=== PATIENT | female | born 1980 | race Caucasian/White ===

== ENCOUNTER 2025-01-30 12:06 | Emergency (ER) | payer MEDICAID, SELFPAY ==
--- OUTSIDE RECORDS SUMMARY | 2024-11-02 07:05 | XMS_ITS | Continuity of Care Document ---
Author Organization [facility] o Address [address] [place] [address] Phone Care Team Providers Care Perinatal Technician Name Role Phone Lucho De Souza MD Unavailable Unavailable Allergies, Adverse Reactions, Alerts Substance Reaction Status Criticality Penicillins HivesHives Active No Information Procedures Procedure Date Office/outpatient visit,day [facility] 2024 Advance Directives Directive Yes / No Effective Date File Name No Information Encounters Encounter Description Practice Location Reason(s) For Visit Diagnoses Date Provider Providers Copied on Encounter Office/outpat ient visit,[facility], [facility] [place], [address] [place], [address], [place] tel:[phone] Orion Bullock Presence of artificial knee joint, bilateral 5 Ap Yepez. [address], [place], [id number] , [place]. tel:[phone] Referring Provider: [place], [address] . tel:[phone] Family History Family Member Type Diagnosis Age At Onset Father Problem (finding) Congenital heart diseas e Mother Problem (finding) Hypertension Father Problem (finding) Family history of Hyper lipidemia Sister Problem (finding) Hypertension Sister Problem (finding) Family history of Osteo arthritis Father Problem (finding) Depression Sister Problem (finding) Family history of Hyper lipidemia Mother Problem (finding) Congenital heart diseas e Father Problem (finding) Diabetes mellitus Father Problem (finding) Hypertension Mother Problem (finding) Family history of Hyper lipidemia Payers Payer name Insurance type Covered green party ID Authoriza tion(s) [facility] Medicaid [id number] Social History Type Description Quantity Date Captured Comments Alcohol Use Details No Caffeine Use Details Unknown Tobacco Use Status Smoking Status Current every day smoker Non-Smoking Tobacco Use Details : No Details Available : No Details Available Sex Female Vital Signs Date / Time: Height Weight BMI Pulse Rate Blood Pressure Temperature Respiratory Rate Body Surface Area Head Circumference Head Circ. Percentile Wt./[place]. Percentile BMI percentile Pulse Ox Inhaled Ox 10:46 AM 65.00 in 129.274 kg (285.00 lbs) 47.4 2 kg/m eter (2) Chief Complaint And Reason For Visit No Information Reason For Referral Reason For Referral No Information History Of Present Illness Encounter Date Complaint History Of Prese nt Illness knee Functional Status Date Functional Assessmen t No Information Instructions Date Instruction Additional Infor mation No Information Assessments Type Assessment Date No Information Patient Care Teams Name Effective Dates (start - stop) Status Members No Information
--- OUTSIDE RECORDS SUMMARY | 2024-11-30 12:30 | XMS_ITS | Encounter Summary ---
Author Organization [place] [address] Care Team Providers Care Uptwister Tender Name Role Phone Kayli Kebede MD Unavailable [phone] Jerome Crolwey MD Primary Care Provider [phone] Reason for Visit * Oncology Medication Prior Authorization (Routine) - Authorization Not Needed Specialty Diagnoses / Procedures Referred By Esperanza zaman Referred To Contact Diagnoses B12 deficiency Iron malabsorption Iron deficiency anemia due to chronic blood loss Procedures [place] INJ, FOSAPREPITANT (TEVA) Farnaz Ricardo APRN [address] [place] [address] Phone: tel: fax: Farnaz Ricardo APRN [address] [place] [address] Phone: tel: fax: Referral ID Status Reason Start Date Expiration Date Visits Requested Visits Authorized [id number] Authorization Not Needed 11/15/2024 11/15/2025 1 10 Encounter Details Date Type Department Care Team (Late st Contact Info) Description 11/30/2024 12:30 PM EDT Hospital Encounter [facility] [address] [place] [address] Excused Social History Tobacco Use Types Packs/Day Years Used Date Smoking Tobacco: Every Day Cigarettes 1 28 Started: 04/02/2007 Smokeless Tobacco: Never Alcohol Use Standard Drinks/Week Comments Not Currently 0 (1 standard drink = 0.6 oz pur e alcohol) few times a year [facility] Utilities Answer Date Recorded In the past 12 months has th e electric, gas, oil, or water company threatened to shut off services in your home? No 11/29/2024 Overall Financial Resource Strain (CARDIA) Answe r Date Recorded How hard is it for you to pa y for the very basics like food, housing, medical care, and heating? Not very hard 11/29/2024 PHQ-2 Answer Date Recorded PHQ-2 Total Score 0 11/29/2024 [facility] - Occupational Stress Questionnaire Answer Date Recorded Do you feel stress - tense, restless, nervous, or anxious, or unable to sleep at night because your mind is troubled all the time - these days? Not at all 11/29/2024 Exercise Vital Sign Answer Date Recorde d On average, how many days pe r week do you engage in moderate to strenuous exercise (like a brisk walk)? 7 days 12/01/2024 On average, how many minutes do you engage in exercise at this level? 90 min 12/01/2024 Hunger Vital Sign Answer Date Recorded Within the past 12 months, y ou worried that your food would run out before you got the money to buy more. Never true 11/30/19 25 Within the past 12 months, t he food you bought just didn't last and you didn't have money to get more. Never true 11/29/2024 [facility] - Transportation Answer Date Re corded In the past 12 months, has l ack of transportation kept you from medical appointments or from getting medications? No 03/21 In the past 12 months, has l ack of transportation kept you from meetings, work, or from getting things needed for daily living? No 03/30/2021 Housing Stability Vital Sign Answer Ap e Recorded In the last 12 months, was t here a time when you were not able to pay the mortgage or rent on time? No 03/30/2021 Number of Places Lived in the Last Year Not on f ile 03/30/2021 In the last 12 months, was t here a time when you did not have a steady place to sleep or slept in a fpc (including now)? No 03/30/2021 [facility] Transportation Answer D ate Recorded In the past 12 months, has l ack of reliable transportation kept you from medical appointments, meetings, work or from getting things needed for daily living? No 11/29/2024 Sexually Active Control Partners Comments Yes Surgical Male tubal Comments No Sex and Gender Information Value Date Recorded Sex Assigned at Not on file Legal Sex Female 8:41 PM EDT Gender Identity Not on file Sexual Orientation Not on file documented as of this encounter Functional Status * Cognitive and Functional Status Question Answer Date of Assessment Author Is the person deaf or does he/she have serious difficulty hearing? No 11/30/2024 4:23 PM Jairo Fajardo RN Is the person blind or does he/she have serious difficulty seeing even when wearing glasses? No 11/30/2024 4:23 PM Jairo Fajardo RN Does this person have seriou s difficulty walking or climbing stairs? No 11/30/2024 4:23 PM Jairo Fajardo RN Does this person have difficulty dressing or bathing? No 11/30/2024 4:23 PM TARYNT Jairo Polanco RN * Is the person deaf or does he/she have serious difficulty hearing? Answer Date of Assessment Author No 11/30/2024 4:23 PM Brina Fajardo RN * Is the person blind or does he/she have serious difficulty seeing even when wearing glasses? Answer Date of Assessment Author No 11/30/2024 4:23 PM Brina Fajardo RN * Does this person have serious difficulty walking or climbing stairs? Answer Date of Assessment Author No 11/30/2024 4:23 PM Brina Fajardo RN * Does this person have difficulty dressing or bathing? Answer Date of Assessment Author No 11/30/2024 4:23 PM Brina Fajardo RN * Because of a physical, mental or emotional condition, does this person have difficulty doing errands alone such as visiting a doctor's office or shopping? Answer Date of Assessment Author No 11/30/2024 4:23 PM Brina Fajardo RN * Suicide Severity Rating Answer Date of Assessment Author No Risk 01/16/2025 6:25 PM EDT Ankita Forman * [place] Suicide Severity Rating Scale (Q shift for moderate and high) Question Answer Date of Assessment Author 1. In the past month, have y ou wished you were or wished you could go to sleep and not wake up? 0 01/16/2025 6:25 PM EDT Nicky Forman 2. In the past month, have y ou actually had any thoughts of killing yourself? (If no, skip to question 6) 0 01/16/2025 6:25 PM EDT Zoraida Forman 6. Have you ever done anythi ng, started to do anything, or prepared to do anything to end your life? 0 01/16/2025 6:25 PM EDT Ari Forman documented as of this encounter Mental Status * Cognitive and Functional Status Question Answer Entry Date Author Because of a physical, menta l or emotional condition, does this person have difficulty doing errands alone such as visiting a doctor's office or shopping? No 11/30/2024 4:23 PM EDT Jairo Polanco RN Because of a physical, menta l or emotional condition, does this person have serious difficulty concentrating, remembering or making decisions? No 11/30/2024 4:23 PM EDT Jairo Polanco RN * Because of a physical, mental or emotional condition, does this person have serious difficulty concentrating, remembering or making decisions? Answer Entry Date Author No 11/30/2024 4:23 PM EDT Brina Polanco RN documented in this encounter Plan of Treatment Upcoming Encounters Date Type Department Care Team (Late st Contact Info) Description 02/02/2025 12:45 PM EDT Office Visit [facility] [address] [place] [address] Manuel Torres MD [address] [place] [id number] 02/15/2025 2:15 PM EDT Appointment [facility] [address] [place] [address] 02/15/2025 2:30 PM EDT Appointment [facility] [address] [place] [address] Farnaz Ricardo, NONA [address] [place] [address] 02/24/2025 8:00 AM EDT Appointment [facility] [address] [place] [address] [address] [place] [address] Rajwinder Craig MD [address] [place] [address] 03/02/2025 9:30 AM EDT Office Visit [facility] [address] [address] Jose Luis Ortiz MD [address] [place] [address] [facility] [id number] 03/08/2025 11:15 AM EDT Office Visit [facility] [address] [place] [address] Lynn Mariano, VENDOR MANAGEMENT CONSULTANT [address] [place] [phone] 03/09/2025 3:30 PM EDT Office Visit [facility] [place] [address] [place] [phone] Rita Cordero MD [address] [place] [address] 10/07/2025 1:10 PM EDT Office Visit [facility] [address] [facility] [address] [place] [phone] Juan Russell MD [address] [facility] [address] [place] [address] documented as of this encounter Goals Goal Patient Goal Type Associated Problems Recent Progress Patient-Stated? Author Blood Pressure < 140/90 Blood Pressure 158/93(2024 3:43 PM EDT) No Mary Kate Lawrence CCMA Maintain a healthy diet, exercise regularly and maintain an ideal body weight General No Mary Kate Lawrence CCMA BMI (Calculated) < 30 General 48.1(01/08/20 12:45 PM EDT) No Jerome Crowley MD Stay Tobacco Free Lifestyle No Mary Kate Lawrence CCMA HEMOGLOBIN A1C < 7.0 Result Component 5.7( 12:58 PM EDT) No Jerome Crowley MD documented as of this encounter Visit Diagnoses Not on filedocumented in this encounter Care Teams Uptwister Tender Relationship Specialty Start Date End Date Jerome Crowley MD [address] [facility] [place] [phone] PCP - General Internal Medicine 08/09/24 Kayli Kebede MD [address] [id number] Consulting Physician Internal Medicine-Nephrology 05/17/22 documented as of this encounter
--- OUTSIDE RECORDS SUMMARY | 2024-12-02 13:45 | XMS_ITS | Encounter Summary ---
Author Organization [facility] Address [address] [facility]. 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 Name Role Phone Kayli Kebede MD Unavailable [phone] Jerome Crowley MD Primary Care Provider [phone] Valarie Leach RN Unavailable Unavailable Reason for Referral * Consultation (Routine) - Pending Review Specialty Diagnoses / Procedures Referred By Contren t Referred To Contact Diabetes Services Diagnoses Type 2 diabetes mellitus with stage 3a chronic kidney disease, without long-term current use of insulin (HCC) Lynn Mariano APRN [address] [address] Phone: tel: fax: Mc Senior MD [address] [place] [phone] Phone: tel: fax: Referral ID Status Reason Start Date Expiration Date V isits Requested Visits Authorized [id number] Pending Review 12/02/2024 12/02/2025 99 99 Reason for Visit * Reason Comments Hypertension Chronic Kidney Disease Vitamin D Deficiency Encounter Details Date Type Department Care Team (Late st Contact Info) Description 12/02/2024 1:45 PM EDT Office Visit [facility] Nephrology [address] [address] [place] [address] Lynn Mariano, CHILD ABUSE WORKER 47 [facility] [address] [place] [address] Stage 3a chronic kidney disease (HCC) (Primary Dx); Vitamin D deficiency; Essential hypertension; Type 2 diabetes mellitus with stage 3a chronic kidney disease, without long-term current use of insulin (HCC) Social History Tobacco Use Types Packs/Day Years Used Date Smoking Tobacco: Every Day Cigarettes 1 17.8 Started: 04/02/2007 Smokeless Tobacco: Never Tobacco Cessation:Ready to Q uit: Not Asked; Counseling Given: Not Answered Alcohol Use Standard Drinks/Week Comments Not Currently 0 (1 standard drink = 0.6 oz pur e alcohol) few times a year [facility] [email or web address] Answer Date Recorded In the past 12 months has [employer], gas, oil, or water [employer] threatened to shut off services in your home? No 11/29/2024 Overall Financial Resource Strain (CARDIA) Answe r Date Recorded How hard is it for you to pa y for the very basics like food, housing, medical care, and heating? Not very hard 11/29/2024 PHQ-2 Answer Date Recorded PHQ-2 Total Score 0 11/29/2024 [facility] [place] of Occupat ional Health - Occupational Stress [...] place to sleep or slept in a care home (including now)? No 03/30[facility]2021 [facility] IP Transportation Answer D ate Recorded In [...] on file documented as of this encounter Last Filed Vital Signs Vital Sign Reading Time Taken Comments Blood Pressure 132/78 12/02/2024 1:56 PM EDT Pulse - - Temperature 36.8 C (98.2 F) 12/02/2024 1:56 PM EDT Respiratory Rate - - Oxygen Saturation - - Inhaled Oxygen Concentration - - Weight 128.8 kg (284 lb) 12/02/2024 1:56 PM EDT Height - - Body Mass Index 47.26 11/29/2024 2:58 PM EDT documented in this encounter Functional Status * Is the person deaf or does he/she have serious difficulty hearing? Answer Date of Assessment Author No 11/30/2024 4:23 PM EDT Brina Polanco RN * Is the person blind or does he/she have serious difficulty seeing even when wearing glasses? Answer Date of Assessment Author No 11/30/2024 4:23 PM EDT Brina Polanco RN * Does this person have serious difficulty walking or climbing stairs? Answer Date of Assessment Author No 11/30/2024 4:23 PM EDT Brina Polanco RN * Does this person have difficulty dressing or bathing? Answer Date of Assessment Author No 11/30/2024 4:23 PM EDT Brina Polanco RN * Because of a physical, mental or emotional condition, does this person have difficulty doing errands alone such as visiting a doctor's office or shopping? Answer Date of Assessment Author No 11/30/2024 4:23 PM EDT Brina Polanco RN documented as of this encounter Mental Status * Because of a physical, mental or emotional condition, does this person have serious difficulty concentrating, remembering or making decisions? Answer Entry Date Author No 11/30/2024 4:23 PM EDT Brina Polanco RN documented in this encounter Progress Notes * García, Lynn Denise, CHILD ABUSE WORKER - 12/02/2024 1:45 PM EDT Images from the original note were not included. Interval History Tegan Wolf is a 44 y.o. female with Hx of CKD 3a, T2DM, HTN, HLD, Obesity ( Lost 70 lbs ), OA,+ smoker ( 1PPD). Patient Report Tegan is scheduled for a follow up appointment -she was last seen on 09/02/2024. Tegan is not doing okay. She is feeling woozy and her head feels weird and off. She reports she has pressure in her eyes. and she feels like she is going to pass out. NEG for CP, Le edema, flank pain,V/D Reports LBP and nausea SOA is chronic in nature and unchanged BP checked at 158/108 -->148/98 -->130/90-->132/78 Wt checked at 276 -->277-->284#s FBS = 94 Admit Date: 11/29/2024 Discharge Date: 11/30/2024 Acute chest pain Started on Ranexa EF 55% CT Coronary Angio: evidence of coronary artery disease but there is no conclusive evidence of flow significant high-grade stenosis with maximum stenosis identified in the LAD 40-50% and in the proximal RCA also 40-50%. Seeing Dr Ortiz next week Assessment & Plan 1.CKD Stage III-a : Cr at present 1.30-->1.13. GFR 47-->60 ml/min. ( Underlying condition: Nephrosclerosis ) It appears patient has nephrosclerosis from HTN, vascular disease. She has longstanding history of tobacco use. In addition also has type II DM with mild proteinuria in the past. She appears to have atrophic left kidney. No prior Doppler studies had been done. Her blood pressures have been persistently high. - Patient has left renal atrophy on renal ultrasound done in 2022 however, prior imaging studies showed both kidneys being smaller but equal size. She had persistently high blood pressures. She has history of tobacco use and very likely to has atherosclerotic renal disease. Renal artery doppler: The right kidney measures 11.7 cm X 4.7 cm X 6.2 cm and appears normal. Incidental note of a previously document right adrenal mass measuring 3.7 cm X 3.0 cm X 3.2 cm. * No sonographic evidence of left renal aortic stenosis or aneurysm. The left renal artery diameterappears small and tortuous. * The left renal kidney measures 7.8 cm X 3.9 cm X 3.7 cm and is reduced in size. * Spectral Doppler flow profile and velocities in the proximal celiac and superior mesenteric arteries are consistent with normal hemodynamics. - UPC 0.04 Plan: - Continue Olmesartan 40 mg once daily as of 06/08/2024 and Carvedilol 25 mg twice daily. Has Clonidine PRN but has not needed. BP seems to be better controlled now. - was prescribed lasix 40 mg daily by her PCP -- reports she weighs at home - has not lost any weight at all - swelling has resolved. No longer taking. Ok for PRN. -Continue with GLP-1 agonist, Ozempic. No objection to using SGLT2 inhibitors also.- A1c 5.5. Endocrinology referral. Having issues of hypoglycemia. -Patient has high propensity to drink sodas and other caffeinated drinks. We discussed the importance of cutting down caffeine as well as limiting her sodium intake. Changed to Sprite. -Discussed risk factor reduction, low Sodium diet close to 2 gm per day, DASH diet, avoid carbonated drinks and animal proteins. Exercise as tolerated. -Weight management-as below. -continue to monitor BP and Weights at home. Report in out of range. -Avoid any NSAIDs. If IV contrast is needed, will need pre-treatment with fluids etc. - Hematology referral for chronic leukocytosis. Son has a blood cancer but unsure which one per patient. 2. Adrenal mass, MRI noted. Stable right adrenal adenoma. Normal serum aldosterone. 3. PAPO on CPAP. 4. Type II DM with complications, followed by primary team. Renee. Humalog SSI. Referral to endocrinology. 5. Severe hypertension, as above. Coreg,Clonidine, Olmesartan, Lasix, Metolazone 6. Tobacco use, strongly counseled patient to stop smoking. She would like Chantix but will clear with cardiology first. 7. Obesity, reports having lost 70 pounds in the last 1 year. Educated on continuing to lose weightwith diet and exercise. She is also on GLP-1 agonist. 8. Bone mineral disease, PTH 36.9 -->42.20, vitamin D 35.6-->43.0 9. Hyperlipidemia, on statins, goal LDL 70. Increased Atorvastatin to 40 mg 10. Acute chest pain Started on Ranexa in ED Increased Atorvastatin to 40 mg Coreg EF 55% CT Coronary Angio: evidence of coronary artery disease but there is no conclusive evidence of flow significant high-grade stenosis with maximum stenosis identified in the LAD 40-50% and in the proximal RCA also 40-50%. Seeing Dr Ortiz next week Past Medical History: Diagnosis Date Abdominal pain Abnormal Pap smear of cervix Allergy seasonal Anemia Anxiety Arthritis Asthma Back pain CAD (coronary artery disease) CHF (congestive heart failure) ([facility]) COPD (chronic obstructive pulmonary disease) ([facility]) Coronary artery disease Depression Essential hypertension 06/22/2015 Fibromyalgia GERD (gastroesophageal reflux disease) Sleep apnea Stage 3a chronic kidney disease ([facility]) 04/24/2022 Type 2 diabetes mellitus with stage 3a chronic kidney disease, without long-term current use of insulin ([facility]) 08/09/2022 Past Surgical History: Past Surgical History: Procedure Laterality Date ABDOMEN SURGERY ARTHROCENTESIS CHOLECYSTECTOMY CYST REMOVAL from neck JOINT REPLACEMENT 09-01-23 and 10-12-24 Tkr KNEE SURGERY NECK SURGERY mass removed PELVIC LAPAROSCOPY davinci robotic TONSILLECTOMY TUBAL LIGATION Allergies: Allergies Allergen Reactions Macrolide Antibiotics Rash Penicillins Rash Medications: Current Outpatient Medications Medication acetaminophen 325 mg Oral Tab albuterol (PROAIR HFA) 90 mcg/actuation Inhl HFA Aerosol Inhaler albuterol (PROVENTIL) 2.5 mg /3 mL (0.083 %) Inhl Solution for Nebulization aspirin 81 mg Oral Tablet, Chewable atorvastatin (LIPITOR) 20 mg Oral Tablet Blood-Glucose Meter [facility] Kit Blood-Glucose Meter [facility] lvhravvxhe-afftrigy-cfnzlnzbgc (BREZTRI AEROSPHERE) 160-9-4.8 mcg/actuation Inhl HFA Aerosol Inhaler busPIRone (BUSPAR) 10 mg Oral Tablet carvediloL (COREG) 25 mg Oral Tablet cloNIDine (CATAPRES) 0.1 mg Oral Tablet diclofenac (VOLTAREN) 1 % Top Gel docusate sodium (COLACE) 100 mg Oral Capsule DULoxetine (CYMBALTA) 60 mg Oral Capsule, Delayed Release(E.C.) ergocalciferol (DRISDOL) 1,250 mcg (50,000 unit) Oral Capsule FARXIGA 10 mg Oral Tablet ferrous sulfate 325 mg (65 mg iron) Oral Tablet, Delayed Release (E.C.) fluconazole (DIFLUCAN) 100 mg Oral Tablet fluticasone propion-salmeteroL (ADVAIR DISKUS) 500-50 mcg/dose Inhl Disk with Device fluticasone propionate (FLONASE) 50 mcg/actuation Nasl [place], Suspension fUROsemide (LASIX) 40 mg Oral Tablet gabapentin (NEURONTIN) 600 mg Oral Tablet hydrOXYzine (ATARAX) 25 mg Oral Tablet insulin lispro (HUMALOG) 100 unit/mL SubQ Insulin Pen Insulin [place], Disposable, (LIA PEN NEEDLE) 32 gauge x 5/32 [facility] Needle lancets (ONETOUCH DELICA PLUS LANCET) 33 gauge [facility] Lancets [facility] montelukast (SINGULAIR) 10 mg Oral Tablet Nebulizer Accessories (ALL FLOW 4000 KIT) [facility] nitroGLYCERIN (NITROSTAT) 0.4 mg SL Tablet, Sublingual olmesartan (BENICAR) 40 mg Oral Tablet omeprazole (PRILOSEC) 40 mg Oral Capsule, Delayed Release(E.C.) ondansetron (ZOFRAN-ODT) 4 mg Oral Tablet, Rapid Dissolve ranolazine (RANEXA) 500 mg Oral Tablet Sustained Release 12 hr semaglutide 2 mg/dose (8 mg/3 mL) SubQ Pen Injector tiZANidine (ZANAFLEX) 4 mg Oral Tablet traMADoL (ULTRAM) 50 mg Oral Tablet No current facility-administered medications for this visit. Social History: Social History Tobacco Use Smoking status: Every Day Current packs/day: 1.00 Average packs/day: 1 pack/day for 17.7 years (17.7 ttl pk-yrs) Types: Cigarettes Start date: 04/02/2007 Smokeless tobacco: Never Vaping Use Vaping status: Never Used Substance Use Topics Alcohol use: Not Currently Comment: few times a year Drug use: No Family History: Family History Problem Relation Age of Onset Hypertension Mother Heart Disease Mother 53 Early Mother High Blood Pressure Mother Miscarriages / Stillbirths Mother Hypertension Father Asthma Father Heart Disease Father High Blood Pressure Father Mental Illness Father Depression Father Substance Abuse Father from an overdose of heroin Colon Cancer Father Cancer Father Diabetes Sister No Known Problems Daughter Breast Cancer Paternal Aunt Lung Cancer Paternal Grandmother Heart Disease Paternal Grandfather No Known Problems Son Mental Illness Sister Breast Cancer Paternal Aunt Pertinent Labs: CBC: Lab Results Component Value Date WBC 10.1 11/30/2024 WBC 13.3 (H) 10/02/2016 RBC 4.65 11/30/2024 RBC 4.29 10/02/2016 HGB 14.7 11/30/2024 HGB 14.0 10/02/2016 HCT 46.2 (H) 11/30/2024 HCT 42.1 10/02/2016 MCV 99.4 11/30/2024 MCV 98.1 10/02/2016 MCHC 31.8 11/30/2024 MCHC 33.3 10/02/2016 RDW 13.6 11/30/2024 RDW 13.9 10/02/2016 PLT 189 11/30/2024 PLT 208 10/02/2016 MPV 11.5 11/30/2024 MPV 10.1 10/02/2016 BMP: Lab Results Component Value Date NA 140 11/30/2024 NA 140 04/18/2023 K 4.5 11/30/2024 K 4.3 04/18/2023 CL 106 11/30/2024 CL 106 04/18/2023 CO2 26 11/30/2024 CO2 22 04/18/2023 BUN 11 11/30/2024 BUN 15 10/02/2016 CREATININE 1.13 11/30/2024 CREATININE 1.3 (A) 04/18/2023 CALCIUM 8.9 11/30/2024 CALCIUM 9.10 04/18/2023 GFRAFRAM 95 03/07/2021 GFRAFRAM >60 10/02/2016 GFRNONAFRAM 82 03/07/2021 GFRNONAFRAM >60 10/02/2016 GLU 111 (H) 11/30/2024 GLU 87 10/02/2016 Review of Systems: 12 point ROS done and negative except listed above Physical Exam: Patient is Alert and oriented x3 HEENT, PEERL Chest clear to auscultation bilaterally S1S2 normal Abdomen is soft and NT Ext: Edema no Patient Active Problem List Diagnosis Degenerative disc disease, lumbar History of asthma Essential hypertension Migraine without aura and without status migrainosus, not intractable Spondylolisthesis PAPO (obstructive sleep apnea) Family history of colon cancer Moderate persistent asthma without complication Stage 3a chronic kidney disease (HCC) Iron deficiency Type 2 diabetes mellitus with stage 3a chronic kidney disease, without long-term current use of insulin (HCC) Coronary artery disease involving [place] coronary artery of [place] heart with angina pectoris Primary osteoarthritis of right knee History of bilateral knee replacement Otalgia, bilateral Abnormal auditory perception of both ears Sensorineural hearing loss, bilateral Iron deficiency anemia due to chronic blood loss Iron malabsorption B12 deficiency Acute chest pain Dizziness Generalized anxiety disorder Return to CKD Clinic in 3 months with labs. Labs to be drawn few days prior to the visit. Thank You for letting me participate in your patient care. Please do not hesitate to call me if anyquestions ( office phone [phone] ). Lynn Mariano APRN Nephrology Seen in collaboration with Dr. Marycruz Britt MD documented in this encounter Miscellaneous Notes * Patient Instructions - Yoko Apple RMA - 12/02/2024 1:45 PM EDT 2 Gram Sodium Diet, Low Sodium A 2 gram sodium diet restricts the amount of sodium in the diet to no more than 2 grams or 2000 milligrams (mg) daily. Limiting the amount of sodium is often used to help lower blood pressure, and important for heart failure, liver and kidney problems. Many foods contain sodium for flavor and sometimes as a preservative. So when the amount of sodium in a diet needs to be low, it's important to know what to look for when choosing foods and drinks. It may take some time to get used to making somedietary changes. The following includes some information and guidelines to help make it easier for you to adapt to a lower sodium diet. QUICK TIPS ?? Do not add salt to food. ?? Avoid convenience items and fast food which are often high in sodium. ?? Choose unsalted snack foods. ?? Buy lower sodium products often labeled as lower sodium or no salt added . ?? Check food labels to learn how much sodium is in one serving. ?? When eating at a restaurant, ask that your food be prepared with less salt, or none if possible. READING FOOD LABELS FOR SODIUM INFORMATION The Nutrition Facts panel is a good place to find how much sodium is in foods. Look for products with no more than 500-600 mg/meal and no more than 150 mg salt/serving. Remember that 2 g = 2000 mg. The food label may also list foods as: ?? Sodium-free: Less than five mg in a serving. ?? Very low sodium: 35 mg or less in a serving. ?? Low-sodium: 140 mg or less in a serving. ?? Light in sodium: 50 percent less sodium in a serving. ?? For example, if a food that usually has 300 mg of sodium is changed to become light in sodium, it will have 150 mg of sodium. ?? Reduced sodium: 25 percent less sodium in a serving. For example, if a food that usually has 400mg of sodium is changed to reduced sodium; it will have 300 mg of sodium. CHOOSING FOODS AVOID CHOOSE Grains: Salted crackers and snack items Some cereals, including instant hot cereals Bread stuffing and biscuit mixes. Seasoned rice or pasta mixes Grains: Unsalted snack items Low sodium cereals, oats, puffed wheat and rice, shredded wheat Mexican muffins and bread Pasta Meats: Salted, canned, smoked, spiced, pickled meats including fish and poultry. [place], ham, sausage, cold cuts, hot dogs, anchovies. Meats: Low sodium canned tuna and salmon. Fresh or frozen meat, poultry and fish. Dairy: Processed cheese and spreads Cottage cheese Buttermilk and condensed milk Regular cheese Dairy: Milk Low sodium cottage cheese Yogurt Sour cream Low sodium cheese Fruits and Vegetables: Regular canned vegetables Regular canned tomato sauce and paste Frozen vegetables in sauces Olives Pickles Relishes Sauerkraut Fruits and Vegetables: Low sodium canned vegetables Low sodium tomato sauce and paste Frozen or fresh vegetables Fresh and frozen fruit Condiments: Canned and packaged gravies Worcestershire sauce Tartar sauce Barbecue sauce Soy sauce Steak sauce Ketchup Onion, garlic and table salt Meat flavorings and tenderizers Condiments: Fresh and dried herbs and spices. Low sodium varieties of mustard and ketchup. Lemon juice Tabasco sauce Horseradish SAMPLE 2 GRAM SODIUM MEAL PLAN Meal Foods Sodium (mg) Breakfast 1 cup low fat milk 2 slices whole wheat toast 1 Tablespoon heart healthy tub margarine 1 hardboiled egg 1 small orange 143 270 153 139 0 Lunch 1 cup raw carrots ?? cup hummus 1 cup low fat milk ?? cup red grapes 1 whole wheat tiarra bread 76 298 143 2 356 Dinner 1 cup whole wheat pasta 1 cup low sodium tomato sauce 3 oz lean ground beef 1 small side salad (1 cup raw spinach leaves, ?? cup cucumber, ?? cup yellow lainez pepper) with 1 tsp olive oil and 1 tsp red wine vinegar 2 73 57 25 Snack 1 container low fat vanilla yogurt 3 radha cracker squares 107 127 Nutrient Analysis Calories: 2032 Protein: 77g Carbohydrate: 282g Fat: 72g Sodium: 1971mg documented in this encounter Plan of Treatment Upcoming Encounters Date Type Department Care Team (Late st Contact Info) Description 02/02/2025 12:45 PM EDT Office Visit [facility] [address] [place] [address] Manuel Torers MD [address] [place] [address] 02/15/2025 2:15 PM EDT Appointment [facility] Cancer Care [facility] [address] [place] [address] 02/15/2025 2:30 PM EDT Appointment [facility] [address] [place] [address] Farnaz Ricardo, CHILD ABUSE WORKER [address] [facility] [address] 02/24/2025 8:00 AM EDT Appointment [facility] [address] [place] [address] [address] [place] [address] Rajwinder Craig MD [address] [place] [address] 03/02/2025 9:30 AM EDT Office Visit [facility] [address] [address] Jose Luis Ortiz MD [address] [place] [address] [facility] [place] [id number] 03/08/2025 11:15 AM EDT Office Visit [facility] Nephrology [place] [address] [place] [address] Lynn Mariano, CHILD ABUSE WORKER [address] [place] [address] 03/09/2025 3:30 PM EDT Office Visit [facility] [place] [address] [facility] [address] [place] [id number] Rita Cordero MD [address] [place] [address] 10/07/2025 1:10 PM EDT Office Visit [facility] [address] [facility] [address] [place] [address] Juan Russell MD [address] [facility] [address] [place] [address] Scheduled Referrals Name Type Priority Associated Diagnoses Order Schedule AMB REFERRAL TO ENDOCRINOLOGY Outpatient Referral Routine Type 2 diabetes mellitus with stage 3a chronic kidney disease, without long-term current use of insulin (HCC) Ordered: 12/02/2024 documented as of this encounter Goals Goal [...] Crowley MD documented as of this encounter Results * (ABNORMAL) URINALYSIS (12/21/2024 2:26 PM EDT) UA Color Yellow 12/21/2024 7:50 PM EDT [facility] UA Appear Clear Clear 12/21/2024 7:50 PM EDT [facility] UA Glucose 4+ (>1000mg/dL) (A) Negative mg/dL 12/21/2024 7:50 PM EDT [facility] UA Ketones Negative Negative mg/dL 12/21/2024 7:50 PM EDT [facility]A Blood Negative Negative 12/21/2024 7:50 PM EDT [facility] UA pH 6.0 5.0 - 8.0 pH 12/21/2024 7:50 PM EDT [facility]A Protein Negative Negative mg/dL 12/21/2024 7:50 PM EDT [facility]A Urobilinogen Normal <=1 mg/dL 7:50 PM EDT [facility] Bili Negative Negative 12/21/2024 7:50 PM EDT [facility] UA Nitrite Negative Negative 12/21/2024 7:50 PM EDT [facility] UA Leuk Est Negative Negative 12/21/2024 7:50 PM EDT [facility] UA Spec Grav 1.028 1.001 - 1.035 no units 12/21/2024 7:50 PM EDT [facility] Comment:Reference range ely d for random specimens only. Urine STRUCTURE OF URINARY TRACT PROPER / Unknown 12/21/2024 2:26 PM EDT 12/21/2024 2:33 PM EDT Lynn Mariano CHILD ABUSE WORKER URINE ORDERABLES Final Re sult Performing Organization Address [facility]/ZIP Co de Phone Number [facility], [address] , [place] [address] * PROTEIN/CREATININE RATIO URINE (12/21/2024 2:26 PM EDT) Urine Protein 12.2 mg/dL 12/21/2024 8:56 PM EDT [facility] Urine Creatinine 135.0 mg/dL 12/21/2024 8:56 PM EDT [facility] Ur Protein/Creat 0.09 mg/mg 12/21/2024 8:56 PM EDT [facility] Urine STRUCTURE OF URINARY TRACT PROPER / Unknown 12/21/2024 2:26 PM EDT 12/21/2024 2:33 PM EDT Lynn Mariano CHILD ABUSE WORKER URINE ORDERABLES Final Re sult Performing Organization Address [facility]/ZIP Co de Phone Number [facility] [address] [place] [address] [facility] [address] [place] [id number] * PARATHYROID HORMONE INTACT (12/21/2024 1:38 PM EDT) PTH Intact 27.20 15.00 - 65.00 pg/mL 12/21/2024 9:03 PM EDT [facility] Blood VENOUS BLOOD / Unknown Venipuncture / Unknown 12/21/2024 1:38 PM EDT 12/21/2024 1:44 PM EDT [facility] - 12/21/2024 9:03 PM EDT Intact PTH Calcium Interpretation ------- 15 - 65 8.6 - 10.2 Normal > 65 > 10.2 Primary Hyperparathyroidism < 20 > 10.2 Non-Parathyroid hypercalcemia < 15 < 8.6 Hypoparathyroidism Consider the above as guidelines only. PTH results should be interpreted in conjunction with the total or ionized calcium level. The finding of a persistently high-normal calcium accompanied by a high-normal PTH (or a low-normal calcium accompanied by a low-normal PTH) warrants further investigation. Although the PTH may itself be within normal limits, it may be inappropriately high (or low) relative to the circulating calcium level. Ingestion of julio doses of biotin (>5 mg/day) taken within 8 hours of drawing blood sample can interfere with this immunoassay test. us Lynn Mariano CHILD ABUSE WORKER CHEMISTRY ORDERABLES Elizabeth castano Result [facility] [employer] [address] , [place] [address] * VITAMIN D, 1,25-DIHYDROXY -REF LAB (12/21/2024 1:38 PM EDT) Pathologist [facility] Vit D 1,25 53.0 19.9 - 79.3 pg/mL 12/23/2024 11:27 AM EDT [employer] [employer] Comment: INTERPRETIVE INFORMATION: Vitamin D, 1,25-Dihydroxy This test is primarily indicated during patient evaluation for hypercalcemia and renal failure. A normal result does not rule out Vitamin D deficiency. The recommended test for diagnosing Vitamin D deficiency is Vitamin D 25-hydroxy. Performed By: [facility] [address] [place] [id number] [employer] Inside: Patric Aranda MD, PhD CLIA Number: [id number] Blood VENOUS BLOOD / Unknown Venipuncture / Unknown 12/21/2024 1:38 PM EDT 12/21/2024 1:44 PM EDT Lynn Mariano APRN CHEMISTRY ORDERABLES Elizabeth l Result [employer], [email or web address] [address] [place] [address] * VITAMIN D 25 HYDROXY (12/21/2024 1:38 PM EDT) Pathologist [facility] Vit D 25 [place] 43.9 30.0 - 150.0 ng/mL 12/21/2024 10:12 PM EDT [facility] [employer] Comment: Preferred: >= 30 ng/mL Insufficient: 21-29 ng/mL Deficient <= 20 ng/mL Possible Toxicity: >150 ng/mL Samples should not be taken from patients receiving therapy with high biotin doses (i.e. > 5 mg/day) until at least 8 hours following the last biotin administration. Blood VENOUS BLOOD / Unknown Venipuncture / Unknown 12/21/2024 1:38 PM EDT 12/21/2024 1:44 PM EDT Lynn Mariano APRN CHEMISTRY ORDERABLES Elizabeth l Result Performing Organization Address City/[facility]/ZIP Co de Phone Number [facility] [employer] [address] [facility] , [place] [address] * MAGNESIUM LEVEL (12/21/2024 1:38 PM EDT) [facility] Magnesium 2.0 1.6 - 2.4 mg/dL 12/21/2024 2:00 PM EDT [facility] Blood VENOUS BLOOD / Unknown Venipuncture / Unknown 12/21/2024 1:38 PM EDT 12/21/2024 1:44 PM EDT Lynn Mariano APRN CHEMISTRY ORDERABLES Elizabeth l Result [facility] [address] [place] [address] * PHOSPHORUS LEVEL (12/21/2024 1:38 PM EDT) Phosphorus 4.4 2.5 - 4.5 mg/dL 12/21/2024 2:00 PM EDT [facility] Blood VENOUS BLOOD / Unknown Venipuncture / Unknown 12/21/2024 1:38 PM EDT 12/21/2024 1:44 PM EDT Lynn Mariano CHILD ABUSE WORKER CHEMISTRY ORDERABLES Elizabeth l Result [facility] [address] [place] [address] * URIC ACID (12/21/2024 1:38 PM EDT) Uric Acid 4.2 2.4 - 5.7 mg/dL 12/21/2024 2:00 PM EDT [facility] Blood VENOUS BLOOD / Unknown Venipuncture / Unknown 12/21/2024 1:38 PM EDT 12/21/2024 1:44 PM EDT Lynn Mariano CHILD ABUSE WORKER CHEMISTRY ORDERABLES Elizabeth l Result [facility] [address] [place] [address] * (ABNORMAL) CBC (12/21/2024 1:38 PM EDT) WBC 16.4(H) 3.7 - 10.3 x10(3)/mcL 12/21/2024 1:48 PM EDT [facility] RBC 4.81 3.90 - 5.20 x10(6)/mcL 12/21/2024 1:48 PM EDT [facility] Hgb 15.0 11.2 - 15.7 g/dL 12/21/2024 1:48 PM EDT [facility] Hct 47.6(H) 34.0 - 45.0 % 12/21/2024 1:48 PM EDT [facility] MCV 99.0 80.0 - 100.0 fL 12/21/2024 1:48 PM EDT [facility] MCH 31.2 26.0 - 34.0 pg 12/21/2024 1:48 PM EDT [facility] MCHC 31.5 30.7 - 35.5 g/dL 12/21/2024 1:48 PM EDT [facility] RDW 14.3 <=14.9 % 12/21/2024 1:48 PM EDT [facility] Platelet 234 155 - 369 x10(3)/mcL 12/21/2024 1:48 PM EDT [facility] MPV 10.7 8.8 - 12.5 fL 12/21/2024 1:48 PM EDT [facility] Blood VENOUS BLOOD / Unknown Venipuncture / Unknown 12/21/2024 1:38 PM EDT 12/21/2024 1:44 PM EDT us Lynn Mariano CHILD ABUSE WORKER HEMATOLOGY ORDERABLES Fin al Result [facility] [address] [place] [address] * (ABNORMAL) BASIC METABOLIC PANEL (12/21/2024 1:38 PM EDT) Sodium 139 136 - 145 mmol/L 12/21/2024 2:00 PM EDT [facility] Potassium 3.8 3.5 - 5.0 mmol/L 12/21/2024 2:00 PM EDT [facility] Chloride 100 98 - 107 mmol/L 12/21/2024 2:00 PM EDT [facility] Total CO2 27 22 - 29 mmol/L 12/21/2024 2:00 PM EDT [facility] Anion Gap 12 7 - 16 mmol/L 12/21/2024 2:00 PM EDT [facility] Calcium 9.0 8.6 - 10.4 mg/dL 12/21/2024 2:00 PM EDT [facility] Glucose Lvl 112(H) 70 - 99 mg/dL 12/21/2024 2:00 PM EDT [facility] BUN 18 6 - 20 mg/dL 12/21/2024 2:00 PM EDT [facility] Creatinine 1.25 0.51 - 1.30 mg/dL 12/21/2024 2:00 PM EDT [facility] eGFR (CKD-EPIcr 2020) 54(L) >=60 mL/min/1.7 3 m2 12/21/2024 2:00 PM EDT [facility] Comment:Estimated GFR was ca lculated using the CKD-EPIcr (2020) equation refit without race. The equation is recommended by the [employer] - [employer] Neph[employer] Task Force. Blood VENOUS BLOOD / Unknown Venipuncture / Unknown 12/21/2024 1:38 PM EDT 12/21/2024 1:44 PM EDT us Lynn Mariano CHILD ABUSE WORKER CHEMISTRY ORDERABLES Elizabeth l Result [facility] [address] [place] [address] documented in this encounter Visit Diagnoses Diagnosis Stage 3a chronic kidney disease (HCC)- Primary Vitamin D deficiency Unspecified vitamin D deficiency Essential hypertension Unspecified essential hypertension Type 2 diabetes mellitus with stage 3a chronic kidney disease, without long-term current use of insulin (HCC) documented in this encounter Care Teams Fruit Harvester Machine Operator Relationship Specialty Start Date End Date Jerome Crowley MD [facility] [phone] PCP - General Internal Medicine 08/09/24 Kayli Kebede MD [address] [address] Consulting Physician Internal Medicine-Nephrology 05/17/22 Valarie Leach, RN [employer] Supervisor Registered Nurse 12/01/24 documented as of this encounter
--- OUTSIDE RECORDS SUMMARY | 2024-12-07 09:30 | XMS_ITS | Encounter Summary ---
Author Organization [place] [address] Care Team Providers Care Barrel Assembler Helper Name Role Phone Kayli Kebede MD Unavailable [phone] Jerome Crowley MD Primary Care Provider [phone] Valarie Leach RN Unavailable Unavailable Reason for Referral * Consultation (Routine) - Authorization Not Needed Specialty Diagnoses / Procedures Referred By Esperanza zaman Referred To Contact Gastroenterology Diagnoses Essential hypertension SOB (shortness of breath) Chest pain, unspecified type Procedures [place] OFFICE/OUTPATIENT NEW MODERATE MDM 45 MINUTES Khadar Santillan MD [address] [place] [address] Phone: tel: fax: [facility] [address] [place] [address] Phone: tel: fax: Referral ID Status Reason Start Date Expiration Date Visits Requested Visits Authorized [id number] Authorization Not Needed Specialty Services Required 06/09/2026 99 99 Question Answer Is this referral for colon cancer screening? No Provider Options First Available Reason for Visit * Reason Comments Hospital Follow Up chest pain Encounter Details Date Type Department Care Team (Late st Contact Info) Description 12/07/2024 9:30 AM EDT [place] [address] Khadar Santillan MD [address] [place] [address] [place] [address] Chest pain, unspecified type (Primary Dx); Essential hypertension; SOB (shortness of breath) Social History Tobacco Use Types Packs/Day Years Used Date Smoking Tobacco: Every Day Cigarettes 1 17.8 Started: 04/02/2007 Smokeless Tobacco: Never Alcohol Use Standard Drinks/Week Comments Not Currently 0 (1 standard drink = 0.6 oz pur e alcohol) few times a year [facility] Utilities Answer Date Recorded In the past [...] Date Recorded PHQ-2 Total Score 0 11/29/2024 [facility] of Occupat ional Health - Occupational Stress [...] place to sleep or slept in a detention (including now)? No 03/30/2021 [facility] IP Transportation Answer D ate Recorded In [...] Sign Reading Time Taken Comments Blood Pressure - - Pulse 86 12/07/2024 9:27 AM EDT Temperature - - Respiratory Rate - - Oxygen Saturation 95% 12/07/2024 9:27 AM EDT Inhaled Oxygen Concentration - - Weight 131.1 kg (289 lb) 12/07/2024 9:27 AM EDT Height 165.1 cm (5' 5 ) 12/07/2024 9:27 AM EDT Body Mass Index 48.09 12/07/2024 9:27 AM EDT documented in this encounter Functional Status [...] Brina Polanco RN documented in this encounter Ordered Prescriptions Prescription Sig Dispense Quantity Refills Last Filled Start Date End Date hydrALAZINE (APRESOLINE) 25 mg Oral Tablet Take 1 Tablet by mouth 2 times daily. 60 Tablet 5 12/07/2024 documented in this encounter Progress Notes * Khadar Santillan MD - 12/07/2024 9:30 AM EDT PATIENT: Tegan Wolf, :1980, , CSN: [id number] PCP: Jerome Crowley MD Date:12/07/2024 at 9:48 AM . HPI: Patient is a 44 y.o. female patient seen in resource clinic after hospital discharge. Patient has a past medical history significant for atherosclerotic heart disease hyperlipidemia hypertension. Patient still having chest pain. All the time. She does also have problems with nausea and vomiting which is also chronic. She does report tobacco use caffeine use swelling in her legs some weight change depressed syndrome indigestion high blood pressure blurred vision arthritis headaches diabetesleg pain kidney problems bruising anemia joint pain back pain and hearing loss . ROS ROS All other review of systems was negative or noncontributory, please see review of systems sheet Physical Exam Pulse 86 Ht 5' 5 (1.651 m) Wt 289 lb (131.1 kg) SpO2 95% BMI 48.09 kg/m?? , General: The patient appears in no apparent distress. HEENT: patient is normocephalic and atraumatic. The eyes are anicteric eyelids and conjunctiva werenormal. Mucous membranes moist Neck: Supple no JVD or bruits. Skin: Warm and dry Heart: Regular rate and rhythm no S3 or S4 heard. No murmurs rubs. PMI diffuse Lungs: Clear.breathing easy Back: no significant kyphosis Abdomen: Positive bowel sounds soft nontender. Extremities: no cyanosis clubbing or edema Neuro: Patient alert and oriented Mood: Fine Motor tone: Moving all extremities Pulses: Radial 2+ posterior tibialis 1+ Assessment and Plan Labs, Telemetry, ECG, VS and Medication reviewed 1. Atherosclerotic heart disease. Moderate disease by recent CT angiogram. Patient having some ACS typical chest pain. Patient also has GI symptoms. Will send patient to GI for further evaluation. Continue current cardiac medicines 2. Hypertension. Borderline. Patient on multiple medicines. Will add hydralazine 25 twice daily. 3. Hyperlipidemia. Continue Lipitor 20 mg a day. 4. Tobacco use encouraged to stop 5. Chronic swelling. Limit salt limit fluids keep legs elevated Last CBC Chem-7 CT angiogram reviewed by me. Follow-up in 3 months with primary senior oracle soa developer . Last echo No results found for this or any previous visit. Results for orders placed during the hospital encounter of 11/29/24 EC ECHOCARDIOGRAM COMPLETE W DOPPLER AND COLOR FLOW MAPPING Impression Conclusions * Left ventricular chamber dimension is normal. * Left ventricular function is normal with an estimated ejection fraction of 55%. No results found for this or any previous visit. Last vascular study No results found for this or any previous visit. No valid procedures specified. Last stress No results found for this or any previous visit. No results found for this or any previous visit. Last Holter No results found for this or any previous visit. Last LHC No results found for this or any previous visit. Vitals: Vitals: 12/07/24 0927 Pulse: 86 SpO2: 95% Weight: 289 lb (131.1 kg) Height: 5' 5 (1.651 m) 24HR INTAKE/OUTPUT: @IOBRIEF@ Lab Results Component Value Date WBC 10.1 11/30/2024 HGB 14.7 11/30/2024 HCT 46.2 (H) 11/30/2024 MCV 99.4 11/30/2024 PLT 189 11/30/2024 Lab Results Component Value Date CREATININE 1.13 11/30/2024 BUN 11 11/30/2024 NA 140 11/30/2024 K 4.5 11/30/2024 CL 106 11/30/2024 CO2 26 11/30/2024 Chemistry Component Value Date/Time NA 140 11/30/2024 0550 NA 140 04/18/2023 0000 K 4.5 11/30/2024 0550 K 4.3 04/18/2023 0000 CL 106 11/30/2024 0550 CL 106 04/18/2023 0000 CO2 26 11/30/2024 0550 CO2 22 04/18/2023 0000 BUN 11 11/30/2024 0550 BUN 15 10/02/20160 CREATININE 1.13 11/30/2024 0550 CREATININE 1.3 (A) 04/18/2023 0000 GLU 111 (H) 11/30/2024 0550 GLU 87 10/02/20162119 Component Value Date/Time CALCIUM 8.9 11/30/2024 0550 CALCIUM 9.10 04/18/2023 0000 ALKPHOS 82 10/05/2024 1457 ALKPHOS 80 06/21/2013 1119 AST 15 10/05/2024 1457 AST 22 06/21/2013 1119 ALT 15 10/05/2024 1457 ALT 34 06/21/2013 1119 Lab Results Component Value Date CHOLESTEROL 119 11/30/2024 CHOLESTEROL 158 04/23/2022 CHOLESTEROL 166 11/08/2020 Lab Results Component Value Date HDL 31 (L) 11/30/2024 HDL 32 (L) 04/23/2022 HDL 39 (L) 11/08/2020 Lab Results Component Value Date LDLCALC 71 11/30/2024 LDLCALC 100 (H) 04/23/2022 LDLCALC 111 (H) 11/08/2020 Lab Results Component Value Date TRIG 89 11/30/2024 TRIG 148 04/23/2022 TRIG 78 11/08/2020 No results found for: CHOLHDL Scheduled Meds: Continuous Infusions: Past Medical History: Diagnosis Date Abdominal pain Abnormal Pap smear of cervix Allergy seasonal Anemia Anxiety Arthritis Asthma Back pain CAD (coronary artery disease) CHF (congestive heart failure) (HCC) COPD (chronic obstructive pulmonary disease) (HCC) Coronary artery disease Depression Essential hypertension 06/22/2015 Fibromyalgia GERD (gastroesophageal reflux disease) Sleep apnea Stage 3a chronic kidney disease (HCC) 04/24/2022 Type 2 diabetes mellitus with stage 3a chronic kidney disease, without long-term current use of insulin ([facility]) 08/09/2022 Past Surgical History: Procedure Laterality Date ABDOMEN SURGERY ARTHROCENTESIS CHOLECYSTECTOMY CYST REMOVAL from neck JOINT REPLACEMENT 09-01-23 and 10-12-24 Tkr KNEE SURGERY NECK SURGERY mass removed PELVIC LAPAROSCOPY davinci robotic TONSILLECTOMY TUBAL LIGATION Family History Problem Relation Age of Onset [...] Mental Illness Sister Breast Cancer Paternal Aunt Social History Tobacco Use Smoking status: Every Day Current packs/day: 1.00 Average packs/day: 1 pack/day for 17.7 years (17.7 ttl pk-yrs) Types: Cigarettes Start date: 04/02/2007 Smokeless tobacco: Never Substance Use Topics Alcohol use: Not Currently Comment: few times a year Current Outpatient Medications on File Prior to Visit Medication Sig Dispense Refill acetaminophen 325 mg Oral Tab Take 2 Tablets by mouth every 8 hours as needed for Pain for up to 180 days. 200 Tablet 5 albuterol (PROAIR HFA) 90 mcg/actuation Inhl HFA Aerosol Inhaler Inhale 2 Puffs into the lungs every 6 hours as needed. for wheezing 8.5 Each 25 albuterol (PROVENTIL) 2.5 mg /3 mL (0.083 %) Inhl Solution for Nebulization INHALE 3 ML BY MOUTH EVERY 4 HOURS NEEDED FOR WHEEZING 180 mL 2 aspirin 81 mg Oral Tablet, Chewable atorvastatin (LIPITOR) 20 mg Oral Tablet Take 2 Tablets by mouth daily for 360 days. 180 Tablet 3 Blood-Glucose Meter Misc Kit Use to check blood sugar 1 Kit 0 Blood-Glucose Meter Misc Misc Use to check blood sugar daily 1 Each 0 wmgcoiqfei-icmzegsd-wljxgtyqxe (BREZTRI AEROSPHERE) 160-9-4.8 mcg/actuation Inhl HFA Aerosol Inhaler Inhale 2 Inhalations into the lungs 2 times daily. busPIRone (BUSPAR) 10 mg Oral Tablet Take 1 Tablet by mouth 2 times daily. 60 Tablet 2 carvediloL (COREG) 25 mg Oral Tablet cloNIDine (CATAPRES) 0.1 mg Oral Tablet Take 0.1 mg by mouth 2 times daily. diclofenac (VOLTAREN) 1 % Top Gel Apply 2 g topically 4 times daily. 100 g 3 docusate sodium (COLACE) 100 mg Oral Capsule DULoxetine (CYMBALTA) 60 mg Oral Capsule, Delayed Release(E.C.) Take 1 Capsule by mouth daily for 360 days. 90 Capsule 3 ergocalciferol (DRISDOL) 1,250 mcg (50,000 unit) Oral Capsule Take 1 Capsule by mouth once a week for 360 days. 12 Capsule 3 FARXIGA 10 mg Oral Tablet Take 1 Tablet by mouth daily for 360 days. 90 Tablet 3 fluconazole (DIFLUCAN) 100 mg Oral Tablet Take 1 Tablet by mouth once a week for 90 days. 12 Tablet0 fluticasone propionate (FLONASE) 50 mcg/actuation Nasl Jackson, Suspension 1 Jackson by Nasal route daily. 16 g 1 fUROsemide (LASIX) 40 mg Oral Tablet Take 1 Tablet by mouth daily for 30 days. 30 Tablet 0 gabapentin (NEURONTIN) 600 mg Oral Tablet Take 1 Tablet by mouth 3 times daily for 180 days. 90 Tablet 5 hydrOXYzine (ATARAX) 25 mg Oral Tablet Take 1 Tablet by mouth every 6 hours as needed. for itching 90 Tablet 10 insulin lispro (HUMALOG) 100 unit/mL SubQ Insulin Pen INJECT 5 TO 10 UNITS SUBCUTANEOUSLY DAILY NEEDED IF SUGAR IS HIGH *DISCARD REMAINDER OF PEN AFTER 28 DAYS* Insulin [place], Disposable, (LIA PEN NEEDLE) 32 gauge x 5/32 [facility] Needle Use as directed with insulin pens daily 100 Each 3 lancets (ONETOUCH DELICA PLUS LANCET) 33 gauge [facility] Subcutaneous (Inject under the skin) 100 Each daily. 100 Each 10 Lancets [facility] Use to check blood sugar daily 100 Each 2 linaCLOtide (LINZESS) 72 mcg Oral Capsule Take 72 mcg by mouth as needed for Nausea. metOLazone (ZAROXOLYN) 2.5 mg Oral Tablet Take 2.5 mg by mouth 2 times daily as needed for Nausea. montelukast (SINGULAIR) 10 mg Oral Tablet Take 1 Tablet by mouth every evening. 90 Tablet 3 Nebulizer Accessories (ALL FLOW 4000 KIT) [facility] 1 Kit by [facility].(Non-Drug; Combo Route) route daily. 0 nitroGLYCERIN (NITROSTAT) 0.4 mg SL Tablet, Sublingual Place 1 Tablet under the tongue every 5 minutes as needed for Chest pain. Dissolve 1 tablet under the tongue at onset of chest pain. For persistent or worsening pain, call 911 and repeat dose every 5 minutes, up to 3 tablets in a 15-minute period. 30 Tablet 3 olmesartan (BENICAR) 40 mg Oral Tablet Take 1 Tablet by mouth daily. 90 Tablet 3 omeprazole (PRILOSEC) 40 mg Oral Capsule, Delayed Release(E.C.) Take 1 Capsule by mouth daily. 90 Capsule 3 ondansetron (ZOFRAN-ODT) 4 mg Oral Tablet, Rapid Dissolve Take 1 Tablet by mouth every 6 hours as needed for Nausea for up to 180 days. 30 Tablet 5 ranolazine (RANEXA) 500 mg Oral Tablet Sustained Release 12 hr Take 1 Tablet by mouth every 12 hours for 30 days. 60 Tablet 0 semaglutide 2 mg/dose (8 mg/3 mL) SubQ Pen Injector Subcutaneous (Inject under the skin) 2 mg once a week for 360 days. 6 mL 3 tiZANidine (ZANAFLEX) 4 mg Oral Tablet Take 1 Tablet by mouth 3 times daily as needed. for muscle spasms 60 Tablet 10 traMADoL (ULTRAM) 50 mg Oral Tablet 1-2 tablets every 6 hours as needed for pain 15 Tablet 0 ferrous sulfate 325 mg (65 mg iron) Oral Tablet, Delayed Release (E.C.) TAKE 1 TABLET BY MOUTH TWICE DAILY (Patient not taking: Reported on 12/01/2024) 60 Tablet 10 fluticasone propion-salmeteroL (ADVAIR DISKUS) 500-50 mcg/dose Inhl Disk with Device Inhale 1 Puff into the lungs 2 times daily. into the lungs (Patient not taking: Reported on 12/07/2024) 60 Each 3 No current facility-administered medications on file prior to visit. Current Outpatient Medications Medication Sig Dispense Refill acetaminophen 325 mg Oral Tab Take 2 Tablets by mouth every 8 hours as needed for Pain for up to 180 days. 200 Tablet 5 albuterol (PROAIR HFA) 90 mcg/actuation Inhl HFA Aerosol Inhaler Inhale 2 Puffs into the lungs every 6 hours as needed. for wheezing 8.5 Each 25 albuterol (PROVENTIL) 2.5 mg /3 mL (0.083 %) Inhl Solution for Nebulization INHALE 3 ML BY MOUTH EVERY 4 HOURS NEEDED FOR WHEEZING 180 mL 2 aspirin 81 mg Oral Tablet, Chewable atorvastatin (LIPITOR) 20 mg Oral Tablet Take 2 Tablets by mouth daily for 360 days. 180 Tablet 3 Blood-Glucose Meter Misc Kit Use to check blood sugar 1 Kit 0 Blood-Glucose Meter Misc Misc Use to check blood sugar daily 1 Each 0 jnzwjmehtu-qfrpkmqy-eekxeepjaj (BREZTRI AEROSPHERE) 160-9-4.8 mcg/actuation Inhl HFA Aerosol Inhaler Inhale 2 Inhalations into the lungs 2 times daily. busPIRone (BUSPAR) 10 mg Oral Tablet Take 1 Tablet by mouth 2 times daily. 60 Tablet 2 carvediloL (COREG) 25 mg Oral Tablet cloNIDine (CATAPRES) 0.1 mg Oral Tablet Take 0.1 mg by mouth 2 times daily. diclofenac (VOLTAREN) 1 % Top Gel Apply 2 g topically 4 times daily. 100 g 3 docusate sodium (COLACE) 100 mg Oral Capsule DULoxetine (CYMBALTA) 60 mg Oral Capsule, Delayed Release(E.C.) Take 1 Capsule by mouth daily for 360 days. 90 Capsule 3 ergocalciferol (DRISDOL) 1,250 mcg (50,000 unit) Oral Capsule Take 1 Capsule by mouth once a week for 360 days. 12 Capsule 3 FARXIGA 10 mg Oral Tablet Take 1 Tablet by mouth daily for 360 days. 90 Tablet 3 fluconazole (DIFLUCAN) 100 mg Oral Tablet Take 1 Tablet by mouth once a week for 90 days. 12 Tablet0 fluticasone propionate (FLONASE) 50 mcg/actuation Nasl Jackson, Suspension 1 Jackson by Nasal route daily. 16 g 1 fUROsemide (LASIX) 40 mg Oral Tablet Take 1 Tablet by mouth daily for 30 days. 30 Tablet 0 gabapentin (NEURONTIN) 600 mg Oral Tablet Take 1 Tablet by mouth 3 times daily for 180 days. 90 Tablet 5 hydrOXYzine (ATARAX) 25 mg Oral Tablet Take 1 Tablet by mouth every 6 hours as needed. for itching 90 Tablet 10 insulin lispro (HUMALOG) 100 unit/mL SubQ Insulin Pen INJECT 5 TO 10 UNITS SUBCUTANEOUSLY DAILY NEEDED IF SUGAR IS HIGH *DISCARD REMAINDER OF PEN AFTER 28 DAYS* Insulin [place], Disposable, (LIA PEN NEEDLE) 32 gauge x 5/32 [facility] Needle Use as directed with insulin pens daily 100 Each 3 lancets (ONETOUCH DELICA PLUS LANCET) 33 gauge [facility] Subcutaneous (Inject under the skin) 100 Each daily. 100 Each 10 Lancets [facility] Use to check blood sugar daily 100 Each 2 linaCLOtide (LINZESS) 72 mcg Oral Capsule Take 72 mcg by mouth as needed for Nausea. metOLazone (ZAROXOLYN) 2.5 mg Oral Tablet Take 2.5 mg by mouth 2 times daily as needed for Nausea. montelukast (SINGULAIR) 10 mg Oral Tablet Take 1 Tablet by mouth every evening. 90 Tablet 3 Nebulizer Accessories (ALL FLOW 4000 KIT) [facility] 1 Kit by [facility].(Non-Drug; Combo Route) route daily. 0 nitroGLYCERIN (NITROSTAT) 0.4 mg SL Tablet, Sublingual Place 1 Tablet under the tongue every 5 minutes as needed for Chest pain. Dissolve 1 tablet under the tongue at onset of chest pain. For persistent or worsening pain, call 911 and repeat dose every 5 minutes, up to 3 tablets in a 15-minute period. 30 Tablet 3 olmesartan (BENICAR) 40 mg Oral Tablet Take 1 Tablet by mouth daily. 90 Tablet 3 omeprazole (PRILOSEC) 40 mg Oral Capsule, Delayed Release(E.C.) Take 1 Capsule by mouth daily. 90 Capsule 3 ondansetron (ZOFRAN-ODT) 4 mg Oral Tablet, Rapid Dissolve Take 1 Tablet by mouth every 6 hours as needed for Nausea for up to 180 days. 30 Tablet 5 ranolazine (RANEXA) 500 mg Oral Tablet Sustained Release 12 hr Take 1 Tablet by mouth every 12 hours for 30 days. 60 Tablet 0 semaglutide 2 mg/dose (8 mg/3 mL) SubQ Pen Injector Subcutaneous (Inject under the skin) 2 mg once a week for 360 days. 6 mL 3 tiZANidine (ZANAFLEX) 4 mg Oral Tablet Take 1 Tablet by mouth 3 times daily as needed. for muscle spasms 60 Tablet 10 traMADoL (ULTRAM) 50 mg Oral Tablet 1-2 tablets every 6 hours as needed for pain 15 Tablet 0 ferrous sulfate 325 mg (65 mg iron) Oral Tablet, Delayed Release (E.C.) TAKE 1 TABLET BY MOUTH TWICE DAILY (Patient not taking: Reported on 12/01/2024) 60 Tablet 10 fluticasone propion-salmeteroL (ADVAIR DISKUS) 500-50 mcg/dose Inhl Disk with Device Inhale 1 Puff into the lungs 2 times daily. into the lungs (Patient not taking: Reported on 12/07/2024) 60 Each 3 No current facility-administered medications for this visit. Allergies Allergen Reactions Macrolide Antibiotics Rash Penicillins Rash Signed: Khadar Santillan MD 12/07/2024 9:48 AM This chart was completed using voice recognition technology and may contain unintended errors documented in this encounter Plan of Treatment Upcoming Encounters Date Type Department Care Team (Late st Contact Info) Description 02/02/2025 12:45 PM EDT Office Visit [facility] [address] [place] [address] Manuel Torres MD [address] [place] [id number] 02/15/2025 2:15 PM EDT Appointment [facility] Cancer [address] [place] [address] 02/15/2025 2:30 PM EDT [address]ointment [address] [place] [address] Farnaz Ricardo, NONA [address] [place], [place] [id number] 02/24/2025 8:00 AM EDT Appointment [facility] [address] [place] [address] [address] [place] [address] Rajwinder Craig MD [address] [place] [address] 03/02/2025 9:30 AM EDT Office Visit [facility] [place] [id number] Jose Luis Ortiz MD [address] [place] [id number] 03/08/2025 11:15 AM EDT Office Visit [facility] Nephrology Liliane [address] [place] [address] Lynn Mariano APRN [address] [place] [address] 03/09/2025 3:30 PM EDT Office Visit [facility] Diabetes [place] [address] [facility] [address] [place] [address] Rita Cordero MD [address] [place], [place] [id number] 10/07/2025 1:10 PM EDT Office Visit [facility] [address] [facility] [address] [place] [id number] Juan Russell MD [address] [facility] [address] [place] [address] Scheduled Referrals Name Type Priority Associated Diagnoses Order Schedule AMB REFERRAL TO GASTROENTEROLOGY Outpatient Referral Routine Essential hypertension SOB (shortness of breath) Chest pain, unspecified type Ordered: 12/07/2024 documented as of this encounter Goals Goal [...] CCMA HEMOGLOBIN A1C < 7.0 Result Component 5.7(06/20/202 5 12:58 PM EDT) No Jerome Crowley MD documented as of this encounter Visit Diagnoses Diagnosis Chest pain, unspecified type- Primary Essential hypertension Unspecified essential hypertension SOB (shortness of breath) Shortness of breath documented in this encounter Care Teams Barrel Assembler Helper Relationship Specialty Start Date End Date Jerome Crowley MD [facility] [phone] PCP - General Internal Medicine 08/09/24 Kayli Kebede MD [address] [id number] Consulting Physician Internal Medicine-Nephrology 05/17/22 Valarie Leach, RN [place] Registered Nurse 12/01/24 documented as of this encounter
--- OUTSIDE RECORDS SUMMARY | 2024-12-07 13:27 | XMS_ITS | Encounter Summary ---
Author Organization [facility] [place] [address] Care Team Providers Care Independent Jeweler Name Role Phone Kayli Kebede MD Unavailable [phone] Jerome Crowley MD Primary Care Provider [phone] Valarie Leach RN Unavailable Unavailable Reason for Visit * Oncology Medication Prior Authorization (Routine) - Authorization Not Needed Specialty Diagnoses / Procedures Referred By Contac t Referred To Contact Diagnoses B12 deficiency Iron malabsorption Iron deficiency anemia due to chronic blood loss Procedures RI INJ, FOSAPREPITANT (TEVA) Farnaz Ricardo APRN [address] [place] [address] Phone: tel: fax: Farnaz Ricardo APRN [address] [place] [address] Phone: tel: fax: Referral ID Status Reason Start Date Expiration Date Visits Requested Visits Authorized [id number] Authorization Not Needed 11/15/2024 11/15/2025 1 10 Encounter Details Date Type Department Care Team (Latest Contact Info) Description 12/07/2024 1:27 PM EDT - 12/07/2024 11:59 PM EDT Hospital Encounter [facility] [place] [address] B12 deficiency (Primary Dx); Iron malabsorption; Iron deficiency anemia due to chronic blood loss Discharge Disposition: Home or Self Care Social History Tobacco Use Types Packs/Day Years Used Date Smoking Tobacco: Every Day Cigarettes 1 17.8 Started: 04/02/2007 Smokeless Tobacco: Never Alcohol Use Standard Drinks/Week Comments Not Currently 0 (1 standard drink = 0.6 oz pur e alcohol) few times a year [facility] Utilities Answer Date Recorded In [...] PHQ-2 Total Score 0 11/29/2024 [facility] - [facility] [...] place to sleep or slept in a nursing home (including now)? No 03/30/2021 [facility] IP Transportation Answer D ate Recorded [...] Sign Reading Time Taken Comments Blood Pressure 131/83 12/07/2024 2:23 PM EDT Pulse 73 12/07/2024 2:23 PM EDT Temperature 36.3 C (97.4 F) 12/07/2024 2:23 PM EDT Respiratory Rate 16 12/07/2024 2:23 PM EDT Oxygen Saturation 96% 12/07/2024 2:23 PM EDT Inhaled Oxygen Concentration - - Weight 132 kg (290 lb 14.4 oz) 12/07/2024 1:37 P M EDT Height - - Body Mass Index 48.41 12/07/2024 9:27 AM EDT documented in this [...] of Assessment Author No 11/30/2024 4:23 PM EDBrina Villa RN documented as of this encounter Mental Status * Because of a physical, mental or emotional condition, does this person have serious difficulty concentrating, remembering or making decisions? Answer Entry Date Author No 11/30/2024 4:23 PM EDBrina Villa RN documented in this encounter Medications at Time of Discharge Blood-Glucose Meter Misc Kit Use to check blood sugar 1 Kit 12/01/2024 Blood-Glucose Meter Misc Misc Use to check blood sugar daily 1 Each 09/04/2022 carvediloL (COREG) 25 mg Oral Tablet 09/27/2024 diclofenac (VOLTAREN) 1 % Top Gel Apply 2 g topically 4 times daily. 100 g 3 11/18/2024 FARXIGA 10 mg Oral Tablet Take 1 Tablet by mouth daily for 360 days. 90 Tablet 3 06/28/2024 fluticasone propionate (FLONASE) 50 mcg/actuation Nasl [place], Suspension 1 [place] by Nasal route daily. 16 g 1 11/18/2024 hydrALAZINE (APRESOLINE) 25 mg Oral Tablet Take 1 Tablet by mouth 2 times daily. 60 Tablet 5 12/07/2024 hydrOXYzine (ATARAX) 25 mg Oral TabletIndications :Anxiety Take 1 Tablet by mouth every 6 hours as needed. for itching 90 Tablet 10 11/18/2024 Insulin [place], Disposable, (LIA PEN NEEDLE) 32 gauge x 5/32 [facility] Needle Use as directed with insulin pens daily 100 Each 3 10/11/2024 lancets (ONETOUCH DELICA PLUS LANCET) 33 gauge [facility] Subcutaneous (Inject under the skin) 100 Each daily. 100 Each 10 06/29/2024 metOLazone (ZAROXOLYN) 2.5 mg Oral Tablet Take 2.5 mg by mouth daily as needed for Other (Edema, weight gain). Nebulizer Accessories (ALL FLOW 4000 KIT) [facility] MiscIndications:M oderate persistent asthma with acute exacerbation 1 Kit by [facility].(Non-Drug; Combo Route) route daily. 0 04/01/2019 nitroGLYCERIN (NITROSTAT) 0.4 mg SL Tablet, Sublingual Place 1 Tablet under the tongue every 5 minutes as needed for Chest pain. Dissolve 1 tablet under the tongue at onset of chest pain. For persistent or worsening pain, call 911 and repeat dose every 5 minutes, up to 3 tablets in a 15-minute period. 30 Tablet 3 11/18/2024 omeprazole (PRILOSEC) 40 mg Oral Capsule, Delayed Release(E.C.)Vanessa cations:Gastroeso phageal reflux disease without esophagitis Take 1 Capsule by mouth daily. 90 Capsule 3 11/18/2024 tiZANidine (ZANAFLEX) 4 mg Oral Tablet Take 1 Tablet by mouth 3 times daily as needed. for muscle spasms 60 Tablet 10 12/01/2024 acetaminophen 325 mg Oral Tab Take 2 Tablets by mouth every 8 hours as needed for Pain for up to 180 days. 200 Tablet 5 11/18/2024 5 fluconazole (DIFLUCAN) 100 mg Oral Tablet Take 1 Tablet by mouth once a week for 90 days. 12 Tablet 11/18/2024 5 ondansetron (ZOFRAN-ODT) 4 mg Oral Tablet, Rapid DissolveIndicatio ns:Nausea Take 1 Tablet by mouth every 6 hours as needed for Nausea for up to 180 days. 30 Tablet 5 08/02/2024 5 ranolazine (RANEXA) 500 mg Oral Tablet Sustained Release 12 hr Take 1 Tablet by mouth every 12 hours for 30 days. 60 Tablet 11/30/2024 5 documented as of this encounter Discharge Disposition Disposition Code Departure Means Destination Home or Self Care documented in this encounter Miscellaneous Notes * Patient Instructions - Cat Erickson RN - 12/07/2024 1:30 PM EDT [facility] Discharge Instructions Thank you for entrusting the [facility] with your care. We hope you are pleased with your outpatient care and services. Because we are most concerned with your health, we suggest you carefully read the following discharge instructions: Your Discharge Instructions: MEDICATION INSTRUCTIONS: Treatment received today: Hailey Reviewed medications administered today and possible side effects Dizziness and sleepiness are possible side effects of pain medication. When taking pain medications, do not drink alcohol or drive. ACTIVITY INSTRUCTIONS: Rest today, increase activity as tolerated. DIET INSTRUCTIONS: as tolerated FOLLOW-UP CARE: Call your doctor for a follow-up appointment: Notify physician for complications such as: Fever over 101*, Rash, Hives, difficulty breathing, unrelieved nausea or pain, redness or swelling in one limb greater than the other, constipation, diarrhea, bleeding Please contact your physician if you have problems related to your procedure or if symptoms persistor worsen. If physician is unavailable, go to the Emergency Room. Additional Instructions: Our hours of operation are Friday - Friday 8:00 AM - 4:30 PM. [facility] . [facility] [address] [facility] [address] [place], [place] [id number] [place] [id number] [place] [address] Yash [address] [facility] [address] [place] [id number] documented in this encounter Plan of Treatment Upcoming Encounters Date Type Department Care Team (Late st Contact Info) Description 02/02/2025 12:45 PM EDT Office Visit [facility] [address] [place] [address] Manuel Torres MD [address] [place] [address] 02/15/2025 2:15 PM EDT Appointment [facility] Cancer Care [address] [place] [address] 02/15/2025 2:30 PM EDT Appointment [address] [place] [address] Farnaz Ricardo, [employer] [address] [place], [place] [id number] 02/24/2025 8:00 AM EDT Appointment [facility] [address] [facility] [address] [place] [address] Rajwinder Craig MD [address] [place] [address] 03/02/2025 9:30 AM EDT Office Visit [facility] [address] [place] [address] Jose Luis Ortiz MD [address] [place] [address] [address] [facility] [phone] 03/08/2025 11:15 AM EDT Office Visit [facility] Nephrology [place] [address] [place] [address] Lynn Mariano APRN [address] [place] [phone] 03/09/2025 3:30 PM EDT Office Visit [facility] Diabetes [place] [address] [facility] [address] [place] [address] Rita Cordero MD [address] [place] [address] 10/07/2025 1:10 PM EDT Office Visit [facility] [address] [facility] [address] [place] [phone] Juan Russell MD [address] [facility] [address] [place] [phone] documented as of this encounter Goals Goal [...] Crowley MD Stay Tobacco Free Lifestyle No Howard Mary Kate, URSULADeacon HEMOGLOBIN A1C < 7.0 Result Component 5.7( 12:58 PM EDT) No Jerome Crowley MD documented as of this encounter Visit Diagnoses Diagnosis B12 deficiency- Primary Other B-complex deficiencies Iron malabsorption Other specified intestinal malabsorption Iron deficiency anemia due to chronic blood loss Iron deficiency anemia secondary to blood loss (chronic) documented in this encounter Administered Medications Inactive Administered Medications - up to 1 most recent administrations Medication Order MAR Action Action Date Dose Rate Site iron sucrose (VENOFER) in sodium chloride 0.9% 120mL infusion 200 mg 200 mg, Intravenous, ONCE, 1 dose, On Fri12/07/24 at 1345, Administer over 30 Minutes, VESICANT , Dx: 1. B12 deficiency 2. Iron malabsorption 3. Iron deficiency anemia due to chronic blood lossIndications:B12 deficiency,Iron malabsorption,Iron deficiency anemia due to chronic blood loss IV Started 12/07/2024 1:51 PM EDT 200 mg 240 mL/hr sodium chloride 0.9% syringe Intravenous, PRN, Starting on Fri12/07/24 at 1333, Until Marie 12/09/24 at 0410, Line Care, Flush after IV medication, Dx: 1. B12 deficiency 2. Iron malabsorption 3. Iron deficiency anemia due to chronic blood lossIndications:B12 deficiency,Iron malabsorption,Iron deficiency anemia due to chronic blood loss Given 12/07/2024 1:47 PM EDT 10 mL documented in this encounter Care Teams Independent Jeweler Relationship Specialty Start Date End Date Jerome Crowley MD [address] [place] [address] [place] [phone] PCP - General Internal Medicine 08/09/24 Kayli Kebede MD [address] [place] [address] [place] [id number] Consulting Physician Internal Medicine-Nephrology 05/17/22 Valarie Leach, RN Power Transformer Inspector Registered Nurse 12/01/24 documented as of this encounter
--- OUTSIDE RECORDS SUMMARY | 2024-12-21 13:25 | XMS_ITS | Encounter Summary ---
Author Organization [place] [address] Care Team Providers Care Residential Collections Name Role Phone Kayli Kebede MD Unavailable [phone] Jerome Crowley MD Primary Care Provider [phone] Valarie Leach RN Unavailable Unavailable Reason for Visit * Oncology Medication Prior Authorization (Routine) - Authorization Not Needed Specialty Diagnoses / Procedures Referred By Contac t Referred To Contact Diagnoses B12 deficiency Iron malabsorption Iron deficiency anemia due to chronic blood loss Procedures MT INJ, FOSAPREPITANT (TEVA) Farnaz Ricardo APRN [address] [place] [address] Phone: tel: fax: Farnaz Ricardo APRN [address] [place] [address] Phone: tel: fax: Referral ID Status Reason Start Date Expiration Date Visits Requested Visits Authorized [id number] Authorization Not Needed 11/15/2024 11/15/2025 1 10 Encounter Details Date Type Department Care Team (Latest Contact Info) Description 12/21/2024 1:25 PM EDT - 12/21/2024 11:59 PM EDT Hospital Encounter [facility] [place] [address] B12 deficiency (Primary Dx); Iron malabsorption; Iron deficiency anemia due to chronic blood loss; Stage 3a chronic kidney disease (HCC); Vitamin D deficiency; Essential hypertension; Type 2 diabetes mellitus with stage 3a chronic kidney disease, without long-term current use of insulin (HCC) Discharge Disposition: Home or Self Care Social History Tobacco Use Types Packs/Day Years Used Date Smoking Tobacco: Every Day Cigarettes 1 17.8 Started: 04/02/2007 Smokeless Tobacco: Never Alcohol Use Standard Drinks/Week Comments Not Currently 0 (1 standard drink = 0.6 oz pur e alcohol) few times a year [facility] Utilities Answer Date Recorded In the past 12 months has th e [employer], gas, oil, or water company threatened to shut off services in your home? No 11/29/2024 Overall Financial Resource Strain (CARDIA) Answe r Date Recorded How hard is it for you to pa y for the very basics like food, housing, medical care, and heating? Not very hard 11/29/2024 PHQ-2 Answer Date Recorded PHQ-2 Total Score 0 11/29/2024 [facility] - Occupational Stress Questionnaire Answer Date Recorded [...] a nursing home (including now)? No 03/30/2021 [facility] IP Transportation Answer D ate Recorded In [...] Sign Reading Time Taken Comments Blood Pressure 134/98 12/21/2024 2:17 PM EDT Pulse 71 12/21/2024 2:17 PM EDT Temperature 36.5 C (97.7 F) 12/21/2024 2:17 PM EDT Respiratory Rate 18 12/21/2024 2:17 PM EDT Oxygen Saturation 94% 12/21/2024 2:17 PM EDT Inhaled Oxygen Concentration - - Weight 130.9 kg (288 lb 9.6 oz) 12/21/2024 1:29 PM EDT Height - - Body Mass Index 48.03 12/07/2024 9:27 AM EDT documented in this [...] No 11/30/2024 4:23 PM Brina Fajardo RN documented as of this encounter Mental Status * Because of a physical, mental or emotional condition, does this person have serious difficulty concentrating, remembering or making decisions? Answer Entry Date Author No 11/30/2024 4:23 PM Brina Fajardo RN documented in this encounter Medications at Time of Discharge aspirin 81 mg Oral Tablet, Chewable Take 1 Tablet by mouth daily. 90 Tablet 3 5 Blood-Glucose Meter Misc Kit Use to check blood sugar 1 Kit 5 Blood-Glucose Meter Misc Misc Use to check blood sugar daily 1 Each 3 budesonide-glycop yr-formoterol (BREZTRI AEROSPHERE) 160-9-4.8 mcg/actuation Inhl HFA Aerosol Inhaler Inhale 2 Inhalations into the lungs 2 times daily. 10.7 g 3 5 carvediloL (COREG) 25 mg Oral Tablet 5 cloNIDine (CATAPRES) 0.1 mg Oral Tablet Take 1 Tablet by mouth 2 times daily. 180 Tablet 3 5 diclofenac (VOLTAREN) 1 % Top Gel Apply 2 g topically 4 times daily. 100 g 3 5 FARXIGA 10 mg Oral Tablet Take 1 Tablet by mouth daily for 360 days. 90 Tablet 3 4 06/23/20 25 fluticasone propionate (FLONASE) 50 mcg/actuation Nasl [place], Suspension 1 [place] by Nasal route daily. 16 g 1 5 hydrALAZINE (APRESOLINE) 25 mg Oral Tablet Take 1 Tablet by mouth 2 times daily. 60 Tablet 5 5 hydrOXYzine (ATARAX) 25 mg Oral TabletIndications :Anxiety Take 1 Tablet by mouth every 6 hours as needed. for itching 90 Tablet 10 5 insulin lispro (HUMALOG) 100 unit/mL SubQ Insulin Pen INJECT 5 TO 10 UNITS SUBCUTANEOUSLY DAILY NEEDED IF SUGAR IS HIGH *DISCARD REMAINDER OF PEN AFTER 28 DAYS* 15 mL 3 5 Insulin Roland, Disposable, (LIA PEN NEEDLE) 32 gauge x 32 [facility] Needle Use as directed with insulin pens daily 100 Each 3 5 lancets (ONETOUCH DELICA PLUS LANCET) 33 gauge [facility] Subcutaneous (Inject under the skin) 100 Each daily. 100 Each 4 metOLazone (ZAROXOLYN) 2.5 mg Oral Tablet Take 2.5 mg by mouth daily as needed for Other (Edema, weight gain). montelukast (SINGULAIR) 10 mg Oral TabletIndications :Severe persistent asthma without complication (HCC) Take 1 Tablet by mouth every evening. 90 Tablet 3 5 Nebulizer Accessories (ALL FLOW 4000 KIT) [facility] MiscIndications:M oderate persistent asthma with acute exacerbation 1 Kit by [facility].(Non-Drug; Combo Route) route daily. 0 9 nitroGLYCERIN (NITROSTAT) 0.4 mg SL Tablet, Sublingual Place 1 Tablet under the tongue every 5 minutes as needed for Chest pain. Dissolve 1 tablet under the tongue at onset of chest pain. For persistent or worsening pain, call 911 and repeat dose every 5 minutes, up to 3 tablets in a 15-minute period. 30 Tablet 3 5 omeprazole (PRILOSEC) 40 mg Oral Capsule, Delayed Release(E.C.)Vanessa cations:Gastroeso phageal reflux disease without esophagitis Take 1 Capsule by mouth daily. 90 Capsule 5 tiZANidine (ZANAFLEX) 4 mg Oral Tablet Take 1 Tablet by mouth 3 times daily as needed. for muscle spasms 60 Tablet 10 5 acetaminophen 325 mg Oral Tab Take 2 Tablets by mouth every 8 hours as needed for Pain for up to 180 days. 200 Tablet 5 12/28/19 25 fluconazole (DIFLUCAN) 100 mg Oral Tablet Take 1 Tablet by mouth once a week for 90 days. 12 Tablet 5 01/04/20 25 ondansetron (ZOFRAN-ODT) 4 mg Oral Tablet, Rapid DissolveIndicatio ns:Nausea Take 1 Tablet by mouth every 6 hours as needed for Nausea for up to 180 days. 30 Tablet 5 5 12/31/19 25 ranolazine (RANEXA) 500 mg Oral Tablet Sustained Release 12 hr Take 1 Tablet by mouth every 12 hours for 30 days. 60 Tablet 5 12/31/19 25 documented as of this encounter Discharge Disposition Disposition Code Departure Means Destination Home or Self Care documented in this encounter Miscellaneous Notes * Patient Instructions - Teresita Arias RN - 12/21/2024 1:30 PM EDT [facility] Discharge Instructions Thank you for entrusting the [facility] with your care. We hope you are pleased with your outpatient care and services. Because we are most concerned with your health, we suggest you carefully read the following discharge instructions: Your Discharge Instructions: MEDICATION INSTRUCTIONS: Treatment received today: Hailey; Fermín-Dandy Contact your physician for questions about medications you take at home Dizziness and sleepiness are possible side effects of pain medication. When taking pain medications, do not drink alcohol or drive. ACTIVITY INSTRUCTIONS: No activity restrictions DIET INSTRUCTIONS: Follow previous diet FOLLOW-UP CARE: Call your doctor for a [...] go to the Emergency Room. Additional Instructions: n/a Our hours of operation are Friday - Friday 8:00 AM - 4:30 PM. [facility] [place] [address] Entrance # [place] [id number] [place] [id number] [place] [id number] [place] [address] documented in this encounter Plan of Treatment Upcoming Encounters Date Type Department Care Team (Late st Contact Info) Description 02/02/2025 12:45 PM EDT Office Visit [facility] [address], 3RD [place] [address] Manuel Torres MD [address] [place] [address] 02/15/2025 2:15 PM EDT Appointment [facility] Cancer [address] [place] [address] 02/15/2025 2:30 PM EDT Appointment [address] [place] [address] Farnaz Ricardo, CONVERTER SKIMMER [address] [facility] [address] 02/24/2025 8:00 AM EDT Appointment [facility] [address] [place] [address] Rajwinder Craig MD [address] [place] [address] 03/02/2025 9:30 AM EDT Office Visit [facility] [address] [address] Jose Luis Ortiz MD [address] [place] [address] [place] [address] 03/08/2025 11:15 AM EDT Office Visit [facility] Nephrology [place] [address] [place] [address] Lynn Mariano, CONVERTER SKIMMER [address] [place] [id number] 03/09/2025 3:30 PM EDT Office Visit [facility] Diabetes [place] [address] [facility] [address] [place] [address] Rita Cordero MD [address] [place], [place] [id number] 10/07/2025 1:10 PM EDT Office Visit [facility] [place] [address] [facility] [address] [place] [address] Juan Russell MD [address] [facility] [address] [place] [address] documented as of this encounter [...] Crowley MD documented as of this encounter Procedures Procedure Name Priority Date/Time Associated Diagnosis Comments PROTEIN/CREATININE RATIO URINE Routine 12/21/2024 2:26 PM EDT Stage 3a chronic kidney disease (HCC) Vitamin D deficiency Essential hypertension Type 2 diabetes mellitus with stage 3a chronic kidney disease, without long-term current use of insulin (HCC) URINALYSIS Routine 12/21/2024 2:26 PM EDT Stage 3a chronic kidney disease (HCC) Vitamin D deficiency Essential hypertension Type 2 diabetes mellitus with stage 3a chronic kidney disease, without long-term current use of insulin (HCC) CBC Routine 12/21/2024 1:38 PM EDT Stage 3a chronic kidney disease (HCC) Vitamin D deficiency Essential hypertension Type 2 diabetes mellitus with stage 3a chronic kidney disease, without long-term current use of insulin (HCC) VITAMIN D 25 HYDROXY Routine 12/21/2024 1:38 PM EDT Stage 3a chronic kidney disease (HCC) Vitamin D deficiency Essential hypertension Type 2 diabetes mellitus with stage 3a chronic kidney disease, without long-term current use of insulin (HCC) VITAMIN D, 1,25-DIHYDROXY -REF LAB Routine 12/21/2024 1:38 PM EDT Stage 3a chronic kidney disease (HCC) Vitamin D deficiency Essential hypertension Type 2 diabetes mellitus with stage 3a chronic kidney disease, without long-term current use of insulin (HCC) URIC ACID Routine 12/21/2024 1:38 PM EDT Stage 3a chronic kidney disease (HCC) Vitamin D deficiency Essential hypertension Type 2 diabetes mellitus with stage 3a chronic kidney disease, without long-term current use of insulin (HCC) PHOSPHORUS LEVEL Routine 12/21/2024 1:38 PM EDT Stage 3a chronic kidney disease (HCC) Vitamin D deficiency Essential hypertension Type 2 diabetes mellitus with stage 3a chronic kidney disease, without long-term current use of insulin (HCC) PARATHYROID HORMONE INTACT Routine 12/21/2024 1:38 PM EDT Stage 3a chronic kidney disease (HCC) Vitamin D deficiency Essential hypertension Type 2 diabetes mellitus with stage 3a chronic kidney disease, without long-term current use of insulin (HCC) MAGNESIUM LEVEL Routine 12/21/2024 1:38 PM EDT Stage 3a chronic kidney disease (HCC) Vitamin D deficiency Essential hypertension Type 2 diabetes mellitus with stage 3a chronic kidney disease, without long-term current use of insulin (HCC) BASIC METABOLIC PANEL Routine 12/21/2024 1:38 PM EDT Stage 3a chronic kidney disease (HCC) Vitamin D deficiency Essential hypertension Type 2 diabetes mellitus with stage 3a chronic kidney disease, without long-term current use of insulin (HCC) documented in this encounter Results * (ABNORMAL) URINALYSIS (12/21/2024 2:26 PM EDT) UA Color Yellow 12/21/2024 7:50 PM EDT [facility] UA Appear Clear Clear 12/21/2024 7:50 PM [...] PM EDT [facility] UA Nitrite Negative Negative 12/21/2024 7:50 PM EDT [facility] UA Leuk Est Negative Negative 12/21/2024 7:50 PM EDT [facility] UA Spec Grav 1.028 1.001 - 1.035 no units 12/21/2024 7:50 PM EDT [facility] Comment:Reference range ely d for random specimens only. Urine STRUCTURE OF URINARY TRACT PROPER / Unknown 12/21/2024 2:26 PM EDT 12/21/2024 2:33 PM EDT us Lynn Mariano CONVERTER SKIMMER URINE ORDERABLES Final Re sult [facility] [address] [facility] , [place] [address] * PROTEIN/CREATININE RATIO URINE (12/21/2024 2:26 PM EDT) Urine Protein 12.2 mg/dL 12/21/2024 8:56 PM EDT [facility] Urine Creatinine 135.0 mg/dL 12/21/2024 8:56 PM EDT [facility] Ur Protein/Creat 0.09 mg/mg 12/21/2024 8:56 PM EDT [facility] Urine STRUCTURE OF URINARY TRACT PROPER / Unknown 12/21/2024 2:26 PM EDT 12/21/2024 2:33 PM EDT us Lynn Mariano CONVERTER SKIMMER URINE ORDERABLES Final Re sult [facility] [address] [facility], [place] [address] [facility] [address] [place] [address] * PARATHYROID HORMONE INTACT (12/21/2024 1:38 PM EDT) PTH Intact 27.20 15.00 - 65.00 pg/mL 12/21/2024 9:03 PM EDT [facility] Blood VENOUS BLOOD / Unknown Venipuncture / Unknown 12/21/2024 1:38 PM EDT 12/21/2024 1:44 PM EDT Narrative [facility] [employer] [facility] - 12/21/2024 9:03 PM EDT Intact PTH [...] sample can interfere with this immunoassay test. Lynnalejandro Olivasam Mariano APRN CHEMISTRY ORDERABLES Elizabeth l Result [facility] [address] [facility], [place] [address] * VITAMIN D, 1,25-DIHYDROXY -REF LAB (12/21/2024 1:38 PM EDT) Pathologist [facility] Vit D 1,25 53.0 19.9 - 79.3 pg/mL 12/23/2024 11:27 AM EDT [employer] Comment: INTERPRETIVE INFORMATION: Vitamin D, 1,25-Dihydroxy This test is primarily indicated during patient evaluation for hypercalcemia and renal failure. A normal result does not rule out Vitamin D deficiency. The recommended test for diagnosing Vitamin D deficiency is Vitamin D 25-hydroxy. Performed By: [facility] [address] [place] [address] Station Baggage Agent: Patric Aranda MD, PhD CLIA Number: [id number] Blood VENOUS BLOOD / Unknown Venipuncture / Unknown 12/21/2024 1:38 PM EDT 12/21/2024 1:44 PM EDT Lynnalejandro Olivasam Mariano APRN CHEMISTRY ORDERABLES Elizabeth l Result Performing Organization Address [facility] Co de Phone Number [employer] [address] [place] [address] * VITAMIN D 25 HYDROXY (12/21/2024 1:38 PM EDT) [facility] Vit D 25 [place] 43.9 30.0 - 150.0 ng/mL 12/21/2024 10:12 PM EDT [facility] Comment: Preferred: >= 30 ng/mL Insufficient: 21-29 ng/mL Deficient <= 20 ng/mL Possible Toxicity: >150 ng/mL Samples should not be taken from patients receiving therapy with high biotin doses (i.e. > 5 mg/day) until at least 8 hours following the last biotin administration. Blood VENOUS BLOOD / Unknown Venipuncture / Unknown 12/21/2024 1:38 PM EDT 12/21/2024 1:44 PM EDT Lynn Mariano CONVERTER SKIMMER CHEMISTRY ORDERABLES Elizabeth l Result [facility] [employer] [facility] [address] [facility] , [place] [address] * MAGNESIUM LEVEL (12/21/2024 1:38 PM EDT) Magnesium 2.0 1.6 - 2.4 mg/dL 12/21/2024 2:[address] [facility] Blood VENOUS BLOOD / Unknown Venipuncture / Unknown 12/21/2024 1:38 PM EDT 12/21/2024 1:44 PM EDT Lynn Mariano CONVERTER SKIMMER CHEMISTRY ORDERABLES Elizabeth l Result Performing Organization Address City/[facility]/ZIP Co de Phone Number [facility] [address] [place] [address] * PHOSPHORUS LEVEL (12/21/2024 1:38 PM EDT) Phosphorus 4.4 2.5 - 4.5 mg/dL 12/21/2024 2:[address] [facility] Blood VENOUS BLOOD / Unknown Venipuncture / Unknown 12/21/2024 1:38 PM EDT 12/21/2024 1:44 PM EDT Lynn Mariano CONVERTER SKIMMER CHEMISTRY ORDERABLES Elizabeth l Result Performing Organization Address City/[facility]/ZIP Co de Phone Number [facility] [address] [place] [address] * URIC ACID (12/21/2024 1:38 PM EDT) Uric Acid 4.2 2.4 - 5.7 mg/dL 12/21/2024 2:[address] [facility] Blood VENOUS BLOOD / Unknown Venipuncture / Unknown 12/21/2024 1:38 PM EDT 12/21/2024 1:44 PM EDT Lynn Mariano APRN CHEMISTRY ORDERABLES Elizabeth l Result [facility] [address] [place] [address] * (ABNORMAL) CBC (12/21/2024 1:38 PM EDT) WBC 16.4(H) 3.7 - 10.3 x10(3)/mcL 12/21/2024 1:[address] [facility] RBC 4.81 3.90 - 5.20 x10(6)/mcL 12/21/2024 1:[address] [facility] Hgb 15.0 11.2 - 15.7 g/dL 12/21/2024 1:[address] [facility] Hct 47.6(H) 34.0 - 45.0 % 12/21/2024 1:[address] [facility] MCV 99.0 80.0 - 100.0 fL 12/21/2024 1:[address] [facility] MCH 31.2 26.0 - 34.0 pg 12/21/2024 1:[address] [facility] MCHC 31.5 30.7 - 35.5 g/dL 12/21/2024 1:[address] [facility] RDW 14.3 <=14.9 % 12/21/2024 1:[address] [facility] Platelet 234 155 - 369 x10(3)/mcL 12/21/2024 1:[address] [facility] MPV 10.7 8.8 - 12.5 fL 12/21/2024 1:[address] [facility] Blood VENOUS BLOOD / Unknown Venipuncture / Unknown 12/21/2024 1:38 PM EDT 12/21/2024 1:44 PM EDT Lynn Mariano APRN HEMATOLOGY ORDERABLES Fin al Result Performing Organization Address City/[facility]/ZIP Co de Phone Number [facility] [address] [place] [address] * (ABNORMAL) BASIC METABOLIC PANEL (12/21/2024 1:38 PM EDT) Sodium 139 136 - 145 mmol/L 12/21/2024 2:[address] [facility] Potassium 3.8 3.5 - 5.0 mmol/L 12/21/2024 2:[address] [facility] Chloride 100 98 - 107 mmol/L 12/21/2024 2:[address] [facility] Total CO2 27 22 - 29 mmol/L 12/21/2024 2:[address] [facility] Anion Gap 12 7 - 16 mmol/L 12/21/2024 2:[address] [facility] Calcium 9.0 8.6 - 10.4 mg/dL 12/21/2024 2:[address] [facility] Glucose Lvl 112(H) 70 - 99 mg/dL 12/21/2024 2:[address] [facility] BUN 18 6 - 20 mg/dL 12/21/2024 2:[address] [facility] Creatinine 1.25 0.51 - 1.30 mg/dL 12/21/2024 2:[address] [facility] eGFR (CKD-EPIcr 2020) 54(L) >=60 mL/min/1.7 3 m2 12/21/2024 2:[address] [facility] Comment:Estimated GFR was ca lculated using the CKD-EPIcr (2020) equation refit without race. The equation is recommended by the [employer] - [employer] Neph[employer] Task Force. Blood VENOUS BLOOD / Unknown Venipuncture / Unknown 12/21/2024 1:38 PM EDT 12/21/2024 1:44 PM EDT us Lynn Mariano CONVERTER SKIMMER CHEMISTRY ORDERABLES Elizabeth l Result Performing Organization Address City/[facility]/ZIP Co de Phone Number [facility] [address] [place] [address] documented in this encounter Visit Diagnoses Diagnosis B12 deficiency- Primary Other B-complex deficiencies Iron malabsorption Other specified intestinal malabsorption Iron deficiency anemia due to chronic blood loss Iron deficiency anemia secondary to blood loss (chronic) Stage 3a chronic kidney disease (HCC) Vitamin D deficiency Unspecified vitamin D deficiency Essential hypertension Unspecified essential hypertension Type 2 diabetes mellitus with stage 3a chronic kidney disease, without long-term current use of insulin (HCC) documented in this encounter Administered Medications Inactive Administered Medications - up to 1 most recent administrations Medication Order MAR Action Action Date Dose Rate Site cyanocobalamin injection 1,000 mcg 1,000 mcg, Subcutaneous, ONCE, 1 dose, On Fri12/21/24 at 1330, Dx: 1. B12 deficiency 2. Iron malabsorption 3. Iron deficiency anemia due to chronic blood lossIndications:B12 deficiency,Iron malabsorption,Iron deficiency anemia due to chronic blood loss Given 12/21/2024 1:48 PM EDT 1,000 mcg Left Arm iron sucrose (VENOFER) in sodium chloride 0.9% 120mL infusion 200 mg 200 mg, Intravenous, ONCE, 1 dose, On Fri12/21/24 at 1345, Administer over 30 Minutes, VESICANT , Dx: 1. B12 deficiency 2. Iron malabsorption 3. Iron deficiency anemia due to chronic blood lossIndications:B12 deficiency,Iron malabsorption,Iron deficiency anemia due to chronic blood loss IV Started 12/21/2024 1:48 PM EDT 200 mg 240 mL/hr sodium chloride 0.9% syringe Intravenous, PRN, Starting on Fri12/21/24 at 1327, Until Fri12/23/24 at 0415, Line Care, Flush after IV medication, Dx: 1. B12 deficiency 2. Iron malabsorption 3. Iron deficiency anemia due to chronic blood lossIndications:B12 deficiency,Iron malabsorption,Iron deficiency anemia due to chronic blood loss Given 12/21/2024 2:22 PM EDT 20 mL documented in this encounter Care Teams Residential Collections Relationship Specialty Start Date End Date Jerome Crowley MD [address] [place], [place] [address] PCP - General Internal Medicine 08/09/24 Kayli Kebede MD [address] [place] [address] Consulting Physician Internal Medicine-Nephrology 05/17/22 Valarie Leach, RN Breaker Table Worker Registered Nurse 12/01/24 documented as of this encounter
--- OUTSIDE RECORDS SUMMARY | 2024-12-25 16:00 | XMS_ITS | Encounter Summary ---
Author Organization [place] [address] Care Team Providers Care Absorption Operator Name Role Phone Kayli Kebede MD Unavailable [phone] Jerome Crowley MD Primary Care Provider [phone] Valarie Leach RN Unavailable Unavailable Reason for Visit * Reason Comments Dizziness Encounter Details Date Type Department Care Team (Late st Contact Info) Description 12/25/2024 4:00 PM EDT - 12/25/2024 7:[address] [facility] Emergency [address] [place] [id number] Mesfin Hoffman MD [address] [place], [place] [id number] COREEN (acute kidney injury) (Primary Dx); Lightheadedness Discharge Disposition: Home or Self Care Social History Tobacco Use Types Packs/Day Years Used Date Smoking Tobacco: Every Day Cigarettes 1 17.8 Started: 04/02/2007 Smokeless Tobacco: Never Alcohol Use Standard Drinks/Week Comments Not Currently 0 (1 standard drink = 0.6 oz pur e alcohol) few times a year [facility] Utilities Answer Date Recorded In the [...] Date Recorded PHQ-2 Total Score 0 11/29/2024 [facility] [place] of Occupat ional Health - Occupational Stress [...] place to sleep or slept in a assisted (including now)? No 03/30/2021 [facility] IP Transportation Answer D ate Recorded In [...] Sign Reading Time Taken Comments Blood Pressure 108/75 12/25/2024 6:05 PM EDT Pulse 68 12/25/2024 6:08 PM EDT Temperature 36.6 C (97.9 F) 12/25/2024 4:03 PM EDT Respiratory Rate 15 12/25/2024 6:08 PM EDT Oxygen Saturation 100% 12/25/2024 6:08 PM EDT Inhaled Oxygen Concentration - - Weight 127.9 kg (282 lb) 12/25/2024 4:03 PM EDT Height 165.1 cm (5' 5 ) 12/25/2024 4:03 PM EDT Body Mass Index 46.93 12/25/2024 4:03 PM EDT documented in this encounter Functional [...] 4:23 PM EDT Brina Polanco RN * Suicide Severity Rating Answer Date of Assessment Author No Risk 12/25/2024 4:02 PM EDT Hilario Valles RN * Dale Suicide Severity Rating Scale (Q shift for moderate and high) Question Answer Date of Assessment Author 1. In the past month, have y ou wished you were or wished you could go to sleep and not wake up? 0 12/25/2024 4:02 PM EDT Camille Valles RN 2. In the past month, have y ou actually had any thoughts of killing yourself? (If no, skip to question 6) 0 12/25/2024 4:02 PM EDT Brittani Valles RN 6. Have you ever done anythi ng, started to do anything, or prepared to do anything to end your life? 0 12/25/2024 4:02 PM EDT Brittani Valles RN documented as of this encounter Mental Status * Because of a physical, mental or emotional condition, does this person have serious difficulty concentrating, remembering or making decisions? Answer Entry Date Author No 11/30/2024 4:23 PM EDT Brina Polanco RN documented in this encounter Discharge Instructions * Discharge Instructions* Zayda Boswell PA - 12/25/2024 7:23 PM EDT Stay hydrated with oral fluid intake. Follow-up with your PCP. Return to the ED if you experience lightheadedness, syncope, weakness, or worsening symptoms or concerns. * Attachments The following attachments cannot be sent through Care Everywhere. * Acute kidney injury (Swedish) documented in this encounter Medications at Time of Discharge ACETAMINOPHEN 325 mg Oral Tab TAKE 2 TABLETS BY MOUTH EVERY 8 HOURS NEEDED FOR PAIN 200 Tablet 11 5 aspirin 81 mg Oral Tablet, Chewable Take [...] 25 fluticasone propionate (FLONASE) 50 mcg/actuation Nasl [place], Suspension 1 [place] by Nasal route daily. 16 g 1 [...] 28 DAYS* 15 mL 3 5 Insulin Lindsay, Disposable, (LIA PEN NEEDLE) 32 gauge x /32 [facility] Needle Use as directed with insulin pens daily 100 Each 3 5 lancets (ONETOUCH DELICA PLUS LANCET) 33 gauge [facility] Subcutaneous (Inject under the skin) 100 Each daily. 100 Each 10 4 metOLazone (ZAROXOLYN) 2.5 mg Oral Tablet Take 2.5 mg by mouth daily as needed for Other (Edema, weight gain). montelukast (SINGULAIR) 10 mg Oral TabletIndications :Severe persistent asthma without complication (HCC) Take 1 Tablet by mouth every evening. 90 Tablet 3 5 Nebulizer Accessories (ALL FLOW 4000 KIT) [facility] MiscIndications:M oderate persistent asthma with acute exacerbation 1 Kit by [facility].(Non-Drug; Combo Route) route daily. 0 9 nitroGLYCERIN [...] Capsule by mouth daily. 90 Capsule 3 5 tiZANidine (ZANAFLEX) 4 mg Oral Tablet Take 1 Tablet by mouth 3 times daily as needed. for muscle spasms 60 Tablet 10 5 acetaminophen 325 mg Oral Tab Take 2 Tablets by mouth every 8 hours as needed for Pain for up to 180 days. 200 Tablet 5 5 12/28/19 25 fluconazole (DIFLUCAN) 100 mg Oral Tablet Take 1 Tablet by mouth once a week for 90 days. 12 Tablet 5 01/04/20 25 ondansetron (ZOFRAN-ODT) 4 mg Oral Tablet, Rapid DissolveIndicatio ns:Nausea Take 1 Tablet by mouth every 6 hours as needed for Nausea for up to 180 days. 30 Tablet 5 5 12/31/19 25 predniSONE (DELTASONE) 10 mg Oral Tablet Take 1 Tablet by mouth 2 times daily for 7 days. 14 Tablet 5 12/31/19 25 ranolazine (RANEXA) 500 mg Oral Tablet Sustained Release 12 hr Take 1 Tablet by mouth every 12 hours for 30 days. 60 Tablet 5 12/31/19 25 documented as of this encounter Discharge Disposition Disposition Code Departure Means Destination Comment s Home or Self [facility]dc documented in this encounter ED Notes * Zayda Boswell PA - 12/25/2024 4:00 PM EDT Chief Complaint Patient presents with Dizziness Patient seen for Dr. Hoffman. Patient is a 44-year-old female with a past medical history of hypertension, CAD, CHF, COPD, fibromyalgia, GERD, chronic kidney disease, type 2 diabetes mellitus presents to the ED via EMS for further evaluation of dizziness. Patient states that this afternoon she was doing some yard work when she went to stand up and felt lightheaded. She was able to sit down after this and allow the lightheadedness to subside. She did not lose consciousness. She took her blood pressure at that time and it was78/46. She informed her family medicine provider of this blood pressure as well. She denies any chest pain or shortness of breath at the time of her lightheadedness. She currently denies chest pain and shortness of breath here in the emergency department. Patient without any fevers, upper respiratory symptoms, chest pain, shortness of breath, abdominal pain, urinary/bowel changes. She expressed that she has had a decrease in her appetite. She also expressed that she has not been drinking the most healthy fluids, she has been drinking a lot of Monster energy drinks lately. Per chart review, patient was seen, evaluated, and admitted to the hospital for further workup of dizziness. She had an MRI of her brain and a CT angio of her coronaries done approximately 1 month ago at this admission. MRI of the brain came back nonacute. CT angio of the coronaries showed 40 to 50% of plaque buildup in the LAD along with 40 to 50% in the proximal RCA. No significant high-grade stenosis. Dizziness Associated symptoms: no chest pain, no diarrhea, no nausea, no palpitations, no shortness of breathand no vomiting Patient History Allergies Allergen Reactions Macrolide Antibiotics Rash Penicillins Rash Home Medications: Prior to Admission medications Medication Sig Start Date End Date Last Dose Authorizing Provider acetaminophen 325 mg Oral Tab Take 2 Tablets by mouth every 8 hours as needed for Pain for up to 180 days. 11/18/24 05/17/25 Santosh Crowley MD albuterol (PROVENTIL HFA;VENTOLIN HFA) 90 mcg/actuation Inhl HFA Aerosol Inhaler Inhale 2 Puffs into the lungs every 6 hours as needed. for wheezing 12/21/24 Jerome Crowley MD albuterol (PROVENTIL) 2.5 mg /3 mL (0.083 %) Inhl Solution for Nebulization INHALE 3 ML BY MOUTH EVERY 4 HOURS NEEDED FOR WHEEZING 11/26/22 Annmarie Burton APRN aspirin 81 mg Oral Tablet, Chewable Take 1 Tablet by mouth daily. 12/10/24 Jerome Crowley MD atorvastatin (LIPITOR) 20 mg Oral Tablet Take 2 Tablets by mouth daily for 360 days. 12/10/24 12/05/25 Jerome Crowley MD Blood-Glucose Meter Mis Kit Use to check blood sugar 12/01/24 Jerome Crowley MD Blood-Glucose Meter Misc Misc Use to check blood sugar daily 09/04/22 Annmarie Burton APRN ptpqltamfu-ufryycgy-nagdonooca (BREZTRI AEROSPHERE) 160-9-4.8 mcg/actuation Inhl HFA Aerosol Inhaler Inhale 2 Inhalations into the lungs 2 times daily. 12/10/24 Jerome Crowley MD busPIRone (BUSPAR) 10 mg Oral Tablet Take 1 Tablet by mouth 2 times daily. 12/20/24 Jerome Crowley MD carvediloL (COREG) 25 mg Oral Tablet 09/27/24 Provider, Historical cloNIDine (CATAPRES) 0.1 mg Oral Tablet Take 1 Tablet by mouth 2 times daily. 12/10/24 Veronica Crowley MD diclofenac (VOLTAREN) 1 % Top Gel Apply 2 g topically 4 times daily. 11/18/24 Santosh Crowley MD docusate sodium (COLACE) 100 mg Oral Capsule Provider, Historical DULoxetine (CYMBALTA) 60 mg Oral Capsule, Delayed Release(E.C.) Take 1 Capsule by mouth daily for 360 days. 06/28/24 06/23/25 Jerome Crowley MD ergocalciferol (DRISDOL) 1,250 mcg (50,000 unit) Oral Capsule Take 1 Capsule by mouth once a week for 360 days. 12/20/24 12/15/25 Santosh Crowley MD FARXIGA 10 mg Oral Tablet Take 1 Tablet by mouth daily for 360 days. 06/28/24 06/23/25 Jerome Crowley MD ferrous sulfate 325 mg (65 mg iron) Oral Tablet, Delayed Release (E.C.) TAKE 1 TABLET BY MOUTH TWICE DAILY Patient not taking: Reported on 12/01/2024 02/11/24 Kayli Kebede MD fluconazole (DIFLUCAN) 100 mg Oral Tablet Take 1 Tablet by mouth once a week for 90 days. 11/18/24 02/16/25 Santosh Crowley MD fluticasone propion-salmeteroL (ADVAIR DISKUS) 500-50 mcg/dose Inhl Disk with Device Inhale 1 Puff into the lungs 2 times daily. into the lungs Patient not taking: Reported on 12/07/2024 08/02/24 Jerome Crowley MD fluticasone propionate (FLONASE) 50 mcg/actuation Nasl [place], Suspension 1 [place] by Nasal route daily. 11/18/24 Santosh Crowley MD fUROsemide (LASIX) 40 mg Oral Tablet Take 1 Tablet by mouth daily for 30 days. 12/01/24 12/31/24 Jerome Crowley MD guaiFENesin (MUCINEX) 600 mg Oral Tablet Extended Release 12hr Take 1 Tablet by mouth 2 times dailyas needed for Congestion (thick secretions). 12/24/24 Jerome Crowley MD hydrALAZINE (APRESOLINE) 25 mg Oral Tablet Take 1 Tablet by mouth 2 times daily. 12/07/24 Khadar Santillan MD hydrOXYzine (ATARAX) 25 mg Oral Tablet Take 1 Tablet by mouth every 6 hours as needed. for itching 11/18/24 Santosh Crowley MD insulin lispro (HUMALOG) 100 unit/mL SubQ Insulin Pen INJECT 5 TO 10 UNITS SUBCUTANEOUSLY DAILY NEEDED IF SUGAR IS HIGH *DISCARD REMAINDER OF PEN AFTER 28 DAYS* 12/10/24 Jerome Crowley MD Insulin Lindsay, Disposable, (LIA PEN NEEDLE) 32 gauge x [facility] Needle Use as directed with insulin pens daily 10/11/24 Jerome Crowley MD lancets (ONETOUCH DELICA PLUS LANCET) 33 gauge [facility] Subcutaneous (Inject under the skin) 100 Each daily. 06/29/24 Annmarie Burton APRN Lancets [facility] Use to check blood sugar daily 09/04/22 Annmarie Burton APRN linaCLOtide (LINZESS) 72 mcg Oral Capsule Take 1 Capsule by mouth as needed for Nausea. 12/10/24 Jerome Crowley MD metOLazone (ZAROXOLYN) 2.5 mg Oral Tablet Take 2.5 mg by mouth 2 times daily as needed for Nausea. Provider, Historical montelukast (SINGULAIR) 10 mg Oral Tablet Take 1 Tablet by mouth every evening. 12/20/24 Jerome Crowley MD Nebulizer Accessories (ALL FLOW 4000 KIT) [facility] 1 Kit by [facility].(Non-Drug; Combo Route) route daily. 04/01/19 Annmarie Burton APRN nitroGLYCERIN (NITROSTAT) 0.4 mg SL Tablet, Sublingual Place 1 Tablet under the tongue every 5 minutes as needed for Chest pain. Dissolve 1 tablet under the tongue at onset of chest pain. For persistent or worsening pain, call 911 and repeat dose every 5 minutes, up to 3 tablets in a 15-minute period. 11/18/24 Santosh Crowley MD olmesartan (BENICAR) 40 mg Oral Tablet Take 1 Tablet by mouth daily. 06/08/24 Freddie Britt MD omeprazole (PRILOSEC) 40 mg Oral Capsule, Delayed Release(E.C.) Take 1 Capsule by mouth daily. 11/18/24 Santosh Crowley MD ondansetron (ZOFRAN-ODT) 4 mg Oral Tablet, Rapid Dissolve Take 1 Tablet by mouth every 6 hours as needed for Nausea for up to 180 days. 08/02/24 01/29/25 Jerome Crowley MD predniSONE (DELTASONE) 10 mg Oral Tablet Take 1 Tablet by mouth 2 times daily for 7 days. 12/23/24 12/30/24 Jerome Crowley MD pregabalin (LYRICA) 50 mg Oral Capsule Take 1 Capsule by mouth 3 times daily. 12/08/24 Veronica Crowley MD ranolazine (RANEXA) 500 mg Oral Tablet Sustained Release 12 hr Take 1 Tablet by mouth every 12 hours for 30 days. 11/30/24 12/30/24 Kary Macias MD semaglutide 2 mg/dose (8 mg/3 mL) SubQ Pen Injector Inject 2 mg under the skin once a week for 360 days. 12/10/24 12/05/25 Jerome Crowley MD tiZANidine (ZANAFLEX) 4 mg Oral Tablet Take 1 Tablet by mouth 3 times daily as needed. for muscle spasms 12/01/24 Jerome Crowley MD traMADoL (ULTRAM) 50 mg Oral Tablet 1-2 tablets every 6 hours as needed for pain 09/01/24 Annmarie Burton APRN Past Medical History: Past Medical History: Diagnosis Date Abdominal pain Abnormal Pap smear of cervix Allergy seasonal Anemia Anxiety Arthritis Asthma Back pain CAD (coronary artery disease) CHF (congestive heart failure) (HCC) COPD (chronic obstructive pulmonary disease) ([facility]) Coronary artery disease Depression Essential hypertension 06/22/2015 Fibromyalgia GERD (gastroesophageal reflux disease) Sleep apnea Stage 3a chronic kidney disease ([facility]) 04/24/2022 Type 2 diabetes mellitus with stage 3a chronic kidney disease, without long-term current use of insulin ([facility]) 08/09/2022 Social History: reports that she has been smoking cigarettes. She started smoking about 17 years ago. She has a 17.7 pack-year smoking history. She has never used smokeless tobacco. She reports that she does not currently use alcohol. She reports being sexually active and has had partner(s) who aremale. She reports using the following method of control/protection: Surgical. She reports that she does not use drugs. E-Cigarettes (such as Vapes or Juul) E-Cigarette Use Never User Comments 1/2 tank a week Family History: Family History Problem Relation Age [...] Mental Illness Sister Breast Cancer Paternal Aunt Surgical History: Past Surgical History: Procedure Laterality Date ABDOMEN SURGERY ARTHROCENTESIS CHOLECYSTECTOMY CYST REMOVAL from neck JOINT REPLACEMENT 09-01-23 and 10-12-24 Tkr KNEE SURGERY NECK SURGERY mass removed PELVIC LAPAROSCOPY davinci robotic TONSILLECTOMY TUBAL LIGATION Review of Systems Review of Systems Constitutional: Positive for appetite change. Negative for chills and fever. HENT: Negative. Eyes: Negative. Respiratory: Negative for cough and shortness of breath. Cardiovascular: Negative for chest pain, palpitations and leg swelling. Gastrointestinal: Negative for abdominal pain, constipation, diarrhea, nausea and vomiting. Genitourinary: Negative for dysuria and frequency. Musculoskeletal: Negative. Skin: Negative for rash. Neurological: Positive for light-headedness. Negative for dizziness. Psychiatric/Behavioral: Negative. All other systems reviewed and are negative. Physical Exam Blood pressure 103/68, pulse 76, temperature 97.9 ??F (36.6 ??C), temperature source Oral, resp. rate 16, height 5' 5 (1.651 m), weight 282 lb (127.9 kg), SpO2 95%, not currently . Physical Exam Vitals reviewed. Constitutional: General: She is not in acute distress. Appearance: She is obese. HENT: Head: Normocephalic. Right Ear: Tympanic membrane, ear canal and external ear normal. Left Ear: Tympanic membrane, ear canal and external ear normal. Nose: Nose normal. Mouth/Throat: Mouth: Mucous membranes are moist. Pharynx: Oropharynx is clear. Eyes: Extraocular Movements: Extraocular movements intact. Pupils: Pupils are equal, round, and reactive to light. Cardiovascular: Rate and Rhythm: Normal rate and regular rhythm. Pulses: Normal pulses. Heart sounds: Normal heart sounds. Pulmonary: Effort: Pulmonary effort is normal. No respiratory distress. Breath sounds: Normal breath sounds. Abdominal: General: Bowel sounds are normal. Palpations: Abdomen is soft. Tenderness: There is no abdominal tenderness. Musculoskeletal: Cervical back: Normal range of motion and neck supple. Skin: General: Skin is warm. Capillary Refill: Capillary refill takes less than 2 seconds. Findings: No rash. Neurological: General: No focal deficit present. Mental Status: She is alert and oriented to person, place, and time. Procedures Radiology/EKG/Labs: Results for orders placed or performed during the hospital encounter of 12/25/24 XR CHEST PA AND LATERAL Narrative PA AND LATERAL CHEST X-RAY, 12/25/2024 4:55 PM CLINICAL HISTORY: -lightheadedness, SOB COMPARISON: 11/29/2024 PROCEDURE COMMENTS: Frontal and lateral views of the chest. FINDINGS: Heart and mediastinal contours within normal limits for technique. No active failure, pneumonia, or visible effusion. No visible pneumothorax. Impression No acute finding. - Note: Radiology results need to be interpreted within a comprehensive clinical context. If you have questions about the radiology report, please contact the office of the ordering clinician. CBC WITH DIFF Result Value Ref Range WBC 17.6 (H) 3.7 - 10.3 x10(3)/mcL RBC 5.05 3.90 - 5.20 x10(6)/mcL Hgb 15.8 (H) 11.2 - 15.7 g/dL Hct 49.0 (H) 34.0 - 45.0 % MCV 97.0 80.0 - 100.0 fL MCH 31.3 26.0 - 34.0 pg MCHC 32.2 30.7 - 35.5 g/dL RDW 14.7 <=14.9 % Platelet 223 155 - 369 x10(3)/mcL MPV 11.1 8.8 - 12.5 fL Neut Percent 74.9 % Imm Gran% 0.5 % Lymph Percent 13.3 % Dewey Percent 4.5 % Eos Percent 6.0 % Baso Percent 0.8 % Neut # 13.2 (H) 1.6 - 6.1 x10(3)/mcL IMMGRAN# 0.1 0.0 - 0.1 x10(3)/mcL Lymph # 2.3 1.2 - 3.9 x10(3)/mcL Dewey # 0.8 0.3 - 0.9 x10(3)/mcL Eos# 1.1 (H) 0.0 - 0.5 x10(3)/mcL Baso # 0.1 0.0 - 0.1 x10(3)/mcL COMPREHENSIVE METABOLIC PANEL Result Value Ref Range Sodium 138 136 - 145 mmol/L Potassium 4.5 3.5 - 5.0 mmol/L Chloride 98 98 - 107 mmol/L Total CO2 28 22 - 29 mmol/L Anion Gap 12 7 - 16 mmol/L Calcium 9.1 8.6 - 10.4 mg/dL Glucose Lvl 116 (H) 70 - 99 mg/dL BUN 22 (H) 6 - 20 mg/dL Creatinine 1.67 (H) 0.51 - 1.30 mg/dL Albumin 3.8 3.5 - 5.2 gm/dL Total Protein 7.0 6.4 - 8.3 gm/dL Bili Total 0.9 0.2 - 1.3 mg/dL ALT 19 <=41 U/L AST 22 <=40 U/L Alk Phos 82 36 - 123 U/L eGFR (CKD-EPIcr 2020) 38 (L) >=60 mL/min/1.73 m2 NT PROBNP Result Value Ref Range NT Pro-BNP <36 <=192 pg/mL Narrative An NT pro-BNP level less than 300 pg/mL in any patient, regardless of age, effectively rules out acute CHF with a 99% negative predictive value. Ingestion of julio doses of biotin (>5 mg/day) taken within 8 hours of drawing blood sample can interfere with this immunoassay test. TROPONIN-T HIGH SENSITIVITY BASELINE W/ REFLEX Result Value Ref Range od-eFdmlsurh-H <6 <14 ng/L Narrative Ingestion of julio doses of biotin (>5 mg/day) taken within 8 hours of drawing blood sample can interfere with this immunoassay test. TROPONIN-T HIGH SENSITIVITY 2HR Result Value Ref Range ez-zWbxdplsq-H 2HR <6 <14 ng/L hs-cTnT 2Hr Delta from Baseline Narrative Ingestion of julio doses of biotin (>5 mg/day) taken within 8 hours of drawing blood sample can interfere with this immunoassay test. EK EKG 12 LEAD Narrative NOTICE: Preliminary tracing available for review; Final Interpretation by physician to follow. Impression 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 COREEN (acute kidney injury) 2. Lightheadedness Critical Care time MDM Medical Decision Making Patient is a 44-year-old female presented to the ED for further evaluation of lightheadedness. Patient is afebrile and hemodynamically stable throughout ED course. Patient's blood pressure has been lower. Upon arrival her blood pressure was 103/65. Prior to discharge her blood pressure was 175. Patient is saturating comfortably at 100% on room air and does not appear to be in acute respiratory distress. Patient review of systems and physical exam outlined above. Differential diagnosis includes, but not limited to: Anemia, dehydration, COREEN, cardiac arrhythmia, acute coronary syndrome CBC with a leukocytosis of 17.6. CMP without electrolyte abnormality. CMP indicative of an COREEN withelevated creatinine and BUN, estimated GFR decreased to 38 from 59. proBNP, initial troponin, 2-hour troponin are all within normal limits. EKG showed sinus rhythm with no changes concerning for acute ischemia. Chest radiograph with no acute findings. Orthostatic vital signs obtained and were stable. Not indicative of orthostatic hypotension at this time. Patient received an IV fluid bolus. Upon reevaluation, patient notes that she feels improved. Due to patient's COREEN and lightheadedness, recommended admission to the hospital for IV fluid hydration and reevaluation of kidney function in the mo rning. Patient expressed that she did not want to be admitted to the hospital. Risk versus benefitsof inpatient management were discussed with the patient. Patient verbalized understanding and wouldlike to be discharged home. Patient was encouraged to stay hydrated with oral fluid intake and she was given strict return precautions. Patient to follow-up with PCP. At this time, patient is candidate for discharge. Patient was provided discharge instructions and return precautions. All questions were answered at the time encounter. Patient verbalized understanding of discharge and is comfortable with plan for discharge at this time. My attending, Dr. Hoffman, was available for consultation throughout the patient's ED encounter. Condition at Discharge/Transfer from Department: Improved This chart was completed using voice recognition technology and may contain unintended errors Zayda Boswell PA 12/25/242000 Cosigned by Mesfin Hoffman MD at 12/28/2024 1:58 AM EDT Associated attestation - Mesfin Hoffman MD - 12/28/2024 1:58 AM EDT Attending Log Handler Note: I have participated in the care of this patient and have reviewed the pertinent clinical information including physical exam findings, labs, and radiographic studies that were gathered by the FATUMA. I have reviewed and/or discussed the plan of care I have reviewed workup findings for the patient's visit. SCANNED EKG EK EKG 12 LEAD ED Interpretation by Mesfin Hoffman MD (12/25 1717) I have interpreted EKG for this encounter. Rhythm is normal sinus rhythm at a rate of 66 bpm. The axis is normal. Notching at the J-point in lead II, similar to prior. No ST elevation or morphology changes that would be indicative of STEMI. QTc 456. This chart was completed using voice recognition technology and may contain unintended errors documented in this encounter Plan of Treatment Upcoming Encounters Date Type Department Care Team (Late st Contact Info) Description 02/02/2025 12:45 PM EDT Office Visit [facility] [address] [place] [address] Manuel Torres MD [address] [place] [address] 02/15/2025 2:15 PM EDT Appointment [facility] [address] [place] [address] 02/15/2025 2:30 PM EDT Appointment [address] [place] [address] Farnaz Ricardo, MECHANICAL LABORATORY TECHNICIAN [address] [place] [address] 02/24/2025 8:00 AM EDT Appointment [facility] [address] [place] [address] [address] [place] [address] Rajwinder Craig MD [address] [place] [id number] 03/02/2025 9:30 AM EDT Office Visit [facility] [address] [address] Jose Luis Ortiz MD [address] [place] [address] [place] [id number] 03/08/2025 11:15 AM EDT Office Visit [facility] Nephrology [place] [address] [place] [address] Lynn Mariano, MECHANICAL LABORATORY TECHNICIAN [address] [place] [phone] 03/09/2025 3:30 PM EDT Office Visit [facility] Diabetes [place] [address] [facility] [address] [place] [address] Rita Cordero MD [address] [place] [address] 10/07/2025 1:10 PM EDT Office Visit [facility] Juliane Kobe [address] [facility] [address] [place] [phone] Juan Russell MD [address] [facility] [address] [place] [address] documented as of this encounter [...] Procedure Name Priority Date/Time Associated Diagnosis Comments SCANNED EKG 12/27/2024 11:14 AM EDT TROPONIN-T HIGH SENSITIVITY 2HR Timed 12/25/2024 6:25 PM EDT SALINE LOCK IV STAT 12/25/2024 5:12 PM EDT XR CHEST PA AND LATERAL STAT 12/25/2024 4:55 PM EDT TROPONIN-T HIGH SENSITIVITY BASELINE W/ REFLEX STAT 12/25/2024 4:46 PM EDT CBC WITH DIFF STAT 12/25/2024 4:46 PM EDT NT PROBNP STAT 12/25/2024 4:46 PM EDT COMPREHENSIVE METABOLIC PANEL STAT 12/25/2024 4:46 PM EDT EK EKG 12 LEAD STAT 12/25/2024 4:41 PM EDT documented in this encounter Results * SCANNED EKG (12/27/2024 11:14 AM EDT) Anatomical Region Laterality Modality Other 12/27/2024 11:1 4 AM EDT us Unknown Provider IMG ECG ORDERABLES Final Result * TROPONIN-T HIGH SENSITIVITY 2HR (12/25/2024 6:25 PM EDT) qf-kFmgjhdhh-R 2HR <6 <14 ng/L 12/25/2024 6:47 PM EDT [facility] hs-cTnT 2Hr Delta from Baseline 12/25/2024 6:47 PM EDT [facility] Comment:Unable to calculate, result is outside instrument's measuring range. Blood VENOUS BLOOD / Unknown Venipuncture / Unknown 12/25/2024 6:25 PM EDT 12/25/2024 6:27 PM EDT Narrative [facility] - 12/25/2024 6:47 PM EDT Ingestion of julio doses of biotin (>5 mg/day) taken within 8 hours of drawing blood sample can interfere with this immunoassay test. us Zayda LAO CHEMISTRY ORDERABLES Final Res ult [facility] [address] [place] [address] * XR CHEST PA AND LATERAL (12/25/2024 4:55 PM EDT) Anatomical Region Laterality Modality Chest Radiographic Chaparrita ging 12/25/2024 4:55 PM EDT Impressions 12/25/2024 4:57 PM EDT No acute finding. - Note: Radiology results need to be interpreted within a comprehensive clinical context. If you have questions about the radiology report, please contact the office of the ordering clinician. Narrative 12/25/2024 4:57 PM EDT PA AND LATERAL CHEST X-RAY, 12/25/2024 4:55 PM CLINICAL HISTORY: -lightheadedness, SOB COMPARISON: 11/29/2024 PROCEDURE COMMENTS: Frontal and lateral views of the chest. FINDINGS: Heart and mediastinal contours within normal limits for technique. No active failure, pneumonia, or visible effusion. No visible pneumothorax. Procedure Note Collin James MD - 12/25/2024 PA AND LATERAL CHEST X-RAY, 12/25/2024 4:55 PM CLINICAL HISTORY: -lightheadedness, SOB COMPARISON: 11/29/2024 PROCEDURE COMMENTS: Frontal and lateral views of the chest. FINDINGS: Heart and mediastinal contours within normal limits for technique. Noactive failure, pneumonia, or visible effusion. No visible pneumothorax. IMPRESSION: No acute finding. - Note: Radiology results need to be interpreted within a comprehensiveclinical context. If you have questions about the radiology report, please contactthe office of the ordering clinician. Zayda LAO IMG DIAGNOSTIC IMAGING ORDERAB LES Final Result * TROPONIN-T HIGH SENSITIVITY BASELINE W/ REFLEX (12/25/2024 4:46 PM EDT) gy-mYzwhlvsj-T <6 <14 ng/L 12/25/2024 5:09 PM EDT [facility] Blood VENOUS BLOOD / Unknown Venipuncture / Unknown 12/25/2024 4:46 PM EDT 12/25/2024 4:48 PM EDT Narrative [facility] - 12/25/2024 5:09 PM EDT Ingestion of julio doses of biotin (>5 mg/day) taken within 8 hours of drawing blood sample can interfere with this immunoassay test. Zayda LAO CHEMISTRY ORDERABLES Final Res ult [facility] [address] [facility] [place] [address] * NT PROBNP (12/25/2024 4:46 PM EDT) NT Pro-BNP <36 <=192 pg/mL 12/25/2024 5:09 PM EDT [facility] Blood VENOUS BLOOD / Unknown Venipuncture / Unknown 12/25/2024 4:46 PM EDT 12/25/2024 4:48 PM EDT Narrative [facility] - 12/25/2024 5:09 PM EDT An NT pro-BNP level less than 300 pg/mL in any patient, regardless of age, effectively rules out acute CHF with a 99% negative predictive value. Ingestion of julio doses of biotin (>5 mg/day) taken within 8 hours of drawing blood sample can interfere with this immunoassay test. us Zayda LAO CHEMISTRY ORDERABLES Final Res ult [place] [id number] * (ABNORMAL) COMPREHENSIVE METABOLIC PANEL (12/25/2024 4:46 PM EDT) [facility] Sodium 138 136 - 145 mmol/L 12/25/2024 5:09 PM EDT [facility] Potassium 4.5 3.5 - 5.0 mmol/L 12/25/2024 5:09 PM EDT [facility] Chloride 98 98 - 107 mmol/L 12/25/2024 5:09 PM EDT [facility] Total CO2 28 22 - 29 mmol/L 12/25/2024 5:09 PM EDT [facility] Anion Gap 12 7 - 16 mmol/L 12/25/2024 5:09 PM EDT [facility] Calcium 9.1 8.6 - 10.4 mg/dL 12/25/2024 5:09 PM EDT [facility] Glucose Lvl 116(H) 70 - 99 mg/dL 12/25/2024 5:09 PM EDT [facility] BUN 22(H) 6 - 20 mg/dL 12/25/2024 5:09 PM EDT [facility] Creatinine 1.67(H) 0.51 - 1.30 mg/dL 12/25/2024 5:09 PM EDT [facility] Albumin 3.8 3.5 - 5.2 gm/dL 12/25/2024 5:09 PM EDT [facility] Total Protein 7.0 6.4 - 8.3 gm/dL 12/25/2024 5:09 PM EDT [facility] Bili Total 0.9 0.2 - 1.3 mg/dL 12/25/2024 5:09 PM EDT [facility] ALT 19 <=41 U/L 12/25/2024 5:09 PM EDT [facility] AST 22 <=40 U/L 12/25/2024 5:09 PM EDT [facility] Alk Phos 82 36 - 123 U/L 12/25/2024 5:09 PM EDT [facility] eGFR (CKD-EPIcr 2020) 38(L) >=60 mL/min/1.7 3 m2 12/25/2024 5:09 PM EDT [facility] Comment:Estimated GFR was ca lculated using the CKD-EPIcr (2020) equation refit without race. The equation is recommended by the [employer] - [place] [employer] of Nephrology Task Force. Blood VENOUS BLOOD / Unknown Venipuncture / Unknown 12/25/2024 4:46 PM EDT 12/25/2024 4:48 PM EDT us Zayda LAO CHEMISTRY ORDERABLES Final Res ult [facility] [address] [place] [address] * (ABNORMAL) CBC WITH DIFF (12/25/2024 4:46 PM EDT) WBC 17.6(H) 3.7 - 10.3 x10(3)/mcL 12/25/2024 4:50 PM EDT [facility] RBC 5.05 3.90 - 5.20 x10(6)/mcL 12/25/2024 4:50 PM EDT [facility] Hgb 15.8(H) 11.2 - 15.7 g/dL 12/25/2024 4:50 PM EDT [facility] Hct 49.0(H) 34.0 - 45.0 % 12/25/2024 4:50 PM EDT [facility] MCV 97.0 80.0 - 100.0 fL 12/25/2024 4:50 PM EDT [facility] MCH 31.3 26.0 - 34.0 pg 12/25/2024 4:50 PM EDT [facility] MCHC 32.2 30.7 - 35.5 g/dL 12/25/2024 4:50 PM EDT [facility] RDW 14.7 <=14.9 % 12/25/2024 4:50 PM EDT [facility] Platelet 223 155 - 369 x10(3)/mcL 12/25/2024 4:50 PM EDT [facility] MPV 11.1 8.8 - 12.5 fL 12/25/2024 4:50 PM EDT [facility] Neut Percent 74.9 % 12/25/2024 4:50 PM EDT [facility] Comment:Neutrophils equals s egs plus bands Imm Gran% 0.5 % 12/25/2024 4:50 PM EDT [facility] Comment:Automated count of m etamyelocytes, myelocytes and promyelocytes. Lymph Percent 13.3 % 12/25/2024 4:50 PM EDT [facility] Dewey Percent 4.5 % 12/25/2024 4:50 PM EDT [facility] Eos Percent 6.0 % 12/25/2024 4:50 PM EDT [facility] Baso Percent 0.8 % 12/25/2024 4:50 PM EDT [facility] Neut # 13.2(H) 1.6 - 6.1 x10(3)/mcL 12/25/2024 4:50 PM EDT [facility] Comment:Neutrophils equals s egs plus bands IMMGRAN# 0.1 0.0 - 0.1 x10(3)/mcL 12/25/2024 4:50 PM EDT [facility] Comment:Automated count of m etamyelocytes, myelocytes and promyelocytes. An absolute IG <0.1 is reported as 0.0. Lymph # 2.3 1.2 - 3.9 x10(3)/mcL 12/25/2024 4:50 PM EDT [facility] Dewey # 0.8 0.3 - 0.9 x10(3)/mcL 12/25/2024 4:50 PM EDT [facility] Eos# 1.1(H) 0.0 - 0.5 x10(3)/mcL 12/25/2024 4:50 PM EDT [facility] Baso # 0.1 0.0 - 0.1 x10(3)/[facility] 12/25/2024 4:50 PM EDT [facility] Blood VENOUS BLOOD / Unknown Venipuncture / Unknown 12/25/2024 4:46 PM EDT 12/25/2024 4:48 PM EDT Zayda LAO HEMATOLOGY ORDERABLES Final Re sult [place] [id number] * EK EKG 12 LEAD (12/25/2024 4:41 PM EDT) Anatomical Region Laterality Modality Electrocardiogra phy 12/25/2024 4:47 PM EDT Impressions 12/26/2024 2:42 PM EDT [facility] Test Date: 2024-12-25 Pat Name: COCO WOLF Department: DEPID Room: [facility] Gender: Female 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1980 Requested By: ZAYDA Salmon Order Number: [id number] Reading MD: Joni Zamorano MD Measurements Intervals [place] Rate: 66 P: 40 OK: 170 QRS: 22 QRSD: 100 T: 41 QT: 443 QTc: 464 Interpretive Statements SINUS RHYTHM Electronically Signed On 12-26-2024 14:42:31 EDT by Joni Zamorano MD Zayda LAO IMG ECG ORDERABLES Final Resul t documented in this encounter Visit Diagnoses Diagnosis COREEN (acute kidney injury)- Primary Acute kidney failure, unspecified Lightheadedness Dizziness and giddiness documented in this encounter Administered Medications Inactive Administered Medications - up to 1 most recent administrations Medication Order MAR Action Action Date Dose Rate Site sodium chloride 0.9 % 1,000 mL IV bolus Intravenous, ONCE, 1 dose, On 12/25/24 at 1715, at 983.6 mL/hr IV Started 12/25/2024 5:15 PM EDT 983.6 mL/hr sodium chloride 0.9% IV line flush 50 mL 50 mL, Intravenous, at 999 mL/hr, PRN, Starting on 12/25/24 at 1712, Until 12/25/24 at 2333, Line Care, Flush with 50 mL after IVPB to insure complete administration of the dose. May use the saline infusion to back flush IVPB tubing as needed., Use this order to document priming and flushing IV line after medication administration. sodium chloride 0.9% syringe 5-10 mL 5-10 mL, Intravenous, PRN, Starting on 12/25/24 at 1712, Until 12/25/24 at 2333, Line Care, Flush with 5 mL saline pre/post IVP, and 5 mL prior to IVPB or blood product administration. Protocol for PERIPHERAL IV saline lock maintenance, flush with 3-5 mL saline syringe every 8 hours., Flush peripheral lines every 12 hours, central lines every 8 hours, and after IV medication documented in this encounter Active and Recently Administered Medications Times are shown in EDT. Scheduled Medication Order 12/23/2024 12/24/2024 12/25/2024 sodium chloride 0.9 % 1,000 mL IV bolus (COMPLETED) Intravenous, ONCE, 1 dose, On 12/25/24 at 1715, at 983.6 mL/hr 1715 (IV Started - P rovider: Brittani Valles RN)1815 (Stopped - Provider: Kimberley Julien RN) PRN Medication Order 12/23/2024 12/24/2024 12/25/2024 sodium chloride 0.9% IV line flush 50 mL 50 mL, Intravenous, at 999 mL/hr, PRN, Starting on 12/25/24 at 1712, Until 12/25/24 at 2333, Line Care, Flush with 50 mL after IVPB to insure complete administration of the dose. May use the saline infusion to back flush IVPB tubing as needed., Use this order to document priming and flushing IV line after medication administration. sodium chloride 0.9% syringe 5-10 mL 5-10 mL, Intravenous, PRN, Starting on 12/25/24 at 1712, Until 12/25/24 at 2333, Line Care, Flush with 5 mL saline pre/post IVP, and 5 mL prior to IVPB or blood product administration. Protocol for PERIPHERAL IV saline lock maintenance, flush with 3-5 mL saline syringe every 8 hours., Flush peripheral lines every 12 hours, central lines every 8 hours, and after IV medication documented in this encounter Orders Medications Ordered That Cj ht Not Have Been Administered Count Last Ordered Date First Ordered Date sodium chloride 0.9 % 1,000 mL IV bolus 1 0 12/25/2024 sodium chloride 0.9% IV line flush 50 mL 1 12/25/2024 sodium chloride 0.9% syringe 5-10 mL 1 01/2025 Nursing Count Last Ordered Date First Orde red Date BLOOD GLUCOSE 1 12/25/2024 IV Count Last Ordered Date First Orde red Date SALINE LOCK IV 1 12/25/2024 documented in this encounter Care Teams Absorption Operator Relationship Specialty Start Date End Date Jerome Crowley MD [address] [place] [phone] PCP - General Internal Medicine 08/09/24 Kayli Kebede MD [address] [id number] Consulting Physician Internal Medicine-Nephrology 05/17/22 Valarie Leach, RN Child Adolescent Care Registered Nurse 12/01/24 documented as of this encounter
--- OUTSIDE RECORDS SUMMARY | 2024-12-28 10:20 | XMS_ITS | Encounter Summary ---
Author Organization [place] [address] Care Team Providers Care Lathe Operator Contact Lens Name Role Phone Kayli Kebede MD Unavailable [phone] Jerome Crowley MD Primary Care Provider [phone] Valarie Leach RN Unavailable Unavailable Reason for Visit * Reason Comments Hospital Follow Up COREEN (acute kidney in jury)12/25/2024 Other Wants bw for mennavneetu se Encounter Details Date Type Department Care Team (Late st Contact Info) Description 12/28/2024 10:20 AM EDT Office Visit [facility] [address] [place] [address] Jerome Crowley MD [address] [place] [address] Menopausal syndrome (Primary Dx); COREEN (acute kidney injury) Social History Tobacco Use Types Packs/Day Years Used Date Smoking Tobacco: Every Day Cigarettes 1 17.8 Started: 04/02/2007 Smokeless Tobacco: Never Tobacco Cessation:Ready to Q uit: Not Asked; Counseling Given: Not Answered Alcohol Use Standard Drinks/Week Comments Not Currently 0 (1 standard drink = 0.6 oz pur e alcohol) few times a year [facility] Utilities Answer Date Recorded In the past 12 months has th [employer] electric, gas, oil, or water company threatened to shut off services in your home? No 11/29/2024 Overall Financial Resource Strain (CARDIA) Answe r Date Recorded How hard is it for you to pa y for the very basics like food, housing, medical care, and heating? Not very hard 11/29/2024 PHQ-2 Answer Date Recorded PHQ-2 Total Score 0 11/29/2024 [facility] - [...] place to sleep or slept in a halfway (including now)? No 03/30/2021 [facility] IP Transportation Answer D ate Recorded In [...] Sign Reading Time Taken Comments Blood Pressure 122/70 12/28/2024 10:09 AM EDT Pulse 78 12/28/2024 10:09 AM EDT Temperature 36.4 C (97.5 F) 12/28/2024 10:09 AM EDT Respiratory Rate 18 12/28/2024 10:09 AM EDT Oxygen Saturation 97% 12/28/2024 10:09 AM EDT Inhaled Oxygen Concentration - - Weight 128.8 kg (284 lb) 12/28/2024 10:09 AM EDT Height 165.1 cm (5' 5 ) 12/28/2024 10:09 AM EDT Body Mass Index 47.26 12/28/2024 10:09 AM EDT documented in this encounter Functional [...] of Assessment Author No 11/30/2024 4:23 PM TARYNT Brina Polanco RN documented as of this encounter Mental Status * Because of a physical, mental or emotional condition, does this person have serious difficulty concentrating, remembering or making decisions? Answer Entry Date Author No 11/30/2024 4:23 PM EDT Brina Polanco RN documented in this encounter Ordered Prescriptions Prescription Sig Dispense Quantity Refills Last Filled Start Date End Date predniSONE (DELTASONE) 20 mg Oral Tablet Take 1 Tablet by mouth 2 times daily for 7 days, THEN 1 Tablet daily for 7 days. 21 Tablet 12/28/2024 01/04/2025 documented in this encounter Progress Notes * Jerome Crowley MD - 12/28/2024 10:20 AM EDT Assessment & Plan Assessment & Plan Menopausal syndrome Orders: LUTEINIZING HORMONE; Future FOLLICLE STIMULATING HORMONE LEVEL; Future ESTROGENS, FRACTIONATED BY TMS -REF LAB; Future No follow-ups on file. Subjective Tegan Wolf is a 44 y.o. female Chief Complaint Patient presents with Hospital Follow Up COREEN (acute kidney injury)12/25/2024 Other Wants bw for menopause History of Present Illness Recheck labs for COREEN - was working outside, drinking energy drinks, took a water pill due to lower extremity edema and BP was running low due to new hydralazine (started by cardiology) Feeling better now, still having night sweats - concerned about menopause. Review of Systems Constitutional: Negative. Negative for activity change, fatigue, fever and unexpected weight change. HENT: Negative. Negative for trouble swallowing. Eyes: Negative. Negative for photophobia, pain, discharge, itching and visual disturbance. Respiratory: Negative. Negative for cough, chest tightness, shortness of breath and wheezing. Cardiovascular: Negative. Negative for chest pain, palpitations and leg swelling. Gastrointestinal: Negative. Negative for abdominal distention, abdominal pain, blood in stool, constipation and diarrhea. Musculoskeletal: Negative. Negative for arthralgias, back pain, gait problem, joint swelling, myalgias, neck pain and neck stiffness. Skin: Negative. Negative for color change, pallor, rash and wound. Neurological: Negative. Negative for dizziness and headaches. Hematological: Negative for adenopathy. Psychiatric/Behavioral: Negative. Negative for confusion, sleep disturbance and suicidal ideas. Thepatient is not nervous/anxious. Objective Blood pressure 122/70, pulse 78, temperature 97.5 ??F (36.4 ??C), temperature source Temporal, resp. rate 18, height 5' 5 (1.651 m), weight 284 lb (128.8 kg), SpO2 97%, not currently . Body mass index is 47.26 kg/m??. Physical Exam Physical Exam Vitals reviewed. Constitutional: General: She is not in acute distress. Appearance: She is well-developed. She is not diaphoretic. HENT: Head: Normocephalic and atraumatic. Right Ear: External ear normal. Left Ear: External ear normal. Mouth/Throat: Pharynx: No oropharyngeal exudate. Eyes: General: No scleral icterus. Right eye: No discharge. Left eye: No discharge. Conjunctiva/sclera: Conjunctivae normal. Pupils: Pupils are equal, round, and reactive to light. Neck: Thyroid: No thyromegaly. Cardiovascular: Rate and Rhythm: Normal rate and regular rhythm. Heart sounds: Normal heart sounds. No murmur heard. No gallop. Pulmonary: Effort: Pulmonary effort is normal. No respiratory distress. Breath sounds: Normal breath sounds. No wheezing or rales. Chest: Chest wall: No tenderness. Abdominal: General: Bowel sounds are normal. Palpations: Abdomen is soft. There is no mass. Tenderness: There is no abdominal tenderness. There is no guarding or rebound. Musculoskeletal: General: No tenderness. Normal range of motion. Cervical back: Normal range of motion and neck supple. Lymphadenopathy: Cervical: No cervical adenopathy. Skin: General: Skin is warm and dry. Neurological: Mental Status: She is alert and oriented to person, place, and time. Results The provider educated the patient (or legal industrial relations representative) on the use of the ambient listening artificial intelligence tool, [employer]. They were informed that this AI tool processes the conversation to generate a clinical note with the expected benefit of improved accuracy while achieving an improved encounter experience for the patient and provider.?The provider explained that the medical information captured by the AI tool including, but not limited to, diagnoses and treatment plan would be protected in accordance with applicable privacy laws and that all diagnoses and treatment decisions would be made by the provider. The provider explained that the note generated will be reviewed bythe provider for accuracy to minimize potential errors.? The patient was given an opportunity to ask questions and opt out of proceeding with the use of the AI tool. After being informed of such information, the patient (or legal industrial relations representative), and each individual in attendance with the patient, verbally consented to the use of the AI tool. * Brina Omalley - 12/28/2024 10:20 AM EDT Venipuncture in the right antecubital vein with 21 gauge needle, length 1 1/2 inch. documented in this encounter Plan of Treatment Upcoming Encounters Date Type Department Care Team (Late st Contact Info) Description 02/02/2025 12:45 PM EDT Office Visit [facility] [address], 3RD [place] [address] Manuel Torres MD [address] [place] [phone] 02/15/2025 2:15 PM EDT Appointment [facility] [address] [place] [address] 02/15/2025 2:30 PM EDT Appointment [address] [place] [address] Farnaz Ricardo, MANAGER FLOAT 1 [facility] [address] 02/24/2025 8:00 AM EDT Appointment [facility] [address] [place] [address] [address] [place] [address] Rajwinder Craig MD [address] [place] [address] 03/02/2025 9:30 AM EDT Office Visit [facility] [address] [address] Jose Luis Ortiz MD [address] [place] [address] [place] [address] 03/08/2025 11:15 AM EDT Office Visit [facility] Nephrology Liliane [address] [place] [address] Lynn Mariano APRN [address] [place] [phone] 03/09/2025 3:30 PM EDT Office Visit [facility] [place] [address] [facility] [address] [place] [address] Rita Cordero MD [address] [place] [address] 10/07/2025 1:10 PM EDT Office Visit [facility] [address] [facility] [address] [place] [address] Juan Russell MD [address] [facility] [address] [place] [phone] documented as of this encounter Goals Goal [...] Procedure Name Priority Date/Time Associated Diagnosis Comments ESTROGENS, FRACTIONATED BY TMS -REF LAB Routine 12/28/2024 10:38 AM EDT Menopausal syndrome LUTEINIZING HORMONE Routine 12/28/2024 1 0:38 AM EDT Menopausal syndrome FOLLICLE STIMULATING HORMONE LEVEL Routine 12/28/2024 10:38 AM EDT Menopausal syndrome RENAL FUNCTION PANEL Routine 12/28/2024 10:38 AM EDT COREEN (acute kidney injury) documented in this encounter Results * (ABNORMAL) RENAL FUNCTION PANEL (12/28/2024 10:38 AM EDT) Sodium 141 136 - 145 mmol/L 12/28/2024 3:54 PM EDT [facility] Potassium 4.0 3.5 - 5.0 mmol/L 12/28/2024 3:54 PM EDT [facility] Chloride 104 98 - 107 mmol/L 12/28/2024 3:54 PM EDT [facility] Total CO2 28 22 - 29 mmol/L 12/28/2024 3:54 PM EDT [facility] Anion Gap 9 7 - 16 mmol/L 12/28/2024 3:54 PM EDT [facility] Calcium 8.9 8.6 - 10.4 mg/dL 12/28/2024 3:54 PM EDT [facility] Glucose Lvl 112(H) 70 - 99 mg/dL 12/28/2024 3:54 PM EDT [facility] BUN 20 6 - 20 mg/dL 12/28/2024 3:54 PM EDT [facility] Creatinine 1.46(H) 0.51 - 1.30 mg/dL 12/28/2024 3:54 PM EDT [facility] Albumin 3.7 3.5 - 5.2 gm/dL 12/28/2024 3:54 PM EDT [facility] Phosphorus 3.6 2.5 - 4.5 mg/dL 12/28/2024 3:54 PM EDT [facility] eGFR (CKD-EPIcr 2020) 44(L) >=60 mL/min/1.7 3 m2 12/28/2024 3:54 PM EDT [facility] Comment:Estimated GFR was ca lculated using the CKD-EPIcr (2020) equation refit without race. The equation is recommended by the National Kidney Foundation - [place] Society of Nephrology Task Force. Blood VENOUS BLOOD / Unknown Venipuncture / Unknown 12/28/2024 10:38 AM EDT 12/28/2024 10:38 AM EDT us Lynn Mariano MANAGER FLOAT CHEMISTRY ORDERABLES Elizabeth l Result [facility] [address] [place] [address] , [address] [place] [id number] * ESTROGENS, FRACTIONATED BY TMS -REF LAB (12/28/2024 10:38 AM EDT) Estradiol 14.5 pg/mL 01/02/2025 7:42 PM EDT [employer] Comment: REFERENCE INTERVAL: Estradiol by Clinical Account Specialist For a complete set of all established reference intervals, refer to [employer]/Tests/Pub/[id number]. This test was developed and its performance characteristics determined by [facility]. It has not been cleared or approved by the US Food and Drug Administration. This test was performed in a CLIA certified laboratory and is intended for clinical purposes. Estrone by 8.8 pg/mL 01/02/2025 7:42 PM EDT [facility] Comment: INTERPRETIVE INFORMATION: Estrone by Clinical Account Specialist For a complete set of all established reference intervals, refer to [employer]/Tests/Pub/[id number]. This test was developed and its performance characteristics determined by [employer]. It has not been cleared or approved by the US Food and Drug Administration. This test was performed in a CLIA certified laboratory and is intended for clinical purposes. Estrogens Total 23.3 pg/mL 7:42 PM EDT [facility] Comment: Reference interval of estrogens (pg/mL) Estrone Estradiol Total Estrogens Early follicular <150.0 30.0-100.0 30.0-250.0 Late follicular 100.0-250.0 100.0-400.0 200.0-650.0 Luteal <200.0 50.0-150.0 50.0-350.0 Post-menopausal 3.0-32.0 2.0-21.0 5.0-52.0 REFERENCE INTERVAL: Estrogens Total Calculation For a complete set of all established reference intervals, refer to [employer]/Tests/Pub/[id number]. Performed By: [facility] [address] [place] [address] Aluminum Siding Installer: Patric Aranda MD, PhD CLIA Number: [id number] Blood VENOUS BLOOD / Unknown Venipuncture / Unknown 12/28/2024 10:38 AM EDT 12/28/2024 10:38 AM EDT Jerome Crowley MD CHEMISTRY ORDERABLES Final Res ult Performing Organization Address [facility] [[email or web address]] Co de Phone Number [employer] [facility] [address] [place] [address] * FOLLICLE STIMULATING HORMONE LEVEL (12/28/2024 10:38 AM EDT) FSH 35.60 mIU/mL 12/28/2024 4:26 PM EDT [facility] Comment: Suggested Reference Range (mIU/mL) Females Follicular Phase 3.5 - 12.5 Ovulation Phase 4.7 - 21.5 Luteal Phase 1.7 - 7.7 Postmenopause 25.8 - 134.8 Males 1.5 - 12.4 Blood VENOUS BLOOD / Unknown Venipuncture / Unknown 12/28/2024 10:38 AM EDT 12/28/2024 10:38 AM EDT Narrative [facility] - 12/28/2024 4:26 PM EDT Ingestion of julio doses of biotin (>5 mg/day) taken within 8 hours of drawing blood sample can interfere with this immunoassay test. Jerome Crowley MD CHEMISTRY ORDERABLES Final Res ult Performing Organization Address [facility] [[email or web address]] Co de Phone Number [facility] [address] [place] [address] , [place] [address] * LUTEINIZING HORMONE (12/28/2024 10:38 AM EDT) LH 70.20 mIU/mL 12/28/2024 4:26 PM EDT [facility] Comment: Suggested Reference Ranges (mIU/mL) Females Follicular Phase 2.4 - 12.6 Ovulation Phase 14.0 - 95.6 Luteal Phase 1.0 - 11.4 Postmenopause 7.7 - 58.5 Males 1.7 - 8.6 Blood VENOUS BLOOD / Unknown Venipuncture / Unknown 12/28/2024 10:38 AM EDT 12/28/2024 10:38 AM EDT Narrative [facility] - 12/28/2024 4:26 PM EDT Ingestion of julio doses of biotin (>5 mg/day) taken within 8 hours of drawing blood sample can interfere with this immunoassay test. us Jerome Crowley MD CHEMISTRY ORDERABLES Final Res ult [facility] [address] [facility], [place] [address] documented in this encounter Visit Diagnoses Diagnosis Menopausal syndrome- Primary Symptomatic menopausal or female climacteric states COREEN (acute kidney injury) Acute kidney failure, unspecified documented in this encounter Discontinued Medications Medication Sig Discontinue Reason Start Date End Da te ferrous sulfate 325 mg (65 mg iron) Oral Tablet, Delayed Release (E.C.)Indications:Iron deficiency TAKE 1 TABLET BY MOUTH TWICE DAILY DELETE-Duplicate 02/11/2024 12/28/2024 documented as of this encounter Historical Medications * This list may reflect changes made after this encounter. gabapentin (NEURONTIN) 600 mg Oral Tablet Take 600 mg by mouth 3 times daily. 11/20/2024 01/07/2025 added in this encounter Care Teams Lathe Operator Contact Lens Relationship Specialty Start Date End Date Jerome Crowley MD [address] [place] [phone] PCP - General Internal Medicine 08/09/24 Kayli Kebede MD [address] [facility] [address] [place] [address] Consulting Physician Internal Medicine-Nephrology 05/17/22 Valarie Leach, RN Senior Manufacturing Supervisor Registered Nurse 12/01/24 documented as of this encounter
--- OUTSIDE RECORDS SUMMARY | 2024-12-28 15:00 | XMS_ITS | Encounter Summary ---
Author Organization [place] [address] Care Team Providers Care Heating And Ventilation Engineer Name Role Phone Kayli Kebede MD Unavailable [phone] Jerome Crowley MD Primary Care Provider [phone] Valarie Leach RN Unavailable Unavailable Reason for Visit * Oncology Medication Prior Authorization (Routine) - Authorization Not Needed Specialty Diagnoses / Procedures Referred By Contac t Referred To Contact Diagnoses B12 deficiency Iron malabsorption Iron deficiency anemia due to chronic blood loss Procedures [place] INJ, FOSAPREPITANT (TEVA) Farnaz Ricardo APRN [address] [place] [address] Phone: tel: fax: Farnaz Ricardo APRN [address] [place] [address] Phone: tel: fax: Referral ID Status Reason Start Date Expiration Date Visits Requested Visits Authorized [id number] Authorization Not Needed 11/15/2024 11/15/2025 1 10 Encounter Details Date Type Department Care Team (Latest Contact Info) Description 12/28/2024 3:00 PM EDT - 12/28/2024 11:59 PM EDT Hospital Encounter [facility] [place] [place] [address] B12 deficiency (Primary Dx); Iron malabsorption; Iron deficiency anemia due to chronic blood loss Discharge Disposition: Home or Self Care Social History Tobacco Use Types Packs/Day Years Used Date Smoking Tobacco: Every Day Cigarettes 1 17.8 Started: 04/02/2007 Smokeless Tobacco: Never Alcohol Use Standard Drinks/Week Comments Not Currently 0 (1 standard drink = 0.6 oz pur e alcohol) few times a year [facility] Utilities Answer Date Recorded In [...] Date Recorded PHQ-2 Total Score 0 11/29/2024 [facility] Occup[facility] ional Health - [...] place to sleep or slept in a fdc (including now)? No 03/30/2021 [facility] IP Transportation Answer D ate Recorded [...] Sign Reading Time Taken Comments Blood Pressure 125/95 12/28/2024 3:58 PM EDT Pulse 66 12/28/2024 3:58 PM EDT Temperature 36.6 C (97.9 F) 12/28/2024 3:58 PM EDT Respiratory Rate 18 12/28/2024 3:58 PM EDT Oxygen Saturation 95% 12/28/2024 3:58 PM EDT Inhaled Oxygen Concentration - - Weight 128.7 kg (283 lb 11.2 oz) 12/28/2024 3:17 PM EDT Height - - Body Mass Index 47.21 12/28/2024 10:09 AM EDT documented in this [...] 25 fluticasone propionate (FLONASE) 50 mcg/actuation Nasl [place], Suspension 1 [place] by Nasal route daily. 16 g 1 [...] 28 DAYS* 15 mL 3 5 Insulin [place], Disposable, (LIA PEN NEEDLE) 32 gauge x /32 [facility] Needle Use as directed with insulin pens daily 100 Each 3 5 lancets (ONETOUCH DELICA PLUS LANCET) 33 gauge [facility] Subcutaneous (Inject under the skin) 100 Each daily. 100 Each 10 4 metOLazone (ZAROXOLYN) 2.5 mg Oral Tablet Take 2.5 mg by mouth daily as needed for Other (Edema, weight gain). montelukast (SINGULAIR) 10 mg Oral TabletIndications :Severe persistent asthma without complication (HCC) Take 1 Tablet by mouth every evening. 90 Tablet 3 5 Nebulizer Accessories (ALL FLOW 4000 KIT) [facility] MiscIndications:M oderate persistent asthma with acute exacerbation 1 Kit by [facility].(Non-Drug; Combo Route) route daily. 0 9 nitroGLYCERIN [...] for muscle spasms 60 Tablet 10 5 fluconazole (DIFLUCAN) 100 mg Oral Tablet [...] 7 days. 14 Tablet 5 12/31/19 25 predniSONE (DELTASONE) 20 mg Oral Tablet Take 1 Tablet by mouth 2 times daily for 7 days, THEN 1 Tablet daily for 7 days. 21 Tablet 5 01/05/20 25 ranolazine (RANEXA) 500 mg Oral Tablet Sustained Release 12 hr Take 1 Tablet by mouth every 12 hours for 30 days. 60 Tablet 5 12/31/19 25 documented as of this encounter Discharge Disposition Disposition Code Departure Means Destination Home or Self Care documented in this encounter Miscellaneous Notes * Patient Instructions - Anali Willoughby RN - 12/28/2024 3:00 PM EDT [facility] Discharge Instructions Thank you for entrusting the [facility] with your care. We hope you are pleased with your outpatient care and services. Because we are most concerned with your health, we suggest you carefully read the following discharge instructions: Your Discharge Instructions: MEDICATION INSTRUCTIONS: Treatment received today: marleen Reviewed medications administered today and possible side [...] - Friday 8:00 AM - 4:30 PM. [facility] [id number] [place] [id number] [place] [phone] [address] documented in this encounter Plan of Treatment Upcoming Encounters Date Type Department Care Team (Late st Contact Info) Description 02/02/2025 12:45 PM EDT Office Visit [facility] [address] 3RD [place] [address] Manuel Torres MD [address] [place] [address] 02/15/2025 2:15 PM EDT Appointment [address] [place] [address] 02/15/2025 2:30 PM EDT Appointment [address] [place], [place] [phone] Farnaz Ricardo, SECURITY ENGINEER [address] [facility] [place] [address] 02/24/2025 8:00 AM EDT Appointment [facility] [address] [place] [address] [address] [place] [address] Rajwinder Craig MD [address] [place] [address] 03/02/2025 9:30 AM EDT Office [place] [address] Jose Luis Ortiz MD [address] [place] [address] [place] [address] 03/08/2025 11:15 AM EDT Office Visit [facility] [address] Nephrology Kevin [address] [place] [address] Lynn Mariano, SECURITY ENGINEER [address] [place] [phone] 03/09/2025 3:30 PM EDT Office Visit [facility] [place] [address] [facility] [address] [place] [phone] Rita Cordero MD [address] [place], [place] [address] 10/07/2025 1:10 PM EDT Office Visit [facility] [address] [facility] [address] [place] [address] Juan Russell MD [address] [facility] [address] [place] [address] documented as of this encounter [...] 200 mg, Intravenous, ONCE, 1 dose, On Fri12/28/24 at 1530, Administer over 30 Minutes, VESICANT , Dx: 1. B12 deficiency 2. Iron malabsorption 3. Iron deficiency anemia due to chronic blood lossIndications:B12 deficiency,Iron malabsorption,Iron deficiency anemia due to chronic blood loss IV Started 12/28/2024 3:27 PM EDT 200 mg 240 mL/hr sodium chloride 0.9% syringe Intravenous, PRN, Starting on Fri12/28/24 at 1514, Until Fri12/30/24 at 0410, Line Care, Flush after IV medication, Dx: 1. B12 deficiency 2. Iron malabsorption 3. Iron deficiency anemia due to chronic blood lossIndications:B12 deficiency,Iron malabsorption,Iron deficiency anemia due to chronic blood loss Given 12/28/2024 4:00 PM EDT 20 mL documented in this encounter Care Teams Heating And Ventilation Engineer Relationship Specialty Start Date End Date Jerome Crowley MD COUNTRY [facility] [place] [phone] PCP - General Internal Medicine 08/09/24 Kayli Kebede MD [address] [place] [address] Consulting Physician Internal Medicine-Nephrology 05/17/22 Valarie Leach, RN Rug Measurer Registered Nurse 12/01/24 documented as of this encounter
--- OUTSIDE RECORDS SUMMARY | 2025-01-03 14:00 | XMS_ITS | Encounter Summary ---
Author Organization [facility] Address [address] [facility]. [address] [address] Care Team Providers Care Histology Tech Name Role Phone Kayli Kebede MD Unavailable [phone] Jerome Crowley MD Primary Care Provider [phone] Valarie Leach RN Unavailable Unavailable Reason for Visit * Reason Comments Hypotension Encounter Details Date Type Department Care Team (Late st Contact Info) Description 01/03/2025 2:00 PM EDT Office Visit [facility] [place] [address] Lynn Lemus APRN [address] [phone] COREEN (acute kidney injury) (Primary Dx); Stage 3a chronic kidney disease (HCC); Stage 3b chronic kidney disease (HCC) Social History Tobacco Use Types Packs/Day Years Used Date Smoking Tobacco: Every Day Cigarettes 1 17.8 Started: 04/02/2007 Smokeless Tobacco: Never Alcohol Use Standard Drinks/Week Comments Not Currently 0 (1 standard drink = 0.6 oz pur e alcohol) few times a year [facility] Utilities Answer Date Recorded [...] Date Recorded PHQ-2 Total Score 0 11/29/2024 [facility] [place] [facility] - Occupational Stress [...] place to sleep or slept in a intermediate (including now)? No 03/30/2021 [facility] IP Transportation Answer D ate Recorded [...] Sign Reading Time Taken Comments Blood Pressure 132/80 01/03/2025 2:16 PM EDT Pulse - - Temperature 36.9 C (98.4 F) 01/03/2025 2:16 PM EDT Respiratory Rate - - Oxygen Saturation - - Inhaled Oxygen Concentration - - Weight 133.4 kg (294 lb) 01/03/2025 2:16 PM EDT Height - - Body Mass Index 48.92 12/28/2024 10:09 AM EDT documented in this [...] documented in this encounter Progress Notes * Lynn Lemus, NONA - 01/03/2025 2:00 PM EDT Images from the original note were not included. Interval History Tegan Wolf is a 44 y.o. female with Hx of CKD 3a, T2DM, HTN, HLD, Obesity ( Lost 70 lbs ), OA,+ smoker ( 1PPD). Patient Report Tegan is scheduled for a follow up appointment -she was last seen on 09/02/2024. Tegan is not doing okay. She is feeling dehydrated - and increased soa with exertion feel short winded when walking. slight le edema - reports a 12 pound weight gain in 6 days feels abdomin is swollen Neg for CP, V/D, flank pain, reports chronic back pain Reports she is checking her BP frequently at home it ranges 100's / 60's Reports she is drinking 90 ounces of body armour and 1 energy drink a day since 12/25/2024. She was previously drinking 2-3 energy drinks per day until seen in the ED BP checked at 158/108 -->148/98 -->130/90-->132/78-->132/80 Wt checked at 276 -->277-->284 -->294#s FBS = 94-->178 today ED Visit 12/25/2024 Dizziness Patient states that this afternoon she was doing some yard work when she went to stand up and felt lightheaded. She was able to sit down after this and allow the lightheadedness to subside. She did not lose consciousness. She took her blood pressure at that time and it was 78/46. Admit Date: 11/29/2024 Discharge Date: 11/30/2024 Acute chest pain Dizziness further workup of dizziness. She had an MRI of her brain and a CT angio of her coronaries done approximately 1 month ago at this admission. MRI of the brain came back nonacute. CT angio of the coronaries showed 40 to 50% of plaque buildup in the LAD along with 40 to 50% in the proximal RCA. No significant high-grade stenosis. Assessment & Plan 1.CKD Stage III-a : Cr at present 1.30-->1.13-->1.46. GFR 47-->60-->44 ml/min. ( Underlying condition: Nephrosclerosis ) It [...] normal hemodynamics. - UPC 0.04 Plan: - Stop energy drinks. Sweats. Weight gain - Taking Coreg if SBP >160. Off Olmesartan and Hydralazine now due to hypotension. Still with orthostatic symptoms. - Remain off lasix - Recheck labs, UA, etc. -Continue with GLP-1 agonist, Ozempic 2 mg weekly for the last 2-3 years. No objection to using SGLT2 inhibitors also.- [...] DM with complications, followed by primary team. Farxiga and Ozempic. Humalog SSI. Referral to endocrinology. 5. Severe hypertension, as above. Coreg as needed. Off Clonidine, Olmesartan, Lasix, Metolazone 6. Tobacco use, strongly counseled patient to stop smoking. 7. Obesity, reports having lost 70 pounds [...] (coronary artery disease) CHF (congestive heart failure) ([facility]) COPD (chronic obstructive pulmonary disease) ([facility]) Coronary artery disease Depression Essential hypertension 06/22/2015 Fibromyalgia GERD (gastroesophageal reflux disease) Sleep apnea Stage 3a chronic kidney disease ([facility]) 04/24/2022 Type 2 diabetes mellitus with stage 3a chronic kidney disease, without long-term current use of insulin ([facility]) 08/09/2022 Past Surgical History: Past Surgical History: Procedure Laterality Date ABDOMEN SURGERY ARTHROCENTESIS CHOLECYSTECTOMY CYST REMOVAL from neck JOINT REPLACEMENT 09-01-23 and 10-12-24 Tkr KNEE SURGERY NECK SURGERY mass removed PELVIC LAPAROSCOPY davinci robotic TONSILLECTOMY TUBAL LIGATION Allergies: Allergies Allergen Reactions Macrolide Antibiotics Rash Penicillins Rash Medications: Current Outpatient Medications Medication ACETAMINOPHEN 325 mg Oral Tab albuterol (PROVENTIL HFA;VENTOLIN HFA) 90 mcg/actuation Inhl HFA Aerosol Inhaler albuterol (PROVENTIL) 2.5 mg /3 mL (0.083 %) Inhl Solution for Nebulization aspirin 81 mg Oral Tablet, Chewable atorvastatin (LIPITOR) 20 mg Oral Tablet Blood-Glucose Meter [facility] Kit Blood-Glucose Meter [facility] fvvhfbamrf-bevosoqy-hffmqxvdoj (BREZTRI AEROSPHERE) 160-9-4.8 mcg/actuation Inhl HFA Aerosol Inhaler busPIRone (BUSPAR) 10 mg Oral Tablet carvediloL (COREG) 25 mg Oral Tablet cloNIDine (CATAPRES) 0.1 mg Oral Tablet diclofenac (VOLTAREN) 1 % Top Gel docusate sodium (COLACE) 100 mg Oral Capsule DULoxetine (CYMBALTA) 60 mg Oral Capsule, Delayed Release(E.C.) ergocalciferol (DRISDOL) 1,250 mcg (50,000 unit) Oral Capsule FARXIGA 10 mg Oral Tablet fluconazole (DIFLUCAN) 100 mg Oral Tablet fluticasone propion-salmeteroL (ADVAIR DISKUS) 500-50 mcg/dose Inhl Disk with Device fluticasone propionate (FLONASE) 50 mcg/actuation Nasl [place], Suspension fUROsemide (LASIX) 40 mg Oral Tablet gabapentin (NEURONTIN) 600 mg Oral Tablet guaiFENesin (MUCINEX) 600 mg Oral Tablet Extended Release 12hr hydrALAZINE (APRESOLINE) 25 mg Oral Tablet hydrOXYzine (ATARAX) 25 mg Oral Tablet insulin lispro (HUMALOG) 100 unit/mL SubQ Insulin Pen Insulin [place], Disposable, (LIA PEN NEEDLE) 32 gauge x 5/32 Misc Needle lancets (ZymetisUCH DELICA PLUS LANCET) 33 gauge Misc Misc Lancets Misc Misc linaCLOtide (LINZESS) 72 mcg Oral Capsule metOLazone (ZAROXOLYN) 2.5 mg Oral Tablet montelukast (SINGULAIR) 10 mg Oral Tablet Nebulizer Accessories (ALL FLOW 4000 KIT) Misc Misc nitroGLYCERIN (NITROSTAT) 0.4 mg SL Tablet, Sublingual olmesartan (BENICAR) 40 mg Oral Tablet omeprazole (PRILOSEC) 40 mg Oral Capsule, Delayed Release(E.C.) ondansetron (ZOFRAN-ODT) 4 mg Oral Tablet, Rapid Dissolve predniSONE (DELTASONE) 20 mg Oral Tablet pregabalin (LYRICA) 50 mg Oral Capsule semaglutide 2 mg/dose (8 mg/3 mL) SubQ [...] CBC: Lab Results Component Value Date WBC 17.6 (H) 12/25/2024 WBC 13.3 (H) 10/02/2016 RBC 5.05 12/25/2024 RBC 4.29 10/02/2016 HGB 15.8 (H) 12/25/2024 HGB 14.0 10/02/2016 HCT 49.0 (H) 12/25/2024 HCT 42.1 10/02/2016 MCV 97.0 12/25/2024 MCV 98.1 10/02/2016 MCHC 32.2 12/25/2024 MCHC 33.3 10/02/2016 RDW 14.7 12/25/2024 RDW 13.9 10/02/2016 PLT 223 12/25/2024 PLT 208 10/02/2016 MPV 11.1 12/25/2024 MPV 10.1 10/02/2016 BMP: Lab Results Component Value Date NA 141 12/28/2024 NA 140 04/18/2023 K 4.0 12/28/2024 K 4.3 04/18/2023 CL 104 12/28/2024 CL 106 04/18/2023 CO2 28 12/28/2024 CO2 22 04/18/2023 BUN 20 12/28/2024 BUN 15 10/02/2016 CREATININE 1.46 (H) 12/28/2024 CREATININE 1.3 (A) 04/18/2023 CALCIUM 8.9 12/28/2024 CALCIUM 9.10 04/18/2023 GFRAFRAM 95 03/07/2021 GFRAFRAM >60 10/02/2016 GFRNONAFRAM 82 03/07/2021 GFRNONAFRAM >60 10/02/2016 GLU 112 (H) 12/28/2024 GLU 87 10/02/2016 Review of Systems: 12 [...] of insulin (HCC) Coronary artery disease involving [place] coronary artery of [place] heart with angina pectoris Primary osteoarthritis of [...] call me if anyquestions ( office phone [phone] ). Lynn Lemus APRN Nephrology Seen in collaboration with Dr. Marycruz Britt MD documented in this encounter Miscellaneous Notes * Patient Instructions - Yoko Apple RMA - 01/03/2025 2:00 PM EDT 2 Gram Sodium Diet, Low [...] oats, puffed wheat and rice, shredded wheat [place] Islander muffins and bread Pasta Meats: Salted, canned, [...] 77g Carbohydrate: 282g Fat: 72g Sodium: 1971mg * Addendum Note - Lynn Lemus APRN - 01/03/2025 2:00 PM EDTAddended by: LYNN LEMUS on: 01/03/2025 02:46 PM Modules accepted: Orders documented in this encounter Plan of Treatment Upcoming Encounters Date Type Department Care Team (Late st Contact Info) Description 02/02/2025 12:45 PM EDT Office Visit [facility] [address], [address] [place] [address] Manuel Torres MD [address] [place] [address] 02/15/2025 2:15 PM EDT Appointment [facility] [address] [place] [address] 02/15/2025 2:30 PM EDT Appointment [facility] [address] [place] [address] Farnaz Ricardo, AUTOMOTIVE PRODUCTION WORKER [address] [place] [address] 02/24/2025 8:00 AM EDT Appointment [facility] [address] [place] [address] [address] [place] [address] Rajwinder Craig MD [address] [place] [address] 03/02/2025 9:30 AM EDT Office Visit [facility] [address] [address] Jose Luis Ortiz MD [address] [place] [address] [place] [phone] 03/08/2025 11:15 AM EDT Office Visit [facility] Nephrology [place] [address] [place] [address] Lynn Lemus, AUTOMOTIVE PRODUCTION WORKER [address] [place] [address] 03/09/2025 3:30 PM EDT Office Visit [facility] [address] [facility] [address] [place] [address] Rita Cordero MD [address] [place] [address] 10/07/2025 1:10 PM EDT Office Visit [facility] Maynard Kobe [address] [facility] [address] [place] [phone] Juan Russell MD [address] [place] [address] documented as of this encounter [...] as of this encounter Results * (ABNORMAL) OSMOLALITY (01/04/2025 2:19 PM EDT) [facility] Osmo-Serum 299(H) 275 - 295 mOsm/kg 01/04/2025 9:24 PM EDT [facility] Blood VENOUS BLOOD / Unknown Venipuncture / Unknown 01/04/2025 2:19 PM EDT 01/04/2025 2:19 PM EDT us Lynn Lemus AUTOMOTIVE PRODUCTION WORKER CHEMISTRY ORDERABLES Elizabeth l Result [facility] [address] [facility] , [place] [address] * RIBONUCLEIC PROTEIN ANTIBODY, IGG -REF LAB (01/04/2025 2:19 PM EDT) Pathologist [facility] Gomes/ASSISTANT PROFESSOR OF THEATER Ab, IgG 4 0 - 19 Units 01/06/2025 2:07 PM EDT [employer] Comment: INTERPRETIVE INFORMATION: Gomes/ASSISTANT PROFESSOR OF THEATER (ERNA) Antibody, IgG 19 Units or Less ............. Negative 20 to 39 Units ............... Weak Positive 40 to 80 Units ............... Moderate Positive 81 Units or greater .......... Strong Positive Gomes/ASSISTANT PROFESSOR OF THEATER antibodies are frequently seen in patients with mixed connective tissue disease (MCTD) and are also associated with other systemic autoimmune rheumatic diseases (SARDs) such as systemic lupus erythematosus (SLE), systemic sclerosis, and myositis. Antibodies targeting the Gomes/ASSISTANT PROFESSOR OF THEATER antigenic complex also recognize Gomes antigens, therefore, the Gomes antibody response must be considered when interpreting these results. Performed By: [facility] [address] [id number] Coil Rewind Machine Operator: Patric Aranda MD, PhD CLIA Number: [id number] Blood VENOUS BLOOD / Unknown Venipuncture / Unknown 01/04/2025 2:19 PM EDT 01/04/2025 2:19 PM EDT Lynn Lemus APRN IMMUNOLOGY ORDERABLES Fin al Result [facility] [address] [id number] * VITAMIN D, 1,25-DIHYDROXY -REF LAB (01/04/2025 2:19 PM EDT) [facility] Vit D 1,25 57.9 19.9 - 79.3 pg/mL 01/06/2025 3:08 PM EDT [facility] Comment: INTERPRETIVE INFORMATION: Vitamin D, 1,25-Dihydroxy This test is primarily indicated during patient evaluation for hypercalcemia and renal failure. A normal result does not rule out Vitamin D deficiency. The recommended test for diagnosing Vitamin D deficiency is Vitamin D 25-hydroxy. Performed By: [facility] [address] [id number] Coil Rewind Machine Operator: Patric Aranda MD, PhD CLIA Number: [id number] Blood VENOUS BLOOD / Unknown Venipuncture / Unknown 01/04/2025 2:19 PM EDT 01/04/2025 2:19 PM EDT Lynn Lemus APRN CHEMISTRY ORDERABLES Elizabeth l Result [facility] [address] [place] [address] * VITAMIN D 25 HYDROXY (01/04/2025 2:19 PM EDT) Pathologist [facility] Vit D 25 OH 46.6 30.0 - 150.0 ng/mL 01/04/2025 9:05 PM EDT [facility] Comment: Preferred: >= 30 ng/mL Insufficient: 21-29 ng/mL Deficient <= 20 ng/mL Possible Toxicity: >150 ng/mL Samples should not be taken from patients receiving therapy with high biotin doses (i.e. > 5 mg/day) until at least 8 hours following the last biotin administration. Blood VENOUS BLOOD / Unknown Venipuncture / Unknown 01/04/2025 2:19 PM EDT 01/04/2025 2:19 PM EDT Lynn Lemus APRN CHEMISTRY ORDERABLES Elizabeth l Result [facility] [address] [facility] , [place] [address] * (ABNORMAL) NT PROBNP (01/03/2025 3:30 PM EDT) Pathologist [facility] NT Pro-BNP 291(H) <=192 pg/mL 01/03/2025 9:42 PM EDT [facility] Blood VENOUS BLOOD / Unknown Venipuncture / Unknown 01/03/2025 3:30 PM EDT 01/03/2025 3:30 PM EDT Narrative [facility] - 01/03/2025 9:42 PM EDT An NT pro-BNP level less than 300 pg/mL in any patient, regardless of age, effectively rules out acute CHF with a 99% negative predictive value. Ingestion of julio doses of biotin (>5 mg/day) taken within 8 hours of drawing blood sample can interfere with this immunoassay test. Lynn Denise García AUTOMOTIVE PRODUCTION WORKER CHEMISTRY ORDERABLES Elizabeth l Result Performing Organization Address City/[facility]/ZIP Co de Phone Number [facility] [employer] [employer] , [place] [address] * (ABNORMAL) URINE CULTURE (NO STAIN) (01/03/2025 3:30 PM EDT) Pathologist [facility] Culture Positive Growth(A) 01/05/2025 11:37 AM EDT PREFERRED [facility] Culture 1,000 CFU/mL Streptococcus agalactiae (Group B) SUSCEPTIB ILITY RESULT 01/05/2025 11:37 AM EDT [facility] Comment: isolated in addition to multiple bacterial species consistent with urogenital commensal organisms. No further workup. Urine STRUCTURE OF URINARY TRACT PROPER / Unknown 01/03/2025 3:30 PM EDT 01/03/2025 3:30 PM EDT Lynn Lemus AUTOMOTIVE PRODUCTION WORKER MICROBIOLOGY - GENERAL OR DERABLES Final Result Performing Organization Address [facility] Co de Phone Number [facility] [address] , [place] [address] * (ABNORMAL) FERRITIN (01/03/2025 3:30 PM EDT) Pathologist [facility] Ferritin 277(H) 30 - 150 ng/mL 01/03/2025 9:43 PM EDT [facility] Comment:The lower threshold of 30 is not statistically defined, nor internally validated. The threshold has been updated to more closely reflect a physiologic basis. Pita Z, et al. Physiologically based serum ferritin thresholds for iron deficiency in children and non- women: a [place] National Health and Nutrition Examination Surveys (NHANES) serial cross-sectional study. Lancet Haematol 2021;8:e572-82. Blood VENOUS BLOOD / Unknown Venipuncture / Unknown 01/03/2025 3:30 PM EDT 01/03/2025 3:30 PM EDT Narrative [facility] - 01/03/2025 9:43 PM EDT Ingestion of julio doses of biotin (>5 mg/day) taken within 8 hours of drawing blood sample can interfere with this immunoassay test. us Lynn Lemus APRN CHEMISTRY ORDERABLES Elizabeth l Result Performing Organization Address [facility] de Phone Number PREFERRED [facility], [facility] [address] [facility] , [place] [address] * IRON+TIBC (01/03/2025 3:30 PM EDT) Iron 71 30 - 160 mcg/dL 01/03/2025 9:43 PM EDT [facility], [facility] Transferrin 203 200 - 360 mg/dL 01/03/2025 9:43 PM EDT [facility], [facility] Transferrin Saturation 25 20 - 50 % 01/03/2025 9:43 PM EDT [facility], [facility] TIBC 284 250 - 400 mcg/dL 01/03/2025 9:43 PM EDT [facility], [employer] Blood VENOUS BLOOD / Unknown Venipuncture / Unknown 01/03/2025 3:30 PM EDT 01/03/2025 3:30 PM EDT us Lynn Lemus APRN CHEMISTRY ORDERABLES Elizabeth l Result Performing Organization Address [facility] de Phone Number [facility] [address] [facility] , [place] [address] * OSMOLALITY URINE (01/03/2025 3:30 PM EDT) Urine Osmolality 970 50 - 1,400 mOsm/kg 01/03/2025 11:49 PM EDT [facility] [employer] Urine STRUCTURE OF URINARY TRACT PROPER / Unknown 01/03/2025 3:30 PM EDT 01/03/2025 3:30 PM EDT Narrative PREFERRED [employer] [employer] [facility] - 01/03/2025 11:49 PM EDT Normal Range: 50 mOSM/kg during maximum water diuresis to 1400 mOSM/kg during maximum urinary concentration. Reference range valid for random specimens only. Lynn Lemus AUTOMOTIVE PRODUCTION WORKER URINE ORDERABLES Final Re sult Performing Organization Address [facility] Co de Phone Number [facility] [address] [facility] , [place] [address] * (ABNORMAL) URINALYSIS (01/03/2025 3:30 PM EDT) UA Color Yellow 01/03/2025 8:09 PM EDT [facility] UA Appear Clear Clear 01/03/2025 8:09 PM EDT [facility] UA Glucose 4+ (>1000mg/dL) (A) Negative mg/dL 01/03/2025 8:09 PM EDT [facility] UA Ketones Negative Negative mg/dL 01/03/2025 8:09 PM EDT [facility] UA Blood Negative Negative 01/03/2025 8:09 PM EDT [facility] UA pH 6.5 5.0 - 8.0 pH 01/03/2025 8:09 PM EDT [facility] UA Protein Trace (10-20 mg/dL) Negative mg/dL 01/03/2025 8:09 PM EDT [facility] UA Urobilinogen Normal <=1 mg/dL 8:09 PM EDT [facility] UA Bili Negative Negative 01/03/2025 8:09 PM EDT [facility] UA Nitrite Negative Negative 01/03/2025 8:09 PM EDT [facility] UA Leuk Est Negative Negative 01/03/2025 8:09 PM EDT [facility] UA Spec Grav 1.035 1.001 - 1.035 no units 01/03/2025 8:09 PM EDT [facility] Comment:Reference range ely d for random specimens only. UA WBC 1 0 - 4 /HPF 01/03/2025 8:09 PM EDT [facility] UA RBC 2 0 - 3 /HPF 01/03/2025 8:09 PM EDT [facility] UA Squam Epi 2+ /LPF 01/03/2025 8:09 PM EDT [facility] UA Mucus Trace /LPF 01/03/2025 8:09 PM EDT [facility] Urine STRUCTURE OF URINARY TRACT PROPER / Unknown 01/03/2025 3:30 PM EDT 01/03/2025 3:30 PM EDT Lynn Lemus APRN URINE ORDERABLES Final Re sult Performing Organization Address [facility]/ZIP Co de Phone Number [facility] [address] , [place] [address] * PROTEIN/CREATININE RATIO URINE (01/03/2025 3:30 PM EDT) Urine Protein 16.7 mg/dL 01/03/2025 9:05 PM ED[address] [facility] Urine Creatinine 146.0 mg/dL 01/03/2025 9:05 PM EDT [facility] [employer], [facility] Ur Protein/Creat 0.11 mg/mg 01/03/2025 9:05 PM EDT [facility] Urine STRUCTURE OF URINARY TRACT PROPER / Unknown 01/03/2025 3:30 PM EDT 01/03/2025 3:30 PM EDT Lynn Lemus APRN URINE ORDERABLES Final Re sult Performing Organization Address [facility] Co de Phone Number [facility] [address] [place] [phone] [facility] [address] [place], [place] [id number] * PARATHYROID HORMONE INTACT (01/03/2025 3:30 PM EDT) PTH Intact 48.80 15.00 - 65.00 pg/mL 01/03/2025 9:15 PM EDT [facility] Blood VENOUS BLOOD / Unknown Venipuncture / Unknown 01/03/2025 3:30 PM EDT 01/03/2025 3:30 PM EDT Narrative [facility] - 01/03/2025 9:15 PM EDT Intact PTH Calcium Interpretation ------- [...] sample can interfere with this immunoassay test. Lynn Lemus APRN CHEMISTRY ORDERABLES Elizabeth l Result Performing Organization Address City/[facility]/ZIP Co de Phone Number [facility] [address] [facility] , [place] [address] * MAGNESIUM LEVEL (01/03/2025 3:30 PM EDT) Magnesium 2.3 1.6 - 2.4 mg/dL 01/03/2025 9:43 PM EDT [facility] Blood VENOUS BLOOD / Unknown Venipuncture / Unknown 01/03/2025 3:30 PM EDT 01/03/2025 3:30 PM EDT Lynn Lemus APRN CHEMISTRY ORDERABLES Elizabeth l Result Performing Organization Address [facility]/ZIP Co de Phone Number [facility] [address] [facility] , [place] [address] * (ABNORMAL) PHOSPHORUS LEVEL (01/03/2025 3:30 PM EDT) Phosphorus 2.4(L) 2.5 - 4.5 mg/dL 01/03/2025 9:43 PM EDT [facility] Blood VENOUS BLOOD / Unknown Venipuncture / Unknown 01/03/2025 3:30 PM EDT 01/03/2025 3:30 PM EDT Lynn Lemus AUTOMOTIVE PRODUCTION WORKER CHEMISTRY ORDERABLES Elizabeth l Result [facility] [address] [facility] , [place] [address] * URIC ACID (01/03/2025 3:30 PM EDT) Uric Acid 4.0 2.4 - 5.7 mg/dL 01/03/2025 9:43 PM EDT [facility] Blood VENOUS BLOOD / Unknown Venipuncture / Unknown 01/03/2025 3:30 PM EDT 01/03/2025 3:30 PM EDT Lynn Lemus AUTOMOTIVE PRODUCTION WORKER CHEMISTRY ORDERABLES Elizabeth l Result Performing Organization Address [facility]/ZIP Co de Phone Number [facility] [address] [facility] , [place] [address] * (ABNORMAL) CBC (01/03/2025 3:30 PM EDT) WBC 13.5(H) 3.7 - 10.3 x10(3)/mcL 01/03/2025 8:41 PM EDT [facility] RBC 4.79 3.90 - 5.20 x10(6)/mcL 01/03/2025 8:41 PM EDT [facility] Hgb 15.0 11.2 - 15.7 g/dL 01/03/2025 8:41 PM EDT [facility] Hct 47.1(H) 34.0 - 45.0 % 01/03/2025 8:41 PM EDT [facility] MCV 98.3 80.0 - 100.0 fL 01/03/2025 8:41 PM EDT [facility] MCH 31.3 26.0 - 34.0 pg 01/03/2025 8:41 PM EDT [facility] MCHC 31.8 30.7 - 35.5 g/dL 01/03/2025 8:41 PM EDT [facility] RDW 15.1(H) <=14.9 % 01/03/2025 8:41 PM EDT [facility] Platelet 206 155 - 369 x10(3)/mcL 01/03/2025 8:41 PM EDT [facility] MPV 11.6 8.8 - 12.5 fL 01/03/2025 8:41 PM EDT [facility] Blood VENOUS BLOOD / Unknown Venipuncture / Unknown 01/03/2025 3:30 PM EDT 01/03/2025 3:30 PM EDT us Lynn Lemus AUTOMOTIVE PRODUCTION WORKER HEMATOLOGY ORDERABLES Fin al Result [facility] [address] [facility] , [address] [place] [id number] * (ABNORMAL) BASIC METABOLIC PANEL (01/03/2025 3:30 PM EDT) Sodium 139 136 - 145 mmol/L 01/03/2025 9:43 PM EDT [facility] Potassium 4.5 3.5 - 5.0 mmol/L 01/03/2025 9:43 PM EDT [facility] Chloride 105 98 - 107 mmol/L 01/03/2025 9:43 PM EDT [facility] Total CO2 25 22 - 29 mmol/L 01/03/2025 9:43 PM EDT [facility] Anion Gap 9 7 - 16 mmol/L 01/03/2025 9:43 PM EDT [facility] Calcium 9.0 8.6 - 10.4 mg/dL 01/03/2025 9:43 PM EDT [facility] Glucose Lvl 166(H) 70 - 99 mg/dL 01/03/2025 9:43 PM EDT [facility] BUN 20 6 - 20 mg/dL 01/03/2025 9:43 PM EDT [facility] Creatinine 1.25 0.51 - 1.30 mg/dL 01/03/2025 9:43 PM EDT [facility] eGFR (CKD-EPIcr 2020) 54(L) >=60 mL/min/1.7 3 m2 01/03/2025 9:43 PM EDT [facility] Comment:Estimated GFR was ca lculated using the CKD-EPIcr (2020) equation refit without race. The equation is recommended by the National Kidney Foundation - [place] [employer] of Nephrology Task Force. Blood VENOUS BLOOD / Unknown Venipuncture / Unknown 01/03/2025 3:30 PM EDT 01/03/2025 3:30 PM EDT us Lynn Lemus AUTOMOTIVE PRODUCTION WORKER CHEMISTRY ORDERABLES Elizabeth l Result [facility] [address] [facility], [address] [place] [id number] documented in this encounter Visit Diagnoses Diagnosis COREEN (acute kidney injury)- Primary Acute kidney failure, unspecified Stage 3a chronic kidney disease (HCC) Stage 3b chronic kidney disease (HCC) documented in this encounter Orders Lab Orders Without Results Count Last Ordered D ate First Ordered Date TRANSFERRIN 1 01/03/2025 documented in this encounter Care Teams Histology Tech Relationship Specialty Start Date End Date Jerome [place] [place] [id number] PCP - General Internal Medicine 08/09/24 Kayli Kebede MD [address] [facility] [address] [place] [address] Consulting Physician Internal Medicine-Nephrology 05/17/22 Valarie Leach, RN Electronic Parts Salesperson Registered Nurse 12/01/24 documented as of this encounter
--- OUTSIDE RECORDS SUMMARY | 2025-01-03 15:27 | XMS_ITS | Encounter Summary ---
Author Organization [place] [address] Care Team Providers Care English Teacher Name Role Phone Kayli Kebede MD Unavailable [phone] Jerome Crowley MD Primary Care Provider [phone] Valarie Leach RN Unavailable Unavailable Encounter Details Date Type Department Care Team (Latest Contact Info) Description 01/03/2025 3:27 PM EDT - 01/03/2025 11:59 PM EDT Hospital Encounter [facility] [address] [place] [address] COREEN (acute kidney injury); Stage 3a chronic kidney disease (HCC) Discharge Disposition: Home or Self Care Social History Tobacco Use Types Packs/Day Years Used Date Smoking Tobacco: Every Day Cigarettes 1 17.8 Started: 04/02/2007 Smokeless Tobacco: Never Alcohol Use Standard Drinks/Week Comments Not Currently 0 (1 standard drink = 0.6 oz pur e alcohol) few times a year [facility] Utilities Answer Date Recorded In the past 12 months has e electric, gas, oil, or water company threatened to shut off services in your home? No 11/29/2024 Overall Financial Resource Strain (CARDIA) Answe r Date Recorded How hard is it for you to pa y for the very basics like food, housing, medical care, and heating? Not very hard 11/29/2024 PHQ-2 Answer Date Recorded PHQ-2 Total Score 0 11/29/2024 [facility] of Occupat ional Health - Occupational Stress [...] place to sleep or slept in a group home (including now)? No 03/30/2021 [facility] IP Transportation Answer D ate [...] as of this encounter Functional Status * Is the [...] daily. 90 Tablet 3 5 Blood-Glucose Meter Mis Kit Use to check blood sugar 1 [...] days. 90 Tablet 3 4 06/23/20 25 fluconazole (DIFLUCAN) 100 mg Oral Tablet TAKE 1 TABLET BY MOUTH ONCE WEEKLY 12 Tablet 11 5 fluticasone propionate (FLONASE) 50 mcg/actuation Nasl [place], Suspension 1 [place] by Nasal route daily. 16 g 1 [...] 28 DAYS* 15 mL 3 5 Insulin Melvin, Disposable, (LIA PEN NEEDLE) 32 gauge x 5/32 [facility] Needle Use as directed with insulin pens daily 100 Each 3 5 lancets (ONETOUCH DELICA PLUS LANCET) 33 gauge [facility] Subcutaneous (Inject under the skin) 100 Each daily. 100 Each 10 4 metOLazone (ZAROXOLYN) 2.5 mg Oral Tablet Take 2.5 mg by mouth daily as needed for Other (Edema, weight gain). montelukast (SINGULAIR) 10 mg Oral TabletIndications :Severe persistent asthma without complication (HCC) Take 1 Tablet by mouth every evening. 90 Tablet 3 5 Nebulizer Accessories (ALL FLOW 4000 KIT) [facility] MiscIndications:M oderate persistent asthma with acute exacerbation 1 Kit by [facility].(Non-Drug; Combo Route) route daily. 0 9 nitroGLYCERIN [...] by mouth daily. 90 Capsule 3 5 ondansetron (ZOFRAN-ODT) 4 mg Oral Tablet, Rapid DissolveIndicatio ns:Nausea PLACE 1 TABLET ON THE TONGUE AND ALLOW TO DISSOLVE EVERY 6 HOURS NEEDED FOR NAUSEA 30 Tablet 11 5 tiZANidine (ZANAFLEX) 4 mg Oral Tablet Take 1 Tablet by mouth 3 times daily as needed. for muscle spasms 60 Tablet 10 5 predniSONE (DELTASONE) 20 mg Oral Tablet Take 1 Tablet by mouth 2 times daily for 7 days, THEN 1 Tablet daily for 7 days. 21 Tablet 5 01/05/20 25 documented as of this encounter Discharge Disposition Disposition Code Departure Means Destination Home or Self Care documented in this encounter Plan of Treatment Upcoming Encounters Date Type Department Care Team (Late st Contact Info) Description 02/02/2025 12:45 PM EDT Office Visit [facility] [address], [address]RD [place] [phone] Manuel Torres MD [address] [place] [address] 02/15/2025 2:15 PM EDT Appointment [facility] [address] [place] [address] 02/15/2025 2:30 PM EDT Appointment [facility] [address] [place] [address] Farnaz Ricardo, SNATH HANDLE ASSEMBLER [address] [place] [address] 02/24/2025 8:00 AM EDT Appointment [facility] [address] [place] [address] [address] [place] [address] Rajwinder Craig MD [address] [place] [address] 03/02/2025 9:30 AM EDT Office Visit [facility] [address] [place] [phone] Jose Luis Ortiz MD [address] [place] [address] [place] [phone] 03/08/2025 11:15 AM EDT Office Visit [facility] [address] [place] [address] Lynn Mariano APRN [address] [place] [address] 03/09/2025 3:30 PM EDT Office Visit [facility] [address] [facility] [address] [place] [phone] Rita Cordero MD [address] [place] [address] 10/07/2025 1:10 PM EDT Office Visit [facility] [address] [facility] [address] [place] [phone] Juan Russell MD [address] [facility] [address] [place] [address] documented as of this [...] Procedure Name Priority Date/Time Associated Diagnosis Comments IRON+TIBC Routine 01/03/2025 3:30 PM EDT COREEN (acute kidney injury) Stage 3a chronic kidney disease (HCC) PROTEIN/CREATININE RATIO URINE Routine 01/03/2025 3:30 PM EDT COREEN (acute kidney injury) Stage 3a chronic kidney disease (HCC) CBC Routine 01/03/2025 3:30 PM EDT COREEN (acute kidney injury) Stage 3a chronic kidney disease (HCC) OSMOLALITY URINE Routine 01/03/2025 3:30 PM EDT COREEN (acute kidney injury) Stage 3a chronic kidney disease (HCC) URINALYSIS Routine 01/03/2025 3:30 PM EDT COREEN (acute kidney injury) Stage 3a chronic kidney disease (HCC) URINE CULTURE (NO STAIN) Routine 01/03/2025 3:30 PM EDT COREEN (acute kidney injury) Stage 3a chronic kidney disease (HCC) URIC ACID Routine 01/03/2025 3:30 PM EDT COREEN (acute kidney injury) Stage 3a chronic kidney disease (HCC) PHOSPHORUS LEVEL Routine 01/03/2025 3:30 PM EDT COREEN (acute kidney injury) Stage 3a chronic kidney disease (HCC) PARATHYROID HORMONE INTACT Routine 01/03/2025 3:30 PM EDT COREEN (acute kidney injury) Stage 3a chronic kidney disease (HCC) NT PROBNP Routine 01/03/2025 3:30 PM EDT COREEN (acute kidney injury) Stage 3a chronic kidney disease (HCC) MAGNESIUM LEVEL Routine 01/03/2025 3:30 PM EDT COREEN (acute kidney injury) Stage 3a chronic kidney disease (HCC) FERRITIN Routine 01/03/2025 3:30 PM EDT COREEN (acute kidney injury) Stage 3a chronic kidney disease (HCC) BASIC METABOLIC PANEL Routine 01/03/2025 3:30 PM EDT COREEN (acute kidney injury) Stage 3a chronic kidney disease (HCC) documented in this encounter Results * (ABNORMAL) NT PROBNP (01/03/2025 3:30 PM EDT) NT Pro-BNP 291(H) <=192 pg/mL 01/03/2025 9:42 PM EDT [facility] Blood VENOUS BLOOD / Unknown Venipuncture / Unknown 01/03/2025 3:30 PM EDT 01/03/2025 3:30 PM EDT Narrative [facility] - 01/03/2025 9:42 PM EDT An NT pro-BNP level less than 300 pg/mL in any patient, regardless of age, effectively rules out acute CHF with a 99% negative predictive value. Ingestion of julio doses of biotin (>5 mg/day) taken within 8 hours of drawing blood sample can interfere with this immunoassay test. Lynn Mariano APRN CHEMISTRY ORDERABLES Elizabeth castano Result [facility] [address] [place] [address] , [place] [address] * (ABNORMAL) URINE CULTURE (NO STAIN) (01/03/2025 3:30 PM EDT) Pathologist [facility] Culture Positive Growth(A) 01/05/2025 11:37 AM EDT [facility] Culture 1,000 CFU/mL Streptococcus agalactiae (Group B) SUSCEPTIB ILITY RESULT 01/05/2025 11:37 AM EDT [facility] Comment: isolated in addition to multiple bacterial species consistent with urogenital commensal organisms. No further workup. Urine STRUCTURE OF URINARY TRACT PROPER / Unknown 01/03/2025 3:30 PM EDT 01/03/2025 3:30 PM EDT Lynn Mariano APRN MICROBIOLOGY - GENERAL OR DERABLES Final Result Performing Organization Address [facility] Co de Phone Number [facility] [address] [facility] , [address] [place] [phone] * (ABNORMAL) FERRITIN (01/03/2025 3:30 PM EDT) Ferritin 277(H) 30 - 150 ng/mL 01/03/2025 9:43 PM EDT [facility], [facility] Comment:The lower threshold of 30 is not statistically defined, nor internally validated. The threshold has been updated to more closely reflect a physiologic basis. Pita Quintana, et al. Physiologically based serum ferritin thresholds for iron deficiency in children and non- women: a [place] National Health and Nutrition Examination Surveys (NHANES) serial cross-sectional study. Lancet Haematol 202;8:e572-82. Blood VENOUS BLOOD / Unknown Venipuncture / Unknown 01/03/2025 3:30 PM EDT 01/03/2025 3:30 PM EDT Narrative [facility], [facility] - 01/03/2025 9:43 PM EDT Ingestion of julio doses of biotin (>5 mg/day) taken within 8 hours of drawing blood sample can interfere with this immunoassay test. Lynn Mariano APRN CHEMISTRY ORDERABLES Elizabeth l Result Performing Organization Address [facility] Co de Phone Number [facility] [address] [facility] , [place] [address] * IRON+TIBC (01/03/2025 3:30 PM EDT) Iron 71 30 - 160 mcg/dL 01/03/2025 9:43 PM EDT [facility], [employer] Transferrin 203 200 - 360 mg/dL 01/03/2025 9:43 PM EDT [facility] [employer] Saturation 25 20 - 50 % 01/03/2025 9:43 PM EDT [facility] [employer] TIBC 284 250 - 400 mcg/dL 01/03/2025 9:43 PM EDT [facility], [facility] Blood VENOUS BLOOD / Unknown Venipuncture / Unknown 01/03/2025 3:30 PM EDT 01/03/2025 3:30 PM EDT Lynn Mariano APRN CHEMISTRY ORDERABLES Elizabeth l Result Performing Organization Address [facility]/ZIP Co de Phone Number [facility], [address] , [place] [address] * OSMOLALITY URINE (01/03/2025 3:30 PM EDT) Urine Osmolality 970 50 - 1,400 mOsm/kg 01/03/2025 11:49 PM EDT [facility], [facility] Urine STRUCTURE OF URINARY TRACT PROPER / Unknown 01/03/2025 3:30 PM EDT 01/03/2025 3:30 PM EDT Narrative [facility], [facility] - 01/03/2025 11:49 PM EDT Normal Range: 50 mOSM/kg during maximum water diuresis to 1400 mOSM/kg during maximum urinary concentration. Reference range valid for random specimens only. Lynn Mariano APRN URINE ORDERABLES Final Re sult Performing Organization Address [facility] de Phone Number [facility] [employer], [facility] [address] [facility] , [place] [address] * (ABNORMAL) URINALYSIS (01/03/2025 3:30 PM EDT) UA Color Yellow 01/03/2025 8:09 PM EDT [facility] UA Appear Clear Clear 01/03/2025 8:09 PM EDT [facility] UA Glucose 4+ (>1000mg/dL) (A) Negative mg/dL 01/03/2025 8:09 PM EDT [facility] UA Ketones Negative Negative mg/dL 01/03/2025 8:09 PM EDT [facility] UA Blood Negative Negative 01/03/2025 8:09 PM EDT [facility] UA pH 6.5 5.0 - 8.0 pH 01/03/2025 8:09 PM EDT [facility] UA Protein Trace (10-20 mg/dL) Negative mg/dL 01/03/2025 8:09 PM EDT [facility] UA Urobilinogen Normal <=1 mg/dL 8:09 PM EDT [facility] UA Bili Negative Negative 01/03/2025 8:09 PM EDT [facility] UA Nitrite Negative Negative 01/03/2025 8:09 PM EDT [facility] UA Leuk Est Negative Negative 01/03/2025 8:09 PM EDT [facility] UA Spec Grav 1.035 1.001 - 1.035 no units 01/03/2025 8:09 PM EDT [facility] Comment:Reference range ely d for random specimens only. UA WBC 1 0 - 4 /HPF 01/03/2025 8:09 PM EDT [facility] UA RBC 2 0 - 3 /HPF 01/03/2025 8:09 PM EDT [facility] UA Squam Epi 2+ /LPF 01/03/2025 8:09 PM EDT [facility] UA Mucus Trace /LPF 01/03/2025 8:09 PM EDT [facility], [facility] Urine STRUCTURE OF URINARY TRACT PROPER / Unknown 01/03/2025 3:30 PM EDT 01/03/2025 3:30 PM EDT us Lynn Mariano SNATH HANDLE ASSEMBLER URINE ORDERABLES Final Re sult [facility], [facility] [address] [facility] , [place] [address] * PROTEIN/CREATININE RATIO URINE (01/03/2025 3:30 PM EDT) Urine Protein 16.7 mg/dL 01/03/2025 9:05 PM EDT [facility], [facility] Urine Creatinine 146.0 mg/dL 01/03/2025 9:05 PM EDT [facility], [facility] Ur Protein/Creat 0.11 mg/mg 01/03/2025 9:05 PM EDT [facility] Urine STRUCTURE OF URINARY TRACT PROPER / Unknown 01/03/2025 3:30 PM EDT 01/03/2025 3:30 PM EDT Lynn Mariano APRN URINE ORDERABLES Final Re sult Performing Organization Address City/[facility]/ZIP Co de Phone Number [facility] [address] [facility] , [place] [address] [facility] [address] [place] [address] * PARATHYROID HORMONE INTACT (01/03/2025 3:30 PM EDT) Pathologist [facility] PTH Intact 48.80 15.00 - 65.00 pg/mL 01/03/2025 9:15 PM EDT [facility] Blood VENOUS BLOOD / Unknown Venipuncture / Unknown 01/03/2025 3:30 PM EDT 01/03/2025 3:30 PM EDT Narrative [facility] - 01/03/2025 9:15 PM EDT Intact PTH [...] can interfere with this immunoassay test. Lynn Mariano APRN CHEMISTRY ORDERABLES Elizabeth l Result Performing Organization Address [facility]/ZIP Co de Phone Number [id number] [facility] [address] [facility] , [place] [address] * MAGNESIUM LEVEL (01/03/2025 3:30 PM EDT) Magnesium 2.3 1.6 - 2.4 mg/dL 01/03/2025 9:43 PM EDT [facility] Blood VENOUS BLOOD / Unknown Venipuncture / Unknown 01/03/2025 3:30 PM EDT 01/03/2025 3:30 PM EDT Lynn Mariano SNATH HANDLE ASSEMBLER CHEMISTRY ORDERABLES Elizabeth l Result [facility] [address] [facility] , [place] [address] * (ABNORMAL) PHOSPHORUS LEVEL (01/03/2025 3:30 PM EDT) Phosphorus 2.4(L) 2.5 - 4.5 mg/dL 01/03/2025 9:43 PM EDT [facility] [employer] Blood VENOUS BLOOD / Unknown Venipuncture / Unknown 01/03/2025 3:30 PM EDT 01/03/2025 3:30 PM EDT Lynn Mariano SNATH HANDLE ASSEMBLER CHEMISTRY ORDERABLES Elizabeth l Result Performing Organization Address City/[facility]/ZIP Co de Phone Number [facility] [address] [facility] , [place] [address] * URIC ACID (01/03/2025 3:30 PM EDT) Uric Acid 4.0 2.4 - 5.7 mg/dL 01/03/2025 9:43 PM EDT [facility] Blood VENOUS BLOOD / Unknown Venipuncture / Unknown 01/03/2025 3:30 PM EDT 01/03/2025 3:30 PM EDT Lynn Mariano SNATH HANDLE ASSEMBLER CHEMISTRY ORDERABLES Elizabeth l Result [facility] [address] [facility] , [place] [address] * (ABNORMAL) CBC (01/03/2025 3:30 PM EDT) [facility] WBC 13.5(H) 3.7 - 10.3 x10(3)/mcL 01/03/2025 8:41 PM EDT [facility] RBC 4.79 3.90 - 5.20 x10(6)/mcL 01/03/2025 8:41 PM EDT [facility] Hgb 15.0 11.2 - 15.7 g/dL 01/03/2025 8:41 PM EDT [facility] Hct 47.1(H) 34.0 - 45.0 % 01/03/2025 8:41 PM EDT [facility] MCV 98.3 80.0 - 100.0 fL 01/03/2025 8:41 PM EDT [facility] MCH 31.3 26.0 - 34.0 pg 01/03/2025 8:41 PM EDT [facility] MCHC 31.8 30.7 - 35.5 g/dL 01/03/2025 8:41 PM EDT [facility] RDW 15.1(H) <=14.9 % 01/03/2025 8:41 PM EDT [facility] Platelet 206 155 - 369 x10(3)/[facility] 01/03/2025 8:41 PM EDT [facility] MPV 11.6 8.8 - 12.5 fL 01/03/2025 8:41 PM EDT [facility] Blood VENOUS BLOOD / Unknown Venipuncture / Unknown 01/03/2025 3:30 PM EDT 01/03/2025 3:30 PM EDT us Lynn Mariano SNATH HANDLE ASSEMBLER HEMATOLOGY ORDERABLES Fin al Result [facility], [facility] [address] [facility] [address], [place] [address] * (ABNORMAL) BASIC METABOLIC PANEL (01/03/2025 3:30 PM EDT) Sodium 139 136 - 145 mmol/L 01/03/2025 9:43 PM EDT [facility] Potassium 4.5 3.5 - 5.0 mmol/L 01/03/2025 9:43 PM EDT [facility] Chloride 105 98 - 107 mmol/L 01/03/2025 9:43 PM EDT [facility] Total CO2 25 22 - 29 mmol/L 01/03/2025 9:43 PM EDT [facility] Anion Gap 9 7 - 16 mmol/L 01/03/2025 9:43 PM EDT [facility] Calcium 9.0 8.6 - 10.4 mg/dL 01/03/2025 9:43 PM EDT [facility] Glucose Lvl 166(H) 70 - 99 mg/dL 01/03/2025 9:43 PM EDT [facility] BUN 20 6 - 20 mg/dL 01/03/2025 9:43 PM EDT [facility] Creatinine 1.25 0.51 - 1.30 mg/dL 01/03/2025 9:43 PM EDT [facility] eGFR (CKD-EPIcr 2020) 54(L) >=60 mL/min/1.7 3 m2 01/03/2025 9:43 PM EDT [facility] Comment:Estimated GFR was ca lculated using the CKD-EPIcr (2020) equation refit without race. The equation is recommended by the National Kidney Foundation - [place] [employer] of Nephrology Task Force. Blood VENOUS BLOOD / Unknown Venipuncture / Unknown 01/03/2025 3:30 PM EDT 01/03/2025 3:30 PM EDT us Lynn Mariano SNATH HANDLE ASSEMBLER CHEMISTRY ORDERABLES Elizabeth l Result [facility] [address] [facility] , [place] [address] documented in this encounter Visit Diagnoses Diagnosis COREEN (acute kidney injury) Acute kidney failure, unspecified Stage 3a chronic kidney disease (HCC) documented in this encounter Orders Lab Orders Without Results Count Last Ordered D ate First Ordered Date TRANSFERRIN 1 01/03/2025 documented in this encounter Care Teams English Teacher Relationship Specialty Start Date End Date Jerome Crowley MD [address] [place] [phone] PCP - General Internal Medicine 08/09/24 Kayli Kebede MD [address] [address] Consulting Physician Internal Medicine-Nephrology 05/17/22 Valarie Leach, RN Patient Care Provider Registered Nurse 12/01/24 documented as of this encounter
--- OUTSIDE RECORDS SUMMARY | 2025-01-04 14:19 | XMS_ITS | Encounter Summary ---
Author Organization [place] [address] Care Team Providers Care Ruby Rails Developer Name Role Phone Kayli Kebede MD Unavailable [phone] Jerome Crowley MD Primary Care Provider [phone] Valarie Leach RN Unavailable Unavailable Encounter Details Date Type Department Care Team (Latest Contact Info) Description 01/04/2025 2:19 PM EDT - 01/04/2025 2:24 PM EDT Hospital Encounter [facility] [address] [id number] COREEN (acute kidney injury); Stage 3a chronic kidney disease (HCC) Discharge Disposition: Home or Self Care Social History Tobacco Use Types Packs/Day Years Used Date Smoking Tobacco: Every Day Cigarettes 1 17.8 Started: 04/02/2007 Smokeless Tobacco: Never Alcohol Use Standard Drinks/Week Comments Not Currently 0 (1 standard drink = 0.6 oz pur e alcohol) few times a year [facility] Utilities Answer Date Recorded In the [...] Date Recorded PHQ-2 Total Score 0 11/29/2024 [facility] of Occupat ional Health - Occupational Stress [...] place to sleep or slept in a mcc (including now)? No 03/30/2021 [facility] IP Transportation Answer D ate Recorded [...] 5 fluticasone propionate (FLONASE) 50 mcg/actuation Nasl [place], Suspension 1 [place] by Nasal route daily. 16 g 1 [...] 28 DAYS* 15 mL 3 5 Insulin [place], Disposable, (LIA PEN NEEDLE) 32 gauge x 5/32 [facility] Needle Use as directed with insulin pens daily 100 Each 3 5 lancets (ONETOUCH DELICA PLUS LANCET) 33 gauge [facility] Subcutaneous (Inject under the skin) 100 Each daily. 100 Each 10 4 metOLazone (ZAROXOLYN) 2.5 mg Oral Tablet Take 2.5 mg by mouth daily as needed for Other (Edema, weight gain). montelukast (SINGULAIR) 10 mg Oral TabletIndications :Severe persistent asthma without complication (HCC) Take 1 Tablet by mouth every evening. 90 Tablet 3 5 Nebulizer Accessories (ALL FLOW 4000 KIT) [facility] MiscIndications:M oderate persistent asthma with acute exacerbation 1 Kit by [facility].(Non-Drug; Combo Route) route daily. 0 9 nitroGLYCERIN [...] daily for 7 days. 21 Tablet 5 01/08/20 25 documented as of this encounter Discharge Disposition Disposition Code Departure Means Destination Home or Self Care documented in this encounter Plan of Treatment Upcoming Encounters Date Type Department Care Team (Late st Contact Info) Description 02/02/2025 12:45 PM EDT Office Visit [facility] [address], 3RD [place] [address] Manuel Torres MD [address] [place] [address] 02/15/2025 2:15 PM EDT Appointment [facility] [address] [place] [address] 02/15/2025 2:30 PM EDT Appointment [facility] Cancer Care [address] [place] [address] Farnaz Ricardo, BLEMISH REMOVER 1 [facility] [place] [address] 02/24/2025 8:00 AM EDT Appointment [facility] [address] [place] [address] [address] [place] [address] Rajwinder Craig MD [address] [place] [address] 03/02/2025 9:30 AM EDT Office Visit [facility] [address] [place] [address] [phone] Jose Luis Ortiz MD [address] [place] [address] [place] [phone] 03/08/2025 11:15 AM EDT Office Visit [facility] Nephrology [place] [address] [place] [address] Lynn Mariano, BLEMISH REMOVER [address] [place] [address] 03/09/2025 3:30 PM EDT Office Visit [facility] [place] [address] [facility] [address] [place] [address] Rita Cordero MD [address] [place] [address] 10/07/2025 1:10 PM EDT Office Visit [facility] [address] [facility] [address] [place] [address] Juan Russell MD 40 [facility] [address] [place] [address] documented as of this encounter [...] Procedure Name Priority Date/Time Associated Diagnosis Comments VITAMIN D 25 HYDROXY Routine 01/04/2025 2:19 PM EDT COREEN (acute kidney injury) Stage 3a chronic kidney disease (HCC) RIBONUCLEIC PROTEIN ANTIBODY, IGG -REF LAB Routine 01/04/2025 2:19 PM EDT COREEN (acute kidney injury) Stage 3a chronic kidney disease (HCC) VITAMIN D, 1,25-DIHYDROXY -REF LAB Routine 01/04/2025 2:19 PM EDT COREEN (acute kidney injury) Stage 3a chronic kidney disease (HCC) OSMOLALITY Routine 01/04/2025 2:19 PM EDT COREEN (acute kidney injury) Stage 3a chronic kidney disease (HCC) documented in this encounter Results * (ABNORMAL) OSMOLALITY (01/04/2025 2:19 PM EDT) [facility] Osmo-Serum 299(H) 275 - 295 mOsm/kg 01/04/2025 9:24 PM EDT [facility] Blood VENOUS BLOOD / Unknown Venipuncture / Unknown 01/04/2025 2:19 PM EDT 01/04/2025 2:19 PM EDT us Lynn Mariano BLEMISH REMOVER CHEMISTRY ORDERABLES Elizabeth l Result [facility] Com [address] [facility] , [place] [address] * RIBONUCLEIC PROTEIN ANTIBODY, IGG -REF LAB (01/04/2025 2:19 PM EDT) Pathologist [facility] Gomes/CANAL LOCK TENDER CHIEF OPERATOR Ab, IgG 4 0 - 19 Units 01/06/2025 2:07 PM EDT [employer] Comment: INTERPRETIVE INFORMATION: Gomes/CANAL LOCK TENDER CHIEF OPERATOR (ERNA) Antibody, IgG 19 Units or Less ............. Negative 20 to 39 Units ............... Weak Positive 40 to 80 Units ............... Moderate Positive 81 Units or greater .......... Strong Positive Gomes/CANAL LOCK TENDER CHIEF OPERATOR antibodies are frequently seen in patients with mixed connective tissue disease (MCTD) and are also associated with other systemic autoimmune rheumatic diseases (SARDs) such as systemic lupus erythematosus (SLE), systemic sclerosis, and myositis. Antibodies targeting the Gomes/CANAL LOCK TENDER CHIEF OPERATOR antigenic complex also recognize Gomes antigens, therefore, the Gomes antibody response must be considered when interpreting these results. Performed By: [facility] [address] [id number] Ticket Dispatcher: Patric Aranda MD, PhD CLIA Number: [id number] Blood VENOUS BLOOD / Unknown Venipuncture / Unknown 01/04/2025 2:19 PM EDT 01/04/2025 2:19 PM EDT Lynn Mariano APRN IMMUNOLOGY ORDERABLES Fin al Result [facility] [address] [id number] * VITAMIN D, 1,25-DIHYDROXY -REF LAB (01/04/2025 2:19 PM EDT) Pathologist [facility] Vit D 1,25 57.9 19.9 - 79.3 pg/mL 01/06/2025 3:08 PM EDT [facility] Comment: INTERPRETIVE INFORMATION: Vitamin D, 1,25-Dihydroxy This test is primarily indicated during patient evaluation for hypercalcemia and renal failure. A normal result does not rule out Vitamin D deficiency. The recommended test for diagnosing Vitamin D deficiency is Vitamin D 25-hydroxy. Performed By: [email or web address] [address] [place] [address] Ticket Dispatcher: Patric Aranda MD, PhD CLIA Number: [id number] Blood VENOUS BLOOD / Unknown Venipuncture / Unknown 01/04/2025 2:19 PM EDT 01/04/2025 2:19 PM EDT Lynn Denise García BLEMISH REMOVER CHEMISTRY ORDERABLES Elizabeth l Result [facility] [address] [place] [address] * VITAMIN D 25 HYDROXY (01/04/2025 2:19 PM EDT) Vit D 25 OH 46.6 30.0 - 150.0 ng/mL 01/04/2025 9:05 PM EDT [facility] Comment: Preferred: >= 30 ng/mL Insufficient: 21-29 ng/mL Deficient <= 20 ng/mL Possible Toxicity: >150 ng/mL Samples should not be taken from patients receiving therapy with high biotin doses (i.e. > 5 mg/day) until at least 8 hours following the last biotin administration. Blood VENOUS BLOOD / Unknown Venipuncture / Unknown 01/04/2025 2:19 PM EDT 01/04/2025 2:19 PM EDT Lynn Mariano BLEMISH REMOVER CHEMISTRY ORDERABLES Elizabeth l Result [facility] Com 1 [facility], [place] [address] documented in this encounter Visit Diagnoses Diagnosis COREEN (acute kidney injury) Acute kidney failure, unspecified Stage 3a chronic kidney disease (HCC) documented in this encounter Care Teams Ruby Rails Developer Relationship Specialty Start Date End Date Jerome Crowley MD [address] [place] [phone] PCP - General Internal Medicine 08/09/24 Kayli Kebede MD [address] [facility] [address] [place] [address] Consulting Physician Internal Medicine-Nephrology 05/17/22 Valarie Leach, RN Casino Floor Supervisor Registered Nurse 12/01/24 documented as of this encounter
--- OUTSIDE RECORDS SUMMARY | 2025-01-04 14:25 | XMS_ITS | Encounter Summary ---
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 [employer] Name Role Phone Kayli Kebede MD Unavailable [phone] Jerome Crowley MD Primary Care Provider [phone] Valarie Leach RN Unavailable Unavailable Reason for Visit * Oncology Medication Prior Authorization (Routine) - Authorization Not Needed Specialty Diagnoses / Procedures Referred By Contac t Referred To Contact Diagnoses B12 deficiency Iron malabsorption Iron deficiency anemia due to chronic blood loss Procedures NV INJ, FOSAPREPITANT (TEVA) Farnaz Ricardo APRN [address] [place] [address] Phone: tel: fax: Farnaz Ricardo APRN [address] [place] [address] Phone: tel: fax: Referral ID Status Reason Start Date Expiration Date Visits Requested Visits Authorized [id number] Authorization Not Needed 11/15/2024 11/15/2025 1 10 Encounter Details Date Type Department Care Team (Latest Contact Info) Description 01/04/2025 2:25 PM EDT - 01/04/2025 11:59 PM EDT Hospital Encounter [facility] [place] [address] B12 deficiency (Primary Dx); Iron malabsorption; Iron [...] alcohol) few times a year [facility] Utilities Answer Date Recorded In [...] Date Recorded PHQ-2 Total Score 0 11/29/2024 [facility] of Occupat ional Health - [...] place to sleep or slept in a snf (including now)? No 03/30/2021 [facility] IP Transportation Answer D ate [...] Sign Reading Time Taken Comments Blood Pressure 163/109 01/04/2025 3:45 PM EDT Pulse 66 01/04/2025 3:45 PM EDT Temperature 36.6 C (97.9 F) 01/04/2025 3:45 PM EDT Respiratory Rate 18 01/04/2025 3:45 PM EDT Oxygen Saturation 95% 01/04/2025 3:45 PM EDT Inhaled Oxygen Concentration - - Weight 134.2 kg (295 lb 12.8 oz) 01/04/2025 2:59 PM EDT Height - - Body Mass Index 49.22 12/28/2024 10:09 AM EDT documented in this [...] 5 fluticasone propionate (FLONASE) 50 mcg/actuation Nasl [place], Suspension 1 [place] by Nasal route daily. 16 g 1 [...] 28 DAYS* 15 mL 3 5 Insulin [place], Disposable, (LIA PEN NEEDLE) 32 gauge x [facility] Needle Use as directed with insulin pens daily 100 Each 3 5 lancets (ONETOUCH DELICA PLUS LANCET) 33 gauge [facility] Subcutaneous (Inject under the skin) 100 Each daily. 100 Each 10 4 metOLazone (ZAROXOLYN) 2.5 mg Oral Tablet Take 2.5 mg by mouth daily as needed for Other (Edema, weight gain). montelukast (SINGULAIR) 10 mg Oral TabletIndications :Severe persistent asthma without complication (HCC) Take 1 Tablet by mouth every evening. 90 Tablet 3 5 Nebulizer Accessories (ALL FLOW 4000 KIT) [facility] MiscIndications:M oderate persistent asthma with acute exacerbation 1 Kit by [facility].(Non-Drug; Combo Route) route daily. 0 9 nitroGLYCERIN [...] encounter Miscellaneous Notes * Patient Instructions - Jihan Gan RN - 01/04/2025 3:00 PM EDT .[facility] Discharge Instructions Thank you for entrusting the [facility] with your care. We hope you are [...] - Friday 8:00 AM - 4:30 PM. [facility] [address] [id number] 003 [phone] [place] [address] documented in this encounter Plan of Treatment Upcoming Encounters Date Type Department Care Team (Late st Contact Info) Description 02/02/2025 12:45 PM EDT Office Visit [facility] [address], 3RD [place] [address] Manuel Torres MD [address] [place] [address] 02/15/2025 2:15 PM EDT Appointment [facility] [place] [address] [place] [address] 02/15/2025 2:30 PM EDT [address]ment [address] [place] [address] Farnaz Ricardo, CURING BIN OPERATOR 1 [facility] [place] [address] 02/24/2025 8:00 AM EDT Appointment [facility] [address] [place] [address] [address] [place] [address] Rajwinder Craig MD [address] [place] [address] 03/02/2025 9:30 AM EDT Office [place] [address] Jose Luis Ortiz MD [address] [place] [address] [place] [phone] 03/08/2025 11:15 AM EDT Office Visit [facility] Nephrology [place] [address] [place] [address] Lynn Mariano, CURING BIN OPERATOR [address] [place] [phone] 03/09/2025 3:30 PM EDT [facility] [address] [phone] Rita Cordero MD [address] [place] [address] 10/07/2025 1:10 PM EDT Office Visit [facility] [address] [facility] [address] [place] [address] Juan Russell MD [address] [facility] [address] [place] [address] documented as of this encounter Goals [...] 200 mg, Intravenous, ONCE, 1 dose, On Fri01/04/25 at 1500, Administer over 30 Minutes, VESICANT , Dx: 1. B12 deficiency 2. Iron malabsorption 3. Iron deficiency anemia due to chronic blood lossIndications:B12 deficiency,Iron malabsorption,Iron deficiency anemia due to chronic blood loss IV Started 01/04/2025 3:11 PM EDT 200 mg 240 mL/hr sodium chloride 0.9% syringe Intravenous, PRN, Starting on Fri01/04/25 at 1439, Until Fri01/06/25 at 0416, Line Care, Flush after IV medication, Dx: 1. B12 deficiency 2. Iron malabsorption 3. 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
--- OUTSIDE RECORDS SUMMARY | 2025-01-07 13:00 | XMS_ITS | Encounter Summary ---
Author Organization [facility] [place] [address] Care Team Providers Care Recreational Programs Director Name Role Phone Kayli Kebede MD Unavailable [phone] Jerome Crowley MD Primary Care Provider [phone] Valarie Leach RN Unavailable Unavailable Reason for Referral * Consultation (Routine) - Pending Review Specialty Diagnoses / Procedures Referred By Contac t Referred To Contact Diabetes Services Diagnoses Type 2 diabetes mellitus with diabetic neuropathy, without long-term current use of insulin (HCC) Rita Cordero MD [address] [place] [address] Phone: tel: fax: [facility] [address] [facility] [address] [place] [address] Phone: tel: fax: Referral ID Status Reason Start Date Expiration Date V isits Requested Visits Authorized [id number] Pending Review 01/07/2025 01/07/2026 99 99 Question Answer Patient to attend class today? No Type Type 2- GROUP- Assessment, Group classes and Dietitian (MNT) (10 hours is standard) Reason for Visit * Reason Comments New Patient Encounter Details Date Type Department Care Team (Late st Contact Info) Description 01/07/2025 1:00 PM EDT Office Visit [facility] [place] [address] [place] [address] Rita Cordero MD [address] [place] [address] Type 2 diabetes mellitus with diabetic neuropathy, without long-term current use of insulin (HCC) (Primary Dx); Hyperlipidemia associated with type 2 diabetes mellitus (HCC); Hypertension associated with type 2 diabetes mellitus (HCC); Adrenal adenoma, right; Class 3 severe obesity due to excess calories with serious comorbidity and body mass index (BMI) of 45.0 to 49.9 in adult Social History Tobacco Use Types Packs/Day Years Used Date Smoking Tobacco: Every Day Cigarettes 1 28 Started: 04/02/2007 Smokeless Tobacco: Never Tobacco Cessation:Ready to Q uit: Not Asked; Counseling Given: Not Answered Alcohol Use Standard Drinks/Week Comments Not Currently 0 (1 standard drink = 0.6 oz pur e alcohol) few times a year [facility] Utilities Answer Date Recorded In the past 12 months has [employer], gas, oil, or water [employer] threatened to shut off services in your home? No 11/29/2024 Overall Financial Resource Strain (CARDIA) Answe r Date Recorded How hard is it for you to pa y for the very basics like food, housing, medical care, and heating? Not very hard 11/29/2024 PHQ-2 Answer Date Recorded PHQ-2 Total Score 0 11/29/2024 [facility] of Occupat ional Health - Occupational Stress [...] place to sleep or slept in a half-way (including now)? No 03/30/20[facility] IP Transportation Answer D ate Recorded [...] Sign Reading Time Taken Comments Blood Pressure 140/85 01/07/2025 12:45 PM EDT Pulse 97 01/07/2025 12:45 PM EDT Temperature - - Respiratory Rate - - Oxygen Saturation - - Inhaled Oxygen Concentration - - Weight 130.9 kg (288 lb 8 oz) 01/07/2025 12:45 P M EDT Height 165.1 cm (5' 5 ) 01/07/2025 12:45 PM EDT Body Mass Index 48.01 01/07/2025 12:45 PM EDT documented in this encounter Functional [...] Refills Last Filled Start Date End Date dexAMETHasone (DECADRON) 0.5 mg Oral TabletIndications: Adrenal adenoma, right Take 2 Tablets by mouth once for 1 dose. At 11 PM the night before the blood test 2 Tablet 01/07/2025 5 pregabalin (LYRICA) 100 mg Oral CapsuleIndications :Type 2 diabetes mellitus with diabetic neuropathy, without long-term current use of insulin (HCC) Take 1 Capsule by mouth 3 times daily. 90 Capsule 5 01/07/2025 5 documented in this encounter Progress Notes * Rita Cordero MD - 01/10/2025 7:04 AM EDTAssociated Problem(s): Class 3 severe obesity due to excess calories with serious comorbidity and body mass index (BMI) of 45.0 to 49.9 in adult The importance of increased physical activity and balanced caloric intake to facilitate weight losswas emphasized to the patient. The patient was provided with dietary instructions. * Rita Cordero MD - 01/10/2025 7:04 AM EDTAssociated Problem(s): Adrenal adenoma, right The nature of condition as well as the results of work up were discussed with patient at length. Will rule out autonomous hypercortisolism. The recommendations will be made based on the work up results. * Rita Cordero MD - 01/10/2025 7:04 AM EDTAssociated Problem(s): Hyperlipidemia associated with type 2 diabetes mellitus (HCC) Continue statin regimen * Rita Cordero MD - 01/10/2025 7:03 AM EDTAssociated Problem(s): Hypertension associated with type 2 diabetes mellitus (HCC) Will reassess * Rita Cordero MD - 01/10/2025 7:03 AM EDTAssociated Problem(s): Type 2 diabetes mellitus with diabetic neuropathy, without long-term currentuse of insulin (HCC) Different aspects of diabetes care as well as treatment goals were discussed with the patient at length. Glycemic control has been stable and at goal #1. The patient is to continue regular blood glucose monitoring #2. She is to hold Ozempic for 2 weeks to see whether it is contributing to daily dyspepsia. She isto contact me with information. Will consider Trulicity trial if nausea resolves off Ozempic The patient is to have a teaching session with a certified adapted physical educator. The patient is to be screened for diabetes related complications according to ADA guidelines. * Rita Cordero MD - 01/07/2025 1:00 PM EDT Subjective Subjective: Patient ID: Tegan Wolf is a 44 y.o. female. Chief Complaint Patient presents with New Patient HPI PAPO Lost 75 # on Ozempic More hungry lately Daily nausea Current diabetic Medications: FARXIGA HUMALOG - not using. 2-3 u if BS>200. 4-5 times a week OZEMPIC 2 mg - constipation. Sveral years Hypoglycemia: No Testing/Review of blood Sugars: Did not bring her glucometer Previous diabetic medications Metformin - nausea Glimepiride - low BS Gabapentin Duration of diabetes: 2020 Dietary Habits: decreasing regular soda intake Physical Activity: no Knowledge/Classes of Diabetes Management: Microvascular complications Retinopathy: No Neuropathy: Yes - Painful paresthesias Nephropathy: Yes Macrovascular complications: CAD// CHF STATIN G - 3 , P - 2 Irregular periods every 1-2 months Fractures: Right ankle fx vertebral fx (work accident) Kidney stones: no CT ABDOMEN AND PELVIS WITH CONTRAST (FAST), 08/09/2021 10:48 AM CLINICAL HISTORY: Left lower quadrant pain. COMPARISON: CT abdomen/pelvis 07/04/2019. PROCEDURE COMMENTS: Multi-detector volumetric scanning of the abdomen and pelvis with multiplanar reformatting per expedited protocol. 100 mL Isovue 370 IV. Automated exposure control for dose reduction was used. FINDINGS: LOWER CHEST: Clear lung bases. ABDOMEN & PELVIS: Prior cholecystectomy noted. Liver, spleen, pancreas, and left adrenal gland are unremarkable. A 3.2 x 2.3 cm right adrenal adenoma is unchanged. Latest Reference Range & Units 07/22/22 15:07 08/04/24 13:05 Aldosterone ng/dL 10.5 8.4 Metanephrine Lvl 0.00 - 0.49 nmol/L 0.12 Normetanephrine Lvl 0.00 - 0.89 nmol/L 0.50 RENIN ACTIVITY ng/mL/hr 35.5 Lab Results Component Value Date TSH 1.300 11/08/2020 TSH 1.2130 06/21/2013 TSH 1.480 11/27/2010 TSHREFLEX 0.450 11/05/2024 TSHREFLEX 1.320 03/12/2022 TSHREFLEX 1.430 11/09/2021 Lab Results Component Value Date HGBA1C 5.7 01/07/2025 HGBA1C 5.5 10/05/2024 HGBA1C 5.5 06/25/2024 Lab Results Component Value Date CHOLESTEROL 119 11/30/2024 CHOLESTEROL 158 04/23/2022 CHOLESTEROL 166 11/08/2020 HDL 31 (L) 11/30/2024 HDL 32 (L) 04/23/2022 HDL 39 (L) 11/08/2020 LDLCALC 71 11/30/2024 LDLCALC 100 (H) 04/23/2022 LDLCALC 111 (H) 11/08/2020 TRIG 89 11/30/2024 TRIG 148 04/23/2022 TRIG 78 11/08/2020 Lab Results Component Value Date CREATININE 1.25 01/03/2025 AST 22 12/25/2024 ALT 19 12/25/2024 Patients past medical, family and social histories were reviewed and updated. There were no changesexcept as noted. Review of Systems Constitutional: Positive for activity change, appetite change, diaphoresis and fatigue. Negative for chills and fever. HENT: Positive for dental problem, facial swelling, hearing loss, postnasal drip and tinnitus. Negative for congestion, drooling, ear discharge, ear pain, mouth sores, nosebleeds, rhinorrhea, sinus pressure, sore throat, trouble swallowing and voice change. Eyes: Positive for visual disturbance. Negative for photophobia, pain, discharge, redness and itching. Respiratory: Positive for apnea, cough, chest tightness, shortness of breath and wheezing. Negativefor choking and stridor. Cardiovascular: Positive for palpitations and leg swelling. Negative for chest pain. Gastrointestinal: Positive for abdominal distention and constipation. Negative for abdominal pain, anal bleeding, diarrhea, nausea, rectal pain and vomiting. Endocrine: Positive for cold intolerance, heat intolerance, polydipsia, polyphagia and polyuria. Genitourinary: Positive for flank pain, frequency, menstrual problem and urgency. Negative for decreased urine volume, dysuria, genital sores, hematuria, pelvic pain, vaginal discharge and vaginal pain. Musculoskeletal: Positive for back pain. Negative for gait problem, myalgias, neck pain and neck stiffness. Skin: Negative for pallor, rash and wound. Allergic/Immunologic: Positive for environmental allergies. Negative for food allergies and immunocompromised state. Neurological: Positive for dizziness, light-headedness and headaches. Negative for tremors, seizures, facial asymmetry, speech difficulty, weakness and numbness. Hematological: Bruises/bleeds easily. Psychiatric/Behavioral: Positive for decreased concentration and dysphoric mood. Negative for agitation, behavioral problems, confusion, hallucinations, self- injury, sleep disturbance and suicidal ideas. The patient is not nervous/anxious and is not hyperactive. Objective Objective: Vitals: 01/07/25 1245 BP: 140/85 BP Location: Left arm Pulse: 97 Weight: 288 lb 8 oz (130.9 kg) Height: 5' 5 (1.651 m) Body mass index is 48.01 kg/m??. Physical Exam Vitals reviewed. Constitutional: Appearance: Normal appearance. HENT: Head: Atraumatic. Nose: Nose normal. Eyes: Extraocular Movements: Extraocular movements intact. Neck: Comments: No obvious thyroid enlargement. No palpable nodules and cervical lymphoadenopathy Cardiovascular: Rate and Rhythm: Normal rate and regular rhythm. Pulses: Normal pulses. Heart sounds: Normal heart sounds. Pulmonary: Effort: Pulmonary effort is normal. No respiratory distress. Breath sounds: Normal breath sounds. Abdominal: General: Abdomen is flat. Palpations: Abdomen is soft. There is no hepatomegaly. Tenderness: There is no abdominal tenderness. Hernia: No hernia is present. Musculoskeletal: General: Normal range of motion. Cervical back: Normal range of motion. Right lower leg: No edema. Left lower leg: No edema. Skin: General: Skin is warm and dry. Neurological: General: No focal deficit present. Mental Status: She is alert. Mental status is at baseline. Psychiatric: Mood and Affect: Mood normal. 06/28/2024 9:58 AM Monofilament & Eye Exam Foot Exam Performed? Yes R Posterior Tibial Present L Posterior Tibial Present R Dorsalis Pedis Present L Dorsalis Pedis Present R Monofilament Present L Monofilament Present Reflex Ankle R (optional) Normal Reflex Ankle L (optional) Normal R Inspection Normal L Inspection Normal Assessment and Plan: Diagnoses and all orders for this visit: Type 2 diabetes mellitus with diabetic neuropathy, without long-term current use of insulin (HCC) (Chronic) Assessment & Plan: Different aspects of diabetes care as well as treatment goals were discussed with the patient at length. Glycemic control has been stable and at goal #1. The patient is to continue regular blood glucose monitoring #2. She is to hold Ozempic for 2 weeks to see whether it is contributing to daily dyspepsia. She isto contact me with information. Will consider Trulicity trial if nausea resolves off Ozempic The patient is to have a teaching session with a certified adapted physical educator. The patient is to be screened for diabetes related complications according to ADA guidelines. Orders: - POCT GLYCATED HEMOGLOBIN, TOTAL - pregabalin (LYRICA) 100 mg Oral Capsule; Take 1 Capsule by mouth 3 times daily. Dispense: 90 Capsule; Refill: 5 - AMB REFERRAL TO DIABETIC EDUCATION PROGRAM Hyperlipidemia associated with type 2 diabetes mellitus (HCC) (Chronic) Assessment & Plan: Continue statin regimen Orders: - POCT GLYCATED HEMOGLOBIN, TOTAL Hypertension associated with type 2 diabetes mellitus (HCC) (Chronic) Assessment & Plan: Will reassess Adrenal adenoma, right Assessment & Plan: The nature of condition as well as the results of work up were discussed with patient at length. Will rule out autonomous hypercortisolism. The recommendations will be made based on the work up results. Orders: - CORTISOL; Future - DEXAMETHASONE -REF LAB; Future - dexAMETHasone (DECADRON) 0.5 mg Oral Tablet; Take 2 Tablets by mouth once for 1 dose. At 11 PM the night before the blood test Dispense: 2 Tablet; Refill: 0 - ADRENOCORTICOTROPIC HORMONE -REF LAB; Future Class 3 severe obesity due to excess calories with serious comorbidity and body mass index (BMI) of45.0 to 49.9 in adult (Chronic) Assessment & Plan: The importance of increased physical activity and balanced caloric intake to facilitate weight losswas emphasized to the patient. The patient was provided with dietary instructions. Medications Discontinued During This Encounter Medication Reason predniSONE (DELTASONE) 20 mg Oral Tablet Patient Reported not taking medication semaglutide 2 mg/dose (8 mg/3 mL) SubQ Pen Injector Cancelled by pregabalin (LYRICA) 50 mg Oral Capsule Dose adjustment gabapentin (NEURONTIN) 600 mg Oral Tablet Side effects The independent review of chart notes, labs, physical findings and analysis of appropriate medications represents a decision of high complexity with regard to health threatening risks, benefits, and side effects of medicines and underlying conditions managed. Return in about 2 months (around 03/09/2025). Answers submitted by the patient for this visit: Review of Symptoms: Please check all that currently apply to you. (Submitted on 01/05/2025) weight loss: No hematochezia: No painful intercourse: No Incontinence: No vaginal bleeding: No joint pain: Yes joint swelling: Yes loss of consciousness: No swollen glands: No documented in this encounter Miscellaneous Notes * Patient Instructions - Rita Cordero MD - 01/07/2025 1:00 PM EDT THE INSTRUCTIONS FOR MORNING CORTISOL TEST AFTER TAKING DEXAMETHASONE PILLS THE NIGHT BEFORE Please have fasting blood test for cortisol done before 9 am. Take dexamethasone 0.5 mg 2 pills at 11 pm the night before morning cortisol blood test. Healthy choice diet Breakfast choices: - Irish yogurt (preferably plain ) - Hot cereal with 2% or 1% milk (avoid flavored instant oatmeal). No cream of wheat - Cooked eggs or egg white omelette or egg beaters - Fruit (berries, apple, melons, pears, kiwi, oranges). Avoid bananas and grapes - Lean lunch meat (chicken or turkey breast) - Low fat, sugar free yogurt (with artificial sweetener aspartame) or Splenda - [place] Citizen muffin with peanut butter Snacks: - Protein snack bar - Humus with fresh vegetables - Fruit as above - Unbuttered popcorn (100 cristal package) - Peanut butter with apples or celery - Dry roasted or raw nuts (preferably almonds, peanuts or walnuts) - Lean lunch meat or cheese - Low fat, sugar free yogurt or Irish yogurt (preferably plain) - Avoid crackers, cookies, pretzels, and chips - All fresh, raw vegetables except for peas or corn Innocent sweets: - Sugar free Jello or pudding - Sugar free hard candy - Berries with low fat Cool whip - Sugar-free popsicles and fudgesicles Food choices: - Soups (chicken broth with boiled chicken, tomato soup, Omani wedding soup, vegetarian chili, beef barley, and etc.) Avoid creamy soups - Lean meat (grilled, baked or broiled chicken, turkey or fish). No breaded meat - Green beans, salad or grilled vegetables as a side dish. Avoid potatoes, pasta and rice - [place] oil - Salad with any vegetables, hard boiled egg, nuts/ seeds, feta cheese, grated cheese, lean meat including lunch meat - Gallagher beans - Seafood - Grains (quinoa, whole-grain barley, brown rice, wild rice, buckwheat, bulgur) Avoid Zimbabwean, Portuguese, Pizza and fast food except for Subway or [employer] (fresco menu) No juice, regular pop, regular ice tea, lemonade and etc documented in this encounter Plan of Treatment Upcoming Encounters Date Type Department Care Team (Late st Contact Info) Description 02/02/2025 12:45 PM EDT Office Visit [facility] [address] [place] [address] Manuel Torres MD [address] [place] [address] 02/15/2025 2:15 PM EDT Appointment [facility] Cancer Care [address] [place] [address] 02/15/2025 2:30 PM EDT Appointment [facility] Cancer [address] [place] [address] Farnaz Ricardo APRN [address] [facility] [address] 02/24/2025 8:00 AM EDT Appointment [facility] [address] [place] [address] [address] [place] [address] Rajwinder Craig MD [address] [place] [address] 03/02/2025 9:30 AM EDT Office Visit [place] [address] Jose Luis Ortiz MD [address] [place] [address] [place] [address] 03/08/2025 11:15 AM EDT Office Visit [facility] Nephrology [address] [place] [address] Lynn Mariano APRN [address] [place] [address] 03/09/2025 3:30 PM EDT Office Visit [facility] [place] [address] [facility] [address] [place] [address] Rita Cordero MD [address] [place], [place] [id number] 10/07/2025 1:10 PM EDT Office Visit [facility] [address] [facility] [address] [place] [address] Juan Russell MD [address] [facility] [address] [place] [address] Scheduled Orders Name Type Priority Associated Diagnoses Orde r Schedule CORTISOL Lab Routine Adrenal adenoma, right 1 Occurrences starting 01/07/2025 until 01/07/2026 DEXAMETHASONE -REF LAB Lab Routine Adrenal adenoma, right 1 Occurrences starting 01/07/2025 until 01/07/2026 ADRENOCORTICOTROPIC HORMONE -REF LAB Lab Routine Adrenal adenoma, right 1 Occurrences starting 01/07/2025 until 01/07/2026 Scheduled Referrals Name Type Priority Associated Diagnoses Orde r Schedule AMB REFERRAL TO DIABETIC EDUCATION PROGRAM Outpatient Referral Routine Type 2 diabetes mellitus with diabetic neuropathy, without long-term current use of insulin (HCC) Ordered: 01/07/2025 documented as of this encounter Goals Goal Patient Goal Type Associated Problems Recent Progress Patient-Stated? Author Blood Pressure < 140/90 Blood Pressure 158/93(2024 3:43 PM EDT) No Grooms, Mary Kate, CCMA Maintain a healthy diet, exercise regularly [...] Procedure Name Priority Date/Time Associated Diagnosis Comments POCT GLYCATED HEMOGLOBIN, TOTAL Routine 01/07/2025 12:58 PM EDT Type 2 diabetes mellitus with diabetic neuropathy, without long-term current use of insulin (HCC) Hyperlipidemia associated with type 2 diabetes mellitus (HCC) documented in this encounter Results * POCT GLYCATED HEMOGLOBIN, TOTAL (01/07/2025 12:58 PM EDT) Hemoglobin A1C 5.7 4 - 6 % SEP OFFICE Lot Number SEP OFFICE Expiration Date SEP OFFICE SeriAl # SEP OFFICE 01/07/2025 12:5 8 PM EDT us Rita Cordero MD POINT OF CARE TEST ORDERABLES Final Result SEP OFFICE documented in this encounter Visit Diagnoses Diagnosis Type 2 diabetes mellitus with diabetic neuropathy, without long-term current use of insulin (HCC)- Primary Hyperlipidemia associated with type 2 diabetes mellitus (HCC) Hypertension associated with type 2 diabetes mellitus (HCC) Adrenal adenoma, right Class 3 severe obesity due to excess calories with serious comorbidity and body mass index (BMI) of 45.0 to 49.9 in adult documented in this encounter Discontinued Medications Medication Sig Discontinue Reason Start Date End Da te predniSONE (DELTASONE) 20 mg Oral Tablet Take 1 Tablet by mouth 2 times daily for 7 days, THEN 1 Tablet daily for 7 days. Patient Reported not taking medication 01/04/2025 01/07/2025 semaglutide 2 mg/dose (8 mg/3 mL) SubQ Pen Injector Inject 2 mg under the skin once a week for 360 days. Cancelled by 12/10/2024 01/07/2025 pregabalin (LYRICA) 50 mg Oral Capsule Take 1 Capsule by mouth 3 times daily. Dose adjustment 01/06/2025 01/07/2025 gabapentin (NEURONTIN) 600 mg Oral Tablet Take 600 mg by mouth 3 times daily. Side effects 11/20/2024 01/07/2025 documented as of this encounter Care Teams Recreational Programs Director Relationship Specialty Start Date End Date Jerome Crowley MD [facility] [place] [address] PCP - General Internal Medicine 08/09/24 Kayli Kebede MD [address] [address] Consulting Physician Internal Medicine-Nephrology 05/17/22 Valarie Leach, RN Sports Coordinator Registered Nurse 12/01/24 documented as of this encounter
--- OUTSIDE RECORDS SUMMARY | 2025-01-16 18:31 | XMS_ITS | Encounter Summary ---
Author Organization [place] [address] Care Team Providers Care Production Laborer Name Role Phone Kayli Kebede MD Unavailable [phone] Jerome Crowley MD Primary Care Provider [phone] Valarie Leach RN Unavailable Unavailable Rita Cordero MD Unavailable [phone] Reason for Visit * Reason Comments Shortness of Breath Retaining fluid. SOB has history of CHF Encounter Details Date Type Department Care Team (Late st Contact Info) Description 01/16/2025 6:31 PM EDT - 01/16/2025 9:45 PM EDT Emergency [facility] Emergency [address] [place] [address] Momo Swenson MD [address] [place] [phone] Shortness of breath (Primary Dx); Lumbar back pain; Hypertension associated with type 2 diabetes mellitus (HCC) Discharge Disposition: Home or Self Care Social History Tobacco Use Types Packs/Day Years Used Date Smoking Tobacco: Every Day Cigarettes 08 17 Started: 04/02/2007 Smokeless Tobacco: Never Alcohol Use Standard Drinks/Week Comments Not Currently 0 (1 standard drink = 0.6 oz pur e alcohol) few times a year [facility] Utilities Answer Date Recorded In the past 12 months has [email or web address], gas, oil, or water company threatened to shut off services in your home? No 11/29/2024 Overall Financial Resource Strain (CARDIA) Answe r Date Recorded How hard is it for you to pa y for the very basics like food, housing, medical care, and heating? Not very hard 11/29/2024 PHQ-2 Answer Date Recorded PHQ-2 Total Score 0 11/29/2024 [facility] - Occupational Stress Questionnaire Answer Date Recorded [...] a care home (including now)? No 03/30/2021 [facility] IP Transportation Answer D ate Recorded [...] Sign Reading Time Taken Comments Blood Pressure 130/82 01/16/2025 9:27 PM EDT Pulse 63 01/16/2025 9:30 PM EDT Temperature 36.7 C (98 F) 01/16/2025 6:23 PM EDT Respiratory Rate 19 01/16/2025 9:30 PM EDT Oxygen Saturation 95% 01/16/2025 9:30 PM EDT Inhaled Oxygen Concentration - - Weight 137 kg (302 lb) 01/16/2025 6:31 PM EDT Height - - Body Mass Index 50.26 01/07/2025 12:45 PM EDT documented in this [...] 01/16/2025 6:25 PM EDT Ankita Forman * Weber Suicide Severity Rating Scale (Q shift for [...] this encounter Discharge Instructions * Discharge Instructions* Felix Cox APRN - 01/16/2025 9:21 PM EDT Begin taking your Coreg twice daily. Begin taking the clonidine as needed for systolic blood pressure greater than 160. Begin taking your furosemide as discussed. I have prescribed the potassium supplements to take for the next 5 days. Begin doing gentle stretches as discussed. Do not take diclofenac with Advil, Motrin, ibuprofen, Aleve, naproxen. Use caution when taking methocarbamol. May cause drowsiness. Do not operate heavy machinery or drive while taking. Lifting should be limited to 10 lb or less No bending or twisting Sit, stand or walk as tolerated No commercial or industrial vehicle driving No ladder use Minimize stairs Return to the Emergency Department should your symptoms worsen or should you develop a fever, change in bowel or bladder habits, weakness, numbness or any other new or worsening concerns. * Attachments The following attachments cannot be sent through Care Everywhere. * Back Stretches on Floor (Comoran) * Shortness of breath ([place]oran) * High blood pressure in adults ([place]an) documented in this encounter Medications at Time of Discharge ACETAMINOPHEN 325 mg Oral Tab TAKE 2 TABLETS BY MOUTH EVERY 8 HOURS NEEDED FOR PAIN 200 Tablet 11 5 aspirin 81 mg Oral Tablet, Chewable Take 1 Tablet by mouth daily. 90 Tablet 3 5 Blood-Glucose Meter [facility] Kit Use to check blood sugar 1 [...] 4 times daily. 100 g 3 5 dulaglutide (TRULICITY) 0.75 mg/0.5 mL SubQ Pen InjectorIndicatio ns:Type 2 diabetes mellitus with diabetic neuropathy, without long-term current use of insulin (HCC) Inject 0.5 mL under the skin once a week. 2 mL 5 FARXIGA 10 mg Oral Tablet Take 1 Tablet by mouth daily for 360 days. 90 Tablet 3 4 06/23/20 25 fluconazole (DIFLUCAN) 100 mg Oral Tablet TAKE 1 TABLET BY MOUTH ONCE WEEKLY 12 Tablet 11 5 fluticasone propionate (FLONASE) 50 mcg/actuation Nasl [place], Suspension 1 [place] by Nasal route daily. 16 g 1 [...] 28 DAYS* 15 mL 3 5 Insulin [place], Disposable, (LIA PEN NEEDLE) 32 gauge x [facility] Needle Use as directed with insulin pens daily 100 Each 3 5 lancets (ONETOUCH DELICA PLUS LANCET) 33 gauge [facility] Subcutaneous (Inject under the skin) 100 Each daily. 100 Each 10 4 methocarbamoL (ROBAXIN) 750 mg Oral Tablet Take 1 Tablet by mouth 3 times daily as needed for Pain for up to 30 days. 20 Tablet 5 02/16/20 25 metOLazone (ZAROXOLYN) 2.5 mg Oral Tablet Take 2.5 mg by mouth daily as needed for Other (Edema, weight gain). montelukast (SINGULAIR) 10 mg Oral TabletIndications :Severe persistent asthma without complication (HCC) Take 1 Tablet by mouth every evening. 90 Tablet 3 5 Nebulizer Accessories (ALL FLOW 4000 KIT) [facility] MiscIndications:M oderate persistent asthma with acute exacerbation 1 Kit by [facility].(Non-Drug; Combo Route) route daily. 0 9 nitroGLYCERIN [...] NEEDED FOR NAUSEA 30 Tablet 11 5 ranolazine (RANEXA) 500 mg Oral Tablet Sustained Release 12 hr Take 1 Tablet by mouth every 12 hours for 360 days. 180 Tablet 3 5 01/02/20 26 tiZANidine (ZANAFLEX) 4 mg Oral Tablet Take 1 Tablet by mouth 3 times daily as needed. for muscle spasms 60 Tablet 10 5 potassium chloride (KLOR-CON 10) 10 mEq Oral Tablet Sustained Release Take 1 Tablet by mouth 2 times daily for 5 days. 10 Tablet 5 01/22/20 25 documented as of this encounter Ordered Prescriptions Prescription Sig Dispense Quantity Refills Last Filled Start Date End Date methocarbamoL (ROBAXIN) 750 mg Oral Tablet Take 1 Tablet by mouth 3 times daily as needed for Pain for up to 30 days. 20 Tablet 01/16/2025 02/15/2025 diclofenac (VOLTAREN) 75 mg Oral Tablet, Delayed Release (E.C.) Take 1 Tablet by mouth daily for 7 days. 7 Tablet 01/16/2025 01/27/2025 potassium chloride (KLOR-CON 10) 10 mEq Oral Tablet Sustained Release Take 1 Tablet by mouth 2 times daily for 5 days. 10 Tablet 01/16/2025 01/21/2025 documented in this encounter Discharge Disposition Disposition Code Departure Means Destination Comment s Home or Self Assisted documented in this encounter ED Notes * Felix Cox APRN - 01/16/2025 6:22 PM EDT CHIEF COMPLAINT Chief Complaint Patient presents with Shortness of Breath Retaining fluid. SOB has history of CHF HPI Coco Wolf is a 44 y.o. female who presents to the emergency department for evaluation. She reports 3-day history of worsening shortness of breath. She does have intermittently productive cough.Patient reports history of congestive heart failure. She does smoke 1 to 2 packs of cigarettes a day. She has been taking steroids which she had at home. Reports she is taking 60 mg of prednisone forthe last 3 to 4 days. She has been using her albuterol inhaler. Denies fever but reports subjectivechills. Does have some intermittent lower extremity swelling. Reports since moving back to [facility] have switched her hypertension and heart failure medications around multiple times. She is currently taking carvedilol twice daily most of the time. She is intermittently taking clonidine for anelevated systolic blood pressure. She does have furosemide at home but does not take it on a regular basis. States she is also been on olmesartan but she is unsure if she is supposed to be currently taking it. She has previously been on hydralazine but is not currently taking it because she believes she was taken off of it. They also have switched her diabetes medications multiple times. Significant comorbidities: Chronic renal insufficiency, type 2 diabetes mellitus, COPD, asthma, hypertension. Seen with Momo Swenson MD History obtained via patient. REVIEW OF SYSTEMS See HPI for further details. Review of systems otherwise negative. PAST MEDICAL HISTORY Patient Active Problem List Diagnosis Degenerative disc disease, lumbar History of asthma Hypertension associated with type 2 diabetes mellitus (HCC) Migraine without aura and without status migrainosus, not intractable Spondylolisthesis PAPO (obstructive sleep apnea) Family history of colon cancer Moderate persistent asthma without complication Stage 3a chronic kidney disease (HCC) Iron deficiency Type 2 diabetes mellitus with stage 3a chronic kidney disease, without long-term current use of insulin (HCC) Coronary artery disease involving [place] coronary artery of [place] heart with angina pectoris Primary osteoarthritis of right knee History of bilateral knee replacement Otalgia, bilateral Abnormal auditory perception of both ears Sensorineural hearing loss, bilateral Iron deficiency anemia due to chronic blood loss Iron malabsorption B12 deficiency Acute chest pain Dizziness Generalized anxiety disorder Type 2 diabetes mellitus with diabetic neuropathy, without long-term current use of insulin (HCC) Hyperlipidemia associated with type 2 diabetes mellitus (HCC) Class 3 severe obesity due to excess calories with serious comorbidity and body mass index (BMI) of45.0 to 49.9 in adult Adrenal adenoma, right FAMILY HISTORY Family History Problem Relation Age of Onset Hypertension Mother Heart Disease Mother 53 Early Mother High Blood Pressure Mother Miscarriages / Stillbirths Mother Obesity Mother Hypertension Father Asthma Father Heart Disease Father High Blood Pressure Father Mental Illness Father Depression Father Substance Abuse Father from an overdose of heroin Colon Cancer Father Diabetes Sister Mental Illness Sister Obesity Sister Vision Loss Daughter 10 - 19 Stroke Daughter 20 - 29 Breast Cancer Paternal Aunt Diabetes Paternal Aunt Breast Cancer Paternal Aunt High Blood Pressure Maternal Grandmother 40 - 49 Lung Cancer Paternal Grandmother Cancer Paternal Grandmother Diabetes Paternal Grandmother Heart Disease Paternal Grandfather No Known Problems Son SOCIAL HISTORY Social History Tobacco Use Smoking status: Every Day Current packs/day: 1.00 Average packs/day: 1 pack/day for 28.0 years (28.0 ttl pk-yrs) Types: Cigarettes Start date: 04/02/2007 Smokeless tobacco: Never Vaping Use Vaping status: Never Used Substance Use Topics Alcohol use: Not Currently Comment: few times a year Drug use: Never SURGICAL HISTORY Past Surgical History: Procedure Laterality Date ABDOMEN SURGERY ARTHROCENTESIS CHOLECYSTECTOMY CYST REMOVAL from neck JOINT REPLACEMENT 09-01-23 and 10-12-24 Tkr KNEE SURGERY NECK SURGERY mass removed PELVIC LAPAROSCOPY davinci robotic TONSILLECTOMY TUBAL LIGATION CURRENT MEDICATIONS No current facility-administered medications for this encounter. Current Outpatient Medications: ACETAMINOPHEN 325 mg Oral Tab, TAKE 2 TABLETS BY MOUTH EVERY 8 HOURS NEEDED FOR PAIN, Disp: 200 Tablet, Rfl: 11 albuterol (PROVENTIL HFA;VENTOLIN HFA) 90 mcg/actuation Inhl HFA Aerosol Inhaler, Inhale 2 Puffs into the lungs every 6 hours as needed. for wheezing, Disp: 8.5 g, Rfl: 5 albuterol (PROVENTIL) 2.5 mg /3 mL (0.083 %) Inhl Solution for Nebulization, Take 3 mL by nebulization every 6 hours as needed for Wheezing., Disp: 180 mL, Rfl: 2 aspirin 81 mg Oral Tablet, Chewable, Take 1 Tablet by mouth daily., Disp: 90 Tablet, Rfl: 3 atorvastatin (LIPITOR) 20 mg Oral Tablet, Take 2 Tablets by mouth daily for 360 days., Disp: 180 Tablet, Rfl: 3 Blood-Glucose Meter Misc Kit, Use to check blood sugar, Disp: 1 Kit, Rfl: 0 Blood-Glucose Meter Misc Misc, Use to check blood sugar daily, Disp: 1 Each, Rfl: 0 vqmqwyqegn-umnolimf-qvswzedpeu (BREZTRI AEROSPHERE) 160-9-4.8 mcg/actuation Inhl HFA Aerosol Inhaler, Inhale 2 Inhalations into the lungs 2 times daily., Disp: 10.7 g, Rfl: 3 busPIRone (BUSPAR) 10 mg Oral Tablet, Take 1 Tablet by mouth 2 times daily., Disp: 60 Tablet, Rfl: 2 carvediloL (COREG) 25 mg Oral Tablet, , Disp: , Rfl: cloNIDine (CATAPRES) 0.1 mg Oral Tablet, Take 1 Tablet by mouth 2 times daily., Disp: 180 Tablet, Rfl: 3 diclofenac (VOLTAREN) 1 % Top Gel, Apply 2 g topically 4 times daily., Disp: 100 g, Rfl: 3 diclofenac (VOLTAREN) 75 mg Oral Tablet, Delayed Release (E.C.), Take 1 Tablet by mouth daily for 7days., Disp: 7 Tablet, Rfl: 0 dulaglutide (TRULICITY) 0.75 mg/0.5 mL SubQ Pen Injector, Inject 0.5 mL under the skin once a week., Disp: 2 mL, Rfl: 0 DULoxetine (CYMBALTA) 60 mg Oral Capsule, Delayed Release(E.C.), Take 1 Capsule by mouth daily for 360 days., Disp: 90 Capsule, Rfl: 3 ergocalciferol (DRISDOL) 1,250 mcg (50,000 unit) Oral Capsule, Take 1 Capsule by mouth once a week for 360 days., Disp: 12 Capsule, Rfl: 3 FARXIGA 10 mg Oral Tablet, Take 1 Tablet by mouth daily for 360 days., Disp: 90 Tablet, Rfl: 3 fluconazole (DIFLUCAN) 100 mg Oral Tablet, TAKE 1 TABLET BY MOUTH ONCE WEEKLY, Disp: 12 Tablet, Rfl: 11 fluticasone propionate (FLONASE) 50 mcg/actuation Nasl [place], Suspension, 1 [place] by Nasal route daily., Disp: 16 g, Rfl: 1 hydrALAZINE (APRESOLINE) 25 mg Oral Tablet, Take 1 Tablet by mouth 2 times daily., Disp: 60 Tablet,Rfl: 5 hydrOXYzine (ATARAX) 25 mg Oral Tablet, Take 1 Tablet by mouth every 6 hours as needed. for itching, Disp: 90 Tablet, Rfl: 10 insulin lispro (HUMALOG) 100 unit/mL SubQ Insulin Pen, INJECT 5 TO 10 UNITS SUBCUTANEOUSLY DAILY ASNEEDED IF SUGAR IS HIGH *DISCARD REMAINDER OF PEN AFTER 28 DAYS*, Disp: 15 mL, Rfl: 3 Insulin [place], Disposable, (LIA PEN NEEDLE) 32 gauge x 5/32 Misc Needle, Use as directed with insulin pens daily, Disp: 100 Each, Rfl: 3 lancets (ONETOUCH DELICA PLUS LANCET) 33 gauge [facility] Mis, Subcutaneous (Inject under the skin) 100 Each daily., Disp: 100 Each, Rfl: 10 methocarbamoL (ROBAXIN) 750 mg Oral Tablet, Take 1 Tablet by mouth 3 times daily as needed for Painfor up to 30 days., Disp: 20 Tablet, Rfl: 0 metOLazone (ZAROXOLYN) 2.5 mg Oral Tablet, Take 2.5 mg by mouth daily as needed for Other (Edema, weight gain)., Disp: , Rfl: montelukast (SINGULAIR) 10 mg Oral Tablet, Take 1 Tablet by mouth every evening., Disp: 90 Tablet, Rfl: 3 Nebulizer Accessories (ALL FLOW 4000 KIT) [facility], 1 Kit by [facility].(Non-Drug; Combo Route) route daily., Disp: , Rfl: 0 nitroGLYCERIN (NITROSTAT) 0.4 mg SL Tablet, Sublingual, Place 1 Tablet under the tongue every 5 minutes as needed for Chest pain. Dissolve 1 tablet under the tongue at onset of chest pain. For persistent or worsening pain, call 911 and repeat dose every 5 minutes, up to 3 tablets in a 15-minute period., Disp: 30 Tablet, Rfl: 3 omeprazole (PRILOSEC) 40 mg Oral Capsule, Delayed Release(E.C.), Take 1 Capsule by mouth daily., Disp: 90 Capsule, Rfl: 3 ondansetron (ZOFRAN-ODT) 4 mg Oral Tablet, Rapid Dissolve, PLACE 1 TABLET ON THE TONGUE AND ALLOW TO DISSOLVE EVERY 6 HOURS NEEDED FOR NAUSEA, Disp: 30 Tablet, Rfl: 11 potassium chloride (KLOR-CON 10) 10 mEq Oral Tablet Sustained Release, Take 1 Tablet by mouth 2 times daily for 5 days., Disp: 10 Tablet, Rfl: 0 pregabalin (LYRICA) 100 mg Oral Capsule, Take 1 Capsule by mouth 3 times daily., Disp: 90 Capsule, Rfl: 5 ranolazine (RANEXA) 500 mg Oral Tablet Sustained Release 12 hr, Take 1 Tablet by mouth every 12 hours for 360 days., Disp: 180 Tablet, Rfl: 3 tiZANidine (ZANAFLEX) 4 mg Oral Tablet, Take 1 Tablet by mouth 3 times daily as needed. for muscle spasms, Disp: 60 Tablet, Rfl: 10 traMADoL (ULTRAM) 50 mg Oral Tablet, 1-2 tablets every 6 hours as needed for pain, Disp: 15 Tablet,Rfl: 0 ALLERGIES Allergies Allergen Reactions Macrolide Antibiotics Rash Penicillins Rash Ozempic [Semaglutide] Nausea Only PHYSICAL EXAM VITAL SIGNS: ED Triage Vitals Temp 01/16/25 1823 98 ??F (36.7 ??C) Pulse 01/16/25 1823 85 Resp 01/16/25 1823 16 BP 01/16/25 1823 (!) 163/112 SpO2 01/16/25 1823 98 % Height -- Weight 01/16/25 1831 (!) 302 lb (137 kg) Constitutional: Well developed, Well nourished, conscious and coherent, No acute distress, Non-toxic appearance. HENT: Normocephalic, Atraumatic, Bilateral external ears normal, Oropharynx moist Eyes: PERRL, EOMI, sclera and conjunctiva normal, No discharge. Neck: Normal range of motion, No stridor. Lymphatic: No lymphadenopathy noted. Cardiovascular: Normal heart rate, Normal rhythm, No murmurs, No rubs, No gallops. Thorax & Lungs: Normal breath sounds, No respiratory distress, No stridor, No chest tenderness. Abdomen: Bowel sounds normal, Soft, No tenderness, guarding or rebound. No masses, No pulsatile masses. Skin: Warm, Dry, No erythema, No rash. Back: Patient is ambulatory to treatment area. Patient has no evidence of surface trauma, abrasions, scars, ecchymoses or lacerations. No midline tenderness to the cervical, thoracic or lumbar spine.No palpable spasm and/or mass. No CVA tenderness to percussion or saddle anesthesias. Able to standerect with normal flexion, extension and lateral bending and rotation. Reproducible muscular tenderness of bilateral lumbar back right worse than left. Dorsi flexion and plantar flexion intact with normal strength. Patellar and Achilles tendons are intact. Dorsalis and pedal pulses intact. Sensation to light touch. Extremities: Intact distal pulses, No edema, No tenderness, No cyanosis. Musculoskeletal: Good range of motion in all major joints. Neurologic: Alert & oriented x 3, No focal deficits noted. Psychiatric: Affect normal, Judgment normal, Mood normal. LAB/RADIOLOGY/PROCEDURES Labs Reviewed CBC WITH DIFF - Abnormal Result Value WBC 14.6 (*) RBC 4.56 Hgb 14.7 Hct 45.0 MCV 98.7 MCH 32.2 MCHC 32.7 RDW 16.6 (*) Platelet 203 MPV 11.3 Neut Percent 77.7 Imm Gran% 1.0 Lymph Percent 16.3 [place] Percent 4.9 Eos Percent 0.0 Baso Percent 0.1 Neut # 11.3 (*) IMMGRAN# 0.1 Lymph # 2.4 [place] # 0.7 Eos# 0.0 Baso # 0.0 COMPREHENSIVE METABOLIC PANEL - Abnormal Sodium 140 Potassium 4.0 Chloride 107 Total CO2 21 (*) Anion Gap 12 Calcium 8.8 Glucose Lvl 202 (*) BUN 21 (*) Creatinine 1.13 Albumin 3.7 Total Protein 6.1 (*) Bili Total 0.8 ALT 42 (*) AST 20 Alk Phos 59 eGFR (CKD-EPIcr 2020) 60 NT PROBNP - Abnormal NT Pro-BNP 523 (*) Narrative: An NT pro-BNP level less than 300 pg/mL in any patient, regardless of age, effectively rules out acute CHF with a 99% negative predictive value. Ingestion of julio doses of biotin (>5 mg/day) taken within 8 hours of drawing blood sample can interfere with this immunoassay test. BLOOD GAS, VENOUS - Abnormal pH Venous 7.38 pCO2 Venous 42 pO2 Venous 64 (*) Base Excess Mk -0.8 Hco3 Venous 24.[address] 22 (*) O2 Sat. Venous 94.1 (*) Inspired O2 ROOM AIR URINALYSIS REFLEX - Abnormal UA Color Yellow UA Appear Clear UA Glucose >=1000 (*) UA Ketones Negative UA Blood Trace-Intact (*) UA pH 6.0 UA Protein Negative UA Urobilinogen 0.2 UA Bili Negative UA Nitrite Negative UA Leuk Est Negative UA Spec Grav 1.025 UA WBC 0 UA RBC 2 UA Squam Epi 4+ UA Bacteria Trace (*) TROPONIN-T HIGH SENSITIVITY BASELINE W/ REFLEX - Normal [id number]-[id number] <6 Narrative: Ingestion of julio doses of biotin (>5 mg/day) taken within 8 hours of drawing blood sample can interfere with this immunoassay test. TROPONIN-T HIGH SENSITIVITY 2HR [id number] 2HR <6 hs-cTnT 2Hr Delta from Baseline Narrative: Ingestion of julio doses of biotin (>5 mg/day) taken within 8 hours of drawing blood sample can interfere with this immunoassay test. UA W/REFLEX TO CULTURE Narrative: The following orders were created for panel order UA W/REFLEX TO CULTURE. Procedure Abnormality Status --------- ------ URINALYSIS REFLEX[[id number]] Abnormal Final result EXTRA OROURKE URINE CX[[id number]] Final result Please view results for these tests on the individual orders. XR CHEST PA AND LATERAL Final Result PA AND LATERAL CHEST X-RAY, 01/16/2025 7:20 PM CLINICAL HISTORY: -SOB COMPARISON: 12/25/2024 PROCEDURE COMMENTS: Frontal and lateral views of the chest. FINDINGS: Heart and mediastinal contours within normal limits for technique. No active failure, pneumonia, or visible effusion. No visible pneumothorax. IMPRESSION: No acute finding. - Note: Radiology results need to be interpreted within a comprehensive clinical context. If you have questions about the radiology report, please contact the office of the ordering clinician. EK EKG 12 LEAD Final Result IMPRESSION 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[place] : 1980 Requested By: FELIX PAIGE Order Number: [id number] Reading MD: José Luis Mancini Measurements Intervals [place] Rate: 81 P: 52 NH: 165 QRS: 5 QRSD: 95 T: 32 QT: 396 QTc: 460 Interpretive Statements SINUS RHYTHM WHEN COMPARED TO PREVIOUS ECG:NO SIGNIFICANT CHANGES ARE NOTED Electronically Signed On 01-16-2025 21:27:21 EDT by José Luis Mancini EK EKG 12 LEAD Medications carvediloL (COREG) tablet 25 mg (25 mg Oral Given 01/16/251957) cloNIDine (CATAPRES) tablet 0.1 mg (0.1 mg Oral Given 01/16/251957) ketorolac (TORADOL) injection 15 mg (15 mg Intravenous Given 01/16/252132) methocarbamoL (ROBAXIN) tablet 750 mg (750 mg Oral Given 01/16/252132) COURSE & MEDICAL DECISION MAKING Pertinent Labs & Imaging studies reviewed by myself personally. (See chart for details) ED Course as of 01/20/25 1231 Felix Cox's Documentation Sun Jan 16, 2025184511/30/2024 Result Text IMPRESSION Conclusions * Left ventricular chamber dimension is normal. * Left ventricular function is normal with an estimated ejection fraction of 55%. Others' Documentation FriJan 16, [id number] Preliminary EKG reading by Momo Swenson. Sinus rhythm, rate 81, no acute ischemic or injurychange, normal axis. [DS] ED Course User Index [DS] Momo Swenson MD This patient presented today with dyspnea which based on my history, physical exam, and work up today, I believe to be benign in etiology. It does sound as if patient needs clear medication reconciliation regarding her current treatment plan. She is strongly encouraged to follow-up with her primarycare provider. She also reports that she previously saw Dr. Ortiz with cardiology while she was admitted. She attempted to call and schedule a follow-up appointment with him as she did have a good rapport and was unable to because she had previously seen another consulting it architect for preoperative clearance. She requested I send a message to Dr. Ortiz to see if he can follow-up with her in the office. Message was sent. Overall the patient appeared well with unlabored respirations, lack or airway posturing or tri-poding, re-assuring vital signs and a normal cardiopulmonary examination. They had a benign EKG without evidence of ST segment deviations or pathological T waves as well as a negative troponin making an atypical presentation of acute coronary syndrome unlikely. Patient does have history of CHF. She does not have evidence of JVD, leg swelling, orthopnea, cardiopulmonary exam without gallops or crackles, and BNP of 523 make CHF lower on the differential. Mostrecent echocardiogram reviewed. Patient does smoke heavily. Does have history of asthma and likely has COPD. She has been taking prednisone at home and states she has enough to complete a 5- day course. I did strongly encourage her not to take over 5 days of the prednisone due to adrenal effects. She is encouraged to continue using her MDI with spacer. Benign CXR, clear lungs on exam without focal adventitial sounds, normal WBC, and lack of infectious symptoms makes pneumonia, pneumothorax, or pleural effusion an unlikely causes of the patient's symptoms. Lack of chest pain, no clinical sings of DVT, no tachypnea or tachycardia, and lack of signs of acute right heart strain on EKG make PE less likely. The patient is PERC negative. Well's score of 0. Pericardial effusion and tamponade less likely given stable cardiac silhouette on CXR and lack of electrical alternans or low voltage QRS complexes on EKG. A bedside cardiac US was deferred today. Patient was hypertensive upon arrival but did improve her blood pressure with her normal dose of carvedilol and a as needed dose of clonidine. Patient is also complaining of back pain which I feel like is most likely consistent with musculoskeletal pain. It is reproducible on exam and movement.. There are no signs of cauda equina syndrome or cord compression on our exam. We have a very low suspicion of epidural abscess/hematoma or other signs of vascular emergency contributing to the patient's pain given the history. There are no signs on exam of acute neurologic compromise. There is no history of recent trauma that would make us concerned for acute fracture. There is no pulsatile mass or sign of AAA. The patient does not exhibit any additional concerning signs or symptoms that would warrant further workup in the Emergency Department. She was prescribed very brief course of nonsteroidal anti- inflammatories and muscle relaxants for pain. Her creatinine is currently within normal limits. Will require close monitoring given her history of renal insufficiency. We have counseled the patient on appropriate stretching and strengthening exercises to help controlsymptoms, and encouraged follow-up as an outpatient after strict return precautions were provided. Non cardio-pulmonary causes of SOB such as sepsis, DKA, profound anemia, CO poisoning, meth-Hg, salicylism, myasthenia gravis were also considered today however deemed to be less likely based on the history, physical exam, and work up. Patient does have elevated blood glucose to 203 but no significant elevation of her anion gap. She is also encouraged to follow-up on her diabetic medications withher PCP for clarification. The patients symptoms were treated with the medications listed above in ED course and improved. At this point given the history, exam, and benign work up I think it unlikely that there is an immediately emergent cause of the patient's symptoms. It is certainly possible that they have an early presentation of one of the emergent processes listed above, however at this point I think the patient merits a trial of outpatient management with strict return precautions. The patient is comfortable withthis plan. I reviewed the patient's recent medical record which revealed: Previous diagnostic testing and imaging reviewed. Decision rules and testing interpretation: [x] Due to patient clinical condition and physical complaints patient was placed on continuous telemetry monitoring. [] I reviewed and summarized outside records/external notes: [] Chronic medical conditions affecting care (see chart for details). [] Differential considerations: [] Tests ordered to further evaluate the patient and narrow the differential diagnosis as above. [] I independently ordered, reviewed and interpreted the EKG per above and compared it to an old one when available. [x] I independently ordered, reviewed and interpreted the laboratory work-up which was remarkable for pertinent labs discussed in the ED course and/or in the lab section. [] I independently ordered, reviewed and interpreted the radiology image(s) [] Tests considered but not ordered: [] CODE STATUS Decision has been discussed or reviewed - [] Smoking cessation: Patient's tobacco use was dicussed, and willingness to quit assessed. Advisedimpacts of smoking and methods/skills for cessation with resources. SHARED DECISION MAKING [x] Discussed results, diagnosis and plan with patient and/or family. Using shared decision making with the patient and/or family at the bedside, as well as social determinants of health that might impact their care and risks and benefits regarding admission to the hospital or outpatient management, the decision was made for disposition. [] Education was provided regarding there medical condition/presenting symptoms, my recommended testing during the ED visit, treatment and dispo, home treatments/therapies and ED return precautions. Patient discharged home. [] I have discussed recommendations for admission (due to need for escalation of care) with the patient and/or family. All labs and testing results were discussed with the patient and/or family. We have discussed benefits of admission and risk of being discharged home. Patient and/or family agrees with the plan of care and admission. SOCIAL DETERMINANTS OF HEALTH Social Determinants of Health significantly impacting pt treatment and diagnosis [x] Tobacco Use [] Alcohol Use [] Financial Resource Strain [] Food Insecurity [] Transportation Needs [] Physical Activity [] Stress [] Intimate Partner Violence [] Depression [] Housing Stability Care of patient discussed with nursing team and nursing documentation reviewed. Condition at Discharge/Transfer from Department: Stable ED Current Prescriptions Medication Dispense Auth. Provider potassium chloride (KLOR-CON 10) 10 mEq Oral Tablet Sustained Release 10 Tablet Felix Cox APRN methocarbamoL (ROBAXIN) 750 mg Oral Tablet 20 Tablet Felix Cox APRN diclofenac (VOLTAREN) 75 mg Oral Tablet, Delayed Release (E.C.) 7 Tablet Felix Cox APRN FINAL IMPRESSION 1. Shortness of breath 2. Lumbar back pain 3. Hypertension associated with type 2 diabetes mellitus (HCC) Felix Cox APRN 01/20/25 1232 Cosigned by Momo Swenson MD at 01/20/2025 9:42 PM EDT Associated attestation - Momo Swenson MD - 01/20/2025 9:42 PM EDT I have participated in care of patient. The patient was seen in coordination with the FATUMA. History,review of systems, past medical history reviewed. I have reviewed the pertinent clinical studies. Agree with FATUMA plan. I have approved the management plan for this patient and take responsibility for the patient management. EKG/Xrays independently reviewed with my interepretations as below: ED Course as of 01/20/252141 Momo Swenson's Documentation [place] Jan 16, [id number] Preliminary EKG reading by Momo Swenson. Sinus rhythm, rate 81, no acute ischemic or injurychange, normal axis. Others' Documentation [place] Jan 16, 2025184511/30/2024 Result Text IMPRESSION Conclusions * Left ventricular chamber dimension is normal. * Left ventricular function is normal with an estimated ejection fraction of 55%. [AM] ED Course User Index [AM] Felix Cox, MANAGER SOFTWARE This chart was completed using voice recognition technology and may contain unintended errors documented in this encounter Plan of Treatment Upcoming Encounters Date Type Department Care Team (Late st Contact Info) Description 02/02/2025 12:45 PM EDT Office Visit [facility] [address], 3[address] [place] [address] Manuel Torres MD [address] [place] [address] 02/15/2025 2:15 PM EDT Appointment [facility] [place] [address] [place] [address] 02/15/2025 2:30 PM EDT Appointment [facility] [address] [place] [address] Farnaz Ricardo APRN [address] [place] [address] 02/24/2025 8:00 AM EDT Appointment [facility] [address] [facility] [address] [place] [address] Rajwinder Craig MD [address] [place] [address] 03/02/2025 9:30 AM EDT Office Visit [facility] [address] [place] [address] Jose Luis Ortiz MD [address] [place] [address] [place] [address] 03/08/2025 11:15 AM EDT Office Visit [facility] [place] [address] [place] [address] Lynn Mariano APRN [address] [place] [phone] 03/09/2025 3:30 PM EDT Office Visit [facility] [place] [address] [facility] [address] [place] [phone] Rita Cordero MD [address] [place] [address] 10/07/2025 1:10 PM EDT Office Visit [facility] [address] [facility] [address] [place] [phone] Juan Russell MD [address] [facility] [address] [place] [phone] documented as of this encounter Goals Goal Patient Goal Type Associated Problems Recent Progress Patient-Stated? Author Blood Pressure < 140/90 Blood Pressure 158/93(2024 3:43 PM EDT) No Mary Kate Lawrence CCMA Maintain a healthy diet, exercise regularly and maintain an ideal body weight General No Mary Kate Lawrence CCMA BMI (Calculated) < 30 General 48.1(01/08/20 25 12:45 PM EDT) No Jerome Crowley MD Stay Tobacco Free Lifestyle No Howard Mary Kate, EMILY HEMOGLOBIN A1C < 7.0 Result Component 5.7( 12:58 PM EDT) No Jerome Crowley MD documented as of this encounter Procedures Procedure Name Priority Date/Time Associated Diagnosis Comments TROPONIN-T HIGH SENSITIVITY 2HR Timed 01/16/2025 9:04 PM EDT XR CHEST PA AND LATERAL STAT 01/16/2025 7:20 PM EDT URINALYSIS REFLEX STAT 01/16/2025 7:1 1 PM EDT UA W/REFLEX TO CULTURE STAT 7:11 PM EDT EXTRA OROURKE URINE CX STAT 01/16/2025 7 :11 PM EDT TROPONIN-T HIGH SENSITIVITY BASELINE W/ REFLEX STAT 01/16/2025 6:59 PM EDT BLOOD GAS, VENOUS STAT 01/16/2025 6:5 9 PM EDT CBC WITH DIFF STAT 01/16/2025 6:59 PM EDT NT PROBNP STAT 01/16/2025 6:59 PM EDT COMPREHENSIVE METABOLIC PANEL STAT 01/16/2025 6:59 PM EDT SALINE LOCK IV STAT 01/16/2025 6:52 PM EDT EK EKG 12 LEAD STAT 01/16/2025 6:37 PM EDT documented in this encounter Results * TROPONIN-T HIGH SENSITIVITY 2HR (01/16/2025 9:04 PM EDT) em-[id number]-Z 2HR <6 <14 ng/L 01/16/2025 9:23 PM EDT [facility] hs-cTnT 2Hr Delta from Baseline 01/16/2025 9:23 PM EDT [facility] Comment:Unable to calculate, result is outside instrument's measuring range. Blood VENOUS BLOOD / Unknown Venipuncture / Unknown 01/16/2025 9:04 PM EDT 01/16/2025 9:06 PM EDT Narrative [facility] - 01/16/2025 9:23 PM EDT Ingestion of julio doses of biotin (>5 mg/day) taken within 8 hours of drawing blood sample can interfere with this immunoassay test. Felix Cox APRN CHEMISTRY ORDERABLES Final Result [facility] [address] [place] [address] * XR CHEST PA AND LATERAL (01/16/2025 7:20 PM EDT) Anatomical Region Laterality Modality Chest Radiographic Chaparrita ging 01/16/2025 7:20 PM EDT Impressions 01/16/2025 7:21 PM EDT No acute finding. - Note: Radiology results need to be interpreted within a comprehensive clinical context. If you have questions about the radiology report, please contact the office of the ordering clinician. Narrative 01/16/2025 7:21 PM EDT PA AND LATERAL CHEST X-RAY, 01/16/2025 7:20 PM CLINICAL HISTORY: -SOB COMPARISON: 12/25/2024 PROCEDURE COMMENTS: Frontal and lateral views of the chest. FINDINGS: Heart and mediastinal contours within normal limits for technique. No active failure, pneumonia, or visible effusion. No visible pneumothorax. Procedure Note Josiah Stinson MD - 01/16/2025 PA AND LATERAL CHEST X-RAY, 01/16/2025 7:20 PM CLINICAL HISTORY: -SOB COMPARISON: 12/25/2024 PROCEDURE COMMENTS: Frontal and lateral views of the chest. FINDINGS: Heart and mediastinal contours within normal limits for technique. Noactive failure, pneumonia, or visible effusion. No visible pneumothorax. IMPRESSION: No acute finding. - Note: Radiology results need to be interpreted within a comprehensiveclinical context. If you have questions about the radiology report, please contactthe office of the ordering clinician. Felix Cox APRN IMG DIAGNOSTIC IMAGING ORDE RABLES Final Result * EXTRA OROURKE URINE CX (01/16/2025 7:11 PM EDT) Urine STRUCTURE OF URINARY TRACT PROPER / Unknown 01/16/2025 7:11 PM EDT 01/16/2025 7:14 PM EDT Felix Cox APRN MICROBIOLOGY - GENERAL ORDE RABLES Final Result [address] [address] * (ABNORMAL) URINALYSIS REFLEX (01/16/2025 7:11 PM EDT) UA Color Yellow 01/16/2025 7:26 PM EDT [facility] UA Appear Clear Clear 01/16/2025 7:26 PM EDT [facility] UA Glucose >=1000(A) Negative mg/dL 01/16/2025 7:26 PM EDT [facility] UA Ketones Negative Negative mg/dL 01/16/2025 7:26 PM EDT [facility] UA Blood Trace-Intac t(A) Negative 01/16/2025 7:26 PM EDT [facility] UA pH 6.0 5.0 - 8.0 pH 01/16/2025 7:26 PM EDT [facility] UA Protein Negative Negative mg/dL 01/16/2025 7:26 PM EDT [facility] UA Urobilinogen 0.2 <=1 mg/dL 7:26 PM EDT [facility] UA Bili Negative Negative 01/16/2025 7:26 PM EDT [facility] UA Nitrite Negative Negative 01/16/2025 7:26 PM EDT [facility] UA Leuk Est Negative Negative 01/16/2025 7:26 PM EDT [facility] UA Spec Grav 1.025 1.001 - 1.035 no units 01/16/2025 7:26 PM EDT [facility] Comment:Reference range ely d for random specimens only. UA WBC 0 0 - 4 /HPF 01/16/2025 7:26 PM EDT [facility] UA RBC 2 0 - 3 /HPF 01/16/2025 7:26 PM EDT [facility] UA Squam Epi 4+ /LPF 01/16/2025 7:26 PM EDT [facility] UA Bacteria Trace(A) Negative /HPF 01/16/2025 7:26 PM EDT [facility] Urine STRUCTURE OF URINARY TRACT PROPER / Unknown 01/16/2025 7:11 PM EDT 01/16/2025 7:14 PM EDT us Felix Cox MANAGER SOFTWARE URINE ORDERABLES Final Resu lt [address] [address] * (ABNORMAL) BLOOD GAS, VENOUS (01/16/2025 6:59 PM EDT) pH Venous 7.38 7.32 - 7.42 pH 01/16/2025 7:08 PM EDT [facility] pCO2 Venous 42 41 - 51 mmHg 01/16/2025 7:08 PM EDT [facility] pO2 Venous 64(H) 25 - 40 mmHg 01/16/2025 7:08 PM EDT [facility] Comment:Interpret with cauti on. Not recommended to evaluate patient's oxygenation status. Base Excess Mk -0.8 mmol/L 7:08 PM EDT [facility] Hco3 Venous 24.5 24.0 - 28.0 mmol/L 01/16/2025 7:08 PM EDT [facility] CO2 Total Mk 22(L) 25 - 29 mmol/L 01/16/2025 7:08 PM EDT [facility] O2 Sat. Venous 94.1(H) 40.0 - 70.0 % 01/16/2025 7:08 PM EDT [facility] Inspired O2 ROOM AIR 01/16/2025 7:08 PM EDT [facility] Blood VENOUS BLOOD / Unknown Venipuncture / Unknown 01/16/2025 6:59 PM EDT 01/16/2025 7:05 PM EDT Felix Cox APRN CHEMISTRY ORDERABLES Final Result Performing Organization Address [facility] de Phone Number [facility] [address] [place] [address] * (ABNORMAL) NT PROBNP (01/16/2025 6:59 PM EDT) NT Pro-BNP 523(H) <=192 pg/mL 01/16/2025 7:26 PM EDT [facility] Blood VENOUS BLOOD / Unknown Venipuncture / Unknown 01/16/2025 6:59 PM EDT 01/16/2025 7:05 PM EDT Narrative [facility] - 01/16/2025 7:26 PM EDT An NT pro-BNP level less than 300 pg/mL in any patient, regardless of age, effectively rules out acute CHF with a 99% negative predictive value. Ingestion of julio doses of biotin (>5 mg/day) taken within 8 hours of drawing blood sample can interfere with this immunoassay test. us Felix Cox APRN CHEMISTRY ORDERABLES Final Result Performing Organization Address [facility] de Phone Number [facility] [address] [place] [address] * TROPONIN-T HIGH SENSITIVITY BASELINE W/ REFLEX (01/16/2025 6:59 PM EDT) yt-pZiheklqc-Z <6 <14 ng/L 01/16/2025 7:26 PM EDT [facility] Blood VENOUS BLOOD / Unknown Venipuncture / Unknown 01/16/2025 6:59 PM EDT 01/16/2025 7:05 PM EDT Narrative [facility] - 01/16/2025 7:26 PM EDT Ingestion of julio doses of biotin (>5 mg/day) taken within 8 hours of drawing blood sample can interfere with this immunoassay test. Felix Coxan NONA CHEMISTRY ORDERABLES Final Result [facility] [address] [facility], [place] [id number] * (ABNORMAL) COMPREHENSIVE METABOLIC PANEL (01/16/2025 6:59 PM EDT) Sodium 140 136 - 145 mmol/L 01/16/2025 7:26 PM EDT [facility] Potassium 4.0 3.5 - 5.0 mmol/L 01/16/2025 7:26 PM EDT [facility] Chloride 107 98 - 107 mmol/L 01/16/2025 7:26 PM EDT [facility] Total CO2 21(L) 22 - 29 mmol/L 01/16/2025 7:26 PM EDT [facility] Anion Gap 12 7 - 16 mmol/L 01/16/2025 7:26 PM EDT [facility] Calcium 8.8 8.6 - 10.4 mg/dL 01/16/2025 7:26 PM EDT [facility] Glucose Lvl 202(H) 70 - 99 mg/dL 01/16/2025 7:26 PM EDT [facility] BUN 21(H) 6 - 20 mg/dL 01/16/2025 7:26 PM EDT [facility] Creatinine 1.13 0.51 - 1.30 mg/dL 01/16/2025 7:26 PM EDT [facility] Albumin 3.7 3.5 - 5.2 gm/dL 01/16/2025 7:26 PM EDT [facility] Total Protein 6.1(L) 6.4 - 8.3 gm/dL 01/16/2025 7:26 PM EDT [facility] Bili Total 0.8 0.2 - 1.3 mg/dL 01/16/2025 7:26 PM EDT [facility] ALT 42(H) <=41 U/L 01/16/2025 7:26 PM EDT [facility] AST 20 <=40 U/L 01/16/2025 7:26 PM EDT [facility] Alk Phos 59 36 - 123 U/L 01/16/2025 7:26 PM EDT [facility] eGFR (CKD-EPIcr 2020) 60 >=60 mL/min/1.7 3 m2 01/16/2025 7:26 PM EDT [facility] Comment:Estimated GFR was ca lculated using the CKD-EPIcr (2020) equation refit without race. The equation is recommended by the National Kid[employer] - [place] [employer] Nephrology Task Force. Blood VENOUS BLOOD / Unknown Venipuncture / Unknown 01/16/2025 6:59 PM EDT 01/16/2025 7:05 PM EDT Felix Cox MANAGER SOFTWARE CHEMISTRY ORDERABLES Final Result [facility] [address] [place] [address] * (ABNORMAL) CBC WITH DIFF (01/16/2025 6:59 PM EDT) WBC 14.6(H) 3.7 - 10.3 x10(3)/mcL 01/16/2025 7:08 PM EDT [facility] RBC 4.56 3.90 - 5.20 x10(6)/mcL 01/16/2025 7:08 PM EDT [facility] Hgb 14.7 11.2 - 15.7 g/dL 01/16/2025 7:08 PM EDT [facility] Hct 45.0 34.0 - 45.0 % 01/16/2025 7:08 PM EDT [facility] MCV 98.7 80.0 - 100.0 fL 01/16/2025 7:08 PM EDT [facility] MCH 32.2 26.0 - 34.0 pg 01/16/2025 7:08 PM EDT [facility] MCHC 32.7 30.7 - 35.5 g/dL 01/16/2025 7:08 PM EDT [facility] RDW 16.6(H) <=14.9 % 01/16/2025 7:08 PM EDT [facility] Platelet 203 155 - 369 x10(3)/mcL 01/16/2025 7:08 PM EDT [facility] MPV 11.3 8.8 - 12.5 fL 01/16/2025 7:08 PM EDT [facility] Neut Percent 77.7 % 01/16/2025 7:08 PM EDT [facility] Comment:Neutrophils equals s egs plus bands Imm Gran% 1.0 % 01/16/2025 7:08 PM EDT [facility] Comment:Automated count of m etamyelocytes, myelocytes and promyelocytes. Lymph Percent 16.3 % 01/16/2025 7:08 PM EDT [facility] [place] Percent 4.9 % 01/16/2025 7:08 PM EDT [facility] Eos Percent 0.0 % 01/16/2025 7:08 PM EDT [facility] Baso Percent 0.1 % 01/16/2025 7:08 PM EDT [facility] Neut # 11.3(H) 1.6 - 6.1 x10(3)/mcL 01/16/2025 7:08 PM EDT [facility] Comment:Neutrophils equals s egs plus bands IMMGRAN# 0.1 0.0 - 0.1 x10(3)/mcL 01/16/2025 7:08 PM EDT [facility] Comment:Automated count of m etamyelocytes, myelocytes and promyelocytes. An absolute IG <0.1 is reported as 0.0. Lymph # 2.4 1.2 - 3.9 x10(3)/mcL 01/16/2025 7:08 PM EDT [facility] [place] # 0.7 0.3 - 0.9 x10(3)/mcL 01/16/2025 7:08 PM EDT [facility] Eos# 0.0 0.0 - 0.5 x10(3)/mcL 01/16/2025 7:08 PM EDT [facility] Baso # 0.0 0.0 - 0.1 x10(3)/mcL 01/16/2025 7:08 PM EDT [facility] Blood VENOUS BLOOD / Unknown Venipuncture / Unknown 01/16/2025 6:59 PM EDT 01/16/2025 7:05 PM EDT us Felix Cox APRN HEMATOLOGY ORDERABLES Final Result Performing Organization Address City/State/[facility] Co de Phone Number [facility] [address] [place] [address] * EK EKG 12 LEAD (01/16/2025 6:37 PM EDT) Anatomical Region Laterality Modality Electrocardiogra phy 01/16/2025 6:43 PM EDT Impressions 01/16/2025 9:27 PM EDT [facility] Test Date: 2025-01-16 Pat Name: COCO WOLF Department: DEPID Room: [facility] Gender: Female 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: Cass : 1980 Requested By: FELIX PAIGE Order Number: [id number] Reading MD: José Luis Mancini Measurements Intervals [place] Rate: 81 P: 52 NH: 165 QRS: 5 QRSD: 95 T: 32 QT: 396 QTc: 460 Interpretive Statements SINUS RHYTHM WHEN COMPARED TO PREVIOUS ECG:NO SIGNIFICANT CHANGES ARE NOTED Electronically Signed On 01-16-2025 21:27:21 EDT by José Luis Mancini Narrative Procedure Note José Luis Mancini MD - 01/16/2025 IMPRESSION [facility] Test Date: 2025-01-16 Pat Name: COCO WOLF Department: DEPID Room: [facility] Gender: Female 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: Cass : 1980 Requested By: FELIX PAIGE Order Number: [id number] Reading MD: José Luis Mancini Measurements Intervals [place] Rate: 81 P: 52 NH: 165 QRS: 5 QRSD: 95 T: 32 QT: 396 QTc: 460 Interpretive Statements SINUS RHYTHM WHEN COMPARED TO PREVIOUS ECG:NO SIGNIFICANT CHANGES ARE NOTED Electronically Signed On 01-16-2025 21:27:21 EDT by José Luis Mancini us Felix Cox MANAGER SOFTWARE IMG ECG ORDERABLES Final Re sult documented in this encounter Visit Diagnoses Diagnosis Shortness of breath- Primary Lumbar back pain Lumbago Hypertension associated with type 2 diabetes mellitus (HCC) documented in this encounter Administered Medications Inactive Administered Medications - up to 1 most recent administrations Medication Order MAR Action Action Date Dose Rate Site albuterol-ipratropium (DUO-NEB) 3 mg-0.5 mg(2.5 mg base)/3 mL nebulizer solution 3 mL 3 mL, Nebulization, EVERY 2 HOURS PRN (RESP CARE), Starting on Fri01/16/25 at 1844, Until Fri01/17/25 at 0145, Shortness of Breath, Administered by Respiratory Therapy. Given 01/16/2025 6:46 PM EDT 3 mL carvediloL (COREG) tablet 25 mg 25 mg, Oral, ONCE, 1 dose, On Fri01/16/25 at 2000, Take with a meal. Given 01/16/2025 7:58 PM EDT 25 mg cloNIDine (CATAPRES) tablet 0.1 mg 0.1 mg, Oral, ONCE, 1 dose, On Fri01/16/25 at 2000 Given 01/16/2025 7:58 PM EDT 0.1 mg ketorolac (TORADOL) injection 15 mg 15 mg, Intravenous, ONCE, 1 dose, On Fri01/16/25 at 2130, For IV Administration: Give undiluted over at least 15 seconds. Maximum IV dose is 30mg. For IM Administration: Give undiluted, slowly and deeply into the muscle. Given 01/16/2025 9:33 PM EDT 15 mg methocarbamoL (ROBAXIN) tablet 750 mg 750 mg, Oral, ONCE, 1 dose, On Fri01/16/25 at 2130 Given 01/16/2025 9:33 PM EDT 750 mg sodium chloride 0.9% IV line flush 50 mL 50 mL, Intravenous, at 999 mL/hr, PRN, Starting on 01/16/25 at 1852, Until Fri01/17/25 at 0145, Line Care, Flush with 50 mL after IVPB to insure complete administration of the dose. May use the saline infusion to back flush IVPB tubing as needed., Use this order to document priming and flushing IV line after medication administration. sodium chloride 0.9% syringe 5-10 mL 5-10 mL, Intravenous, PRN, Starting on 01/16/25 at 1852, Until 01/17/25 at 0145, Line Care, Flush with 5 mL saline [...] are shown in EDT. Scheduled Medication Order 01/14/2025 01/15/2025 01/16/2025 carvediloL (COREG) tablet 25 mg (COMPLETED) 25 mg, Oral, ONCE, 1 dose, On 01/16/25 at 2000, Take with a meal. 1957 (Given - Provid er: Caryn Mcelroy RN) cloNIDine (CATAPRES) tablet 0.1 mg (COMPLETED) 0.1 mg, Oral, ONCE, 1 dose, On 01/16/25 at 2000 1957 (Given - Provid er: Caryn Mcelroy RN) ketorolac (TORADOL) injection 15 mg (COMPLETED) 15 mg, Intravenous, ONCE, 1 dose, On 01/16/25 at 2130, For IV Administration: Give undiluted over at least 15 seconds. Maximum IV dose is 30mg. For IM Administration: Give undiluted, slowly and deeply into the muscle. 2132 (Given - Provid er: Caryn Mcelroy RN) methocarbamoL (ROBAXIN) tablet 750 mg (COMPLETED) 750 mg, Oral, ONCE, 1 dose, On 01/16/25 at 2130 2132 (Given - Provid er: Caryn Mcelroy RN) PRN Medication Order 01/14/2025 01/15/2025 01/16/2025 albuterol-ipratropium (DUO-NEB) 3 mg-0.5 mg(2.5 mg base)/3 mL nebulizer solution 3 mL 3 mL, Nebulization, EVERY 2 HOURS PRN (RESP CARE), Starting on Fri01/16/25 at 1844, Until 01/17/25 at 0145, Shortness of Breath, Administered by Respiratory Therapy. 1846 (Given - Provid er: Octaviano Hardin, NURSERYMAN ASSISTANT) sodium chloride 0.9% IV line flush 50 mL 50 mL, Intravenous, at 999 mL/hr, PRN, Starting on Fri01/16/25 at 1852, Until Fri01/17/25 at 0145, Line Care, Flush with 50 mL after IVPB to insure complete administration of the dose. May use the saline infusion to back flush IVPB tubing as needed., Use this order to document priming and flushing IV line after medication administration. sodium chloride 0.9% syringe 5-10 mL 5-10 mL, Intravenous, PRN, Starting on Fri01/16/25 at 1852, Until Fri01/17/25 at 0145, Line Care, Flush with 5 mL saline [...] Count Last Ordered Date First Ordered Date hydrALAZINE (APRESOLINE) tablet 25 mg 1 sodium chloride 0.9% IV line flush 50 mL 1 01/16/2025 sodium chloride 0.9% syringe 5-10 mL 1 12/20 Respiratory Care Count Last Ordered Date First Ordered Date ED ASSESS & TREAT 1 01/16/2025 IV Count Last Ordered Date First Orde red Date SALINE LOCK IV 1 01/16/2025 documented in this encounter Care Teams Production Laborer Relationship Specialty Start Date End Date Jerome [place] [address] [place] [address] PCP - General Internal Medicine 08/09/24 Kayli Kebede MD [address] [address] Consulting Physician Internal Medicine-Nephrology 05/17/22 Valarie Leach, RN Quill Picking Machine Operator Registered Nurse 12/01/24 Rita Cordero MD [address] [place] [address] Internal Medicine-Endocrinology, Diabetes & Metabolism 01/10/25 documented as of this encounter
--- OUTSIDE RECORDS SUMMARY | 2025-01-19 15:27 | XMS_ITS | Encounter Summary ---
Author Organization [place] [address] Care Team Providers Care Barrel Endshake Adjuster Name Role Phone Kayli Kebede MD Unavailable [phone] Jerome Crowley MD Primary Care Provider [phone] Valarie Leach RN Unavailable Unavailable Rita Cordero MD Unavailable [phone] Reason for Visit * Oncology Medication Prior Authorization (Routine) - Authorization Not Needed Specialty Diagnoses / Procedures Referred By Contac t Referred To Contact Diagnoses B12 deficiency Iron malabsorption Iron deficiency anemia due to chronic blood loss Procedures SC INJ, FOSAPREPITANT (TEVA) Farnaz Ricardo APRN [address] [place] [address] Phone: tel: fax: Farnaz Ricardo APRN [address] [place] [address] Phone: tel: fax: Referral ID Status Reason Start Date Expiration Date Visits Requested Visits Authorized [id number] Authorization Not Needed 11/15/2024 11/15/2025 1 10 Encounter Details Date Type Department Care Team (Latest Contact Info) Description 01/19/2025 3:27 PM EDT - 01/19/2025 11:59 PM EDT Hospital Encounter [facility] [address] [place] [address] B12 deficiency (Primary Dx); Iron malabsorption; Iron deficiency anemia due to chronic blood loss Discharge Disposition: Home or Self Care Social History Tobacco Use Types Packs/Day Years Used Date Smoking Tobacco: Every Day Cigarettes 28 Started: 04/02/2007 Smokeless Tobacco: Never Alcohol Use Standard Drinks/Week Comments Not Currently 0 (1 standard drink = 0.6 oz pur e alcohol) few times a year [facility] Utilities Answer Date Recorded In the past [...] Date Recorded PHQ-2 Total Score 0 11/29/2024 [facility] - [...] in a mcc (including now)? No 03/30/2021 [facility] IP Transportation Answer D ate Recorded [...] Sign Reading Time Taken Comments Blood Pressure 158/93 01/19/2025 3:43 PM EDT Pulse 59 01/19/2025 3:43 PM EDT Temperature 36 C (96.8 F) 01/19/2025 3:43 PM EDT Respiratory Rate 18 01/19/2025 3:43 PM EDT Oxygen Saturation 96% 01/19/2025 3:43 PM EDT Inhaled Oxygen Concentration - - Weight 131.6 kg (290 lb 1.6 oz) 01/19/2025 3:43 PM EDT Height - - Body Mass Index 48.28 01/07/2025 12:45 PM EDT documented in this [...] NEEDED FOR PAIN 200 Tablet 11 5 albuterol (PROVENTIL HFA;VENTOLIN HFA) 90 mcg/actuation Inhl HFA Aerosol Inhaler Inhale 2 Puffs into the lungs every 6 hours as needed. for wheezing 8.5 g 5 5 aspirin 81 mg Oral Tablet, Chewable [...] skin once a week. 2 mL 5 DULoxetine (CYMBALTA) 60 mg Oral Capsule, Delayed Release(E.C.) Take 1 Capsule by mouth daily for 360 days. 90 Capsule 3 5 01/13/20 26 ergocalciferol (DRISDOL) 1,250 mcg (50,000 unit) Oral Capsule Take 1 Capsule by mouth once a week for 360 days. 12 Capsule 3 5 01/13/20 26 FARXIGA 10 mg Oral Tablet Take 1 Tablet by mouth daily for 360 days. 90 Tablet 3 4 06/23/20 25 fluconazole (DIFLUCAN) 100 mg Oral Tablet TAKE 1 TABLET BY MOUTH ONCE WEEKLY 12 Tablet 11 5 fluticasone propionate (FLONASE) 50 mcg/actuation Nasl [place], Suspension 1 [place] by Nasal route daily. 16 g 1 [...] 28 DAYS* 15 mL 3 5 Insulin [place], Disposable, (LIA PEN NEEDLE) 32 gauge x /32 [facility] Needle Use as directed with insulin pens daily 100 Each 3 5 lancets (ONETOUCH DELICA PLUS LANCET) 33 gauge [facility] Subcutaneous (Inject under the skin) 100 [...] Nebulizer Accessories (ALL FLOW 4000 KIT) [facility] MiscIndications:M oderate persistent asthma with acute exacerbation 1 Kit by [facility].(Non-Drug; Combo Route) route daily. 0 9 nitroGLYCERIN [...] 01/22/20 25 documented as of this encounter Discharge Disposition Disposition Code Departure Means Destination Home or Self Care documented in this encounter Miscellaneous Notes * Patient Instructions - Anali Willoughby RN - 01/19/2025 3:30 PM EDT [facility] Center Discharge Instructions Thank you for entrusting the [facility] with your care. We hope you are pleased with your outpatient care and services. Because we are most concerned with your health, we suggest you carefully read the following discharge instructions: Your Discharge Instructions: MEDICATION INSTRUCTIONS: Treatment received today: b12 Reviewed medications administered today and possible side [...] - Friday 8:00 AM - 4:30 PM. [facility] [address] [address] [place], [place] [address] [place] [address] [address] [address] [place] [address] documented in this encounter Plan of Treatment Upcoming Encounters Date Type Department Care Team (Late st Contact Info) Description 02/02/2025 12:45 PM EDT Office Visit [facility] [address], 3RD [place] [address] Manuel Torres MD [address] [place] [address] 02/15/2025 2:15 PM EDT Appointment [facility] Cancer Care [address] [place] [address] 02/15/2025 2:30 PM EDT Appointment [facility] Cancer [address] [place] [address] Farnaz Ricardo, NONA [address] [facility] [place] [address] 02/24/2025 8:00 AM EDT Appointment [facility] [address] [place] [address] [address] [place] [address] Rajwinder Craig MD [address] [place] [address] 03/02/2025 9:30 AM EDT Office Visit [facility] [address] [place] [address] Jose Luis Ortiz MD [address] [place] [address] [facility] [place] [address] 03/08/2025 11:15 AM EDT Office Visit [facility] Nephrology [place] [address] [place] [address] Lynn Mariano APRN [address] [place] [address] 03/09/2025 3:30 PM EDT Office Visit [facility] Diabetes [place] [address] [place] [address] Rita Cordero MD [address] [place] [address] 10/07/2025 1:10 PM EDT Office Visit [facility] [address] [address] [place] [address] Juan Russell MD [address] [facility] [address] [place] [address] documented as of this encounter Goals Goal [...] Tobacco Free Lifestyle No Mary Kate Lawrence EMILY HEMOGLOBIN A1C < 7.0 Result Component [...] 1,000 mcg, Subcutaneous, ONCE, 1 dose, On Fri01/19/25 at 1545, Dx: 1. B12 deficiency 2. Iron malabsorption 3. Iron deficiency anemia due to chronic blood lossIndications:B12 deficiency,Iron malabsorption,Iron deficiency anemia due to chronic blood loss Given 01/19/2025 3:47 PM EDT 1,000 mcg Right Arm documented in this encounter Orders Medications Ordered That Cj ht Not Have Been Administered Count Last Ordered Date First Ordered Date cyanocobalamin injection 1,000 mcg 1 2024 documented in this encounter Care Teams Barrel Endshake Adjuster Relationship Specialty Start Date End Date Jerome Crowley MD [place]TRY [facility] [place] [address] PCP - General Internal Medicine 08/09/24 Kayli Kebede MD [address] [address] Consulting Physician Internal Medicine-Nephrology 05/17/22 Valarie Leach, RN Telephone Lineworker Registered Nurse 12/01/24 Rita Cordero MD [address] [place] [address] Internal Medicine-Endocrinology, Diabetes & Metabolism 01/10/25 documented as of this encounter
--- OUTSIDE RECORDS SUMMARY | 2025-01-20 10:15 | XMS_ITS | Encounter Summary ---
Author Organization [place] [address] Care Team Providers Care Cocoa Milling Machine Operator Name Role Phone Kayli Kebede MD Unavailable [phone] Jerome Crowley MD Primary Care Provider [phone] Valarie Leach RN Unavailable Unavailable Rita Cordero MD Unavailable [phone] Reason for Referral * Mammography (Routine) - Pending Review Specialty Diagnoses / Procedures Referred By Contren t Referred To Contact Radiology Diagnoses Follow-up exam, 3-6 months since previous exam Procedures MM MAMMO DIGITAL CONRADO DIAGN RIGHT Jerome Crowley MD COUNTRY [facility] [place] [address] Phone: tel: fax: Referral ID Status Reason Start Date Expiration Date V isits Requested Visits Authorized [id number] Pending Review 01/17/2025 01/17/2027 1 1 Reason for Visit * Mammography (Routine) - Pending Review Specialty Diagnoses / Procedures Referred By Contren t Referred To Contact Radiology Diagnoses Follow-up exam, 3-6 months since previous exam Procedures MM MAMMO DIGITAL CONRADO DIAGN RIGHT Jerome Crowley MD COUNTRY [facility] [place] [address] Phone: tel: fax: Referral ID Status Reason Start Date Expiration Date V isits Requested Visits Authorized [id number] Pending Review 01/17/2025 01/17/2027 1 1 Encounter Details Date Type Department Care Team (Latest Contact Info) Description 01/20/2025 10:15 AM EDT - 01/20/2025 11:59 PM EDT Hospital Encounter [facility] Mammography [address] [place] [id number] Jerome [place] [address] [place] [address] Follow-up exam, 3-6 months since previous exam Discharge Disposition: Home or Self Care Social History Tobacco Use Types Packs/Day Years Used Date Smoking Tobacco: Every Day Cigarettes 08 17 Started: 04/02/2007 Smokeless Tobacco: Never Alcohol Use Standard Drinks/Week Comments Not Currently 0 (1 standard drink = 0.6 oz pur e alcohol) few times a year [facility] Utilities Answer Date Recorded In the past 12 months has Simfinit, gas, oil, or water Gummii threatened to shut off services in your home? No 11/29/2024 Overall Financial Resource Strain (CARDIA) Answe r Date Recorded How hard is it for you to pa y for the very basics like food, housing, medical care, and heating? Not very hard 11/29/2024 PHQ-2 Answer Date Recorded PHQ-2 Total Score 0 11/29/2024 [facility] of Occupat ional Health - Occupational Stress [...] in a snf (including now)? No 03/30/2021 [facility] IP Transportation Answer D ate Recorded [...] 11/30/2024 4:23 PM TARYNT Brina Polanco RN * Does this person have difficulty dressing or bathing? Answer Date of Assessment Author No 11/30/2024 4:23 PM TARYNT Brina Polanco RN * Because of a [...] 5 fluticasone propionate (FLONASE) 50 mcg/actuation Nasl [place], Suspension 1 [place] by Nasal route daily. 16 g 1 [...] 28 DAYS* 15 mL 3 5 Insulin [place], Disposable, (LIA PEN NEEDLE) 32 gauge x /32 [facility] Needle Use as directed with insulin pens daily 100 Each 3 5 lancets (ONETOUCH DELICA PLUS LANCET) 33 gauge [facility] Subcutaneous (Inject under the skin) 100 [...] 5 Nebulizer Accessories (ALL FLOW 4000 KIT) [facility] MiscIndications:M oderate persistent asthma with acute exacerbation 1 Kit by Misc.(Non-Drug; Combo Route) route daily. 0 9 nitroGLYCERIN [...] EDT Office Visit [facility] [address] ENTR[address], 3RD [place] [address] Manuel Torres MD [address] [place] [address] 02/15/2025 2:15 PM EDT Appointment [address] [place] [address] 02/15/2025 2:30 PM EDT Appointment [facility] [address] [place] [address] Farnaz Ricardo APRN 1 [facility] [place] [address] 02/24/2025 8:00 AM EDT Appointment [facility] [address] [place] [address] [address] [place] [address] Rajwinder Craig MD [address] [place] [address] 03/02/2025 9:30 AM EDT Office Visit [facility] [address] [place] [address] Jose Luis Ortiz MD [address] [place] [address] [place] [address] 03/08/2025 11:15 AM EDT Office Visit [facility] Nephrology [place] [address] [place] [address] Lynn Mariano, NONA [address] [facility] [address] [place] [address] 03/09/2025 3:30 PM EDT Office Visit [facility] [address] [facility] [address] [place] [address] Rita Cordero MD [address] [place] [address] 10/07/2025 1:10 PM EDT Office Visit [facility] [address] [facility] [address] [place] [phone] Juan Russell MD [address] [facility] [address] [place] [address] documented as of this encounter Goals Goal [...] Procedure Name Priority Date/Time Associated Diagnosis Comments MM MAMMO DIGITAL CONRADO DIAGN RIGHT Routine 01/20/2025 10:21 AM EDT Follow-up exam, 3-6 months since previous exam documented in this encounter Results * MM MAMMO DIGITAL CONRADO DIAGN RIGHT (01/20/2025 10:21 AM EDT) Anatomical Region Laterality Modality Breast Right Mammography 01/20/2025 10:2 1 AM EDT Impressions 01/20/2025 10:49 AM EDT Probably Benign ([id number]) ASSESSMENT TEXT: Stable probably benign group of calcifications in the right breast RECOMMENDATION: Diagnostic Mammogram in 6 Months Bilateral . . COMMENTS: DISCLAIMER *The patient was notified by MyChart or mail of the results for this examination. *The patient's information was entered into a reminder system with a target due date for the next breast imaging, in accordance with the [employer] and the Society of Breast Imaging recommendations. *Breast Imaging has a false negative rate of 15%. *Any patient with a palpable abnormality, unexplained by breast imaging, should be managed on a clinical basis by the attending physician. Narrative 01/20/2025 10:49 AM EDT EXAM: MM MAMMO DIGITAL CONRADO DIAGN RIGHT EXAM DATE: 01/20/2025 10:21 AM INDICATION: [id number] for follow-up examination after completed treatment for conditions other than malignant [id number] The patient is a 44-year-old female who presents for short-term interval follow-up of probably benign calcifications in the right breast. COMPARISON STUDIES: Compared with prior studies the most recent being 08/05/2024 MM MAMMO DIGITAL CONRADO DIAGN RIGHT at [facility] 07/08/2024 MM MAMMO DIGITAL CONRADO SCREEN BILAT at [facility] TISSUE DENSITY: The breasts are heterogeneously dense, which may obscure small masses. FINDINGS: 6 month follow-up mammogram of the right breast including magnification views demonstrates a stable group of round and punctate calcifications in the inferior breast, posterior depth. No associated mass. The remainder of the right breast is stable without suspicious mass, new calcifications or areas of architectural distortion. Procedure Note Ancelmo Houser MD - 01/20/2025 EXAM: MM MAMMO DIGITAL CONRADO DIAGN RIGHT EXAM DATE: 01/20/2025 10:21 AM INDICATION: [id number] for follow-up examination after completedtreatment for conditions other than malignant [id number] The patient is a 44-year-old female who presents for short-term interval follow-up of probably benign calcifications in the right breast. COMPARISON STUDIES: Compared with prior studies the most recent being 08/05/2024 MM MAMMO DIGITAL CONRADO DIAGN RIGHT at [facility] 07/08/2024 MM MAMMO DIGITAL CONRADO SCREEN BILAT at [facility] TISSUE DENSITY: The breasts are heterogeneously dense, which may obscuresmall masses. FINDINGS: 6 month follow-up mammogram of the right breast including magnificationviews demonstrates a stable group of round and punctate calcifications in theinferior breast, posterior depth. No associated mass. The remainder of the rightbreast is stable without suspicious mass, new calcifications or areas ofarchitectural distortion. IMPRESSION: Probably Benign ([id number]) ASSESSMENT TEXT: Stable probably benign group of calcifications in theright breast RECOMMENDATION: Diagnostic Mammogram in 6 Months Bilateral . . COMMENTS: DISCLAIMER *The patient was notified by MyChart or mail of the results for this examination. *The patient's information was entered into a reminder system with atarget due date for the next breast imaging, in accordance with the [employer] and the Society of Breast Imaging recommendations. *Breast Imaging has a false negative rate of 15%. *Any patient with a palpable abnormality, unexplained by breast imaging,should be managed on a clinical basis by the attending physician. Jerome Crowley MD IMG MAMMOGRAPHY ORDERABLES Fin al Result documented in this encounter Visit Diagnoses Diagnosis Follow-up exam, 3-6 months since previous exam Unspecified follow-up examination documented in this encounter Care Teams Cocoa Milling Machine Operator Relationship Specialty Start Date End Date Jerome Crowley MD [address] [place] [address] PCP - General Internal Medicine 08/09/24 Kayli Kebede MD [address] [address] Consulting Physician Internal Medicine-Nephrology 05/17/22 Valarie Leach, RN Mechatronics Technologist Registered Nurse 12/01/24 Rita Cordero MD [address] [place] [address] Internal Medicine-Endocrinology, Diabetes & Metabolism 01/10/25 documented as of this encounter
[2025-01-30 12:15] VITALS: BP 191/113; PULSE 71; O2SAT 96
--- NOTE | 2025-01-30 12:15 | ECG_ITS ---
APPROVED REPORT Exam: Resting ECG HR:67 bpm ECG Measurements Heart Rate 67 AXES CO 151 P 5 QRSd 97 QRS 15 QT 412 T 34 QTc 427 Conclusion SINUS RHYTHM NORMAL ECG No STEMI Electronically signed by : SAMIR BEARDEN, 02/01/2025 00:07:45
[2025-01-30 12:18] VITALS: BP 191/113; PULSE 72; RESP 24; TEMP 36.7; O2SAT 97; BMI 49.4
--- NOTE | 2025-01-30 12:18 | ED_ITS ---
<Statement entered by Birdie Pathak DO - 01/30/25 16:44> I was consulted by the FATUMA, and we discussed the complexity of the problems being addressed. I approved the treatment and management plan for this patient's care in the emergency department, thus performing a substantive portion of the medical decision making. Birdie Pathak DO Discharge Plan Disposition Patient Disposition: Home, Self-Care Condition: Good Prescriptions Prescriptions: New albuterol sulfate 90 mcg/actuation HFA aerosol inhaler 1 inh inhalation Q4H PRN (Reason: shortness of breath or wheezing) Qty: 8.5 0RF No Action lisinopril-hydrochlorothiazide 1 EACH tablet 1 tab PO DAILY doxycycline monohydrate 100 MG tablet 100 mg PO Q12 Qty: 14 0RF benzonatate 100 MG capsule 100 mg PO TID PRN (Reason: Cough) Qty: 15 0RF Referrals Follow up/Referrals: Jerome Crowley [Primary Care Provider, Medical] - See instructions Eugene Navarrete MD [Physician, Pulmonology] - See instructions Activity Restrictions/Add. Instructions Additional Instructions/Restrictions: As we discussed I sent a prescription for a metered-dose inhaler to your pharmacy in [place]. I have also referred you to pulmonology. Please keep your cardiology follow-up as scheduled. If you have any persistent new or worsening signs or symptoms follow-up with your PCP return to the ER as needed. Clinical Impressions Clinical Impression: Acute exacerbation of chronic obstructive pulmonary disease Print Language Print Language: Pashto Discharge ED Provider: Birdie Pathak General Adult HPI <SHILO Obrien - Last Filed: 01/30/25 15:34> General Chief complaint: Shortness of Breath/Dyspnea Stated complaint: CHF; Swelling; Breathing Issues; Fever Time Seen by Provider: 01/30/25 12:18 History of Present Illness HPI narrative: Patient presents for evaluation of dyspnea. Patient reports that she has been having several days of increasing dyspnea. Patient has a known diagnosis of congestive heart failure but has not seen a chemistry technologist in approximately 3 years. She recently relocated to the area from [place] and has yet to establish care locally. She denies any fever chills hemoptysis hematochezia melena nausea vomiting diarrhea. Patient does still smoke a day. She takes 40 mg of Lasix a day along with metolazone. Patient states that she has gained approximately 25 pounds in 1 month. She does have COPD and utilizes fractionally 2 metered-dose inhalers a month however she is currently out. She has been utilizing her home nebulizer machine more frequently however. Related Data Home Medications ?Medication ?Instructions ?Recorded ?Confirmed lisinopril 20 1 tab PO DAILY HTN 01/11/19 01/11/19 mg-hydrochlorothiazide 25 mg tablet Previous Rx's ?Medication ?Instructions ?Recorded benzonatate 100 mg capsule 100 mg PO TID PRN Cough #15 caps 01/11/19 doxycycline monohydrate 100 mg 100 mg PO Q12 #14 tabs 01/11/19 tablet albuterol sulfate 90 mcg/actuation 1 inh inhalation Q4 H PRN shortness 01/30/25 aerosol inhaler of breath or wheezing #8.5 g georgie Allergies Allergy/AdvReac Type Severity Reaction Status Date / Time azithromycin (From Zithromax) Allergy Verified 01/11/19 14:36 codeine Allergy Verified 01/11/19 14:36 meloxicam Allergy Verified 01/11/19 14:36 Penicillins Allergy Verified 01/11/19 14:35 [facility] <SHILO Obrien - Last Filed: 01/30/25 15:34> [facility] Disclaimer: The information contained in this section may have been updated after the patient was seen, as this information can be updated by other users. Social History Smoking Status: Current every day smoker tobacco type: cigarettes packs per day: 1 alcohol intake: never current occupational status: other Travel in the last 8 weeks?: None Have you lived/traveled outside US in past 30 days?: No Contact w/someone who lives/traveled outside US past 30 days?: No Exposure to someone with infectious disease in past 14 days?: No Do you have a fever (greater than 100.4 F or 38 C)?: No Have you tested positive for COVID-19?: No Exposed to someone with COVID-19 in past 14 days?: No Do you have a sore throat?: No Do you have a cough?: No Do you have any weakness?: No Do you have any diarrhea?: No Are you experiencing any unusual bleeding?: No Do you have any muscle aches/pain?: No Do you have any abdominal pain?: No Are you experiencing loss of taste or smell?: No <SHLIO Obrien - Last Filed: 01/30/25 15:34> ROS Obtained: Yes Systems reviewed as appropriate & no additional complaints except as documented Physical Exam <SHILO Obrien - Last Filed: 01/30/25 15:34> General General appearance: alert and in no apparent distress Respiratory Respiratory exam: Present normal lung sounds bilaterally Cardiovascular Cardiovascular exam: Present regular rate Neurological Exam Neurological exam: Present alert and oriented X3 Medical Decision Making <SHILO Obrien - Last Filed: 01/30/25 15:34> Medical Records Medical records reviewed: Yes I reviewed the patient's medical records. Screening: Per USPSTF and CDC recommendations, given the prevalence of disease in our region, it is our hospital?s policy to screen for HIV and viral Hepatitis for all patients aged 18 and over and those with ongoing risk factors. Negro Inquiry Pt receiving controlled substance: No Vital Signs: 01/30/25 12:15 01/30/25 12:18 01/30/25 12:30 Temperature 98.0 F Temperature Source Oral Pulse Rate 71 64 Pulse Rate [Left Radial] 72 Respiratory Rate 24 Blood Pressure 191/113 H 136/83 Blood Pressure [Right Arm] 191/113 H Blood Pressure Mean [Right Arm] 139 02 Sat by Pulse Oximetry 96 97 95 Oxygen Delivery Method Room Air Room Air Room Air 01/30/25 13:00 01/30/25 14:13 Temperature 98.5 F Temperature Source Pulse Rate 63 67 Pulse Rate [Left Radial] Respiratory Rate 20 Blood Pressure 163/92 H 159/102 H Blood Pressure [Right Arm] Blood Pressure Mean [Right Arm] 02 Sat by Pulse Oximetry 95 Oxygen Delivery Method Room Air Room Air Lab Data Lab results reviewed: Yes I reviewed the patient's lab results. Lab Results 01/30/25 12:20: WBC 11.7 H, RBC 4.42, Hgb 14.3, Hct 43.9, MCV 99.3 H, MCH 32.4 H , MCHC 32.6, RDW 16.4, Plt Count 199, MPV 10.8 H, Neut % (Auto) 69.9, Lymph % (Auto) 16.8, Walsh % (Auto) 7.7, Eos % (Auto) 4.3, Baso % (Auto) 0.7, Neut # (Auto) 8.2 H, Lymph # (Auto) 2.0, Walsh # (Auto) 0.9, Eos # (Auto) 0.5 H, Baso # (Auto) 0.1, Sodium 141, Potassium 3.6, Chloride 105, Carbon Dioxide 27, Anion Gap 12.6, BUN 18 H, Creatinine 1.20 H, Estimated Creat Clear 53, Estimated GFR 48 L, Est GFR ( Amer) 59, Glucose 89, Calcium 8.7, Total Bilirubin 1.0, AST 31, ALT 35, Alkaline Phosphatase 76, NT-Pro-B Natriuret Pep 217 H, Total Protein 6.8, Albumin 3.9, Globulin 2.9, Albumin/Globulin Ratio 1.3 01/30/25 12:20 01/30/25 12:20 Orders (Tests/Meds): ED MEDICATIONS Discontinued Medications Generic Name Dose Route Start Last Admin Trade Name Freq PRN Reason Stop Dose Admin Albuterol/Ipratropium 9 ml 01/30/25 12:25 01/30/25 12:47 Ipratropium/Albuterol 3 Ml Neb IH 01/30/25 12:26 9 ml ONCE ONE Administration Dexamethasone Sodium Phosphate 10 mg 01/30/25 12:25 01/30/25 12:46 Dexamethasone 4mg/Ml 5ml Mdv IV 01/30/25 12:26 10 mg ONCE ONE Administration ORDERS Category Date Time Status Chest XR 2 view (NOT portable) [XR chest 2V] Stat Exams 01/30/25 12:25 Completed BNP [NT Pro Brain Natriuretic Pep.] Stat Lab 01/30/25 12:20 Completed CBC w/Auto Diff [Complete Blood Count Auto Diff] Stat Lab 01/30/25 12:20 Completed CMP [Comprehensive Metabolic Panel] Stat Lab 01/30/25 12:20 Completed Medical Decision Narrative: In summary patient is a 44-year-old female who presents to the emergency department for evaluation of dyspnea. Patient is hypertensive with a blood pressure of 191/113 heart rate 71 sinus rhythm on bedside monitor breathing 24 times a minute satting at 96% on room air upon arrival, febrile at 98. Physical exam is remarkable for well-nourished well-developed morbidly obese, with a BMI of 49, 44-year-old female who is otherwise in no acute distress. Breath sounds clear and equal bilaterally to the bases without adventitious sounds increased work of breathing or accessory muscle use, heart sounds are S1-S2 regular rate and rhythm without murmurs gallops rubs or thrills. There is 1+ bilateral pitting edema in her lower extremities. Abdomen is obese soft nontender no rebound guarding or rigidity. Differential diagnosis includes CHF versus COPD versus pneumonia etc. Initial workup will be conducted with hematologic labs and plain film chest x-ray. Initial interventions include DuoNeb and Decadron. I did consider Lasix but deferred until her CASTAÑEDA is more clear. Initial workup reviewed by me and her hematologic labs are significant for white count of 11.7 normal H&H with absolute neutrophil count of 8.2, BUN is 18 creatinine is 1.2 GFR is 48 NT proBNP is 217 and informative rotation of her chest x-ray shows no acute processes prior to radiology read. Please see final read formal interpretation.. Upon repeat evaluation patient reported significant improvement after DuoNeb and Decadron.. Given this I had interactive discussion with the patient regarding her presentation CASTA[place]EDA and her findings and while there remains diagnostic uncertainty whether or not CHF is contributing we have effectively rule out any serious or life-threatening condition today. Given that she is better after treatment for her COPD is reassuring. I recommended that the patient see pulmonology as well as cardiology. To that end I have referred her to see pulmonology here at [facility] as well as recommend that she keep her cardiology appointment that she is establishing with locally. If she has any worsening signs or symptoms patient to follow-up with her PCP return to the ER as needed. <Birdie Pathak, DO - Last Filed: 01/30/25 12:55> Vital Signs: 01/30/25 12:15 01/30/25 12:18 01/30/25 12:30 Temperature 98.0 F Temperature Source Oral Pulse Rate 71 64 Pulse Rate [Left Radial] 72 Respiratory Rate 24 Blood Pressure 191/113 H 136/83 Blood Pressure [Right Arm] 191/113 H Blood Pressure Mean [Right Arm] 139 02 Sat by Pulse Oximetry 96 97 95 Oxygen Delivery Method Room Air Room Air Room Air 01/30/25 13:00 01/30/25 14:13 Temperature 98.5 F Temperature Source Pulse Rate 63 67 Pulse Rate [Left Radial] Respiratory Rate 20 Blood Pressure 163/92 H 159/102 H Blood Pressure [Right Arm] Blood Pressure Mean [Right Arm] 02 Sat by Pulse Oximetry 95 Oxygen Delivery Method Room Air Room Air Lab Data Lab Results 01/30/25 12:20: WBC 11.7 H, RBC 4.42, Hgb 14.3, Hct 43.9, MCV 99.3 H, MCH 32.4 H , MCHC 32.6, RDW 16.4, Plt Count 199, MPV 10.8 H, Neut % (Auto) 69.9, Lymph % (Auto) 16.8, Walsh % (Auto) 7.7, Eos % (Auto) 4.3, Baso % (Auto) 0.7, Neut # (Auto) 8.2 H, Lymph # (Auto) 2.0, Walsh # (Auto) 0.9, Eos # (Auto) 0.5 H, Baso # (Auto) 0.1, Sodium 141, Potassium 3.6, Chloride 105, Carbon Dioxide 27, Anion Gap 12.6, BUN 18 H, Creatinine 1.20 H, Estimated Creat Clear 53, Estimated GFR 48 L, Est GFR ( Amer) 59, Glucose 89, Calcium 8.7, Total Bilirubin 1.0, AST 31, ALT 35, Alkaline Phosphatase 76, NT-Pro-B Natriuret Pep 217 H, Total Protein 6.8, Albumin 3.9, Globulin 2.9, Albumin/Globulin Ratio 1.3 Orders (Tests/Meds): ED MEDICATIONS Discontinued Medications Generic Name Dose Route Start Last Admin Trade Name Freq PRN Reason Stop Dose Admin Albuterol/Ipratropium 9 ml 01/30/25 12:25 01/30/25 12:47 Ipratropium/Albuterol 3 Ml Neb IH 01/30/25 12:26 9 ml ONCE ONE Administration Dexamethasone Sodium Phosphate 10 mg 01/30/25 12:25 01/30/25 12:46 Dexamethasone 4mg/Ml 5ml Mdv IV 01/30/25 12:26 10 mg ONCE ONE Administration ORDERS Category Date Time Status Chest XR 2 view (NOT portable) [XR chest 2V] Stat Exams 01/30/25 12:25 Completed BNP [NT Pro Brain Natriuretic Pep.] Stat Lab 01/30/25 12:20 Completed CBC w/Auto Diff [Complete Blood Count Auto Diff] Stat Lab 01/30/25 12:20 Completed CMP [Comprehensive Metabolic Panel] Stat Lab 01/30/25 12:20 Completed ECG Data Tracing #1: I reviewed this ECG and interpreted as documented below: Sinus rhythm with a ventricular rate of [address] changes concerning for ischemia. Normal intervals ECG initial impression date: 01/30/25 ECG initial impression time: 12:17 Critical Care <SHILO Obrien - Last Filed: 01/30/25 15:34> Critical Care Time Critical Care Time: Yes Attestation: On 01/30/25, the high probability of a clinically significant, sudden or life threatening deterioration of the following system(s) required my full and direct attention, intervention and personal management. The time I documented below is in addition to time spent performing reported procedures but includes the following listed in this critical care notation. Total Time Total Critical Care Time: 30
--- NOTE | 2025-01-30 12:25 | XR_ITS ---
PROCEDURE INFORMATION: Exam: XR Chest Exam date and time: 01/30/2025 12:43 PM Age: 44 years old Clinical indication: Dyspnea; Additional info: Dyspnea, h/o chf TECHNIQUE: Imaging protocol: Radiologic exam of the chest. Views: 2 views. COMPARISON: CR Chest 01/11/2019 3:02 PM FINDINGS: Lungs: Unremarkable. No consolidation. Pleural spaces: Unremarkable. No pleural effusion. No pneumothorax. Heart/Mediastinum: Unremarkable. No cardiomegaly. Bones/joints: Unremarkable. IMPRESSION: No acute findings.
[2025-01-30 12:30] VITALS: BP 136/83; PULSE 64; O2SAT 95
--- OUTSIDE RECORDS SUMMARY | 2025-01-30 12:30 | XMS_ITS | Encounter Summary ---
Author Organization [employer] [address] Care Team Providers Care Audit Manager Name Role Phone Kayli Kebede MD Unavailable [phone] Jerome Crowley MD Primary Care Provider [phone] Valarie Leach RN Unavailable Unavailable Rita Cordero MD Unavailable [phone] Reason for Visit * Reason Onset Date Comments Medication Refill 01/27/2025 Encounter Details Date Type Department Care Team (Late st Contact Info) Description 01/27/2025 [facility]ill [facility] [address] [place] [address] Marjorie Cox, CT SCAN SPECIAL PROCEDURES TECHNOLOGIST [address] [place] [phone] Medication Refill Social History Tobacco Use Types Packs/Day Years Used Date Smoking Tobacco: Every Day Cigarettes 1 28 Started: 04/02/2007 Smokeless Tobacco: Never Alcohol Use Standard Drinks/Week Comments Not Currently 0 (1 standard drink = 0.6 oz pur e alcohol) few times a year [facility] Utilities Answer Date Recorded In the past 12 months has [facility] electric, gas, oil, or water company threatened to shut off services in your home? No 11/29/2024 Overall Financial Resource Strain (CARDIA) Answe r Date Recorded How hard is it for you to pa y for the very basics like food, housing, medical care, and heating? Not very hard 11/29/2024 PHQ-2 Answer Date Recorded PHQ-2 Total Score 0 11/29/[address] [facility] - Occupational Stress Questionnaire Answer Date [...] place to sleep or slept in a fci (including now)? No 03/30/2021 [facility] IP Transportation Answer D ate Recorded [...] Refills Last Filled Start Date End Date diclofenac (VOLTAREN) 75 mg Oral Tablet, Delayed Release (E.C.) Take 1 Tablet by mouth daily for 7 days. 7 Tablet 01/27/2025 02/03/2025 documented in this encounter Plan of Treatment Upcoming Encounters Date Type Department Care Team (Late st Contact Info) Description 02/02/2025 12:45 PM EDT Office Visit [facility] [address] [place] [address] Manuel Torres MD [address] [place] [address] 02/15/2025 2:15 PM EDT Appointment [facility] [address] [place] [address] 02/15/2025 2:30 PM EDT Appointment [facility] [address] [place] [address] Farnaz Ricardo, NONA [address] [facility] [place] [address] 02/24/2025 8:00 AM EDT Appointment [facility] [address] [place] [address] [address] [place] [address] Rajwinder Craig MD [address] [place] [address] 03/02/2025 9:30 AM EDT Office Visit [facility] [address] [address] Jose Luis Ortiz MD [address] [place] [address] [address] [facility] [place] [address] 03/08/2025 11:15 AM EDT Office Visit [facility] Nephrology [place] [address] [place] [address] Lynn Mariano, NONA [address] [place] [phone] 03/09/2025 3:30 PM EDT Office Visit [facility] Diabetes [place] [address] [facility] [address] [place] [address] Rita Cordero MD [address] [place] [address] 10/07/2025 1:10 PM EDT Office Visit [facility] [address] [facility] [address] [place] [phone] Juan Russell MD 40 [facility] [address] [place] [address] documented as of this encounter [...] Diagnoses Not on filedocumented in this encounter Discontinued Medications Medication Sig Discontinue Reason Start Date End Da te diclofenac (VOLTAREN) 75 mg Oral Tablet, Delayed Release (E.C.) Take 1 Tablet by mouth daily for 7 days. Reorder 01/16/2025 01/27/2025 documented as of this encounter Care Teams Audit Manager Relationship Specialty Start Date End Date Jerome Crowley MD [address] [facility] [place] [address] PCP - General Internal Medicine 08/09/24 Kayli Kebede MD [address] [address] Consulting Physician Internal Medicine-Nephrology 05/17/22 Valarie Leach, RN Motor Runner Registered Nurse 12/01/24 Rita Cordero MD [address] [place] [address] Internal Medicine-Endocrinology, Diabetes & Metabolism 01/10/25 documented as of this encounter
--- OUTSIDE RECORDS SUMMARY | 2025-01-30 12:30 | XMS_ITS | Encounter Summary ---
Author Organization [place] [address] Care Team Providers Care Salon Customer Experience Specialist Name Role Phone Kayli Kebede MD Unavailable [phone] Jerome Crowley MD Primary Care Provider [phone] Valarie Leach RN Unavailable Unavailable Rita Cordero MD Unavailable [phone] Reason for Visit * Reason Onset Date Comments Medication Refill 01/27/2025 Encounter Details Date Type Department Care Team (Late st Contact Info) Description 01/27/2025 Refill [facility] [address] [place] [address] Annmarie Burton APRN [address] [place] [id number] Medication Refill Social History Tobacco Use Types Packs/Day Years Used Date Smoking Tobacco: Every Day Cigarettes 08 17 Started: 04/02/2007 Smokeless Tobacco: Never Alcohol Use Standard Drinks/Week Comments Not Currently 0 (1 standard drink = 0.6 oz pur e alcohol) few times a year [facility] Utilities Answer Date Recorded In the past [...] Date Recorded PHQ-2 Total Score 0 11/29/2024 [facility] - Occupational Stress Questionnaire Answer Date Recorded [...] in a mcc (including now)? No 03/30/2021 [facility] IP Transportation Answer D ate Recorded In [...] Author No 11/30/2024 4:23 PM TARYNT Brina Ploanco RN * Does this person have serious [...] Entry Date Author No 11/30/2024 4:23 PM TARYNT Brina Polanco RN documented in this encounter Ordered Prescriptions Prescription Sig Dispense Quantity Refills Last Filled Start Date End Date albuterol (PROVENTIL) 2.5 mg /3 mL (0.083 %) Inhl Solution for NebulizationIndic ations:Moderate persistent asthma with acute exacerbation Take 3 mL by nebulization every 6 hours as needed for Wheezing. 180 mL 2 01/27/2025 traMADoL (ULTRAM) 50 mg Oral TabletIndications :Dental abscess 1-2 tablets every 6 hours as needed for pain 15 Tablet 01/27/2025 documented in this encounter Miscellaneous Notes * Telephone Encounter - Mary Kate Lawrence CCMA - 01/27/2025 2:05 PM EDT Last Office Visit reviewing controlled substances: 01/03/2025 Approved Ambien, Gabapentin, Lyrica, Butalbital = must be in last 6 months. All other controlled medications = must be in last 3 months. If visit is not up to date, please call and schedule appointment. Next appointment scheduled?: No HAMZAH Last Reviewed by Prescriber: PDMP not electronically reviewed on this encounter. Date of last completed CSA if not included in flowsheet below: 09/14/2021 09/14/2021 3:00 PM 11/15/2021 2:00 PM CONTROLLED SUBSTANCE HAMZAH Reference Number [id number] HAMZAH Results as expected as expected If had complete compliance panel: need No Result (If patient had partial drug screen or in-house drug screen, please document date of that below): documented in this encounter Plan of Treatment Upcoming Encounters Date Type Department Care Team (Late st Contact Info) Description 02/02/2025 12:45 PM EDT Office Visit [facility] [address], 3RD [place] [address] Manuel Torres MD [address] [place] [address] 02/15/2025 2:15 PM EDT Appointment [address] [place] [address] 02/15/2025 2:30 PM EDT Appointment [address] [place] [address] Farnaz Ricardo APRN 1 [place] [address] 02/24/2025 8:00 AM EDT Appointment [facility] [address] [place] [address] [address] [place] [address] Rajwinder Craig MD [address] [place] [address] 03/02/2025 9:30 AM EDT Office Visit [facility] [place] [address] [place] [address] Jose Luis Ortiz MD [address] [place] [address] [place] [address] 03/08/2025 11:15 AM EDT Office Visit [facility] Nephrology [place] [address] [place] [address] Lynn Mariano APRN [address] [place] [phone] 03/09/2025 3:30 PM EDT Office Visit [facility] Diabetes [place] [address] [facility] [address] [place] [address] Rita Cordero MD [address] [place], [place] [id number] 10/07/2025 1:10 PM EDT Office Visit [facility] [address] [facility] [address] [place] [phone] Juan Russell MD 40 [facility] 101 [place] [address] documented as of this encounter [...] Jerome Crowley MD Stay Tobacco Free Lifestyle Mary Kate Medel CCMA HEMOGLOBIN A1C < 7.0 Result Component 5.7( 12:58 PM EDT) No Jerome Crowley MD documented as of this encounter Visit Diagnoses Diagnosis Dental abscess Periapical abscess without sinus Moderate persistent asthma with acute exacerbation documented in this encounter Discontinued Medications Medication Sig Discontinue Reason Start Date End Da te traMADoL (ULTRAM) 50 mg Oral TabletIndications:Bent al abscess 1-2 tablets every 6 hours as needed for pain Reorder 09/01/2024 01/27/2025 albuterol (PROVENTIL) 2.5 mg /3 mL (0.083 %) Inhl Solution for NebulizationIndication s:Moderate persistent asthma with acute exacerbation Take 3 mL by nebulization every 6 hours as needed for Wheezing. Reorder 01/17/2025 01/27/2025 documented as of this encounter Care Teams Salon Customer Experience Specialist Relationship Specialty Start Date End Date Jerome Crowley MD [address] [facility] [place] [phone] PCP - General Internal Medicine 08/09/24 Kayli Kebede MD [address] [id number] Consulting Physician Internal Medicine-Nephrology 05/17/22 Valarie Leach, RN Railroad Dispatcher Registered Nurse 12/01/24 Rita Cordero MD [address] [place] [address] Internal Medicine-Endocrinology, Diabetes & Metabolism 01/10/25 documented as of this encounter
--- OUTSIDE RECORDS SUMMARY | 2025-01-30 12:30 | XMS_ITS | Encounter Summary ---
Author Organization [place] [address] Care Team Providers Care Machine Sole Leveler Name Role Phone Kayli Kebede MD Unavailable [phone] Jerome Crowley MD Primary Care Provider [phone] Valarie Leach RN Unavailable Unavailable Rita Cordero MD Unavailable [phone] Reason for Visit * Reason Onset Date Comments Medication Refill 01/27/2025 Encounter Details Date Type Department Care Team (Late st Contact Info) Description 01/27/2025 Refill [facility] Physicians [facility] [address] [facility] [address] [place], [place] [id number] Rita Cordero MD [address] [place] [address] Medication Refill Social History Tobacco Use Types Packs/Day Years Used Date Smoking Tobacco: Every Day Cigarettes 1 28 Started: 04/02/2007 Smokeless Tobacco: Never Alcohol Use Standard Drinks/Week Comments Not Currently 0 (1 standard drink = 0.6 oz pur e alcohol) few times a year [facility] Utilities Answer Date Recorded In [...] Date Recorded PHQ-2 Total Score 0 11/29/2024 [facility] [place] [facility] - Occupational Stress [...] in a detention (including now)? No 03/[facility]/20[facility] Answer D ate Recorded In [...] Refills Last Filled Start Date End Date pregabalin (LYRICA) 100 mg Oral CapsuleIndications :Type 2 diabetes mellitus with diabetic neuropathy, without long-term current use of insulin (HCC) Take 1 Capsule by mouth 3 times daily. 90 Capsule 5 01/27/2025 documented in this encounter Plan of Treatment Upcoming Encounters Date Type Department Care Team (Late st Contact Info) Description 02/02/2025 12:45 PM EDT Office Visit [facility] [address] [place] [address] Manuel Torres MD [address] [place] [address] 02/15/2025 2:15 PM EDT Appointment [facility] Cancer [facility] [address] [place] [address] 02/15/2025 2:30 PM EDT Appointment [facility] Cancer Care [facility] [address] [place] [address] Farnaz Ricardo, SHALLOT PACKER [address] [facility] [place] [address] 02/24/2025 8:00 AM EDT Appointment [facility] [address] [place] [address] [address] [place] [address] Rajwinder Craig MD [address] [place] [address] 03/02/2025 9:30 AM EDT Office Visit [facility] [address] [address] Jose Luis Ortiz MD [address] [place] [address] [place] [phone] 03/08/2025 11:15 AM EDT Office Visit [facility] Nephrology [place] [address] [place] [address] Lynn Mariano, SHALLOT PACKER [address] [place] [phone] 03/09/2025 3:30 PM EDT Office Visit [facility] [place] [address] [facility] [address] [place] [address] Rita Cordero MD [address] [place] [address] 10/07/2025 1:10 PM EDT Office Visit [facility] [place] [address] [place] [address] Juan Russell MD [address] [place] [address] documented as of this encounter [...] as of this encounter Visit Diagnoses Diagnosis Type 2 diabetes mellitus with diabetic neuropathy, without long-term current use of insulin (HCC) documented in this encounter Discontinued Medications Medication Sig Discontinue Reason Start Date End Da te pregabalin (LYRICA) 100 mg Oral CapsuleIndications:Type 2 diabetes mellitus with diabetic neuropathy, without long-term current use of insulin (HCC) Take 1 Capsule by mouth 3 times daily. Reorder 01/07/2025 01/27/2025 documented as of this encounter Care Teams Machine Sole Leveler Relationship Specialty Start Date End Date Jerome Crowley MD [address] [place] [address] [address] [phone] PCP - General Internal Medicine 08/09/24 Kayli Kebede MD [address] [facility] [address] [place] [address] Consulting Physician Internal Medicine-Nephrology 05/17/22 Valarie Leach, RN Grooming [employer] Manager Registered Nurse 12/01/24 Rita Cordero MD [address] [place] [address] Internal Medicine-Endocrinology, Diabetes & Metabolism 01/10/25 documented as of this encounter
--- OUTSIDE RECORDS SUMMARY | 2025-01-30 12:30 | XMS_ITS | Clinical Summary ---
Author Organization [facility] Address [address] [place] [address] Phone Care Team Providers Care Fuel Assembler Name Role Phone Kayli Kebede MD Unavailable [phone] Jerome Crowley MD Primary Care Provider [phone] Valarie Leach RN Unavailable Unavailable Rita Cordero MD Unavailable [phone] Allergies Active Allergy Reactions Criticality Noted Date Comments Macrolide Antibiotics Rash High 01/30/2012 Semaglutide Nausea Only 01/14/2025 Penicillins Rash High 01/30/2012 Medications Nebulizer Accessories (ALL FLOW 4000 KIT) [facility] MiscIndications :Moderate persistent asthma with acute exacerbation 1 Kit by [facility].(Non-Drug; Combo Route) route daily. 0 019 Active Blood-Glucose Meter [facility] Use to check blood sugar daily 1 Each 023 Active FARXIGA 10 mg Oral Tablet Take 1 Tablet by mouth daily for 360 days. 90 Tablet 3 024 2024 Active lancets (ONETOUCH DELICA PLUS LANCET) 33 gauge [facility] Subcutaneous (Inject under the skin) 100 Each daily. 100 Each 10 024 Active carvediloL (COREG) 25 mg Oral Tablet 025 Active Insulin [place], Disposable, (LIA PEN NEEDLE) 32 gauge x [facility] Needle Use as directed with insulin pens daily 100 Each 3 025 Active nitroGLYCERIN (NITROSTAT) 0.4 mg SL Tablet, Sublingual Place 1 Tablet under the tongue every 5 minutes as needed for Chest pain. Dissolve 1 tablet under the tongue at onset of chest pain. For persistent or worsening pain, call 911 and repeat dose every 5 minutes, up to 3 tablets in a 15-minute period. 30 Tablet 3 Active hydrOXYzine (ATARAX) 25 mg Oral TabletIndicatio ns:Anxiety Take 1 Tablet by mouth every 6 hours as needed. for itching 90 Tablet 10 Active omeprazole (PRILOSEC) 40 mg Oral Capsule, Delayed Release(E.C.)In dications:Gastr oesophageal reflux disease without esophagitis Take 1 Capsule by mouth daily. 90 Capsule Active fluticasone propionate (FLONASE) 50 mcg/actuation Nasl Dawson, Suspension 1 Dawson by Nasal route daily. 16 g 1 Active diclofenac (VOLTAREN) 1 % Top Gel Apply 2 g topically 4 times daily. 100 g Active Blood-Glucose Meter [facility] Kit Use to check blood sugar 1 Kit Active tiZANidine (ZANAFLEX) 4 mg Oral Tablet Take 1 Tablet by mouth 3 times daily as needed. for muscle spasms 60 Tablet Active metOLazone (ZAROXOLYN) 2.5 mg Oral Tablet Take 2.5 mg by mouth daily as needed for Other (Edema, weight gain). Active hydrALAZINE (APRESOLINE) 25 mg Oral Tablet Take 1 Tablet by mouth 2 times daily. 60 Tablet 5 Active aspirin 81 mg Oral Tablet, Chewable Take 1 Tablet by mouth daily. 90 Tablet Active budesonide-glyc opyr-formoterol (BREZTRI AEROSPHERE) 160-9-4.8 mcg/actuation Inhl HFA Aerosol Inhaler Inhale 2 Inhalations into the lungs 2 times daily. 10.7 g Active cloNIDine (CATAPRES) 0.1 mg Oral Tablet Take 1 Tablet by mouth 2 times daily. 180 Tablet Active insulin lispro (HUMALOG) 100 unit/mL SubQ Insulin Pen INJECT 5 TO 10 UNITS SUBCUTANEOUSLY DAILY NEEDED IF SUGAR IS HIGH *DISCARD REMAINDER OF PEN AFTER 28 DAYS* 15 mL Active montelukast (SINGULAIR) 10 mg Oral TabletIndicatio ns:Severe persistent asthma without complication (HCC) Take 1 Tablet by mouth every evening. 90 Tablet Active ACETAMINOPHEN 325 mg Oral Tab TAKE 2 TABLETS BY MOUTH EVERY 8 HOURS NEEDED FOR PAIN 200 Tablet Active ondansetron (ZOFRAN-ODT) 4 mg Oral Tablet, Rapid DissolveIndicat ions:Nausea PLACE 1 TABLET ON THE TONGUE AND ALLOW TO DISSOLVE EVERY 6 HOURS NEEDED FOR NAUSEA 30 Tablet Active fluconazole (DIFLUCAN) 100 mg Oral Tablet TAKE 1 TABLET BY MOUTH ONCE WEEKLY 12 Tablet Active ranolazine (RANEXA) 500 mg Oral Tablet Sustained Release 12 hr Take 1 Tablet by mouth every 12 hours for 360 days. 180 Tablet 025 2025 Active dulaglutide (TRULICITY) 0.75 mg/0.5 mL SubQ Pen InjectorIndicat ions:Type 2 diabetes mellitus with diabetic neuropathy, without long-term current use of insulin (HCC) Inject 0.5 mL under the skin once a week. 2 mL Active methocarbamoL (ROBAXIN) 750 mg Oral Tablet Take 1 Tablet by mouth 3 times daily as needed for Pain for up to 30 days. 20 Tablet 025 2024 Active albuterol (PROVENTIL HFA;VENTOLIN HFA) 90 mcg/actuation Inhl HFA Aerosol Inhaler Inhale 2 Puffs into the lungs every 6 hours as needed. for wheezing 8.5 g 5 Active ergocalciferol (DRISDOL) 1,250 mcg (50,000 unit) Oral Capsule Take 1 Capsule by mouth once a week for 360 days. 12 Capsule 3 025 2025 Active DULoxetine (CYMBALTA) 60 mg Oral Capsule, Delayed Release(E.C.) Take 1 Capsule by mouth daily for 360 days. 90 Capsule 3 06/302025 Active etodolac (LODINE) 400 mg Oral Tablet Take 1 Tablet by mouth 2 times daily for 10 days. 20 Tablet 2024 Active pregabalin (LYRICA) 100 mg Oral CapsuleIndicati ons:Type 2 diabetes mellitus with diabetic neuropathy, without long-term current use of insulin (HCC) Take 1 Capsule by mouth 3 times daily. 90 Capsule 5 Active fUROsemide (LASIX) 40 mg Oral TabletIndicatio ns:Chronic diastolic congestive heart failure (HCC) Take 1 Tablet by mouth daily for 30 days. 30 Tablet 2024 Active busPIRone (BUSPAR) 10 mg Oral Tablet Take 1 Tablet by mouth 2 times daily. 60 Tablet 2 Active atorvastatin (LIPITOR) 20 mg Oral Tablet Take 2 Tablets by mouth daily for 360 days. 180 Tablet 3 2025 Active traMADoL (ULTRAM) 50 mg Oral TabletIndicatio ns:Dental abscess 1-2 tablets every 6 hours as needed for pain 15 Tablet Active albuterol (PROVENTIL) 2.5 mg /3 mL (0.083 %) Inhl Solution for NebulizationInd ications:Modera te persistent asthma with acute exacerbation Take 3 mL by nebulization every 6 hours as needed for Wheezing. 180 mL 2 Active diclofenac (VOLTAREN) 75 mg Oral Tablet, Delayed Release (E.C.) Take 1 Tablet by mouth daily for 7 days. 7 Tablet 2024 Active fluconazole (DIFLUCAN) 100 mg Oral Tablet Take 1 Tablet by mouth once a week for 90 days. 12 Tablet 2024 Discontinued predniSONE (DELTASONE) 20 mg Oral Tablet Take 1 Tablet by mouth 2 times daily for 7 days, THEN 1 Tablet daily for 7 days. 21 Tablet 2024 Discontinued predniSONE (DELTASONE) 20 mg Oral Tablet Take 1 Tablet by mouth 2 times daily for 7 days, THEN 1 Tablet daily for 7 days. 21 Tablet 2024 Discontinued(P atient Reported not taking medication) dexAMETHasone (DECADRON) 0.5 mg Oral TabletIndicatio ns:Adrenal adenoma, right Take 2 Tablets by mouth once for 1 dose. At 11 PM the night before the blood test 2 Tablet 025 2024 potassium chloride (KLOR-CON 10) 10 mEq Oral Tablet Sustained Release Take 1 Tablet by mouth 2 times daily for 5 days. 10 Tablet 025 2024 Active Problems Problem Noted Date Diagnosed Date Class 3 severe obesity due t o excess calories with serious comorbidity and body mass index (BMI) of 45.0 to 49.9 in adult 01/07/2025 Assessment & Plan (01/10/2025 7:04 AM EDT): The importance of increased physical activity and balanced caloric intake to facilitate weight loss was emphasized to the patient. The patient was provided with dietary instructions. Adrenal adenoma, right 01/07/2025 Assessment & Plan (01/10/2025 7:04 AM EDT): The nature of condition as well as the results of work up were discussed with patient at length. Will rule out autonomous hypercortisolism. The recommendations will be made based on the work up results. Type 2 diabetes mellitus wit h diabetic neuropathy, without long-term current use of insulin 01/06/2025 Assessment & Plan (01/10/2025 7:03 AM EDT): Different aspects of diabetes care as well as treatment goals were discussed with the patient at length. Glycemic control has been stable and at goal #1. The patient is to continue regular blood glucose monitoring #2. She is to hold Ozempic for 2 weeks to see whether it is contributing to daily dyspepsia. She is to contact me with information. Will consider Trulicity trial if nausea resolves off Ozempic The patient is to have a teaching session with a nursing educator. The patient is to be screened for diabetes related complications according to ADA guidelines. Hyperlipidemia associated with type 2 diabetes m steven 01/06/2025 Assessment & Plan (01/10/2025 7:04 AM EDT): Continue statin regimen Acute chest pain 11/29/2024 Assessment & Plan (11/29/2024 2:56 PM EDT): Troponin flat, EKG, no ST changes, not in pattern of ACS Resume ROTOR WINDER aspirin and Lipitor Obtain CT coronary angiogram Dizziness 11/29/2024 Assessment & Plan (11/29/2024 2:56 PM EDT): Likely secondary to hypoglycemia Obtain MRI of the brain to rule out any intracranial abnormality Generalized anxiety disorder 11/29/2024 Assessment & Plan (11/29/2024 2:56 PM EDT): Resume ROTOR WINDER buspirone, Cymbalta Iron deficiency anemia due to chronic blood loss 11/12/2024 Iron malabsorption 11/12/2024 B12 deficiency 11/12/2024 Otalgia, bilateral 10/01/2024 Abnormal auditory perception of both ears 2024 Sensorineural hearing loss, bilateral 10/01/2024 Primary osteoarthritis of right knee 08/27/2024 History of bilateral knee replacement 08/27/2024 Coronary artery disease invo lving [place] coronary artery of [place] heart with angina pectoris 06/28/2024 Overview (06/28/2024): 60% LAD, 50% additional Assessment & Plan (11/29/2024 2:56 PM EDT): Resume ROTOR WINDER aspirin, Lipitor Assessment & Plan (06/28/2024 10:40 AM EST): No active complaints, uses NTG prn. Type 2 diabetes mellitus wit h stage 3a chronic kidney disease, without long-term current use of insulin 08/09/2022 Assessment & Plan (11/29/2024 2:56 PM EDT): Sliding scale insulin Resume ROTOR WINDER Farxiga Assessment & Plan (06/28/2024 10:40 AM EST): Reports well managed diabetes on ozempic./farxiga. Will check hemoglobin A1c Orders: HEMOGLOBIN A1C; Future Assessment & Plan (11/12/2022 2:49 PM EDT): Continue with current dose of Metformin Assessment & Plan (10/01/2022 5:08 PM EDT): HBA1C is elevated Blood sugars are elevated No evidence of proteinuria C/W Lisinopril Increase Metformin to 1000 mg PO BID Assessment & Plan (08/09/2022 10:40 AM EST): HBA1C is elevated Blood sugars are elevated No evidence of proteinuria C/W Lisinopril Start Metformin 500 mg PO BID HBA1C prior to next appointment in 4 weeks Iron deficiency 05/17/2022 Assessment & Plan (05/17/2022 12:03 PM EDT): Tsat is 14 % HB is WNL Start ferrous sulphate 325 mg PO BID with meals Stage 3a chronic kidney disease 04/24/2022 Overview (11/12/2022): Secondary to Hypertensive nephroslcerosis Assessment & Plan (11/12/2022 2:48 PM EDT): Cr is 1.08, GFR 65 ml/mn UPC ratio: 0.11 gm/gm Edema is under control on current dose of Bumex Assessment & Plan (10/01/2022 5:09 PM EDT): Renal function remains stable at baseline Cr from 07/22/22 shows a Cr of 1.21 and a GFR of 56 ml/mn UPC ratio: 0.11 gm/gm C/W Lisinopril for renal protection Assessment & Plan (08/09/2022 10:39 AM EST): Renal function remains stable at baseline Cr from 07/22/22 shows a Cr of 1.28 and a GFR of 53 ml/mn UPC ratio: 0.09 gm/gm C/W Lisinopril for renal protection Assessment & Plan (07/23/2022 1:14 PM EST): Renal function remains stable at baseline Cr from 07/22/22 shows a Cr of 1.28 and a GFR of 53 ml/mn UPC ratio: 0.09 gm/gm C/W Lisinopril for renal protection Assessment & Plan (05/17/2022 12:01 PM EDT): secondary to hypertensive nephrosclerosis Urine CrCl 62 ml/mn Urine protein: 104 mg/d Renal US unremarkable except for smaller left kidney, however there was no size disparity noted in a previous CT No further testing needed Counseled on weight loss, daily exercise Avoid NSAIDs for pain control Low salt diet Counseled on cutting back on red meat Assessment & Plan (04/24/2022 3:11 PM EDT): Secondary to Hypertensive 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 Agrees to start it again, will give weekly diflucan. Assessment & Plan (03/06/2022 1:59 PM EDT): Recent bronchitis Symptoms have resolved with course of antibiotic On advair and spiriva No contraindications for upcoming surgery. Assessment & Plan (12/07/2021 3:27 PM EDT): Well controlled Assessment & Plan (09/14/2021 3:25 PM EST): advair ineffective Switch to breztri To continue to work on weight loss and smoking cessation. Assessment & Plan (11/08/2020 11:43 AM EDT): Can't afford inhalers Only samples we had was trelegy. Was given trelegy samples in office. Once she gets her insurance set up, then we can send prescription to pharmacy. PAPO (obstructive sleep apnea) 03/05/2019 Overview (04/23/2022): Verified by sleep study. CPAP on order. Assessment & Plan (11/29/2024 2:56 PM EDT): CPAP at night Family history of colon cancer 03/05/2019 Overview (03/05/2019): Father with colon cancer in 30's. Referral to GI Spondylolisthesis 11/07/2016 History of asthma 06/22/2015 Overview (03/05/2019): On symbicort daily with ventolin prn Hypertension associated with type 2 diabetes karen litus 06/22/2015 Assessment & Plan (01/10/2025 7:03 AM EDT): Will reassess Assessment & Plan (11/29/2024 2:56 PM EDT): Resume ROTOR WINDER olmesartan, Coreg, clonidine, hydralazine Assessment & Plan (11/15/2022 9:49 AM EDT): Reports elevated BP recently along with some chest pains. Discussed with fire control technician b who recommended cardiology testing. Assessment & Plan (10/01/2022 5:07 PM EDT): BP is not adequately controlled Likely volume overload is driving her BP up Increase Bumex to 1 mg in am and 0.5 mg in pm Advised low salt diet, weight loss Assessment & Plan (08/09/2022 10:38 AM EST): Adequately controlled on current dose of Nifedipine XL 30 mg PO daily at bedtime, Lisinopril and Coreg No h/o lightheadedness C/W current regimen Assessment & Plan (07/23/2022 1:17 PM EST): Uncontrolled Advised low salt diet Counseled on exercise, weight loss Start Bumex 1 mg PO daily for volume control Stop amlodipine Start Nifedipine XL 30 mg PO daily at bedtime C/W Lisinopril and Coreg at current doses Assessment & Plan (07/09/2022 3:54 PM EST): BP is trending high Volume status is a lot better with diuretic changes Obtain following work up to look for secondary causes C/W current regimen Assessment & Plan (04/24/2022 3:13 PM EDT): Repeat BP done by me is 120/82 Amlodipine was added yesterday OK to cut back on Lisinopril Follow up in 3 weeks Counseled on low salt diet, exercise Assessment & Plan (07/25/2021 11:38 AM EST): Has not been taking medication due to increased urination Will switch to lisiniopril only, BID Rx for HCTZ seperately to take as needed for edema Get CPAP for sleep apnea Smoking cessation Work on weight loss. Assessment & Plan (03/07/2021 3:40 PM EDT): Poorly controlled. Smoker, obese, sleep apnea. No insurance or job currently. She is working on trying to get medical insurance set back up. Plan Check BMP. If ok, increase lisiniopril/hctz to BID and recheck BMP in one month. Once she gets medical insurance - will get her set back up with CPAP Needs to work on weight loss and quit smoking. Assessment & Plan (11/08/2020 11:43 AM EDT): Restart meds Lung management Weight loss Check labs Migraine without aura and wi thout status migrainosus, not intractable 06/22/2015 Degenerative disc disease, lumbar 10/24/2011 Assessment & Plan (11/29/2024 2:56 PM EDT): Resume ROTOR WINDER gabapentin and tramadol Assessment & Plan (10/01/2022 5:11 PM EDT): Celebrex has helped with her pain Will give for short term and monitor kidney function closely 200 mg of Celebrex once daily as needed for 1 month Resolved Problems Problem Noted Date Diagnosed Date Resolved Date Ear pressure, bilateral 10/01/202409/18 Hypokalemia 10/01/2022 11/15/2022 Assessment & Plan (10/01/2022 5:09 PM EDT): Diuretic induced Increase K phos to 1 pack PO BID Hypophosphatemia 07/23/2022 11/15/2022 Assessment & Plan (10/01/2022 5:07 PM EDT): Increase K phos to 2 packs per day Phos is 2.0 Assessment & Plan (08/09/2022 10:39 AM EST): C/W oral Phos supplementation Repeat Phos prior to next appointment Assessment & Plan (07/23/2022 1:16 PM EST): Start K phos 250 mg PO daily Hypertensive urgency 05/17/2022 025 Assessment & Plan (11/12/2022 2:50 PM EDT): BP is high Increase Nifedipine XL to 60 mg PO daily She is c/o intermittent chest pain, advised to talk to PCP on this Friday's appointment Go to the ED if chest pain recurs prior to the PCP appointment Assessment & Plan (05/17/2022 12:00 PM EDT): BP is elevated with no acute symptoms Repeat done by me is still 180/110 Called [place] [facility] as she will need evaluation prior to going home D/W the ER physician Her ride is going to take her to the ER for further BP management Localized edema 05/17/2022 10/05/2024 Assessment & Plan (07/23/2022 1:17 PM EST): Restart Bumex 1 mg PO daily Start K phos 250 mg PO daily 60 ounces or less per day fluid restriction Assessment & Plan (07/09/2022 3:56 PM EST): edema is a lot improved BUN and Cr are higher, expected from increased diuretic doses Ammonia level is WNL Results discussed with the patient Plan: Decrease Bumex to 1 mg PO daily Decrease metolazone to 2.5 mg PO twice weekly 60 ounces or less per day fluid restriction Counseled on low salt diet Assessment & Plan (05/17/2022 12:02 PM EDT): Start Bumex 1 mg PO daily Repeat labs in 2 months to monitor renal function and electrolytes Primary osteoarthritis of left knee 03/06/2022 10/05/2024 Assessment & Plan (03/06/2022 1:58 PM EDT): undergoing Left knee partial medial/lateral meniscectomy, chondroplasty for left knee meniscus tear by Dr. Magana on 03/18/22. Acute medial meniscus tear, left, subsequent encounter 03/06/2022 08/17/2024 Assessment & Plan (03/06/2022 1:58 PM EDT): undergoing Left knee partial medial/lateral meniscectomy, chondroplasty for left knee meniscus tear by Dr. Magana on 03/18/22. Acute left ankle pain 03/02/20212021 Sprain of left ankle 02/15/2021 022 Acute left ankle pain 02/06/20212020 Pain of left lower leg 02/06/202107/23 Family history of cardiovascular disease 03/05/2019 10/22/2024 Overview (03/05/2019): In both parents. Discussed risk factors. Recommend baseline ECHO Morbid obesity with BMI of 50.0-59.9, adult 03/05/2019 10/05/2024 Overview (04/23/2022): Struggling with weight loss d/t chronic joint pain. Hoping to get bariatric surgery. Assessment & Plan (09/14/2021 3:26 PM EST): - no indication for CSA or HB1 as this will be short term. jerrell reviewed with no recent fills. Assessment & Plan (07/25/2021 1:11 PM EST): - following with bariatrics. Going to stop smoking, work on blood pressure control, manage sleep apnea, follow diet and try to increase exercise. Recommend nonweight bearing exercise d/t chronic knee pain. Assessment & Plan (08/11/2019 3:35 PM EST): jerrell reviewed and up to date CSA and HB-1 not indicated as this is not long-erm To followup in 4 weeks for blood pressure and weight check Tobacco abuse 03/05/2019 10/05/2024 Overview (04/23/2022): Reports that she has quit as of late Environmental allergies 04/11/201209/18 Cervical high risk HPV (rhoda n papillomavirus) test positive 01/20/2012 03/05/2019 Pelvic pain in female 01/10/20122016 Chondromalacia of left patella 10/24/2011 07/23/2021 Chondromalacia of patella, right 10/24/2011 07/23/2021 Encounters Date Type Department Care Team Description 01/27/2025 [place] [address] [place] [address] Marjorie Cox APRN Medication Refill 01/27/2025 Refill SEP Amy [facility] [place] [address] Annmarie Burton APRN Medication Refill 01/27/2025 Refill SEP Amy [facility] [place] [address] Jerome Crowley MD Medication Refill 01/27/2025 Refill [facility] [address] [facility] [address] [place] [address] Rita Cordero MD Medication Refill 01/24/2025 Results Follow-Up [address] [place] [address] Jerome Crowley MD MM MAMMO DIGITAL CONRADO DIAGN RIGHT 01/20/2025 10:15 AM EDT - 01/20/2025 11:59 PM EDT Hospital Encounter [facility] [address] [place] [address] Jerome Crowley MD Follow-up exam, 3-6 months since previous exam Discharge Disposition: Home or Self Care 01/19/2025 3:27 PM EDT - 01/19/2025 11:59 PM EDT Hospital Encounter [facility] [address] [place] [address] B12 deficiency (Primary Dx); Iron malabsorption; Iron deficiency anemia due to chronic blood loss Discharge Disposition: Home or Self Care 01/17/2025 Refill SEP [address] [place] [address] Annmarie Burton APRN Medication Refill 01/17/[address] [place] [address] Jerome Crowley MD Medication Refill 01/17/2025 Patient Outreach [address] [place] [address] Valarie Leach, SONY CM- Telephonic Outreach; CM- Longitudinal Continued 01/17/[address] [place] [address] Santosh Crowley MD Medication Refill 01/17/[address] [place] [address] Jerome Crowley MD Medication Refill 01/17/2025 Orders Only [address] [place] [address] Jerome Crowley MD 01/17/2025 Telephone [place] [address] Santosh Mclaughlin [facility] [address] [place] [address] Rita Cordero MD Prior Authorization 01/17/2025 Telephone [facility] [address] [place] [phone] Rita Cordero MD Prior Authorization (Trulicity 0.75 mg-approved) 01/16/2025 6:31 PM EDT - 01/16/2025 9:45 PM EDT [facility] [address] [facility] [address] [place] [address] Momo Swenson MD Shortness of breath (Primary Dx); Lumbar back pain; Hypertension associated with type 2 diabetes mellitus (HCC) Discharge Disposition: Home or Self Care 01/14/2025 Orders Only [facility] [address] [address] Rita Cordero MD Type 2 diabetes mellitus with diabetic neuropathy, without long-term current use of insulin (HCC) (Primary Dx) 01/13/2025 Travel 01/07/2025 1:00 PM EDT Office Visit [facility] [address] [address] Rita Cordero MD Type 2 diabetes mellitus with diabetic neuropathy, without long-term current use of insulin (HCC) (Primary Dx); Hyperlipidemia associated with type 2 diabetes mellitus (HCC); Hypertension associated with type 2 diabetes mellitus (HCC); Adrenal adenoma, right; Class 3 severe obesity due to excess calories with serious comorbidity and body mass index (BMI) of 45.0 to 49.9 in adult 01/06/2025 Telephone SEP Amy [address] [place] [address] Jerome Crowley MD Medication Management (linaCLOtide (LINZESS) 72 mcg Oral Capsule) 01/05/2025 Refill SEP Amy [address] [place] [address] Jerome Crowley MD Medication Refill 01/05/2025 Travel 01/04/2025 2:25 PM EDT - 01/04/2025 11:59 PM EDT Hospital Encounter [facility] [address] [place] [address] B12 deficiency (Primary Dx); Iron malabsorption; Iron deficiency anemia due to chronic blood loss Discharge Disposition: Home or Self Care 01/04/2025 2:19 PM EDT - 01/04/2025 2:24 PM EDT Hospital Encounter [facility] [address] [place] [address] [place] [address] COREEN (acute kidney injury); Stage 3a chronic kidney disease (HCC) Discharge Disposition: Home or Self Care 01/04/2025 Refill SEP Amy [address] [place] [address] Jerome Crowley MD Medication Refill 01/04/2025 Orders Only [facility] Nephrology [address] [place] [address] Lynn Mariano APRN 01/03/2025 3:27 PM EDT - 01/03/2025 11:59 PM EDT Hospital Encounter [facility] [address] [place] [address] COREEN (acute kidney injury); Stage 3a chronic kidney disease (HCC) Discharge Disposition: Home or Self Care 01/03/2025 2:00 PM EDT Office Visit [facility] Nephrology [address] [place] [address] Lynn Mariano APRN COREEN (acute kidney injury) (Primary Dx); Stage 3a chronic kidney disease (HCC); Stage 3b chronic kidney disease (HCC) 01/03/2025 Results Follow-Up SEP Amy [address] [place] [phone] Jerome Crowley MD LUTEINIZING HORMONE, FOLLICLE STIMULATING HORMONE LEVEL, ESTROGENS, FRACTIONATED BY TMS -REF LAB 01/01/2025 Refill SEP Amy [address] [place] [address] Jerome Crowley MD Medication Refill 12/29/2024 Refill SEP Amy PEDRO [address] [place] [address] Jerome Crowley MD Medication Refill 12/28/2024 3:00 PM EDT - 12/28/2024 11:59 PM EDT [address] [place] [id number] B12 deficiency (Primary Dx); Iron malabsorption; Iron deficiency anemia due to chronic blood loss Discharge Disposition: Home or Self Care 12/28/2024 10:20 AM EDT Office Visit SEP Amy [address] [place] [address] Jerome Crowley MD Menopausal syndrome (Primary Dx); COREEN (acute kidney injury) 12/28/2024 Refill SEP Amy [address] [place] [address] Jerome Crowley MD Medication Refill 12/27/2024 Orders Only [facility] Nephrology [address] [place], [place] [id number] Lynn Mariano APRN COREEN (acute kidney injury) (Primary Dx) 12/27/2024 Travel 12/25/2024 4:00 PM EDT - 12/25/2024 7:33 PM EDT Emergency [facility] [address] [facility] [address] [place] [address] Mesfin Hoffman MD COREEN (acute kidney injury) (Primary Dx); Lightheadedness Discharge Disposition: Home or Self Care 12/25/2024 Travel 12/24/2024 Refill SEP Amy [address] [place] [address] Jerome Crowley MD Medication Refill 12/23/2024 Orders Only SEP Amy [address] [place] [address] Marcy Morel MA 12/21/2024 1:25 PM EDT - 12/21/2024 11:59 PM EDT Hospital Encounter [place] [address] [place] [address] B12 deficiency (Primary Dx); Iron malabsorption; Iron deficiency anemia due to chronic blood loss; Stage 3a chronic kidney disease (HCC); Vitamin D deficiency; Essential hypertension; Type 2 diabetes mellitus with stage 3a chronic kidney disease, without long-term current use of insulin (HCC) Discharge Disposition: Home or Self Care 12/20/[address] [place] [address] Jerome Crowley MD Medication Refill 12/19/[address] [place] [address] Santosh Crowley MD Medication Refill 12/19/[address] [place] [address] Jerome Crowley MD Medication Refill 12/09/[address] [place] [address] Jerome Crowley MD Refill (Multiple meds); Medication Management (Swetha - Roberto calling to confirm patient is to take up to 1 per day as needed.) 12/09/2024 Travel 12/08/2024 Orders Only [address] [place] [address] Jerome Crowley MD Medication management (Primary Dx) 12/07/2024 1:27 PM EDT - 12/07/2024 11:59 PM EDT Hospital Encounter [place] [address] [place] [address] B12 deficiency (Primary Dx); Iron malabsorption; Iron deficiency anemia due to chronic blood loss Discharge Disposition: Home or Self Care 12/07/2024 9:30 AM EDT Office Visit [facility] H[facility] [address] [address] Khadar Santillan MD Chest pain, unspecified type (Primary Dx); Essential hypertension; SOB (shortness of breath) 12/07/2024 Travel 12/03/2024 Patient Outreach [place] [place] [address] [place] [address] Valarie Leach, SONY Cm- Longitudinal Initiation 12/02/2024 1:45 PM EDT Office Visit [facility] Nephrology [address] [place] [address] Lynn Mariano APRN Stage 3a chronic kidney disease (HCC) (Primary Dx); Vitamin D deficiency; Essential hypertension; Type 2 diabetes mellitus with stage 3a chronic kidney disease, without long-term current use of insulin (HCC) 12/02/2024 Travel 12/01/2024 Patient Outreach SEP Care Managment [facility] [address] [place] [address] Aguilar Richey Referral 12/01/2024 Patient Outreach SEP Care Managment [facility] [address] [place] [address] Kimberly Palafox RN Hospital Follow Up; Care Transition; CM - Medication Reconciliation; CM- Consultation 12/01/2024 Telephone SEP [facility] [place] [phone] Nicho Santillan MD Appointment Needed 12/01/2024 Refill [facility] [place] [address] [place] [address] Annmarie Burton APRN Medication Refill 12/01/2024 Refill [facility] [place] [address] [place] [phone] Santosh Crowley MD Medication Refill 12/01/2024 Refill [facility] [place] [address] [place] [address] Jerome Crowley MD Medication Refill 12/01/2024 Refill [place] [place] [address] [place] [phone] Jerome Crowley MD Medication Refill 11/30/2024 12:30 PM EDT Hospital Encounter [facility] [address] [place] [address] Excused 11/29/2024 11:16 AM EDT - 11/30/2024 5:08 PM EDT Hospital Encounter [facility] [address] [place] [address] Momo Ball MD Alexis, Jacques Feres, MD Acute chest pain (Primary Dx) Discharge Disposition: Home or Self Care 11/29/2024 Travel 11/23/2024 10:54 AM EDT - 11/23/2024 11:59 PM EDT Hospital Encounter [address] [place] [address] B12 deficiency (Primary Dx); Iron malabsorption; Iron deficiency anemia due to chronic blood loss; Stage 3a chronic kidney disease (HCC); Vitamin D deficiency; Essential hypertension; Leukocytosis, unspecified type Discharge Disposition: Home or Self Care 11/23/2024 Telephone SEP [facility] [address] [place] [address] Jerome Crowley MD Results (Diabetic Eye Exam- Positive ) 11/16/2024 Refill [facility] [place] [facility] [address] [place] [phone] Annmarie Burton APRN Medication Refill 11/16/2024 Refill SEP Pulmonology [facility] [address] [place] [address] Edwige Arredondo MD Medication Refill 11/16/2024 Refill [facility] [address] [place] [phone] Jerome Crowley MD Medication Refill 11/12/2024 Results Follow-Up [place] [address] [place] [address] Farnaz Ricardo, DUTY MANAGER JAK2 [id number] W/RFLX CALR W/RFLX MPL-REF LAB, VITAMIN B12/ FOLIC ACID, TSH REFLEX TO FT4, Additional followed-up results: 6 11/05/2024 3:16 PM EDT - 11/05/2024 11:59 PM EDT Hospital Encounter [facility] [address] [place] [place] [phone] Leukocytosis, unspecified type; Other fatigue; Iron deficiency Discharge Disposition: Home or Self Care from Last 3 Months Immunizations Immunization Administration Dates Next Due Influenza Patient Reported 07/27/2021,,04/20/2018,05/21 Influenza Virus Vaccine Quad rivalant, Flublok 04/23/2022 Moderna SARS-CoV-2 Vaccine 1 2+ Yrs (Light blue border) 02/15/2021,01/19/2021 Pfizer SARS-CoV-2 Bivalent B ooster Vaccine 12+ Years (Pedersen border) 04/23/2022 Pfizer SARS-CoV-2 Vaccine 12 + Yrs (Purple Cap) 08/11/2021 Pneumococcal Polysaccharide 23 Valent 07/27/2021 ,06/18/2018 Tdap 07/21/2018 Surgical History Surgery Date Site/Laterality Comments TUBAL LIGATION CHOLECYSTECTOMY TONSILLECTOMY NECK SURGERY mass removed CYST REMOVAL from neck PELVIC LAPAROSCOPY davinci robotic KNEE SURGERY ABDOMEN SURGERY JOINT REPLACEMENT 09-01-23 and 10-12-24 Tkr ARTHROCENTESIS Medical History Medical History Date Comments Allergy seasonal Asthma Abdominal pain Back pain Depression Essential hypertension 06/22/2015 Fibromyalgia Stage 3a chronic kidney disease (HCC) 04/24/2022 Type 2 diabetes mellitus wit h stage 3a chronic kidney disease, without long-term current use of insulin (HCC) 08/09/2022 GERD (gastroesophageal reflux disease) CAD (coronary artery disease) Sleep apnea Anemia Abnormal Pap smear of cervix COPD (chronic obstructive pulmonary disease) (HC C) Coronary artery disease Anxiety Arthritis CHF (congestive heart failure) (HCC) Family History Medical History Relation Name Comments Vision Loss Daughter 1 Dania Stroke Daughter 2 Dania Asthma Father Gurvinder Colon Cancer Father Gurvinder Depression Father Gurvinder Heart Disease Father Gurvinder High Blood Pressure Father Gurvinder Hypertension Father Gurvinder Mental Illness Father Gurvinder Substance Abuse Father Gurvinder from an overdose of heroin High Blood Pressure Maternal Grandmother Helga Early Mother Cassandra Heart Disease Mother Cassandra High Blood Pressure Mother Cassandra Hypertension Mother Cassandra Miscarriages / Stillbirths Mother Cassandra Obesity Mother Cassandra Breast Cancer Paternal Aunt 1 Hali Stone Diabetes Paternal Aunt 1 Hali Zamudio Breast Cancer Paternal Aunt 2 Hali Heart Disease Paternal Grandfather Anselmo Cancer Paternal Grandmother Zhane Wolf Diabetes Paternal Grandmother Zhane Wolf Lung Cancer Paternal Grandmother Zhane Wolf Diabetes Sister 1 Aliyah Mental Illness Sister 4 Yesenia Obesity Sister 4 Yesenia No Known Problems Son Relation Name Status Comments Daughter 1 Dania Alive Daughter 2 Dania Alive Father Gurvinder (Age 53) Maternal Aunt Fabiola Maternal Grandfather Thuan Maternal Grandmother Helga Alive Mother Cassandra (Age 53) Paternal Aunt 1 Hali Stone Paternal Aunt 2 Hali Alive Paternal Grandfather Anselmo Paternal Grandmother Zhane Wolf Sister 1 Aliyah Alive Sister 2 Alive Sister 3 Alive Sister 4 Yesenia Alive Son Alive Social History Tobacco Use Types Packs/Day Years Used Date Smoking Tobacco: Every Day Cigarettes 1 28 Started: 04/02/2007 Smokeless Tobacco: Never Tobacco Cessation:Ready to Q uit: Not Asked; Counseling Given: Not Answered Alcohol Use Standard Drinks/Week Comments Not Currently 0 (1 standard drink = 0.6 oz pur e alcohol) few times a year [facility] Utilities Answer Date Recorded In the past 12 months has [employer] electric, gas, oil, or water company threatened to shut off services in your home? No 11/29/2024 Overall Financial Resource Strain (CARDIA) Answe r Date Recorded How hard is it for you to pa y for the very basics like food, housing, medical care, and heating? Not very hard 11/29/2024 PHQ-2 Answer Date Recorded PHQ-2 Total Score 0 11/29/2024 [facility] - Occupational Stress [...] in a mcc (including now)? No 03/30/2021 [facility] IP Transportation Answer D ate [...] on file Sexual Orientation Not on file Obstetrics History Para Term AB IAB SAB Ectopic Multiple Livin g Live Births 3 2 2 1 1 2 2 Date Outcome GA Total Labor Labor/2nd/3rd Weight Sex Type Anes PTL Tracy A1 A5 Name Clin SAB Term Vag-S pont Living Term Vag-S pont Living Last Filed Vital Signs Vital Sign Reading Time Taken Comments Blood Pressure 158/93 01/19/2025 3:43 PM EDT Pulse 59 01/19/2025 3:43 PM EDT Temperature 36 C (96.8 F) 01/19/2025 3:43 PM EDT Respiratory Rate 18 01/19/2025 3:43 PM EDT Oxygen Saturation 96% 01/19/2025 3:43 PM EDT Inhaled Oxygen Concentration - - Weight 131.6 kg (290 lb 1.6 oz) 01/19/2025 3:43 PM EDT Height 165.1 cm (5' 5 ) 01/07/2025 12:4 5 PM EDT Body Mass Index 48.28 01/07/2025 12:45 PM EDT Plan of Treatment Upcoming Encounters Date Type Department Care Team (Late st Contact Info) Description 02/02/2025 12:45 PM EDT Office Visit [facility]P [facility] [address]RD [place] [address] Manuel Torres MD [address] [place] [address] 02/15/2025 2:15 PM EDT Appointment [address] [place] [address] 02/15/2025 2:30 PM EDT Appointment [address] [place] [address] Farnaz Ricardo, DUTY MANAGER 1 [facility] [place] [address] 02/24/2025 8:00 AM EDT Appointment [facility] [address] [place] [address] [address] [place] [address] Rajwinder Craig MD [address] [place] [address] 03/02/2025 9:30 AM EDT Office [place] [address] Jose Luis Ortiz MD [address] [place] [address] [place] [address] 03/08/2025 11:15 AM EDT Office Visit [facility] Nephrology [address] [place] [id number] Lynn Mariano, DUTY MANAGER [address] [facility] [address] [place] [address] 03/09/2025 3:30 PM EDT Office Visit [facility] [place] [address] [facility] [address] [place] [address] Rita Cordero MD [address] [place], [place] [id number] 10/07/2025 1:10 PM EDT Office Visit [facility] [address] [facility] [address] [place] [address] Juan Russell MD [address] [facility] [address] [place] [address] Health Maintenance Due Date Last Done Comments Hepatitis B Vaccine (1 of 3 - 19+ 3-dose series) 1997 Cologuard 2023 Colon Cancer Screening 2023 Colonoscopy 2023 FIT 2023 Sigmoidoscopy 2023 Virtual Colonography 2023 Pap Smear 08/14/2024 08/14/2021, 12/20, 01/10/2012 Kidney Health: uACR 02/10/2025 02/11/2024, 02/02/2024, 12/12/2023 Influenza Vaccine (#1) 2025 , 04/30/2023, 04/10/2023, Additional history exists Annual Wellness Exam 06/28/2025 06/28/2024, 04/23/2022, 09/16/2016 Hemoglobin A1c 07/09/2025 01/07/2025, 09/18, 06/25/2024, Additional history exists Diabetic Eye Exam 10/19/2025 10/19/2024, , 09/20/2022 Lipids 11/30/2025 11/30/2024, 01/18, 10/06/2023, Additional history exists Kidney Health: eGFR 01/16/2026 01/16/2025, 01/03/2025, 12/28/2024, Additional history exists Cervical Cancer Screening 08/14/2026 HPV/Pap Cotest 08/14/2026 08/14/2021 Breast Cancer Screening 01/20/2027 01/21/20, 08/05/2024, 07/08/2024 DTaP/TDaP/Td (2 - Td or Tdap) 07/21/2028 07/21/2018 Pneumococcal Vaccine 0-49 Completed 2022, 07/27/2021, 06/18/2018 COVID-19 Vaccine Completed 06/04/2024, , 04/23/2022, Additional history exists Meningococcal B Vaccine Aged Out No l onger eligible based on patient's age to complete this topic Goals Goal Patient Goal Type Associated Problems [...] 12:58 PM EDT) No Jerome Crowley MD Procedures Procedure Name Priority Date/Time Associated Diagnosis Comments MM MAMMO DIGITAL CONRADO DIAGN RIGHT Routine 01/20/2025 10:21 AM EDT Follow-up exam, 3-6 months since previous exam TROPONIN-T HIGH SENSITIVITY 2HR Timed 01/16/2025 9:04 PM EDT XR CHEST PA AND LATERAL STAT 01/16/2025 7:20 PM EDT URINALYSIS REFLEX STAT 01/16/2025 7:11 PM EDT UA W/REFLEX TO CULTURE STAT 01/16/2025 7:11 PM EDT EXTRA PEDERSEN URINE CX STAT 01/16/2025 7:11 PM EDT BLOOD GAS, VENOUS STAT 01/16/2025 6:59 PM EDT NT PROBNP STAT 01/16/2025 6:59 PM EDT TROPONIN-T HIGH SENSITIVITY BASELINE W/ REFLEX STAT 01/16/2025 6:59 PM EDT COMPREHENSIVE METABOLIC PANEL STAT 01/16/2025 6:59 PM EDT CBC WITH DIFF STAT 01/16/2025 6:59 PM EDT SALINE LOCK IV STAT 01/16/2025 6:52 PM EDT EK EKG 12 LEAD STAT 01/16/2025 6:37 PM EDT POCT GLYCATED HEMOGLOBIN, TOTAL Routine 01/07/2025 12:58 PM EDT Type 2 diabetes mellitus with diabetic neuropathy, without long-term current use of insulin (HCC) Hyperlipidemia associated with type 2 diabetes mellitus (HCC) OSMOLALITY Routine 01/04/2025 2:19 PM EDT COREEN (acute kidney injury) Stage 3a chronic kidney disease (HCC) RIBONUCLEIC PROTEIN ANTIBODY, IGG -REF LAB Routine 01/04/2025 2:19 PM EDT COREEN (acute kidney injury) Stage 3a chronic kidney disease (HCC) VITAMIN D, 1,25-DIHYDROXY -REF LAB Routine 01/04/2025 2:19 PM EDT COREEN (acute kidney injury) Stage 3a chronic kidney disease (HCC) VITAMIN D 25 HYDROXY Routine 01/04/2025 2:19 PM EDT COREEN (acute kidney injury) Stage 3a chronic kidney disease (HCC) NT PROBNP Routine 01/03/2025 3:30 PM EDT COREEN (acute kidney injury) Stage 3a chronic kidney disease (HCC) FERRITIN Routine 01/03/2025 3:30 PM EDT COREEN (acute kidney injury) Stage 3a chronic kidney disease (HCC) IRON+TIBC Routine 01/03/2025 3:30 PM EDT COREEN [...] injury) Stage 3a chronic kidney disease (HCC) ESTROGENS, FRACTIONATED BY TMS -REF LAB Routine 12/28/2024 10:38 AM EDT Menopausal syndrome FOLLICLE STIMULATING HORMONE LEVEL Routine 12/28/2024 10:38 AM EDT Menopausal syndrome LUTEINIZING HORMONE Routine 12/28/2024 10:38 AM EDT Menopausal syndrome RENAL FUNCTION PANEL Routine 12/28/2024 10:38 AM EDT COREEN (acute kidney injury) SCANNED EKG 12/27/2024 11:14 AM EDT TROPONIN-T HIGH SENSITIVITY 2HR Timed 12/25/2024 6:25 PM EDT SALINE LOCK IV STAT 12/25/2024 5:12 PM EDT XR CHEST PA AND LATERAL STAT 12/25/2024 4:55 PM EDT TROPONIN-T HIGH SENSITIVITY BASELINE W/ REFLEX STAT 12/25/2024 4:46 PM EDT NT PROBNP STAT 12/25/2024 4:46 PM EDT COMPREHENSIVE METABOLIC PANEL STAT 12/25/2024 4:46 PM EDT CBC WITH DIFF STAT 12/25/2024 4:46 PM EDT EK EKG 12 LEAD STAT 12/25/2024 4:41 PM EDT URINALYSIS Routine 12/21/2024 2:26 PM EDT Stage 3a chronic kidney disease (HCC) Vitamin D deficiency Essential hypertension Type 2 diabetes mellitus with stage 3a chronic kidney disease, without long-term current use of insulin (HCC) PROTEIN/CREATININE RATIO URINE Routine 12/21/2024 2:26 PM [...] without long-term current use of insulin (HCC) EC ECHOCARDIOGRAM COMPLETE W DOPPLER AND COLOR FLOW MAPPING Routine 11/30/2024 2:59 PM EDT GLUCOSE METER POC Routine 11/30/2024 11:24 AM EDT SCANNED EKG 11/30/2024 9:29 AM EDT GLUCOSE METER POC Routine 11/30/2024 8:21 AM EDT IP CONSULT TO CARDIOLOGY Routine 11/30/2024 8:11 AM EDT Procedure Note - Teresita Russell APRN - 11/30/2024 8:47 AM EDTThis note is in progress. Heart & Vascular Consult Note PATIENT: Tegan Wolf 0 PCP: Jerome Crowley MD I would like to thank Julio Cesar Rod MD for requesting me to [facility] for cardiac consultation for chest pain. Reason for consult: chest pain History provided by: EMR, patient History limited by: nothing History of Present Illness: Tegan Wolf is a 44 y.o. female with a past medical history includedbut not limited to hypertension, type 2 diabetes, COPD, obesity who wasadmitted on 11/29* for dizziness and blurred vision. She also reportedchest pain. She reports she was driving when symptoms started she went [facility] and her sugar was 60 and given something to drink andher symptoms immediately improved. EKG SR Troponin: <6, <6 CT Coronary 11/29/2024 CORONARY ORIGINS: Normal position. PDA arises from the RIGHT coronarycirculation. LEFT MAIN: Bifurcates into LAD and Circumflex branches. Normal. Novessel narrowing. LAD (+ ramus intermedius if present): Moderate mid LAD narrowing estimatedat 40-50% CIRCUMFLEX: Mild narrowing, 25-49%. RCA: Mild limitation due to motion artifact. Mild narrowing due to softplaque at the proximal RCA estimated 40-50%. In the mid RCA there is also a30-40% narrowing Family History- Family History Problem Relation Age of Onset [...] Illness Sister Breast Cancer Paternal Aunt Social History- Social History Tobacco Use Smoking status: Every Day Current packs/day: 1.00 Average packs/day: 1 pack/day for 17.7 years (17.7 ttl pk-yrs) Types: Cigarettes Start date: 04/02/2007 Smokeless tobacco: Never Substance Use Topics Alcohol use: Not Currently Comment: few times a year Review Of Systems: Review of Systems Constitutional: Negative for diaphoresis, fever, malaise/fatigue andweight gain. HENT: Negative for congestion. Cardiovascular: Positive for chest pain. Negative for claudication,dyspnea on exertion, irregular heartbeat, leg swelling, near-syncope,orthopnea, palpitations and syncope. Respiratory: Negative for cough, shortness of breath and wheezing. Skin: Negative for color change. Musculoskeletal: Negative for muscle cramps, muscle weakness andmyalgias. Gastrointestinal: Negative for bloating, abdominal pain, heartburn,nausea and vomiting. Genitourinary: Negative for hematuria. Neurological: Positive for dizziness and light-headedness. Negative forheadaches. Psychiatric/Behavioral: Negative for altered mental status, depressionand memory loss. Past Medical History Past Medical History: Diagnosis Date Abdominal pain Abnormal Pap smear of cervix Allergy seasonal Anemia Anxiety Arthritis Asthma Back pain CAD (coronary artery disease) CHF (congestive heart failure) ([facility]) COPD (chronic obstructive pulmonary disease) ([facility]) Coronary artery disease Depression Essential hypertension 06/22/2015 Fibromyalgia GERD (gastroesophageal reflux disease) Sleep apnea Stage 3a chronic kidney disease ([facility]) 04/24/2022 Type 2 diabetes mellitus with stage 3a chronic kidney disease, withoutlong-term current use of insulin ([facility]) 08/09/2022 R[facility]OR W[facility]ER Medications: Prior to Admission medications Medication Sig Start Date End Date Taking? Authorizing Provider acetaminophen 325 mg Oral Tab Take 2 Tablets by mouth every 8 hours asneeded for Pain for up to 180 days. 11/18/24 05/17/25 Yes Santosh Crowley MD albuterol (PROAIR HFA) 90 mcg/actuation Inhl HFA Aerosol Inhaler Inhale 2Puffs into the lungs every 6 hours as needed. for wheezing 09/16/24 Jerome Clarke MD albuterol (PROVENTIL) 2.5 mg /3 mL (0.083 %) Inhl Solution forNebulization INHALE 3 ML BY MOUTH EVERY 4 HOURS NEEDED FOR WHEEZING11/26/22 Yes Annmarie Burton APRN aspirin 81 mg Oral Tablet, Chewable Yes Provider, Historical atorvastatin (LIPITOR) 20 mg Oral Tablet Take 1 Tablet by mouth daily zax104 days. 06/28/24 06/23/25 Yes Jerome Crowley MD Blood-Glucose Meter [facility] Use to check blood sugar daily 09/04/22 YesAnnmarie Burton APRN bldvuzybpg-skunekul-nlvkuhaxmu (BREZTRI AEROSPHERE) 160-9-4.8mcg/actuation Inhl HFA Aerosol Inhaler Inhale 2 Inhalations into the lungs2 times daily. Yes Provider, Historical busPIRone (BUSPAR) 10 mg Oral Tablet Take 1 Tablet by mouth 2 times daily.11/01/24 Yes Jerome Crowley MD carvediloL (COREG) 25 mg Oral Tablet 09/27/24 Yes Provider, Historical cloNIDine (CATAPRES) 0.1 mg Oral Tablet Take 0.1 mg by mouth 2 timesdaily. Patient taking differently: Take 0.1 mg by mouth as needed for High BloodPressure (above 150 systolic). Yes Provider, Historical diclofenac (VOLTAREN) 1 % Top Gel Apply 2 g topically 4 times daily.11/18/24 Yes Santosh Crowley MD DULoxetine (CYMBALTA) 60 mg Oral Capsule, Delayed Release(E.C.) Take 1Capsule by mouth daily for 360 days. 06/28/24 06/23/25 Yes Jerome Crowley MD ergocalciferol (DRISDOL) 1,250 mcg (50,000 unit) Oral Capsule Take 1Capsule by mouth once a week for 360 days. 11/18/24 11/13/25 Yes Santosh Crowley MD FARXIGA 10 mg Oral Tablet Take 1 Tablet by mouth daily for 360 days.06/28/24 06/23/25 Yes Jerome Crowley MD fluconazole (DIFLUCAN) 100 mg Oral Tablet Take 1 Tablet by mouth once aweek for 90 days. 11/18/24 02/16/25 Yes Santosh Crowley MD fluticasone propionate (FLONASE) 50 mcg/actuation Nasl Dawson, Suspension 1Spray by Nasal route daily. 11/18/24 Yes Santosh Crowley MD gabapentin (NEURONTIN) 600 mg Oral Tablet Take 1 Tablet by mouth 3 timesdaily for 180 days. Patient taking differently: Take 600 mg by mouth daily. 11/18/24 05/17/25Yes Santosh Crowley MD hydrOXYzine (ATARAX) 25 mg Oral Tablet Take 1 Tablet by mouth every 6hours as needed. for itching 11/18/24 Yes Santosh Crowley MD Insulin [place], Disposable, (LIA PEN NEEDLE) 32 gauge x MiscNeedle Use as directed with insulin pens daily 10/11/24 Yes Veronica Crowley MD lancets (ONETOUCH DELICA PLUS LANCET) 33 gauge [facility] Subcutaneous(Inject under the skin) 100 Each daily. 06/29/24 Yes Annmarie Burton APRN Lancets [facility] Use to check blood sugar daily 09/04/22 Yes Annmarie Burton APRN montelukast (SINGULAIR) 10 mg Oral Tablet Take 1 Tablet by mouth everyevening. 11/17/24 Yes Edwige Arredondo MD Nebulizer Accessories (ALL FLOW 4000 KIT) [facility] 1 Kit byMisc.(Non-Drug; Combo Route) route daily. 04/01/19 Yes Annmarie Burton APRN nitroGLYCERIN (NITROSTAT) 0.4 mg SL Tablet, Sublingual Place 1 Tabletunder the tongue every 5 minutes as needed for Chest pain. Dissolve 1tablet under the tongue at onset of chest pain. For persistent orworsening pain, call 911 and repeat dose every 5 minutes, up to 3 tabletsin a 15-minute period. 11/18/24 Yes Santosh Crowley MD olmesartan (BENICAR) 40 mg Oral Tablet Take 1 Tablet by mouth daily.06/08/24 Yes Freddie Britt MD omeprazole (PRILOSEC) 40 mg Oral Capsule, Delayed Release(E.C.) Take 1Capsule by mouth daily. 11/18/24 Yes Santosh Crowley MD ondansetron (ZOFRAN-ODT) 4 mg Oral Tablet, Rapid Dissolve Take 1 Tablet bymouth every 6 hours as needed for Nausea for up to 180 days. Yes Jerome Crowley MD semaglutide 2 mg/dose (8 mg/3 mL) SubQ Pen Injector Subcutaneous (Injectunder the skin) 2 mg once a week for 360 days. 06/28/24 06/23/25 Yes Jerome Crowley MD tiZANidine (ZANAFLEX) 4 mg Oral Tablet Take 1 Tablet by mouth 3 timesdaily as needed. for muscle spasms Patient taking differently: Take 1 mg by mouth daily as needed for Musclespasms. for muscle spasms 06/09/24 Yes Annmarie uBrton APRN traMADoL (ULTRAM) 50 mg Oral Tablet 1-2 tablets every 6 hours as neededfor pain 09/01/24 Yes Annmarie Burton APRN docusate sodium (COLACE) 100 mg Oral Capsule Provider, Historical ferrous sulfate 325 mg (65 mg iron) Oral Tablet, Delayed Release (E.C.)TAKE 1 TABLET BY MOUTH TWICE DAILY Patient not taking: Reported on 11/29/2024 02/11/24 Kayli Kebede MD fluticasone propion-salmeteroL (ADVAIR DISKUS) 500-50 mcg/dose Inhl Diskwith Device Inhale 1 Puff into the lungs 2 times daily. into the lungs Patient not taking: Reported on 11/29/2024 08/02/24 Jerome Crowley MD hydrALAZINE (APRESOLINE) 25 mg Oral Tablet TAKE 1 TABLET BY MOUTH THREETIMES DAILY WHILE OFF LISINOPRIL FOR 2 WEEKS Patient not taking: Reported on 11/29/2024 Provider, Historical insulin lispro (HUMALOG) 100 unit/mL SubQ Insulin Pen INJECT 5 TO 10 UNITSSUBCUTANEOUSLY DAILY NEEDED IF SUGAR IS HIGH *DISCARD REMAINDER OF PENAFTER 28 DAYS* Patient not taking: Reported on 11/29/2024 04/07/23 Provider, Historical Inpatient Medications: aspirin 81 mg Oral Daily atorvastatin 20 mg Oral Daily budesonide-formoteroL 2 Puff Inhalation RESP BID busPIRone 10 mg Oral BID carvediloL 25 mg Oral BID WM dapagliflozin propanediol 10 mg Oral Daily docusate sodium 100 mg Oral Daily DULoxetine 60 mg Oral Daily ferrous sulfate 325 mg Oral BID fluticasone propionate 1 Dawson Nasal Daily gabapentin 600 mg Oral TID insulin aspart U-100 1-10 Units Subcutaneous QID WM losartan 100 mg Oral Daily montelukast 10 mg Oral QPM nicotine 1 Patch Transdermal Daily And nicotine 1 Patch Transdermal Nightly pantoprazole 40 mg Oral BID Past Surgical History Past Surgical History: Procedure Laterality Date ABDOMEN SURGERY ARTHROCENTESIS CHOLECYSTECTOMY CYST REMOVAL from neck JOINT REPLACEMENT 09-01-23 and 10-12-24 Tkr KNEE SURGERY NECK SURGERY mass removed PELVIC LAPAROSCOPY davinci robotic TONSILLECTOMY TUBAL LIGATION Allergy Allergies Allergen Reactions Macrolide Antibiotics Rash Penicillins Rash Patient Active Problem List Diagnosis Degenerative disc disease, lumbar History of asthma Essential hypertension Migraine without aura and without status migrainosus, not intractable Spondylolisthesis PAPO (obstructive sleep apnea) Family history of colon cancer Moderate persistent asthma without complication Stage 3a chronic kidney disease (HCC) Iron deficiency Type 2 diabetes mellitus with stage 3a chronic kidney disease, withoutlong-term current use of insulin (HCC) 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 Primary osteoarthritis of right knee History of bilateral knee replacement Otalgia, bilateral Abnormal auditory perception of both ears Sensorineural hearing loss, bilateral 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 Cardiovascular: Rate and Rhythm: Normal rate and regular rhythm. Pulses: Normal pulses. Pulmonary: Effort: Pulmonary effort is normal. Breath sounds: Normal breath sounds. Abdominal: General: Abdomen is flat. Musculoskeletal: Right lower leg: No edema. Left lower leg: No edema. Skin: General: Skin is warm and dry. Capillary Refill: Capillary refill takes less than 2 seconds. Neurological: General: No focal deficit present. Mental Status: She is alert. Psychiatric: Mood and Affect: Mood normal. 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 LAD 40-50%. LCx 25-49%. RCA 40-50% -bASA, increase lipitor to 40 mg Dizziness -Hypoglycemia ROTOR WINDER -MRI with no acute findings -Per others Type 2 Diabetes -A1c 5.5 Hyperlipidemia -LDL 100 (04/2022) - [facility]ER lipitor 20 mg -- increase lipitor to 40 mg -Update lipid panel Hypertension -[facility]OT[facility] W[facility]ER coreg 25 mg, olmesartan 40 mg Plan: Check ECHO Continue bASA, lipitor, coreg, Farxiga, losartan Further input from Dr. Angel Russell, DUTY MANAGER Heart and Vascular 11/30/2024 Disposition Perspective - Medically Ready for Discharge: No Anticipated Discharge: 1-2 days Discharge when / if: TBD Discussed with Dr. Ortiz. Will start ranexa. Okay to discharge withoutpatient follow up. ECG AND WAVEFORMS - TELEMETRY Routine 11/30/2024 7:05 AM EDT LIPID SCREEN Routine 11/30/2024 5:50 AM EDT BASIC METABOLIC PANEL Early AM 11/30/2024 5:50 AM EDT CBC Early AM 11/30/2024 5:49 AM EDT GLUCOSE METER POC Routine 11/29/2024 9:07 PM EDT ECG AND WAVEFORMS - TELEMETRY Routine 11/29/2024 7:05 PM EDT GLUCOSE METER POC Routine 11/29/2024 6:15 PM EDT MRI BRAIN W WO CONTRAST LUIS 11/29/2024 6:[address] ANGIOGRAM CORONARY W CONTRAST STAT 11/29/2024 4:10 PM EDT ECG AND WAVEFORMS - TELEMETRY Routine 11/29/2024 3:02 PM EDT MAGNESIUM LEVEL Routine 11/29/2024 2:19 PM EDT PHOSPHORUS LEVEL Routine 11/29/2024 2:19 PM EDT TROPONIN-T HIGH SENSITIVITY 2HR Timed 11/29/2024 2:19 PM EDT ADMIT Routine 11/29/2024 1:04 PM EDT TROPONIN-T HIGH SENSITIVITY BASELINE W/ REFLEX STAT 11/29/2024 12:14 PM EDT BASIC METABOLIC PANEL STAT 11/29/2024 12:14 PM EDT CBC STAT 11/29/2024 12:14 PM EDT XR CHEST AP PORTABLE STAT 11/29/2024 11:53 AM EDT EK EKG 12 LEAD STAT 11/29/2024 11:33 AM EDT URINALYSIS Routine 11/23/2024 11:31 AM EDT Stage 3a chronic kidney disease (HCC) Vitamin D deficiency Essential hypertension Leukocytosis, unspecified type PROTEIN/CREATININE RATIO URINE Routine 11/23/2024 11:31 AM EDT Stage 3a chronic kidney disease (HCC) Vitamin D deficiency Essential hypertension Leukocytosis, unspecified type PARATHYROID HORMONE INTACT Routine 11/23/2024 11:31 AM EDT Stage 3a chronic kidney disease (HCC) Vitamin D deficiency Essential hypertension Leukocytosis, unspecified type VITAMIN D, 1,25-DIHYDROXY -REF LAB Routine 11/23/2024 11:31 AM EDT Stage 3a chronic kidney disease (HCC) Vitamin D deficiency Essential hypertension Leukocytosis, unspecified type VITAMIN D 25 HYDROXY Routine 11/23/2024 11:31 AM EDT Stage 3a chronic kidney disease (HCC) Vitamin D deficiency Essential hypertension Leukocytosis, unspecified type MAGNESIUM LEVEL Routine 11/23/2024 11:31 AM EDT Stage 3a chronic kidney disease (HCC) Vitamin D deficiency Essential hypertension Leukocytosis, unspecified type PHOSPHORUS LEVEL Routine 11/23/2024 11:31 AM EDT Stage 3a chronic kidney disease (HCC) Vitamin D deficiency Essential hypertension Leukocytosis, unspecified type URIC ACID Routine 11/23/2024 11:31 AM EDT Stage 3a chronic kidney disease (HCC) Vitamin D deficiency Essential hypertension Leukocytosis, unspecified type CBC Routine 11/23/2024 11:31 AM EDT Stage 3a chronic kidney disease (HCC) Vitamin D deficiency Essential hypertension Leukocytosis, unspecified type BASIC METABOLIC PANEL Routine 11/23/2024 11:31 AM EDT Stage 3a chronic kidney disease (HCC) Vitamin D deficiency Essential hypertension Leukocytosis, unspecified type FERRITIN Routine 11/23/2024 11:31 AM EDT Stage 3a chronic kidney disease (HCC) Vitamin D deficiency Essential hypertension Leukocytosis, unspecified type IRON+TIBC Routine 11/23/2024 11:31 AM EDT Stage 3a chronic kidney disease (HCC) Vitamin D deficiency Essential hypertension Leukocytosis, unspecified type MPL MUTATION DETECTION-REF LAB Routine 11/05/2024 4:02 PM EDT Leukocytosis, unspecified type CALR EXON 9 MUTATION ANALYSIS-REF LAB Routine 11/05/2024 4:02 PM EDT Leukocytosis, unspecified type FERRITIN Routine 11/05/2024 4:02 PM EDT Iron deficiency CBC WITH DIFF STAT 11/05/2024 4:02 PM EDT Iron deficiency IRON+TIBC Routine 11/05/2024 4:02 PM EDT Iron deficiency TSH REFLEX TO FT4 Routine 11/05/2024 4:02 PM EDT Leukocytosis, unspecified type Other fatigue VITAMIN B12/ FOLIC ACID Routine 11/05/2024 4:02 PM EDT Leukocytosis, unspecified type Other fatigue BCR-ABL1, QUALITATIVE WITH QUANT REFLEX (INITIAL DIAGNOSIS)-REF LAB Routine 11/05/2024 4:02 PM EDT Leukocytosis, unspecified type JAK2 V617F W/RFLX CALR W/RFLX MPL-REF LAB Routine 11/05/2024 4:02 PM EDT Leukocytosis, unspecified type HM DIABETES EYE EXAM Routine 10/19/2024 4:47 PM EDT [facility] CYTOLOGY REQUEST (PAP ONLY) Routine 08/14/2021 2:28 PM EST Cervical cancer screening from Last 3 Months or Most Recently Relevant to Health Maintenance Results * MM MAMMO DIGITAL CONRADO DIAGN RIGHT (01/20/2025 10:21 AM EDT) Anatomical Region Laterality Modality Breast Right Mammography 01/20/2025 10:2 1 AM EDT Impressions 01/20/2025 10:49 AM EDT Probably Benign ([id number]) ASSESSMENT TEXT: Stable probably benign group of calcifications in the right breast RECOMMENDATION: Diagnostic Mammogram in 6 Months Bilateral . . COMMENTS: DISCLAIMER *The patient was notified by MyChart or mail of the results for this examination. *The patient's information was entered into a reminder system with a target due date for the next breast imaging, in accordance with the [place] [employer] and the Society of Breast Imaging recommendations. *Breast Imaging has a false negative rate of 15%. *Any patient with a palpable abnormality, unexplained by breast imaging, should be managed on a clinical basis by the attending physician. Narrative 01/20/2025 10:49 AM EDT EXAM: MM MAMMO DIGITAL CONRADO DIAGN RIGHT EXAM DATE: 01/20/2025 10:21 AM INDICATION: [id number] for follow-up examination after completed treatment for conditions other than malignant [id number] The patient is a 44-year-old female who presents for short-term interval follow-up of probably benign calcifications in the right breast. COMPARISON STUDIES: Compared with prior studies the most recent being 08/05/2024 MM MAMMO DIGITAL CONRADO DIAGN RIGHT at [facility] 07/08/2024 MM MAMMO DIGITAL CONRADO SCREEN BILAT at [facility] DENSITY: The breasts are heterogeneously dense, [...] RIGHT EXAM DATE: 01/20/2025 10:21 AM INDICATION: [id number] for follow-up examination after completedtreatment for conditions other than malignant [id number] The patient is a 44-year-old female who presents for short-term interval follow-up of probably benign calcifications in the right breast. COMPARISON STUDIES: Compared with prior studies the most recent being 08/05/2024 MM MAMMO DIGITAL CONRADO DIAGN RIGHT at [facility] 07/08/2024 MM MAMMO DIGITAL CONRADO SCREEN BILAT at [facility] [place] DENSITY: The breasts are heterogeneously dense, which may obscuresmall masses. FINDINGS: 6 month follow-up mammogram of the right breast including magnificationviews demonstrates a stable group of round and punctate calcifications in theinferior breast, posterior depth. No associated mass. The remainder of the rightbreast is stable without suspicious mass, new calcifications or areas ofarchitectural distortion. IMPRESSION: Probably Benign ([id number]) ASSESSMENT TEXT: Stable probably benign group of calcifications in theright breast RECOMMENDATION: Diagnostic Mammogram in 6 Months Bilateral . . COMMENTS: DISCLAIMER *The patient was notified by MyChart or mail of the results for this examination. *The patient's information was entered into a reminder system with atarget due date for the next breast imaging, in accordance with the [place] [employer] and the Society of Breast Imaging recommendations. *Breast Imaging has a false negative rate of 15%. *Any patient with a palpable abnormality, unexplained by breast imaging,should be managed on a clinical basis by the attending physician. Jerome Crowley MD IM MAMMOGRAPHY ORDERABLES Fin al Result * TROPONIN-T HIGH SENSITIVITY 2HR (01/16/2025 9:04 PM EDT) Only the most recent of3 resultswithin the time period is included. my-nRhdgsckb-V 2HR <6 <14 ng/L 01/16/2025 9:23 PM EDT [facility] hs-cTnT 2Hr Delta from Baseline 01/16/2025 9:23 PM EDT [facility] Comment:Unable to calculate, result is outside instrument's measuring range. Blood VENOUS BLOOD / Unknown Venipuncture / Unknown 01/16/2025 9:04 PM EDT 01/16/2025 9:06 PM EDT Narrative [facility] - 01/16/2025 9:23 PM EDT Ingestion of julio doses of biotin (>5 mg/day) taken within 8 hours of drawing blood sample can interfere with this immunoassay test. Marjorie Cox DUTY MANAGER CHEMISTRY ORDERABLES Final Result [facility] [address] [facility] [address] * XR CHEST PA AND LATERAL (01/16/2025 7:20 PM EDT) Only the most recent of2 resultswithin the time period is included. Anatomical Region Laterality Modality Chest Radiographic [place] [...] please contactthe office of the ordering clinician. Marjorie Cox APRN IMG DIAGNOSTIC IMAGING ORDE RABBILL Final Result * (ABNORMAL) URINALYSIS REFLEX (01/16/2025 7:11 PM EDT) UA Color Yellow 01/16/2025 7:26 PM EDT [facility] UA Appear Clear Clear 01/16/2025 7:26 PM EDT [facility] UA Glucose >=1000(A) Negative mg/dL 01/16/2025 7:26 PM EDT [facility] UA Ketones Negative Negative mg/dL 01/16/2025 7:26 PM EDT [place] [facility] Blood Trace-Intac t(A) Negative 01/16/2025 7:26 PM EDT [place] [facility] pH 6.0 5.0 - 8.0 pH 01/16/2025 7:26 PM EDT [place] [facility] Protein Negative Negative mg/dL 01/16/2025 7:26 PM EDT [place] [facility] Urobilinogen 0.2 <=1 mg/dL 7:26 PM EDT [place] [facility] Bili Negative Negative 01/16/2025 7:26 PM EDT [place] [facility] Nitrite Negative Negative 01/16/2025 7:26 PM EDT [place] [facility] Leuk Est Negative Negative 01/16/2025 7:26 PM EDT [place] [facility] Spec Grav 1.025 1.001 - 1.035 no units 01/16/2025 7:26 PM EDT [facility] [facility] Comment:Reference range ely d for random specimens only. UA WBC 0 0 - 4 /HPF 01/16/2025 7:26 PM EDT [place] [facility] RBC 2 0 - 3 /HPF 01/16/2025 7:26 PM EDT [place] [facility] Squam Epi 4+ /LPF 01/16/2025 7:26 PM EDT [place] [facility] Bacteria Trace(A) Negative /HPF 01/16/2025 7:26 PM EDT [place] Urine STRUCTURE OF URINARY TRACT PROPER / Unknown 01/16/2025 7:11 PM EDT 01/16/2025 7:14 PM EDT Marjorie Cox DUTY MANAGER URINE ORDERABLES Final Resu lt [facility] [address] [facility] [place] [address] * EXTRA PEDERSEN URINE CX (01/16/2025 7:11 PM EDT) Urine STRUCTURE OF URINARY TRACT PROPER / Unknown 01/16/2025 7:11 PM EDT 01/16/2025 7:14 PM EDT Marjorie Cox APRN MICROBIOLOGY - GENERAL ORDE RABLES Final Result Performing Organization Address [facility] Co de Phone Number [facility] [address] [place] [address] * TROPONIN-T HIGH SENSITIVITY BASELINE W/ REFLEX (01/16/2025 6:59 PM EDT) Only the most recent of3 resultswithin the time period is included. nv-vHtccapzb-P <6 <14 ng/L 01/16/2025 7:26 PM EDT [facility] Blood VENOUS BLOOD / Unknown Venipuncture / Unknown 01/16/2025 6:59 PM EDT 01/16/2025 7:05 PM EDT Narrative [facility] - 01/16/2025 7:26 PM EDT Ingestion of julio doses of biotin (>5 mg/day) taken within 8 hours of drawing blood sample can interfere with this immunoassay test. Marjorie Cox APRN CHEMISTRY ORDERABLES Final Result Performing Organization Address [facility] Co de Phone Number [facility] [address] [place] [address] * (ABNORMAL) BLOOD GAS, VENOUS (01/16/2025 6:59 PM EDT) pH Venous 7.38 7.32 - 7.42 pH 01/16/2025 7:08 PM EDT [facility] pCO2 Venous 42 41 - 51 mmHg 01/16/2025 7:08 PM EDT [facility] pO2 Venous 64(H) 25 - 40 mmHg 01/16/2025 7:08 PM EDT [facility] Comment:Interpret with cauti on. Not recommended to evaluate patient's oxygenation status. Base Excess Mk -0.8 mmol/L 7:08 PM EDT [facility] Hco3 Venous 24.5 24.0 - 28.0 mmol/L 01/16/2025 7:08 PM EDT [facility] CO2 Total Mk 22(L) 25 - 29 mmol/L 01/16/2025 7:08 PM EDT [facility] O2 Sat. Venous 94.1(H) 40.0 - 70.0 % 01/16/2025 7:08 PM EDT [facility] Inspired O2 ROOM AIR 01/16/2025 7:08 PM EDT [facility] Blood VENOUS BLOOD / Unknown Venipuncture / Unknown 01/16/2025 6:59 PM EDT 01/16/2025 7:05 PM EDT Marjorie Cox DUTY MANAGER CHEMISTRY ORDERABLES Final Result [facility] [address] [place] [address] * (ABNORMAL) CBC WITH DIFF (01/16/2025 6:59 PM EDT) Only the most recent of3 resultswithin the time period is included. WBC 14.6(H) 3.7 - 10.3 x10(3)/mcL 01/16/2025 7:08 PM EDT [facility] RBC 4.56 3.90 - 5.20 x10(6)/mcL 01/16/2025 7:08 PM EDT [facility] Hgb 14.7 11.2 - 15.7 g/dL 01/16/2025 7:08 PM EDT [facility] Hct 45.0 34.0 - 45.0 % 01/16/2025 7:08 PM EDT [facility] MCV 98.7 80.0 - 100.0 fL 01/16/2025 7:08 PM EDT [facility] MCH 32.2 26.0 - 34.0 pg 01/16/2025 7:08 PM EDT [facility] MCHC 32.7 30.7 - 35.5 g/dL 01/16/2025 7:08 PM EDT [place] RDW 16.6(H) <=14.9 % 01/16/2025 7:08 PM EDT [place] Platelet 203 155 - 369 x10(3)/[facility] 01/16/2025 7:08 PM EDT [place] MPV 11.3 8.8 - 12.5 fL 01/16/2025 7:08 PM EDT [place] Neut Percent 77.7 % 01/16/2025 7:08 PM EDT [facility] Comment:Neutrophils equals s egs plus bands Imm Gran% 1.0 % 01/16/2025 7:08 PM EDT [facility] Comment:Automated count of m etamyelocytes, myelocytes and promyelocytes. Lymph Percent 16.3 % 01/16/2025 7:08 PM EDT [facility] [place] Percent 4.9 % 01/16/2025 7:08 PM EDT [facility] Eos Percent 0.0 % 01/16/2025 7:08 PM EDT [place] Baso Percent 0.1 % 01/16/2025 7:08 PM EDT [facility] Neut # 11.3(H) 1.6 - 6.1 x10(3)/[facility] 01/16/2025 7:08 PM EDT [facility] Comment:Neutrophils equals s egs plus bands IMMGRAN# 0.1 0.0 - 0.1 x10(3)/mcL 01/16/2025 7:08 PM EDT [facility] Comment:Automated count of m etamyelocytes, myelocytes and promyelocytes. An absolute IG <0.1 is reported as 0.0. Lymph # 2.4 1.2 - 3.9 x10(3)/mcL 01/16/2025 7:08 PM EDT [facility] [place] # 0.7 0.3 - 0.9 x10(3)/[facility] 01/16/2025 7:08 PM EDT [facility] Eos# 0.0 0.0 - 0.5 x10(3)/mcL 01/16/2025 7:08 PM EDT [facility] Baso # 0.0 0.0 - 0.1 x10(3)/mcL 01/16/2025 7:08 PM EDT [facility] Blood VENOUS BLOOD / Unknown Venipuncture / Unknown 01/16/2025 6:59 PM EDT 01/16/2025 7:05 PM EDT Marjorie Cox APRN HEMATOLOGY ORDERABLES Final Result Performing Organization Address [facility] de Phone Number [facility] [address] [place] [address] * (ABNORMAL) NT PROBNP (01/16/2025 6:59 PM EDT) Only the most recent of3 resultswithin the time period is included. NT Pro-BNP 523(H) <=192 pg/mL 01/16/2025 7:26 PM EDT [facility] Blood VENOUS BLOOD / Unknown Venipuncture / Unknown 01/16/2025 6:59 PM EDT 01/16/2025 7:05 PM EDT Narrative [facility] - 01/16/2025 7:26 PM EDT An NT pro-BNP level less than 300 pg/mL in any patient, regardless of age, effectively rules out acute CHF with a 99% negative predictive value. Ingestion of julio doses of biotin (>5 mg/day) taken within 8 hours of drawing blood sample can interfere with this immunoassay test. Marjorie Cox APRN CHEMISTRY ORDERABLES Final Result Performing Organization Address [facility] de Phone Number [facility] [address] [facility] [place] [address] * (ABNORMAL) COMPREHENSIVE METABOLIC PANEL (01/16/2025 6:59 PM EDT) Only the most recent of2 resultswithin the time period is included. Sodium 140 136 - 145 mmol/L 01/16/2025 7:26 PM EDT [facility] Potassium 4.0 3.5 - 5.0 mmol/L 01/16/2025 7:26 PM [facility] Chloride 107 98 - 107 mmol/L 01/16/2025 7:26 PM [facility] Total CO2 21(L) 22 - 29 mmol/L 01/16/2025 7:26 PM [facility] Anion Gap 12 7 - 16 mmol/L 01/16/2025 7:26 PM [facility] Calcium 8.8 8.6 - 10.4 mg/dL 01/16/2025 7:26 PM [facility] Glucose Lvl 202(H) 70 - 99 mg/dL 01/16/2025 7:26 PM [facility] BUN 21(H) 6 - 20 mg/dL 01/16/2025 7:26 PM [facility] Creatinine 1.13 0.51 - 1.30 mg/dL 01/16/2025 7:26 PM [facility] Albumin 3.7 3.5 - 5.2 gm/dL 01/16/2025 7:26 PM [facility] Total Protein 6.1(L) 6.4 - 8.3 gm/dL 01/16/2025 7:26 PM [facility] Bili Total 0.8 0.2 - 1.3 mg/dL 01/16/2025 7:26 PM [facility] ALT 42(H) <=41 U/L 01/16/2025 7:26 PM [facility] AST 20 <=40 U/L 01/16/2025 7:26 PM [facility] Alk Phos 59 36 - 123 U/L 01/16/2025 7:26 PM [facility] eGFR (CKD-EPIcr 2020) 60 >=60 mL/min/1.7 3 m2 01/16/2025 7:26 PM [facility] Comment:Estimated GFR was ca lculated using the CKD-EPIcr (2020) equation refit without race. The equation is recommended by the [employer] - [place] [employer]ph[employer] Task Force. Blood VENOUS BLOOD / Unknown Venipuncture / Unknown 01/16/2025 6:59 PM EDT 01/16/2025 7:05 PM EDT us Marjorie Cox APRN CHEMISTRY ORDERABLES Final Result [facility] [address] [place] [address] * EK EKG 12 LEAD (01/16/2025 6:37 PM EDT) Only the most recent of3 resultswithin the time period is included. Anatomical Region Laterality Modality Electrocardiogra phy 01/16/2025 6:43 PM EDT Impressions 01/16/2025 9:27 PM EDT [facility] Test Date: 2025-01-16 Pat Name: TEGAN WOLF Department: [facility] Room: [facility] Gender: Female Box Worker: [facility] : 1980 Requested By: MARJORIE PAIGE Order Number: [id number] Reading MD: José Luis Mancini Measurements Intervals [place] Rate: 81 P: 52 IN: 165 QRS: 5 QRSD: 95 T: 32 QT: 396 QTc: 460 Interpretive Statements SINUS RHYTHM WHEN COMPARED TO PREVIOUS ECG:NO SIGNIFICANT CHANGES ARE NOTED Electronically Signed On 01-16-2025 21:27:21 EDT by José Luis Mancini Narrative Procedure Note José Luis Mancini MD - 01/16/2025 IMPRESSION [facility] [facility] Test Date: 2025-01-16 Pat Name: TEGAN WOLF Department: DEPID Room: [facility] Gender: Female Box Worker: [facility] : 1980 Requested By: MARJORIE PAIGE Order Number: [id number] Reading SOURAV Mancini Measurements Intervals [place] Rate: 81 P: 52 IN: 165 QRS: 5 QRSD: 95 T: 32 QT: 396 QTc: 460 Interpretive Statements SINUS RHYTHM WHEN COMPARED TO PREVIOUS ECG:NO SIGNIFICANT CHANGES ARE NOTED Electronically Signed On 01-16-2025 21:27:21 EDT by José Luis Mancini Marjorie Cox APRN IMG ECG ORDERABLES Final Re sult * POCT GLYCATED HEMOGLOBIN, TOTAL (01/07/2025 12:58 PM EDT) Pathologist [facility] Hemoglobin A1C 5.7 4 - 6 % SEP OFFICE Lot Number SEP OFFICE Expiration Date SEP OFFICE SeriAl # SEP OFFICE 01/07/2025 12:5 8 PM EDT Rita Cordero MD POINT OF CARE TEST ORDERABLES Final Result Performing Organization Address City/[facility] Co de Phone Number SEP OFFICE * VITAMIN D 25 HYDROXY (01/04/2025 2:19 PM EDT) Only the most recent of3 resultswithin the time period is included. [facility] Vit D 25 OH 46.6 30.0 - 150.0 ng/mL 01/04/2025 9:05 PM EDT [facility] Comment: Preferred: >= 30 ng/mL Insufficient: 21-29 ng/mL Deficient <= 20 ng/mL Possible Toxicity: >150 ng/mL Samples should not be taken from patients receiving therapy with high biotin doses (i.e. > 5 mg/day) until at least 8 hours following the last biotin administration. Blood VENOUS BLOOD / Unknown Venipuncture / Unknown 01/04/2025 2:19 PM EDT 01/04/2025 2:19 PM EDT us Lynn Mariano DUTY MANAGER CHEMISTRY ORDERABLES Elizabeth l Result [facility] [address] [facility] , [place] [address] * RIBONUCLEIC PROTEIN ANTIBODY, IGG -REF LAB (01/04/2025 2:19 PM EDT) [facility] Gomes/WAITER/WAITRESS ROOM SERVICE Ab, IgG 4 0 - 19 Units 01/06/2025 2:07 PM EDT [employer] Comment: INTERPRETIVE INFORMATION: Gomes/WAITER/WAITRESS ROOM SERVICE (ERNA) Antibody, IgG 19 Units or Less ............. Negative 20 to 39 Units ............... Weak Positive 40 to 80 Units ............... Moderate Positive 81 Units or greater .......... Strong Positive Gomes/WAITER/WAITRESS ROOM SERVICE antibodies are frequently seen in patients with mixed connective tissue disease (MCTD) and are also associated with other systemic autoimmune rheumatic diseases (SARDs) such as systemic lupus erythematosus (SLE), systemic sclerosis, and myositis. Antibodies targeting the Gomes/WAITER/WAITRESS ROOM SERVICE antigenic complex also recognize Gomes antigens, therefore, the Gomes antibody response must be considered when interpreting these results. Performed By: [facility] [address] [place] [address] Qa Manager: Patric Aranda MD, PhD CLIA Number: [id number] Blood VENOUS BLOOD / Unknown Venipuncture / Unknown 01/04/2025 2:19 PM EDT 01/04/2025 2:19 PM EDT us Lynn Mariano DUTY MANAGER IMMUNOLOGY ORDERABLES Fin al Result [employer] [facility] [address] [id number] * VITAMIN D, 1,25-DIHYDROXY -REF LAB (01/04/2025 2:19 PM EDT) Only the most recent of3 resultswithin the time period is included. Vit D 1,25 57.9 19.9 - 79.3 pg/mL 01/06/2025 3:08 PM EDT [employer] Comment: INTERPRETIVE INFORMATION: Vitamin D, 1,25-Dihydroxy This test is primarily indicated during patient evaluation for hypercalcemia and renal failure. A normal result does not rule out Vitamin D deficiency. The recommended test for diagnosing Vitamin D deficiency is Vitamin D 25-hydroxy. Performed By: [facility] [address] [place] [address] Qa Manager: Patric Aranda MD, PhD CLIA Number: [id number] Blood VENOUS BLOOD / Unknown Venipuncture / Unknown 01/04/2025 2:19 PM EDT 01/04/2025 2:19 PM EDT Lynn Mariano DUTY MANAGER CHEMISTRY ORDERABLES Elizabeth l Result [employer] [address] [place] [address] * (ABNORMAL) OSMOLALITY (01/04/2025 2:19 PM EDT) Osmo-Serum 299(H) 275 - 295 mOsm/kg 01/04/2025 9:24 PM EDT [facility] Blood VENOUS BLOOD / Unknown Venipuncture / Unknown 01/04/2025 2:19 PM EDT 01/04/2025 2:19 PM EDT Lynn Mariano APRN CHEMISTRY ORDERABLES Elizabeth l Result Performing Organization Address [facility] Co de Phone Number [facility] [address] [facility] , [place] [address] * IRON+TIBC (01/03/2025 3:30 PM EDT) Only the most recent of3 resultswithin the time period is included. Iron 71 30 - 160 mcg/dL 01/03/2025 9:43 PM EDT [facility] Transferrin 203 200 - 360 mg/dL 01/03/2025 9:43 PM EDT [facility] Transferrin Saturation 25 20 - 50 % 01/03/2025 9:43 PM EDT [facility] TIBC 284 250 - 400 mcg/dL 01/03/2025 9:43 PM EDT [facility] Blood VENOUS BLOOD / Unknown Venipuncture / Unknown 01/03/2025 3:30 PM EDT 01/03/2025 3:30 PM EDT Lynn Mariano DUTY MANAGER CHEMISTRY ORDERABLES Elizabeth l Result [facility], [address] , [place] [address] * PROTEIN/CREATININE RATIO URINE (01/03/2025 3:30 PM EDT) Only the most recent of3 resultswithin the time period is included. Urine Protein 16.7 mg/dL 01/03/2025 9:05 PM EDT [facility] Urine Creatinine 146.0 mg/dL 01/03/2025 9:05 PM EDT [facility] Ur Protein/Creat 0.11 mg/mg 01/03/2025 9:05 PM EDT [facility] Urine STRUCTURE OF URINARY TRACT PROPER / Unknown 01/03/2025 3:30 PM EDT 01/03/2025 3:30 PM EDT us Lynn Mariano DUTY MANAGER URINE ORDERABLES Final Re sult Performing Organization Address [facility]/ZIP Co de Phone Number [facility], [address] , [facility] [place] [address] [facility] [address] [place] [id number] * (ABNORMAL) CBC (01/03/2025 3:30 PM EDT) Only the most recent of5 resultswithin the time period is included. WBC 13.5(H) 3.7 - 10.3 x10(3)/mcL 01/03/2025 [...] 01/03/2025 8:41 PM EDT [facility] MCHC 31.8 30.7 - 35.5 g/dL 01/03/2025 8:41 PM EDT [facility] RDW 15.1(H) <=14.9 % 01/03/2025 8:41 PM EDT [facility] Platelet 206 155 - 369 x10(3)/mcL 01/03/2025 8:41 PM EDT [facility] MPV 11.6 8.8 - 12.5 fL 01/03/2025 8:41 PM EDT [facility] Blood VENOUS BLOOD / Unknown Venipuncture / Unknown 01/03/2025 3:30 PM EDT 01/03/2025 3:30 PM EDT Lynn Mariano APRN HEMATOLOGY ORDERABLES Fin al Result Performing Organization Address [facility]/ZIP Co de Phone Number [facility], [address] , [place] [address] * OSMOLALITY URINE (01/03/2025 3:30 PM EDT) Urine Osmolality 970 50 - 1,400 mOsm/kg 01/03/2025 11:49 PM EDT [facility] Urine STRUCTURE OF URINARY TRACT PROPER / Unknown 01/03/2025 3:30 PM EDT 01/03/2025 3:30 PM EDT Narrative [facility] - 01/03/2025 11:49 PM EDT Normal Range: 50 mOSM/kg during maximum water diuresis to 1400 mOSM/kg during maximum urinary concentration. Reference range valid for random specimens only. Lynn Mariano APRN URINE ORDERABLES Final Re sult Performing Organization Address [facility] Co de Phone Number [facility], [address] , [place] [address] * (ABNORMAL) URINALYSIS (01/03/2025 3:30 PM EDT) Only the most recent of3 resultswithin the time period is included. UA Color Yellow 01/03/2025 8:09 PM EDT [facility] UA Appear Clear Clear 01/03/2025 8:09 PM EDT [facility] UA Glucose 4+ (>1000mg/dL) (A) Negative mg/dL 01/03/2025 8:09 PM EDT [facility] UA Ketones Negative Negative mg/dL 01/03/2025 8:09 PM EDT [facility] UA Blood Negative Negative 01/03/2025 8:09 PM EDT [facility] UA pH 6.5 5.0 - 8.0 pH 01/03/2025 8:09 PM EDT [facility] UA Protein Trace (10-20 mg/dL) Negative mg/dL 01/03/2025 8:09 PM EDT [facility] UA Urobilinogen Normal <=1 mg/dL 8:09 PM EDT [facility] UA Bili Negative Negative 01/03/2025 8:09 PM EDT [facility] UA Nitrite Negative Negative 01/03/2025 8:09 PM EDT [facility] UA Leuk Est Negative Negative 01/03/2025 8:09 PM EDT [facility] UA Spec Grav 1.035 1.001 - 1.035 no units 01/03/2025 8:09 PM EDT [facility] Comment:Reference range ely d for random specimens only. UA WBC 1 0 - 4 /HPF 01/03/2025 8:09 PM EDT [facility] UA RBC 2 0 - 3 /HPF 01/03/2025 8:09 PM EDT [facility] UA Squam Epi 2+ /LPF 01/03/2025 8:09 PM EDT [facility] UA Mucus Trace /LPF 01/03/2025 8:09 PM EDT [facility] Urine STRUCTURE OF URINARY TRACT PROPER / Unknown 01/03/2025 3:30 PM EDT 01/03/2025 3:30 PM EDT Lynn Mariano APRN URINE ORDERABLES Final Re sult Performing Organization Address [facility]/ZIP Co de Phone Number [facility] [address] [facility] , [place] [address] * (ABNORMAL) URINE CULTURE (NO STAIN) (01/03/2025 3:30 PM EDT) Culture Positive Growth(A) 01/05/2025 11:37 AM EDT [facility] Culture 1,000 CFU/mL Streptococcus agalactiae (Group B) SUSCEPTIB ILITY RESULT 01/05/2025 11:37 AM EDT [facility] Comment: isolated in addition to multiple bacterial species consistent with urogenital commensal organisms. No further workup. Urine STRUCTURE OF URINARY TRACT PROPER / Unknown 01/03/2025 3:30 PM EDT 01/03/2025 3:30 PM EDT Lynn Mariano APRN MICROBIOLOGY - GENERAL OR DERABLES Final Result Performing Organization Address [facility] Co de Phone Number [facility] [address] [facility] , [place] [address] * URIC ACID (01/03/2025 3:30 PM EDT) Only the most recent of3 resultswithin the time period is included. Uric Acid 4.0 2.4 - 5.7 mg/dL 01/03/2025 9:43 PM EDT [facility] Blood VENOUS BLOOD / Unknown Venipuncture / Unknown 01/03/2025 3:30 PM EDT 01/03/2025 3:30 PM EDT Lynn Mariano APRN CHEMISTRY ORDERABLES Elizabeth l Result Performing Organization Address City/[facility] Co de Phone Number [employer] [facility] [address] [facility] , [place] [address] * (ABNORMAL) PHOSPHORUS LEVEL (01/03/2025 3:30 PM EDT) Only the most recent of4 resultswithin the time period is included. Phosphorus 2.4(L) 2.5 - 4.5 mg/dL 01/03/2025 9:43 PM EDT [facility] Blood VENOUS BLOOD / Unknown Venipuncture / Unknown 01/03/2025 3:30 PM EDT 01/03/2025 3:30 PM EDT Lynn Mariano DUTY MANAGER CHEMISTRY ORDERABLES Elizabeth l Result [facility] [address] [facility], [place] [address] * PARATHYROID HORMONE INTACT (01/03/2025 3:30 PM EDT) Only the most recent of3 resultswithin the time period is included. PTH Intact 48.80 15.00 - 65.00 pg/mL 01/03/2025 9:15 PM EDT [facility] Blood VENOUS BLOOD / Unknown Venipuncture / Unknown 01/03/2025 3:30 PM EDT 01/03/2025 3:30 PM EDT Narrative [facility] - 01/03/2025 9:15 PM EDT Intact PTH [...] ORDERABLES Elizabeth l Result Performing Organization Address City/[facility]/ZIP Co de Phone Number [facility] [employer] [facility] [address] [facility] , [place] [address] * MAGNESIUM LEVEL (01/03/2025 3:30 PM EDT) Only the most recent of4 resultswithin the time period is included. Magnesium 2.3 1.6 - 2.4 mg/dL 01/03/2025 9:43 PM EDT [facility] Blood VENOUS BLOOD / Unknown Venipuncture / Unknown 01/03/2025 3:30 PM EDT 01/03/2025 3:30 PM EDT Lynn Mariano APRN CHEMISTRY ORDERABLES Elizabeth l Result Performing Organization Address [facility] Co de Phone Number [facility] [employer] [facility] [address] [facility] , [place] [address] * (ABNORMAL) FERRITIN (01/03/2025 3:30 PM EDT) Only the most recent of3 resultswithin the time period is included. Ferritin 277(H) 30 - 150 ng/mL 01/03/2025 9:43 PM EDT [facility] Comment:The lower threshold of 30 is not [...] PM EDT 01/03/2025 3:30 PM EDT Narrative [facility] - 01/03/2025 9:43 PM EDT Ingestion of julio doses of biotin (>5 mg/day) taken within 8 hours of drawing blood sample can interfere with this immunoassay test. Lynn Mariano DUTY MANAGER CHEMISTRY ORDERABLES Elizabeth l Result [facility] [address] [facility] , [place] [address] * (ABNORMAL) BASIC METABOLIC PANEL (01/03/2025 3:30 PM EDT) Only the most recent of5 resultswithin the time period is included. Sodium 139 136 - 145 mmol/L 01/03/2025 9:43 PM EDT [facility] Potassium 4.5 3.5 - 5.0 mmol/L 01/03/2025 9:43 PM EDT [facility] Chloride 105 98 - 107 mmol/L 01/03/2025 9:43 PM EDT [facility] Total CO2 25 22 - 29 [...] mL/min/1.7 3 m2 01/03/2025 9:43 PM EDT [facility] Comment:Estimated GFR was ca lculated using the CKD-EPIcr (2020) equation refit without race. The equation is recommended by the National Kidney Foundation - [place] Society of Nephrology Task Force. Blood VENOUS BLOOD / Unknown Venipuncture / Unknown 01/03/2025 3:30 PM EDT 01/03/2025 3:30 PM EDT Lynn Mariano DUTY MANAGER CHEMISTRY ORDERABLES Elizabeth l Result [facility] [address] [facility], [place] [address] * ESTROGENS, FRACTIONATED BY TMS -REF LAB (12/28/2024 10:38 AM EDT) Estradiol 14.5 pg/mL 01/02/2025 7:42 PM EDT [employer] Comment: REFERENCE INTERVAL: Estradiol by [employer] Supervisor For a complete set of all established reference intervals, refer to [employer]/Tests/Pub/[id number]. This test was developed and its performance characteristics determined by [facility]. It has not been cleared or approved by the [place] Food and Drug Administration. This test was performed in a CLIA certified laboratory and is intended for clinical purposes. Estrone by 8.8 pg/mL 01/02/2025 7:42 PM EDT [employer] Comment: INTERPRETIVE INFORMATION: Estrone by [employer] Super[employer] For a complete set of all established reference intervals, refer to [employer]/Tests/Pub/[id number]. This test was developed and its performance characteristics determined by [facility]. It has not been cleared or approved by the [place] Food and Drug Administration. This test was performed in a CLIA certified laboratory and is intended for clinical purposes. Estrogens Total 23.3 pg/mL 7:42 PM EDT [employer] Comment: Reference interval of estrogens (pg/mL) [employer]one Estradiol Total Estrogens Early follicular <150.0 30.0-100.0 30.0-250.0 Late follicular 100.0-250.0 100.0-400.0 200.0-650.0 Luteal <200.0 50.0-150.0 50.0-350.0 Post-menopausal 3.0-32.0 2.0-21.0 5.0-52.0 REFERENCE INTERVAL: Estrogens Total Calculation For a complete set of all established reference intervals, refer to [employer]/Tests/Pub/[id number]. Performed By: [facility] [address] [place] [id number] Qa Manager: Patric Aranda MD, PhD CLIA Number: [id number] Blood VENOUS BLOOD / Unknown Venipuncture / Unknown 12/28/2024 10:38 AM EDT 12/28/2024 10:38 AM EDT Jerome Crowley MD CHEMISTRY ORDERABLES Final Res ult [employer] [address] [place] [address] * LUTEINIZING HORMONE (12/28/2024 10:38 AM EDT) LH 70.20 mIU/mL 12/28/2024 4:26 PM EDT [facility] Comment: Suggested Reference Ranges (mIU/mL) Females Follicular Phase 2.4 - 12.6 Ovulation Phase 14.0 - 95.6 Luteal Phase 1.0 - 11.4 Postmenopause 7.7 - 58.5 Males 1.7 - 8.6 Blood VENOUS BLOOD / Unknown Venipuncture / Unknown 12/28/2024 10:38 AM EDT 12/28/2024 10:38 AM EDT Narrative [facility] - 12/28/2024 4:26 PM EDT Ingestion of julio doses of biotin (>5 mg/day) taken within 8 hours of drawing blood sample can interfere with this immunoassay test. Jerome Crowley MD CHEMISTRY ORDERABLES Final Res ult Performing Organization Address City/[facility]/ZIP Co de Phone Number [facility] [address] [place] [address] , [place] [address] * FOLLICLE STIMULATING HORMONE LEVEL (12/28/2024 10:38 AM EDT) FSH 35.60 mIU/mL 12/28/2024 4:26 PM EDT [facility] Comment: Suggested Reference Range (mIU/mL) Females Follicular Phase 3.5 - 12.5 Ovulation Phase 4.7 - 21.5 Luteal Phase 1.7 - 7.7 Postmenopause 25.8 - 134.8 Males 1.5 - 12.4 Blood VENOUS BLOOD / Unknown Venipuncture / Unknown 12/28/2024 10:38 AM EDT 12/28/2024 10:38 AM EDT Narrative [facility] - 12/28/2024 4:26 PM EDT Ingestion of julio doses of biotin (>5 mg/day) taken within 8 hours of drawing blood sample can interfere with this immunoassay test. us Jerome Crowley MD CHEMISTRY ORDERABLES Final Res ult [facility] [address] [facility] , [address] [place] [id number] * (ABNORMAL) RENAL FUNCTION PANEL (12/28/2024 10:38 [...] mL/min/1.7 3 m2 12/28/2024 3:54 PM EDT [facility] Comment:Estimated GFR was ca lculated using the CKD-EPIcr (2020) equation refit without race. The equation is recommended by the National Kidney Foundation - [place] Society of Nephrology Task Force. Blood VENOUS BLOOD / Unknown Venipuncture / Unknown 12/28/2024 10:38 AM EDT 12/28/2024 10:38 AM EDT us Lynn Mariano DUTY MANAGER CHEMISTRY ORDERABLES Elizabeth l Result [facility] [address] [facility] , [place] [address] * SCANNED EKG (12/27/2024 11:14 AM EDT) Only the most recent of2 resultswithin the time period is included. Anatomical Region Laterality Modality Other 12/27/2024 11:1 4 AM EDT us Unknown Provider IMG ECG ORDERABLES Final Result * EC ECHOCARDIOGRAM COMPLETE W DOPPLER AND COLOR FLOW MAPPING (11/30/2024 2:59 PM EDT) Ejection Fraction 55% PYRAMIS MITRAL REGURGITATION trace PYRAMIS AORTIC STENOSIS no PYRAMIS LV DIASTOLIC PLAX [id number] cm PYRAMIS Anatomical Region Laterality Modality Electrocardiogra phy 11/30/2024 2:27 PM EDT Impressions 11/30/2024 3:29 PM EDT Conclusions * Left ventricular chamber dimension is normal. * Left ventricular function is normal with an estimated ejection fraction of 55%. Narrative Procedure Note Jose Luis Ortiz MD - 11/30/2024 IMPRESSION Conclusions * Left ventricular chamber dimension is normal. * Left ventricular function is normal with an estimated ejectionfraction of 55%. us Teresita Russell DUTY MANAGER IMG ECHO ORDERABLES Fin al Result * (ABNORMAL) GLUCOSE METER POC (11/30/2024 11:24 AM EDT) Only the most recent of4 resultswithin the time period is included. [facility] Glucose Meter POC 128(H) 70 - 100 mg/dL 11/30/2024 11:26 AM EDT [facility] Sample Type Capillary 11/30/2024 11:26 AM EDT [facility] Patient Status Non-Critical Patient 11/30/2024 11:26 AM EDT [facility] Blood BLOOD SPECIMEN / Unknown 11/30/2024 11:24 AM EDT 11/30/2024 11:26 AM EDT Julio Cesar Rdo MD POINT OF CARE TEST ORDER [place] Final Result Performing Organization Address [facility]/ZIP Co de Phone Number [facility] [address] [place] [id number] * ECG AND WAVEFORMS - TELEMETRY (11/30/2024 7:05 AM EDT) Only the most recent of3 resultswithin the time period is included. [facility] ECG INTERPRET NSR [facility] 11/30/2024 7:05 AM EDT Narrative [facility] - 11/30/2024 7:26 AM EDT ROUTINE/MTS IN 0.14 QRS 0.08 RR 0.85 QT 0.42 QTc 0.45 See Clinical Report link for waveform capture us Unknown Provider POINT OF CARE CARDIOLOGY Final Result [facility] [address] [place] [address] * (ABNORMAL) LIPID SCREEN (11/30/2024 5:50 AM EDT) [facility] Cholesterol 119 <200 mg/dL 11/30/2024 4:24 PM EDT [facility] Comment: < 200 Desirable 200 - 239 Borderline High >= 240 High Triglyceride 89 <150 mg/dL 11/30/2024 4:24 PM EDT [facility] Comment: < 150 Normal 150 - 199 Borderline High 200 - 499 High >= 500 Very High HDL 31(L) >=40 mg/dL 11/30/2024 4:24 PM EDT [facility] Comment: > 60 Optimal 40 - 60 Acceptable < 40 Low LDL Calculated 71 <100 mg/dL 11/30/2024 4:24 PM EDT [facility] Comment: < 100 Optimal 100 - 129 Near or above optimal 130 - 159 Borderline High 160 - 189 High >= 190 Very High The National Institutes of Health (NIH) equation is used for all lipid panels that report calculated LDL (LDL-C). Non-HDL-C Calculated 88 <=129 mg/dL 11/30/2024 4:24 PM EDT [facility] Comment: <130 Desirable 130-159 Above Desirable 160-189 Borderline High 190-219 High >= 220 Very High Fasting Specimen? 025 4:24 PM EDT [facility] Blood VENOUS BLOOD / Unknown Venipuncture / Unknown 11/30/2024 5:50 AM EDT 11/30/2024 6:39 AM EDT Teresita Russell DUTY MANAGER CHEMISTRY ORDERABLES Fi nal Result [facility] [address] [facility] , [place] [address] * MRI BRAIN W WO CONTRAST (11/29/2024 6:01 PM EDT) Anatomical Region Laterality Modality Head Magnetic Resonan ce 11/29/2024 6:01 PM EDT Impressions 11/29/2024 6:12 PM EDT No acute or enhancing abnormality. - Note: Radiology results need to be interpreted within a comprehensive clinical context. If you have questions about the radiology report, please contact the office of the ordering clinician. Narrative 11/29/2024 6:12 PM EDT MRI BRAIN W WO CONTRAST 11/29/2024 6:01 PM CLINICAL HISTORY: -Dizziness. COMPARISON: None. PROCEDURE COMMENTS: Multiplanar multiecho MR imaging of the brain per protocol before and following IV contrast administration. Gadolinium contrast given as recorded in Epic. FINDINGS: Midline structures normally formed. Ventricles normal. No evidence of acute stroke, mass, or hemorrhage. Diffusion imaging normal. No abnormal enhancement. Major vascular flow voids preserved, suggesting patency. Included portions of the paranasal sinuses, mastoids, and orbits unremarkable. Procedure Note Santosh Dash MD - 11/29/2024 MRI BRAIN W WO CONTRAST 11/29/2024 6:01 PM CLINICAL HISTORY: -Dizziness. COMPARISON: None. PROCEDURE COMMENTS: Multiplanar multiecho MR imaging of the brain perprotocol before and following IV contrast administration. Gadolinium contrast givenas recorded in Epic. FINDINGS: Midline structures normally formed. Ventricles normal. No evidence ofacute stroke, mass, or hemorrhage. Diffusion imaging normal. No abnormal enhancement. Major vascular flow voids preserved, suggesting patency. Included portions of the paranasal sinuses, mastoids, and orbitsunremarkable. IMPRESSION: No acute or enhancing abnormality. - Note: Radiology results need to be interpreted within a comprehensiveclinical context. If you have questions about the radiology report, please contactthe office of the ordering clinician. us Julio Cesar Rod MD IMG MRI ORDERABLES Final Result * CT ANGIOGRAM CORONARY W CONTRAST (11/29/2024 4:10 PM EDT) Anatomical Region Laterality Modality Chest Computed Tomogra phy 11/29/2024 4:10 PM EDT Impressions 11/29/2024 4:42 PM EDT There is evidence of coronary artery disease but there is no conclusive evidence of flow significant high-grade stenosis with maximum stenosis identified in the LAD 40-50% and in the proximal RCA also 40-50%. See detailed description above CAD-RADS CLASSIFICATION: CAD RADS 3. 50-69% maximal coronary stenosis. Consistent with moderate coronary artery disease. CAD-RADS MODIFIERS: No relevant modifier. CAD-RADS (Coronary Artery Disease-Reporting and Data System) is endorsed by the [place] [employer]. CAD-RADS grading is applied to vessels 1.5mm diameter and greater only. Link to source document. https://cdn.[employer]com/scct.org/resource/resmgr/cad-rads/scct_jcct_cad-rads.pdf - Note: Radiology results need to be interpreted within a comprehensive clinical context. If you have questions about the radiology report, please contact the office of the ordering clinician. Narrative 11/29/2024 4:[address] CORONARY ANGIOGRAM, 11/29/2024 4:10 PM CLINICAL HISTORY: -chest pain. COMPARISON: None. PROCEDURE COMMENTS: Heart rate control using Metoprolol as documented in EPIC. Sublingual NTG given if not contraindicated as recorded in EPIC. Isovue 370 IV contrast given as recorded in EPIC. CCTA prospective ECG-gated technique for coronary artery visualization. Interactive 3-D postprocessing done by the reviewing physician on a [employer] workstation, with one or more of the following: Maximum intensity projections (MIPS), Shaded surface rendering, and/or Volume rendering. Naylor images archived to PACS. Dose 1 : CT DLP Total : 441.73 mGycm Maximum CTDI Vol : 31.13 mGy FINDINGS: TECHNICAL QUALITY: Good with minor artifacts. CORONARY ORIGINS: Normal position. PDA arises from the RIGHT coronary circulation. LEFT MAIN: Bifurcates into LAD and Circumflex branches. Normal. No vessel narrowing. LAD (+ ramus intermedius if present): Moderate mid LAD narrowing estimated at 40-50% CIRCUMFLEX: Mild narrowing, 25-49%. RCA: Mild limitation due to motion artifact. Mild narrowing due to soft plaque at the proximal RCA estimated 40-50%. In the mid RCA there is also a 30-40% narrowing CARDIAC VALVES: No significant thickening or calcifications of the aortic or mitral valves. ATRIAL APPENDAGE: No thrombus. PERICARDIUM: Normal thickness. No effusion. EXTRACARDIAC: Visible lung parenchyma without mass or consolidation. No mediastinal mass lesion. Normal sized lymph nodes noted. Procedure Note Santosh Dash MD - 11/29/2024 CT CORONARY ANGIOGRAM, 11/29/2024 4:10 PM CLINICAL HISTORY: -chest pain. COMPARISON: None. PROCEDURE COMMENTS: Heart rate control using Metoprolol as documented inEPIC. Sublingual NTG given if not contraindicated as recorded in EPIC. [id number] IV contrast given as recorded in EPIC. CCTA prospective ECG-gated techniquefor coronary artery visualization. Interactive 3-D postprocessing done bythe reviewing physician on a [employer] workstation, with one or more of thefollowing: Maximum intensity projections (MIPS), Shaded surface rendering, and/orVolume rendering. Naylor images archived to PACS. Dose 1 : CT DLP Total : 441.73 mGycm Maximum CTDI Vol : 31.13 mGy FINDINGS: TECHNICAL QUALITY: Good with minor artifacts. CORONARY ORIGINS: Normal position. PDA arises from the RIGHT coronary circulation. LEFT MAIN: Bifurcates into LAD and Circumflex branches. Normal. Novessel narrowing. LAD (+ ramus intermedius if present): Moderate mid LAD narrowing estimatedat 40-50% CIRCUMFLEX: Mild narrowing, 25-49%. RCA: Mild limitation due to motion artifact. Mild narrowing due to softplaque at the proximal RCA estimated 40-50%. In the mid RCA there is also a30-40% narrowing CARDIAC VALVES: No significant thickening or calcifications of the aorticor mitral valves. ATRIAL APPENDAGE: No thrombus. PERICARDIUM: Normal thickness. No effusion. EXTRACARDIAC: Visible lung parenchyma without mass or consolidation. No mediastinal mass lesion. Normal sized lymph nodes noted. IMPRESSION: There is evidence of coronary artery disease but there is no conclusive evidence of flow significant high-grade stenosis with maximum stenosis identified in the LAD 40-50% and in the proximal RCA also 40-50%.See detailed description above CAD-RADS CLASSIFICATION: CAD RADS 3. 50-69% maximal coronary stenosis. Consistent with moderate coronary artery disease. CAD-RADS MODIFIERS: No relevant modifier. CAD-RADS (Coronary Artery Disease-Reporting and Data System) is endorsedby the [place] [employer]. CAD-RADS grading is applied to vessels1.5mm diameter and greater only. Link to source document. https://cdn.[employer]com/scct.org/resource/resmgr/cad-rads/scct_jcct_cad-rads.pdf - Note: Radiology results need to be interpreted within a comprehensiveclinical context. If you have questions about the radiology report, please contactthe office of the ordering clinician. us Julio Cesar Rod MD IMG CT ORDERABLES Final Result * XR CHEST AP PORTABLE (11/29/2024 11:53 AM EDT) Anatomical Region Laterality Modality Chest Radiographic Chaparrita ging 11/29/2024 11:5 3 AM EDT Impressions 11/29/2024 12:02 PM EDT No acute finding. - Note: Radiology results need to be interpreted within a comprehensive clinical context. If you have questions about the radiology report, please contact the office of the ordering clinician. Narrative 11/29/2024 12:02 PM EDT XR CHEST AP PORTABLE, 11/29/2024 11:53 AM CLINICAL HISTORY: Chest pain COMPARISON: Prior studies most recent 06/27/2022 PROCEDURE COMMENTS: AP portable technique. FINDINGS: Support devices: No visible support devices. Heart and mediastinal contours within normal limits for technique. No active failure, pneumonia, or visible effusion. No visible pneumothorax. Procedure Note Jose R Bartlett MD - 11/29/2024 XR CHEST AP PORTABLE, 11/29/2024 11:53 AM CLINICAL HISTORY: Chest pain COMPARISON: Prior studies most recent 06/27/2022 PROCEDURE COMMENTS: AP portable technique. FINDINGS: Support devices: No visible support devices. Heart and mediastinal contours within normal limits for technique. Noactive failure, pneumonia, or visible effusion. No visible pneumothorax. IMPRESSION: No acute finding. - Note: Radiology results need to be interpreted within a comprehensiveclinical context. If you have questions about the radiology report, please contactthe office of the ordering clinician. Momo Ball MD IM DIAGNOSTIC IMAGING ORDERABL ES Final Result * JAK2 V617F W/RFLX CALR W/RFLX MPL-REF LAB (11/05/2024 4:02 PM EDT) [facility] JENNIFER 2 By PCR Source Whole Blood 10/20 4:43 PM EDT [employer] JAK2 Gene, V617F Mutation, Donnie Not Detected 11/11/2024 4:43 PM EDT [employer] Comment: There is no evidence of the JAK2 V617F point mutation by ddPCR analysis. This result does not entirely exclude the possibility of a JAK2 V617F mutation below the test limit of detection. CALR testing will be performed. Additional charges will apply. MPL testing will be performed. Additional charges will apply. This result has been reviewed and approved by Momo Rodgers M.D. INTERPRETIVE INFORMATION: JAK2 (V617F) Mutation by ddPCR, Qualitative This assay is designed to detect the point mutation c.1849G>T (V617F) of the JAK2 gene. JAK2 V617F mutations are present in patients with myeloproliferative neoplasms. Methodology: DNA from whole blood or bone marrow specimens is amplified in an allele-specific droplet digital PCR (ddPCR) multiplex reaction targeting the JAK2 c.1849G>T single nucleotide mutation encoding the V617F mutation. The limit of detection for this assay is 0.5 percent mutated alleles. Limitations: Variants in genes other than JAK2 are not detected. JAK2 variants other than V617F (c.1849G>T) are not reported. Samples with JAK2 V617F mutations below the limit of detection are not reported. Results of this test must always be interpreted in the context of morphologic and other relevant data and should not be used alone for a diagnosis of malignancy. This test was developed and its performance characteristics determined by [facility]. It has not been cleared or approved by the U.S. Food and Drug Administration. This test was performed in a CLIA-certified laboratory and is intended for clinical purposes. Performed By: [facility] [address] [place] [address] Qa Manager: Patric Aranda MD, PhD CLIA Number: [id number] Blood VENOUS BLOOD / Unknown Venipuncture / Unknown 11/05/2024 4:02 PM EDT 11/05/2024 4:05 PM EDT Farnaz Ricardo APRN HEMATOLOGY ORDERABLES Fi nal Result [facility] [address] [place] [address] * CALR EXON 9 MUTATION ANALYSIS-REF LAB (11/05/2024 4:02 PM EDT) [facility] CALR Exon 9 Mutation Result Not Detected 11/12/2024 3:16 PM EDT [place] Comment: A CALR exon 9 insertion/deletion mutation was not detected. This does not exclude the possibility of a CALR mutation that is not an exon 9 insertion/deletion. It also does not exclude the possibility of a CALR exon 9 insertion/deletion mutation below the assay limit of detection. This result has been reviewed and approved by Momo Rodgers M.D. Background Information: CALR (Calreticulin), Exon 9 Mutation Analysis by PCR This test is designed to detect CALR exon 9 insertion/deletion mutations. Insertion/deletion mutations in exon 9 of the CALR gene result in a frameshift and are found in the majority of cases of myeloproliferative neoplasms, essential thrombocythemia (ET), and primary myelofibrosis (PMF) that lack JAK2 V617F mutations. Methodology: Genomic DNA is isolated from either whole blood or bone marrow. PCR followed by capillary electrophoresis is performed to detect CALR exon 9 insertion/deletion mutations. Limitations: Mutations in other locations within the CALR gene or mutations in other genes will not be detected. The limit of detection for this test is 5 percent mutant alleles for canonical type 1 or 2-like variants and common noncanonical variants. The 1-bp deletion variant in Exon 9 cannot be detected or reported due to the limitation of the methods. Results of this test must always be interpreted within the clinical context and other relevant data and should not be used alone for a diagnosis of malignancy. This test was developed and its performance characteristics determined by [facility]. It has not been cleared or approved by the U.S. Food and Drug Administration. This test was performed in a CLIA-certified laboratory and is intended for clinical purposes. Performed By: [facility] [address] [place] [address] Qa Manager: Patric Aranda MD, PhD CLIA Number: [id number] CALR, Source Whole Blood 11/12/2024 3:16 PM EDT [place] Blood VENOUS BLOOD / Unknown Venipuncture / Unknown 11/05/2024 4:02 PM EDT 11/05/2024 4:05 PM EDT us Farnaz Ricardo DUTY MANAGER HEMATOLOGY ORDERABLES Fi nal Result [facility] [address] [place] [address] * MPL MUTATION DETECTION-REF LAB (11/05/2024 4:02 PM EDT) Pathologist [facility] MPL Results Not Detected 11/15/2024 4:35 PM EDT [place] Comment: A mutation was not detected in the MPL gene. MPL variants other than S505N, W515K, W515L, and W515A or below the limit of detection of the assay may not be identified. This result has been reviewed and approved by Toñito Ramirez M.D. INTERPRETIVE INFORMATION: MPL Mutation Detection by Capillary Electrophoresis This test is designed to detect W515K, W515L, W515A, and S505N mutations in exon 10 of the MPL gene. Detection of MPL mutation is used for diagnosis of patients with myeloproliferative neoplasms and suggests a diagnosis of either primary myelofibrosis (PMF) or essential thrombocythemia (ET) in a subset of patients with non-mutated JAK2. METHODOLOGY: DNA is isolated and amplified using allele-specific PCR for codons 505 and 515 of the MPL gene. The resulting amplicons are resolved via fragment analysis by capillary electrophoresis to detect the presence of W515K, W515L, W515A, and S505N mutations. LIMITATIONS: Mutations other than those specified above, or at other locations within the MPL gene or in other genes will not be detected. Limit of detection for this test is 5 percent mutant allele. The results of this test must always be interpreted within the patient's clinical context and in conjunction with other relevant data. Results should not be used alone for a diagnosis of malignancy. This test is not intended to detect minimal residual disease. This test was developed and its performance characteristics determined by [facility]. It has not been cleared or approved by the [place] Food and Drug Administration. This test was performed in a CLIA certified laboratory and is intended for clinical purposes. Performed By: [facility] [address] [place] [id number] Qa Manager: Patric Aranda MD, PhD CLIA Number: [id number] MPL, Source Whole Blood 11/15/2024 4:35 PM EDT [place] Blood VENOUS BLOOD / Unknown Venipuncture / Unknown 11/05/2024 4:02 PM EDT 11/05/2024 4:05 PM EDT us Farnaz Ricardo DUTY MANAGER HEMATOLOGY ORDERABLES Fi nal Result [facility] [address] [place] [address] * VITAMIN B12/ FOLIC ACID (11/05/2024 4:02 PM EDT) Vitamin B12 396 232 - 1,245 pg/mL 11/05/2024 8:03 PM EDT PREFERRED LAB [facility], [facility] Folate 8.02 >=4.80 ng/mL 11/05/2024 8:03 PM EDT PREFERRED [facility], [facility] Blood VENOUS BLOOD / Unknown Venipuncture / Unknown 11/05/2024 4:02 PM EDT 11/05/2024 4:05 PM EDT Narrative PREFERRED [facility], [facility] - 11/05/2024 8:03 PM EDT Ingestion of julio doses of biotin (>5 mg/day) taken within 8 hours of drawing blood sample can interfere with this immunoassay test. Farnaz Ricardo APRN CHEMISTRY ORDERABLES Fin al Result Performing Organization Address [facility]/ZIP Co de Phone Number PREFERRED [facility], [address] , [place] [address] * TSH REFLEX TO FT4 (11/05/2024 4:02 PM EDT) TSH Reflex 0.450 0.270 - 4.200 mcIU/mL 11/05/2024 8:13 PM EDT PREFERRED [facility], [facility] Blood VENOUS BLOOD / Unknown Venipuncture / Unknown 11/05/2024 4:02 PM EDT 11/05/2024 4:05 PM EDT Narrative [facility], [facility] - 11/05/2024 8:13 PM EDT Ingestion of julio doses of biotin (>5 mg/day) taken within 8 hours of drawing blood sample can interfere with this immunoassay test. Farnaz Ricardo APRN CHEMISTRY ORDERABLES Fin al Result Performing Organization Address City/[facility]/ZIP Co de Phone Number [facility] , [place] [address] * BCR-ABL1, QUALITATIVE WITH QUANT REFLEX-REF LAB (11/05/2024 4:02 PM EDT) [facility] BCR-ABL1 Source Whole Blood 11/13/19 10:56 AM EDT [employer] BCR-ABL1, t(9;22) Qual Not Detected 11/12/2024 10:56 AM EDT [employer] Comment: There is no evidence of major (p210, e13a2, or e14a2), minor (p190, e1a2), or micro (e19a2) BCR::ABL1 fusion transcripts by RT-PCR analysis. This result does not entirely exclude the possibility of BCR::ABL1 fusion transcripts other than e1a2, e13a2, e14a2, and e19a2, or transcripts below the limit of detection. This result has been reviewed and approved by Momo Rodgers M.D. INTERPRETIVE INFORMATION: Diagnostic Qualitative BCR::ABL1 Assay with Reflex to p190 or p210 Quantitative Assays This assay is designed to detect the presence of BCR::ABL1 translocations with breakpoints in the major breakpoint cluster region (p210 fusion), minor breakpoint cluster region (p190 fusion), or the micro breakpoint cluster region (p230 fusion) for screening purpose at the time of an initial diagnosis. METHODOLOGY: RNA is isolated from whole blood or bone marrow and reverse transcribed. The resulting cDNA is subjected to multiplex PCR amplification with primers designed to amplify p190, p210, or p230 BCR::ABL1 fusion transcripts involving ABL1 exon 2. The ABL1 reference gene is also amplified for specimen quality management nurse and to ensure the integrity of RNA. The PCR products are resolved by capillary electrophoresis and evaluated for the presence of amplicons that indicate a positive result. A positive common p210 or p190 result will trigger either quantitative p210 or p190 testing to provide a quantitative level as the diagnostic baseline to monitor treatment response. The p210 transcript level is reported as the percent International Scale (%IS). The p190 transcript level is reported as the normalized copy numbers (NCN%). These quantitative results are integrated into the final report. If the initial qualitative testing is negative, or a rare p230 from is detected, then no reflex testing will be performed. ANALYTICAL SENSITIVITY: Fusion Transcripts Analytical Sensitivity Minor (e1a2) NCN% = 0.004 Major (e13a2) %IS = 0.0040 Major (e14a2) %IS = 0.0047 Micro (e19a2) 1 x 10-5 RNA molecules CLINICAL SENSITIVITY: Estimated to be greater than 99 percent for chronic myelogenous leukemia (CML). LIMITATIONS: Rare BCR::ABL1 fusions with alternative breakpoints (e.g., any fusion transcripts involving ABL1 other than exon 2) are not detected by this test. This qualitative test is designed as a screening test for initial diagnosis of chronic myeloid leukemia (CML) or acute lymphoblastic leukemia/lymphoma (ALL). This test is not intended to monitor therapeutic response or to detect minimal residual disease (MRD). Low-level fusion transcripts indicating MRD might not be detected by inappropriate use of this test. Results of this test must always be interpreted within the clinical context and other relevant data and should not be used alone for a diagnosis of malignancy. This test was developed and its performance characteristics determined by [facility]. It has not been cleared or approved by the U.S. Food and Drug Administration. This test was performed in a CLIA-certified laboratory and is intended for clinical purposes. Performed By: [facility] [address] [place] [address] Qa Manager: Patric Aranda MD, PhD CLIA Number: [id number] Blood VENOUS BLOOD / Unknown Venipuncture / Unknown 11/05/2024 4:02 PM EDT 11/05/2024 4:05 PM EDT Farnaz Ricardo DUTY MANAGER HEMATOLOGY ORDERABLES Fi nal Result Performing Organization Address [facility] de Phone Number [employer] [address] [place] [address] * (ABNORMAL) DIABETES EYE EXAM (10/19/2024 4:47 PM EDT) Left Diabetic Retinopathy Present(A ) Not Present Present/Not Present [facility] Comment:Minimal background r etinopathy Right Diabetic Retinopathy Present(A ) Not Present Present/Not Present [facility] Comment:Minimal background r etinopathy Impressions SEP OFFICE - 10/19/2024 4:47 PM EDT Debbie Edmonds, KATHRYN Return: 12 months [facility] Provider HEALTH MAINTENANCE Edited Re sult - Final Performing Organization Address City/[facility]/ZIP Co de Phone Number SEP OFFICE * BARREL WASHER CYTOLOGY REQUEST (PAP ONLY) (08/14/2021 2:28 PM EST) CASE REPORT Gynecologic Cytology Report Case: [id number] Authorizing Provider: Patric Sr MD Collected: 08/14/2021 1428 Ordering Location: [facility] Received: 08/14/2021 1428 First Screen: Yovani Harmon CT Specimen: LIQUID-BASED PAP - CERVICAL/ENDOCERV ICAL, Cervix, Endocervical 08/16/2021 1:22 PM EST [facility] PAP FINAL DIAGNOSIS Negative for intraepithelial lesion or malignancy 08/16/2021 1:22 PM EST [facility] at 1321 EST MICROSCOPIC DESCRIPTION Microscopic examination is performed and the findings corroborate the diagnosis. 08/16/2021 1:22 PM EST [facility] PAP SMEAR ADEQUACY Satisfactory for evaluation 08/16/2021 1:22 PM EST [facility] ENDOCERVICAL T-ZONE Transformation zone present 08/16/2021 1:22 PM EST [facility] EMBEDDED IMAGES 1:22 PM EST [facility] PAP DISCLAIMER The Pap Smear is a screening test that aids in the detection of cervical cancer and cancer precursors. Both false positive and false negative results can occur. The test should be used at regular intervals, and positive results should be confirmed before definitive therapy. Processed using the ThinPrep Cushion Sewer Automated cytology screening device (Keenjar). 08/16/2021 1:22 PM EST [facility] Thin Prep ENDOCERVICAL STRUCTURE / Unknown 08/14/2021 2:28 PM EST 08/14/2021 2:28 PM EST us Patric Sr MD CYTOLOGY ORDERABLES Final Resul t [facility] [address] [place] [address] from Last 3 Months or Most Recently Relevant to Health Maintenance [place] [id number] [place] [id number] [place] [id number] [place] [id number] MDR [place] [address] MDR MDR [place] [address] MDR Advance Directives For more information, please contact: [phone] * Full Code (Latest Code Status on File) Date Activated Date Inactivated Comments 11/29/2024 1:03 PM 11/30/2024 9:13 PM Care Teams Fuel Assembler Relationship Specialty Start Date End Date Jerome Crowley MD [facility] [place] [address] PCP - General Internal Medicine 08/09/24 Kayli Kebede MD [address] [address] Consulting Physician Internal Medicine-Nephrology 05/17/22 Valarie Leach, RN Plug Making Operator Registered Nurse 12/01/24 Rita Cordero MD [address] [place] [address] Internal Medicine-Endocrinology, Diabetes & Metabolism 01/10/25
--- OUTSIDE RECORDS SUMMARY | 2025-01-30 12:31 | XMS_ITS | Clinical Summary ---
Author Organization [employer] [facility] Address [address] [place] [phone] Phone Care Team Providers Care Digital Advertising Analyst Name Role Phone Unavailable Unavailable Conditions or Problems No information available. Medications Medication Instructions Start Date Stop Date Generic Name [facility] Provider CLINDAMYCIN HCL 150 MG CAPS Take 2 capsule by mouth every six hours 9 clindamycin hcl [id number] Flaquito Jung DMD Medications Administered No information available. Allergies, Adverse Reactions, Alerts No information available. Results No information available. Plan of Care No information available. Procedures No information available. Vital Signs No information available. Immunizations No information available. Advance Directives No information available.
--- OUTSIDE RECORDS SUMMARY | 2025-01-30 12:31 | XMS_ITS | Encounter Summary ---
Author Organization [facility] [place] [address] Care Team Providers Care Integration Software Developer Name Role Phone Kayli Kebede MD Unavailable [phone] Jerome Crowley MD Primary Care Provider [phone] Valarie Leach RN Unavailable Unavailable Rita Cordero MD Unavailable [phone] Encounter Details Date Type Department Care Team (Latest Contact Info) Description 01/13/2025 Travel Social History Tobacco Use Types Packs/Day Years Used Date Smoking Tobacco: Every Day Cigarettes 1 28 Started: 04/02/2007 Smokeless Tobacco: Never Alcohol Use Standard Drinks/Week Comments Not Currently 0 (1 standard drink = 0.6 oz pur e alcohol) few times a year [facility] Utilities Answer Date Recorded In the past 12 months has SupplyFrame electric, gas, oil, or water company threatened to shut off services in your home? No 11/29/2024 Overall Financial Resource Strain (CARDIA) Answe r Date Recorded How hard is it for you to pa y for the very basics like food, housing, medical care, and heating? Not very hard 11/29/2024 PHQ-2 Answer Date Recorded PHQ-2 Total Score 0 11/29/2024 [facility] [place] of Occupat ional Health - Occupational Stress [...] in a half-way (including now)? No 03/30/2021 [facility] IP Transportation Answer D ate [...] EDT Office Visit [facility] GA[facility] [address]D ENTRANCE, 3RD [place] [address] Manuel Torres MD [address] [place] [address] 02/15/2025 2:15 PM EDT Appointment [address] [place] [address] 02/15/2025 2:30 PM EDT Appointment [facility] Cancer Care [address] [place] [address] Farnaz Ricardo, ARTILLERY SPECIALIST 1 [place] [address] 02/24/2025 8:00 AM EDT Appointment [facility] [address] [place] [address] [address] [place] [address] Rajwinder Craig MD [address] [place] [address] 03/02/2025 9:30 AM EDT Office Visit [facility] [address] [place] [address] [place], [place] [id number] Jose Luis Ortiz MD [address] [place] [address] DR [facility] [place] [phone] 03/08/2025 11:15 AM EDT Office Visit [facility] Nephrology [place] [address] [place] [address] Lynn Mariano APRN [address] [place] [address] 03/09/2025 3:30 PM EDT Office Visit [facility] Diabetes [place] 1500 [facility] [address] [place] [address] Rita Cordero MD 1500 [place] [address] 10/07/2025 1:10 PM EDT Office Visit [facility] 40 [facility] 101 [place] [address] Juan Russell MD 40 [facility] 101 [place] [address] documented as of this encounter [...] on filedocumented in this encounter Care Teams Integration Software Developer Relationship Specialty Start Date End Date Jerome Crowley MD [address] [place] [address] [place] [address] PCP - General Internal Medicine 08/09/24 Kayli Kebede MD [address] [address] Consulting Physician Internal Medicine-Nephrology 05/17/22 Valarie Leach, RN Instructor Apparel Manufacture Registered Nurse 12/01/24 Rita Cordero MD [address] [place] [address] Internal Medicine-Endocrinology, Diabetes & Metabolism 01/10/25 documented as of this encounter
--- OUTSIDE RECORDS SUMMARY | 2025-01-30 12:31 | XMS_ITS | Encounter Summary ---
Author Organization [place] [address] Care Team Providers Care Lawn Mower Repairer Name Role Phone Kayli Kebede MD Unavailable [phone] Jerome Crowley MD Primary Care Provider [phone] Valarie Leach RN Unavailable Unavailable Rita Cordero MD Unavailable [phone] Encounter Details Date Type Department Care Team (Late st Contact Info) Description 01/14/2025 Orders Only [facility] Physicians [facility] Diabetes [place] [address] [facility] [address] [place] [address] Rita Cordero MD [address] [place] [address] Type 2 diabetes mellitus with diabetic neuropathy, without long-term current use of insulin (HCC) (Primary Dx) Social History Tobacco Use Types Packs/Day Years Used Date Smoking Tobacco: Every Day Cigarettes 1 28 Started: 04/02/2007 Smokeless Tobacco: Never Alcohol Use Standard Drinks/Week Comments Not Currently 0 (1 standard drink = 0.6 oz pur e alcohol) few times a year [facility] Utilities Answer Date Recorded In the [...] Date Recorded PHQ-2 Total Score 0 11/29/2024 [facility] [place] of Occupat ional Health - Occupational Stress [...] place to sleep or slept in a skilled nursing (including now)? No 03/30/2021 [facility] IP Transportation Answer D ate Recorded [...] Refills Last Filled Start Date End Date dulaglutide (TRULICITY) 0.75 mg/0.5 mL SubQ Pen InjectorIndications :Type 2 diabetes mellitus with diabetic neuropathy, without long-term current use of insulin (HCC) Inject 0.5 mL under the skin once a week. 2 mL 01/14/2025 documented in this encounter Plan of Treatment Upcoming Encounters Date Type Department Care Team (Late st Contact Info) Description 02/02/2025 12:45 PM EDT Office Visit [facility] [address] ENTRANCE, 3RD [place] [address] Manuel Torres MD [address] [place] [address] 02/15/2025 2:15 PM EDT Appointment [facility] Cancer [facility] [address] [place] [address] 02/15/2025 2:30 PM EDT Appointment [facility] [address] [place] [address] Farnaz Ricardo, SUPERVISOR INSULATION 1 [facility] [address] 02/24/2025 8:00 AM EDT Appointment [facility] [address] [place] [address] [address] [place] [address] Rajwinder Craig MD [address] [place] [address] 03/02/2025 9:30 AM EDT Office Visit [facility]P H&V [address] [address] Jose Luis Ortiz MD [address] [place] [address] [facility] [phone] 03/08/2025 11:15 AM EDT Office Visit [facility] Nephrology [place] [address] [place] [address] Lynn Mariano, SUPERVISOR INSULATION [address] [place] [address] 03/09/2025 3:30 PM EDT Office Visit [facility] Diabetes [place] [address] [facility] [address] [place] [address] Rita Cordero MD [address] [place] [address] 10/07/2025 1:10 PM EDT Office Visit [facility] Juliane Kobe 40 [facility] 101 [place] [address] Juan Russell MD 40 [address] [facility] [address] [place] [address] documented as of this encounter [...] long-term current use of insulin (HCC)- Primary documented in this encounter Care Teams Lawn Mower Repairer Relationship Specialty Start Date End Date Jerome Crowley MD [address] [address] [place] [address] PCP - General Internal Medicine 08/09/24 Kayli Kebede MD 830 [facility] 202 [place] [address] Consulting Physician Internal Medicine-Nephrology 05/17/22 Valarie Leach, RN Drafter Construction Registered Nurse 12/01/24 Rita Cordero MD [address] [place] [address] Internal Medicine-Endocrinology, Diabetes & Metabolism 01/10/25 documented as of this encounter
--- OUTSIDE RECORDS SUMMARY | 2025-01-30 12:31 | XMS_ITS | Encounter Summary ---
Author Organization [place] [address] Care Team Providers Care Rock Climbing Team Member Name Role Phone Kayli Kebede MD Unavailable [phone] Jerome Crowley MD Primary Care Provider [phone] Valarie Leach RN Unavailable Unavailable Reason for Visit * Reason Onset Date Comments Medication Refill 01/05/2025 Encounter Details Date Type Department Care Team (Late st Contact Info) Description 01/05/2025 Refill SEP Amy [facility] [place] [address] [place] [address] [place] [address] Medication Refill Social History Tobacco Use Types Packs/Day Years Used Date Smoking Tobacco: Every Day Cigarettes 1 17.8 Started: 04/02/2007 Smokeless Tobacco: Never Alcohol Use Standard Drinks/Week Comments Not Currently 0 (1 standard drink = 0.6 oz pur e alcohol) few times a year [facility] Utilities Answer Date Recorded In the [...] Date Recorded PHQ-2 Total Score 0 11/29/2024 [facility] [place] [facility] Occupat ional Health - Occupational Stress [...] a care home (including now)? No 03/30/2021 [facility] IP Transportation Answer D ate Recorded [...] Brina Fajardo RN documented in this encounter Ordered Prescriptions Prescription Sig Dispense Quantity Refills Last Filled Start Date End Date atorvastatin (LIPITOR) 20 mg Oral Tablet Take 2 Tablets by mouth daily for 360 days. 180 Tablet 3 01/06/2025 5 pregabalin (LYRICA) 50 mg Oral Capsule Take 1 Capsule by mouth 3 times daily. 90 Capsule 2 01/06/2025 5 documented in this encounter Miscellaneous Notes * Telephone Encounter - Mary Kate Lawrence CCMA - 01/06/2025 7:44 AM EDT Last Office Visit reviewing controlled substances: 12/28/2024 Approved Ambien, Gabapentin, Lyrica, Butalbital = must [...] 2:00 PM CONTROLLED SUBSTANCE [facility] Reference Number [id number] [facility] Results as expected as expected If had complete compliance panel: need No Result (If patient had partial drug screen or in-house drug screen, please document date of that below): documented in this encounter Plan of Treatment Upcoming Encounters Date Type Department Care Team (Late st Contact Info) Description 02/02/2025 12:45 PM EDT Office Visit [facility] [address] 1D ENTRANCE, 3RD [place] [address] Manuel Torres MD [address] [place] [address] 02/15/2025 2:15 PM EDT Appointment [address] [place] [address] 02/15/2025 2:30 PM EDT Appointment [address] [place] [address] Farnaz Ricardo, FISHER CLAM [address] [place] [address] [place], [place] [address] 02/24/2025 8:00 AM EDT Appointment [facility] [address] [place] [address] [address] [place] [address] Rajwinder Craig MD [address] [place] [address] 03/02/2025 9:30 AM EDT Office Visit [facility]P H&V [address] [address] Jose Luis Ortiz MD [address] [place] [address] [place] [address] 03/08/2025 11:15 AM EDT Office Visit [facility] Nephrology [place] [address] [place] [address] Lynn Mariano APRN [address] [place] [address] 03/09/2025 3:30 PM EDT Office Visit [facility] Diabetes [place] [address] [facility] [address] [place] [address] Rita Cordero MD 1500 [place] [address] 10/07/2025 1:10 PM EDT Office Visit [facility] 40 [facility] 101 [place] [address] Juan Russell MD 40 [address] [facility] 101 [place] [address] documented as of this encounter Goals Goal [...] Start Date End Da te pregabalin (LYRICA) 50 mg Oral Capsule Take 1 Capsule by mouth 3 times daily. Reorder 12/08/2024 01/05/2025 atorvastatin (LIPITOR) 20 mg Oral Tablet Take 2 Tablets by mouth daily for 360 days. Reorder 12/10/2024 01/05/2025 documented as of this encounter Care Teams Rock Climbing Team Member Relationship Specialty Start Date End Date Jerome Crowley MD [address] [place] [address] PCP - General Internal Medicine 08/09/24 Kayli Kebede MD [address] [place] [address] Consulting Physician Internal Medicine-Nephrology 05/17/22 Valarie Leach, RN Medical Oncologist Registered Nurse 12/01/24 documented as of this encounter
--- OUTSIDE RECORDS SUMMARY | 2025-01-30 12:31 | XMS_ITS | Encounter Summary ---
Author Organization [place] [address] Care Team Providers Care Denture Contour Wire Specialist Name Role Phone Kayli Kebede MD Unavailable [phone] Jerome Crowley MD Primary Care Provider [phone] Valarie Leach RN Unavailable Unavailable Rita Cordero MD Unavailable [phone] Encounter Details Date Type Department Care Team (Late st Contact Info) Description 01/17/2025 Orders Only SEP Amy [facility] [place] [address] Jerome Crowley MD [address] [place] [address] Social History Tobacco Use Types Packs/Day Years Used Date Smoking Tobacco: Every Day Cigarettes 1 28 Started: 04/02/2007 Smokeless Tobacco: Never Alcohol Use Standard Drinks/Week Comments Not Currently 0 (1 standard drink = 0.6 oz pur e alcohol) few times a year [facility] Utilities Answer Date Recorded In the past [...] Date Recorded PHQ-2 Total Score 0 11/29/2024 [facility] [place] of Occupat ional Health - Occupational Stress [...] place to sleep or slept in a chcf (including now)? No 03/30/2021 [facility] IP Transportation Answer D ate Recorded [...] EDT Office Visit SEP GASTRO TIM [address]D ENTRANCE, 3RD [place] [address] Manuel Torres MD [address] [place] [address] 02/15/2025 2:15 PM EDT Appointment [facility] Cancer [address] [place] [address] 02/15/2025 2:30 PM EDT Appointment [address] [place] [address] Farnaz Ricardo APRN [address] [place] [address] [place] [address] 02/24/2025 8:00 AM EDT Appointment [facility] [address] [place] [address] [address] [place] [address] Rajwinder Craig MD [address] [place] [address] 03/02/2025 9:30 AM EDT Office Visit SEP H&V [address] [address] Jose Luis Ortiz MD [address] [place] [address] [place] [phone] 03/08/2025 11:15 AM EDT Office Visit [facility] Nephrology [place] [address] [place] [address] Lynn Mariano APRN [address] [place] [address] 03/09/2025 3:30 PM EDT Office Visit [facility] Diabetes [place] 1500 [facility] 301 [place] [address] Rita Cordero MD 1500 [place] [address] 10/07/2025 1:10 PM EDT Office Visit [facility] [place] 40 [facility] 101 [place] [address] Juan Russell MD [address] [facility] 101 [place] [address] documented as of this encounter Goals Goal Patient Goal Type Associated Problems Recent Progress Patient-Stated? Author Blood Pressure < 140/90 Blood Pressure 158/93(2024 3:43 PM EDT) No Mary Kate Lawrence, EMILY Maintain a healthy diet, exercise regularly and [...] Discontinue Reason Start Date End Da te Lancets Misc Misc Use to check blood sugar daily Cancelled by 09/04/2022 01/17/2025 olmesartan (BENICAR) 40 mg Oral Tablet Take 1 Tablet by mouth daily. Cancelled by 06/08/2024 01/17/2025 docusate sodium (COLACE) 100 mg Oral Capsule Cancelled by 01/17/2025 fluticasone propion-salmeteroL (ADVAIR DISKUS) 500-50 mcg/dose Inhl Disk with DeviceIndications:Sever e persistent asthma without complication (HCC) Inhale 1 Puff into the lungs 2 times daily. into the lungs Cancelled by 08/02/2024 01/17/2025 guaiFENesin (MUCINEX) 600 mg Oral Tablet Extended Release 12hr Take 1 Tablet by mouth 2 times daily as needed for Congestion (thick secretions). Cancelled by 12/24/2024 01/17/2025 linaCLOtide (LINZESS) 72 mcg Oral Capsule Take 1 Capsule by mouth daily for 360 days. Cancelled by 01/06/2025 01/17/2025 documented as of this encounter Care Teams Denture Contour Wire Specialist Relationship Specialty Start Date End Date Jerome Crowley MD [facility] [place] [address] PCP - General Internal Medicine 08/09/24 Kayli Kebede MD [address] [address] Consulting Physician Internal Medicine-Nephrology 05/17/22 Valarie Leach, RN Business Architect Registered Nurse 12/01/24 Rita Cordero MD [address] [place] [address] Internal Medicine-Endocrinology, Diabetes & Metabolism 01/10/25 documented as of this encounter
--- OUTSIDE RECORDS SUMMARY | 2025-01-30 12:31 | XMS_ITS | Encounter Summary ---
Author Organization [place] [address] Care Team Providers Care Strike Operations Officer Name Role Phone Kayli Kebede MD Unavailable [phone] Jerome Crowley MD Primary Care Provider [phone] Valarie Leach RN Unavailable Unavailable Rita Cordero MD Unavailable [phone] Reason for Visit * Reason Onset Date Comments Prior Authorization 01/17/2025 Trulicity 0. 75 mg-approved Encounter Details Date Type Department Care Team (Late st Contact Info) Description 01/17/2025 Telephone SEP Diabetes [address] [address] Rita Cordero MD [address] [place] [address] Prior Authorization (Trulicity 0.75 mg-approved) Social History Tobacco Use Types Packs/Day Years Used Date Smoking Tobacco: Every Day Cigarettes 1 28 Started: 04/02/2007 Smokeless Tobacco: Never Alcohol Use Standard Drinks/Week Comments Not Currently 0 (1 standard drink = 0.6 oz pur e alcohol) few times a year [facility] Utilities Answer Date Recorded In the past [...] Date Recorded PHQ-2 Total Score 0 11/29/2024 [facility] of Occupat ional [facility] - Occupational Stress Questionnaire Answer Date [...] place to sleep or slept in a senior care (including now)? No 03/30/2021 [facility] IP Transportation Answer D ate Recorded In [...] Brina Polanco RN documented in this encounter Miscellaneous Notes * Telephone Encounter - Fariha Funes MA - 01/17/2025 4:12 PM EDT approved [id number] * Telephone Encounter - Adilia Mcgee RMA - 01/17/2025 10:15 AM EDT PA submitted to [facility]. Naylor: [id number] * Telephone Encounter - Adilia Mcgee RMA - 01/17/2025 7:42 AM EDT PA received, flowsheet updated, routed to [facility], and placed in her bin. documented in this encounter Plan of Treatment Upcoming Encounters Date Type Department Care Team (Late st Contact Info) Description 02/02/2025 12:45 PM EDT Office Visit [facility] GASTRO TIM [address] ENTRANCE, 3RD [place] [address] Manuel Torres MD [address] [place] [address] 02/15/2025 2:15 PM EDT Appointment [address] [place] [address] 02/15/2025 2:30 PM EDT Appointment [address] [place] [address] Farnaz Ricardo, ASSOCIATE JAVA DEVELOPER 1 [facility] [place] [address] 02/24/2025 8:00 AM EDT Appointment [facility] [address] [place] [address] [address] [place] [address] Rajwinder Craig MD [address] [place] [address] 03/02/2025 9:30 AM EDT [place] [address] Jose Luis Ortiz MD [address] [place] [address] [place] [address] 03/08/2025 11:15 AM EDT Office Visit [facility] Nephrology [address] [place] [id number] Lynn Mariano, ASSOCIATE JAVA DEVELOPER [address] [facility] [address] [place] [address] 03/09/2025 3:30 PM EDT Office Visit [facility] Diabetes [place] [address] [facility] [address] [place] [address] Rita Cordero MD [address] [place], [place] [address] 10/07/2025 1:10 PM EDT Office Visit [facility] 40 [facility] 101 [place] [address] Juan Russell MD 40 [address] [facility] 101 [place] [address] documented as of this encounter [...] on filedocumented in this encounter Care Teams Strike Operations Officer Relationship Specialty Start Date End Date Jerome Crowley MD [address] [place] [phone] PCP - General Internal Medicine 08/09/24 Kayli Kebede MD [address] [place] [address] [address] [place] [address] Consulting Physician Internal Medicine-Nephrology 05/17/22 Valarie Leach, RN Rn Ante Partum Registered Nurse 12/01/24 Rita Cordero MD [address] [place] [address] Internal Medicine-Endocrinology, Diabetes & Metabolism 01/10/25 documented as of this encounter
--- OUTSIDE RECORDS SUMMARY | 2025-01-30 12:31 | XMS_ITS | Encounter Summary ---
Author Organization [facility] Address 47 [facility]3]. [address] [place] [address] Care Team Providers Care Yarn Worker Name Role Phone Kayli Kebede MD Unavailable [phone] Jerome Crowley MD Primary Care Provider [phone] Valarie Leach RN Unavailable Unavailable Encounter Details Date Type Department Care Team (Late st Contact Info) Description 12/27/2024 Orders Only [facility] Nephrology [place] 47 [facility] 120 [place], [place] [phone] Lynn Mariano APRN 47 [facility] 120 [place] [phone] COREEN (acute kidney injury) (Primary Dx) Social History Tobacco Use Types Packs/Day Years Used Date Smoking Tobacco: Every Day Cigarettes 1 17.8 Started: 04/02/2007 Smokeless Tobacco: Never Alcohol Use Standard Drinks/Week Comments Not Currently 0 (1 standard drink = 0.6 oz pur e alcohol) few times a year [facility] Utilities Answer Date Recorded In the past [...] Date Recorded PHQ-2 Total Score 0 11/29/2024 [facility] Occupat ional [facility] - Occupational Stress [...] in a fdc (including now)? No 03/30/2021 [facility] IP Transportation Answer D ate [...] EDT Office Visit SEP GASTRO TIM [address] ENTRANCE, 3RD [place] [address] Manuel Torres MD [address] [place] [address] 02/15/2025 2:[address] [facility] Cancer [address] [place] [address] 02/15/2025 2:30 PM EDT Appointment [address] [place] [address] Farnaz Ricardo, NONA [address] [place] [address] [place] [address] 02/24/2025 8:00 AM EDT Appointment [facility] [address] [place] [address] [address] [place] [address] Rajwinder Craig MD [address] [place] [address] 03/02/2025 9:30 AM EDT Office Visit [facility]P H&V [address] [address] Jose Luis Ortiz MD [address] [place] [address] [place] [phone] 03/08/2025 11:15 AM EDT Office Visit [facility] Nephrology [place] [address] [place] [address] Lynn Mariano APRN [address] [place] [address] 03/09/2025 3:30 PM EDT Office Visit [facility] Diabetes [place] 1500 [facility] 301 [place] [address] Rita Cordero MD 1500 [place] [address] 10/07/2025 1:10 PM EDT Office Visit ELIZABETH GIBSON Juliane [place] 40 [facility] 101 [place] [address] Juan Russell MD 40 [facility] 101 [place] [address] documented as of this encounter [...] as of this encounter Results * (ABNORMAL) RENAL FUNCTION PANEL (12/28/2024 10:38 AM EDT) Pathologist [facility] Sodium 141 136 - 145 mmol/L 12/28/2024 [...] recommended by the National Kidney Foundation - English Society of Nephrology Task Force. Blood VENOUS BLOOD / Unknown Venipuncture / Unknown 12/28/2024 10:38 AM EDT 12/28/2024 10:38 AM EDT us Lynn Mariano REGIONAL CONSTRUCTION MANAGER CHEMISTRY ORDERABLES Elizabeth l Result [employer] 1 [facility], [address] [place], [place] [id number] documented in this encounter Visit Diagnoses Diagnosis COREEN (acute kidney injury)- Primary Acute kidney failure, unspecified documented in this encounter Care Teams Yarn Worker Relationship Specialty Start Date End Date Jerome Crowley MD Holographic Projection [place] [address] PCP - General Internal Medicine 08/09/24 Kayli Kebede MD 830 [facility] [address] [place] [address] Consulting Physician Internal Medicine-Nephrology 05/17/22 Valarie Leach, RN Environmental Field Team Member Registered Nurse 12/01/24 documented as of this encounter
--- OUTSIDE RECORDS SUMMARY | 2025-01-30 12:31 | XMS_ITS | Encounter Summary ---
Author Organization [place] [address] Care Team Providers Care Station Cleaning Porter Name Role Phone Kayli Kebede MD Unavailable [phone] Jerome Crowley MD Primary Care Provider [phone] Valarie Leach RN Unavailable Unavailable Rita Cordero MD Unavailable [phone] Reason for Visit * Reason Onset Date Comments Medication Refill 01/17/2025 Encounter Details Date Type Department Care Team (Late st Contact Info) Description 01/17/2025 Refill SEP Amy [address] [place] [address] Annmarie Burton APRN [address] [place] [id number] Medication Refill Social History Tobacco Use Types Packs/Day Years Used Date Smoking Tobacco: Every Day Cigarettes 08 17 Started: 04/02/2007 Smokeless Tobacco: Never Alcohol Use Standard Drinks/Week Comments Not Currently 0 (1 standard drink = 0.6 oz pur e alcohol) few times a year [facility] Utilities Answer Date Recorded In the [...] Date Recorded PHQ-2 Total Score 0 11/29/2024 [facility] of Occupat ional [facility] - Occupational Stress Questionnaire Answer Date [...] place to sleep or slept in a retirement (including now)? No 03/30/2021 [facility] IP Transportation Answer D ate Recorded [...] as needed for Wheezing. 180 mL 2 01/17/2025 5 documented in this encounter Plan of Treatment Upcoming Encounters Date Type Department Care Team (Late st Contact Info) Description 02/02/2025 12:45 PM EDT Office Visit [facility]P GASTRO TIM [address] ENTRANCE, 3RD [place] [address] Manuel Torres MD 340 [place] [address] 02/15/2025 2:15 PM EDT Appointment [facility] Cancer Care [facility] [address] [place] [address] 02/15/2025 2:30 PM EDT Appointment [facility] [address] [place] [address] Farnaz Ricardo, ANALYSIS ENGINEER 1 [facility] [address] 02/24/2025 8:00 AM EDT Appointment [facility] [address] [place] [address] [address] [place] [address] Rajwinder Craig MD [address] [place] [address] 03/02/2025 9:30 AM EDT Office Visit SEP H&V [address] [address] Jose Luis Ortiz MD [address] [place] [address] [place] [phone] 03/08/2025 11:15 AM EDT Office Visit [facility] Nephrology [place] [address] [place] [address] Lynn Mariano, ANALYSIS ENGINEER [address] [place] [address] 03/09/2025 3:30 PM EDT Office Visit [facility] Diabetes [place] [address] [facility] [address] [place] [address] Rita Cordero MD [address] [place] [address] 10/07/2025 1:10 PM EDT Office Visit ELIZABETH Maynard [place] 40 [facility] 101 [place] [address] Juan Russell MD [address] [facility] [address] [place] [address] documented as of this encounter [...] as of this encounter Visit Diagnoses Diagnosis Moderate persistent asthma with acute exacerbation documented in this encounter Discontinued Medications Medication Sig Discontinue Reason Start Date End Da te albuterol (PROVENTIL) 2.5 mg /3 mL (0.083 %) Inhl Solution for NebulizationIndications: Moderate persistent asthma with acute exacerbation INHALE 3 ML BY MOUTH EVERY 4 HOURS NEEDED FOR WHEEZING Reorder 11/26/2022 01/17/2025 documented as of this encounter Care Teams Station Cleaning Porter Relationship Specialty Start Date End Date Jerome Crowley MD [address] [facility] [place] [place] [address] PCP - General Internal Medicine 08/09/24 Kayli Kebede MD 830 [facility] [address] [place] [address] Consulting Physician Internal Medicine-Nephrology 05/17/22 Valarie Leach, RN Coffee Grower Registered Nurse 12/01/24 Rita Cordero MD [address] [place] [address] Internal Medicine-Endocrinology, Diabetes & Metabolism 01/10/25 documented as of this encounter
--- OUTSIDE RECORDS SUMMARY | 2025-01-30 12:31 | XMS_ITS | Encounter Summary ---
Author Organization [place] [address] Care Team Providers Care Tube Drawer Name Role Phone Kayli Kebede MD Unavailable [phone] Jerome Crowley MD Primary Care Provider [phone] Valarie Leach RN Unavailable Unavailable Rita Cordero MD Unavailable [phone] Reason for Visit * Reason Onset Date Comments Medication Refill 01/17/2025 Encounter Details Date Type Department Care Team (Late st Contact Info) Description 01/17/2025 Refill SEP Amy [address] [place] [address] Jerome Crowley MD [address] [place] [address] Medication Refill Social History Tobacco Use Types Packs/Day Years Used Date Smoking Tobacco: Every Day Cigarettes 08 17 Started: 04/02/2007 Smokeless Tobacco: Never Alcohol Use Standard Drinks/Week Comments Not Currently 0 (1 standard drink = 0.6 oz pur e alcohol) few times a year [facility] Utilities Answer Date Recorded In [...] Total Score 0 11/29/2024 [facility] - Occupational Stress Questionnaire Answer Date [...] in a halfway (including now)? No 03/30/2021 [facility] IP Transportation Answer D ate Recorded In [...] Refills Last Filled Start Date End Date DULoxetine (CYMBALTA) 60 mg Oral Capsule, Delayed Release(E.C.) Take 1 Capsule by mouth daily for 360 days. 90 Capsule 3 01/17/2025 documented in this encounter Plan of Treatment Upcoming Encounters Date Type Department Care Team (Late st Contact Info) Description 02/02/2025 12:45 PM EDT Office Visit [facility] GA[facility] TIM [address] ENTRANCE, 3RD [place] [address] Manuel Torres MD [address] [place] [address] 02/15/2025 2:15 PM EDT Appointment [facility] [address] [place] [address] 02/15/2025 2:30 PM EDT Appointment [facility] [address] [place] [address] Farnaz Ricardo, NONA [address] [facility] [place] [address] 02/24/2025 8:00 AM EDT Appointment [facility] [address] [place] [address] [address] [place] [address] Rajwinder Craig MD [address] [place] [address] 03/02/2025 9:30 AM EDT Office Visit SEP H&V [address] [address] Jose Luis Ortiz MD [address] [place] [address] [facility] [place] [phone] 03/08/2025 11:15 AM EDT Office Visit [facility] Nephrology [place] [address] [place] [address] Lynn Mariano, NONA [address] [place] [address] 03/09/2025 3:30 PM EDT Office Visit [facility] Diabetes [place] 1500 [facility] [address] [place] [address] Rita Cordero MD 1500 [place] [address] 10/07/2025 1:10 PM EDT Office Visit [facility] 40 [facility] [address] [place] [address] Juan Russell MD 40 N [facility] [address] [place] [address] documented as of this encounter [...] Discontinue Reason Start Date End Da te DULoxetine (CYMBALTA) 60 mg Oral Capsule, Delayed Release(E.C.) Take 1 Capsule by mouth daily for 360 days. Reorder 06/28/2024 01/17/2025 documented as of this encounter Care Teams Tube Drawer Relationship Specialty Start Date End Date Jerome Crowley MD [address] [place] [phone] PCP - General Internal Medicine 08/09/24 Kayli Kebede MD [address] [address] Consulting Physician Internal Medicine-Nephrology 05/17/22 Valarie Leach, RN Program Advisor Registered Nurse 12/01/24 Rita Cordero MD [address] [place] [address] Internal Medicine-Endocrinology, Diabetes & Metabolism 01/10/25 documented as of this encounter
--- OUTSIDE RECORDS SUMMARY | 2025-01-30 12:31 | XMS_ITS | Encounter Summary ---
Author Organization [place] [address] Care Team Providers Care Cook Helper Preserves Name Role Phone Kayli Kebede MD Unavailable [phone] Jerome Crowley MD Primary Care Provider [phone] Valarie Leach RN Unavailable Unavailable Rita Cordero MD Unavailable [phone] Reason for Visit * Reason Onset Date Comments Prior Authorization 01/17/2025 Encounter Details Date Type Department Care Team (Late st Contact Info) Description 01/17/2025 Telephone [facility] [address] [facility] [address] [place], [place] [address] Rita Cordero MD [address] [place] [address] Prior Authorization Social History Tobacco Use Types Packs/Day Years Used Date Smoking Tobacco: Every Day Cigarettes 1 28 Started: 04/02/2007 Smokeless Tobacco: Never Alcohol Use Standard Drinks/Week Comments Not Currently 0 (1 standard drink = 0.6 oz pur e alcohol) few times a year [facility] Utilities Answer Date Recorded In the [...] Date Recorded PHQ-2 Total Score 0 11/29/2024 [facility] [place] of Occupat ional Health - Occupational Stress [...] in a fpc (including now)? No 03/30/2021 [facility] [...] encounter Miscellaneous Notes * Telephone Encounter - Debbie Shahid - 01/17/2025 8:37 AM EDT error documented in this encounter Plan of Treatment Upcoming Encounters Date Type Department Care Team (Late st Contact Info) Description 02/02/2025 12:45 PM EDT Office Visit [facility]P GASTRO TIM [address] ENTRANCE, 3RD [place] [address] Manuel Torres MD [address] [place] [address] 02/15/2025 2:15 PM EDT Appointment [facility] [address] [place] [address] 02/15/2025 2:30 PM EDT Appointment [facility] [place] [address] [address] [address] aFrnaz Ricardo, ELECTRIC SPOT WELDER [address] [facility] [place] [address] 02/24/2025 8:00 AM EDT Appointment [facility] [address] [place] [address] [address] [place] [address] Rajwinder Craig MD [address] [place] [address] 03/02/2025 9:30 AM EDT Office Visit SEP H&V [address] [address] Jose Luis Ortiz MD [address] [place] [address] [place] [phone] 03/08/2025 11:15 AM EDT Office Visit [facility] Nephrology [place] [address] [place] [address] Lynn Mariano, ELECTRIC SPOT WELDER [address] [place] [address] 03/09/2025 3:30 PM EDT Office Visit [facility] Diabetes [place] 1500 [facility] 301 [place] [address] Rita Cordero MD [address] [place] [address] 10/07/2025 1:10 PM EDT Office Visit [facility] [place] 40 [facility] 101 [place] [address] Juan Russell MD 40 [address] [facility] [address] [place] [address] documented as of this encounter [...] on filedocumented in this encounter Care Teams Cook Helper Preserves Relationship Specialty Start Date End Date Jerome Crowley MD [address] [facility] [place] [address] PCP - General Internal Medicine 08/09/24 Kayli Kebede MD 830 [facility] 202 [place] [address] Consulting Physician Internal Medicine-Nephrology 05/17/22 Valarie Leach, RN Food Bagging Machine Operator Registered Nurse 12/01/24 Rita Cordero MD [address] [place] [address] Internal Medicine-Endocrinology, Diabetes & Metabolism 01/10/25 documented as of this encounter
--- OUTSIDE RECORDS SUMMARY | 2025-01-30 12:31 | XMS_ITS | Encounter Summary ---
Author Organization [facility] [place] [address] Care Team Providers Care Knit Goods Washer Name Role Phone Kayli Kebede MD Unavailable [phone] Jerome Crowley MD Primary Care Provider [phone] Valarie Leach RN Unavailable Unavailable Encounter Details Date Type Department Care Team (Latest Contact Info) Description 12/25/2024 Travel Social History Tobacco Use Types Packs/Day Years Used Date Smoking Tobacco: Every Day Cigarettes 1 17.8 Started: 04/02/2007 Smokeless Tobacco: Never Alcohol Use Standard Drinks/Week Comments Not Currently 0 (1 standard drink = 0.6 oz pur e alcohol) few times a year [facility] Utilities Answer Date Recorded In the past [...] Date Recorded PHQ-2 Total Score 0 11/29/2024 [facility] of Occupat ional Health - Occupational Stress [...] to sleep or slept in a senior living (including now)? No 03/30/2021 [facility] IP Transportation Answer D ate [...] 4:02 PM EDT Hilario Valles RN * [facility] Suicide Severity Rating Scale (Q shift for [...] EDT Office Visit SEP GA[facility] TIM [address] ENTRANCE, 3RD [place] [address] Manuel Torres MD 340 [place] [address] 02/15/2025 2:15 PM EDT Appoint[facility] [address] [place] [address] 02/15/2025 2:30 PM EDT Appointment [facility] [address] [place] [address] Farnaz Ricardo, INTERNET MARKETING COORDINATOR [address] [facility] [address] 02/24/2025 8:00 AM EDT Appointment [facility] [address] [place] [address] [address] [place] [address] Rajwinder Craig MD [address] [place] [address] 03/02/2025 9:30 AM EDT Office Visit SEP H&V [address] [address] Jose Luis Ortiz MD [address] [place] [address] [place] [phone] 03/08/2025 11:15 AM EDT Office Visit [facility] Nephrology [place] [address] [place] [address] Lynn Mariano, INTERNET MARKETING COORDINATOR [address] [place] [address] 03/09/2025 3:30 PM EDT Office Visit [facility] [address] [facility] [address] [place] [address] Rita Cordero MD [address] [place] [address] 10/07/2025 1:10 PM EDT Office Visit [facility] [place] [place] 40 [facility] [address] [place] [phone] Juan Russell MD 40 N [facility] [address] [place] [address] documented as of this encounter [...] on filedocumented in this encounter Care Teams Knit Goods Washer Relationship Specialty Start Date End Date Jerome Crowley MD [address] [place] [address] [address] [place] [phone] PCP - General Internal Medicine 08/09/24 Kayli Kebede MD 830 [facility] [address] [place] [address] Consulting Physician Internal Medicine-Nephrology 05/17/22 Valarie Leach, RN Java Software Architect Registered Nurse 12/01/24 documented as of this encounter
--- OUTSIDE RECORDS SUMMARY | 2025-01-30 12:31 | XMS_ITS | Encounter Summary ---
Author Organization [facility] [address] Care Team Providers Care Digital Marketing Executive Name Role Phone Kayli Kebede MD Unavailable [phone] Jerome Crowley MD Primary Care Provider [phone] Valarie Leach RN Unavailable Unavailable Encounter Details Date Type Department Care Team (Latest Contact Info) Description 01/05/2025 Travel Social History Tobacco Use Types Packs/Day [...] Date Recorded PHQ-2 Total Score 0 11/29/2024 [facility] of Occupat ional Health - Occupational Stress [...] a nursing home (including now)? No 03/30/2021 [facility] IP Transportation Answer D ate Recorded [...] EDT Office Visit [facility]P GA[facility] TIM [address] ENTRANCE, 3RD [place] [address] Manuel Torres MD 340 [place] [address] 02/15/2025 2:[address] [facility] Care [address] [place] [address] 02/15/2025 2:[address] [facility] Cancer Care [address] [place] [address] Farnaz Ricardo, NONA 1 [facility] [place] [address] 02/24/2025 8:00 AM EDT Appointment [facility] [address] [place] [address] [address] [place] [address] Rajwinder Craig MD [address] [place] [address] 03/02/2025 9:30 AM EDT Office Visit [facility] H[facility] [place] [address] [place] [phone] Jose Luis Ortiz MD [address] [place] [address] DR MARTINE[address] [facility] [phone] 03/08/2025 11:15 AM EDT Office Visit [facility] Nephrology [place] [address] [place] [address] Lynn Mariano, NONA [address] [place] [address] 03/09/2025 3:30 PM EDT Office Visit [facility] Diabetes [place] 1500 [facility] [address] [place] [address] Rita Cordero MD 1500 [place] [address] 10/07/2025 1:10 PM EDT Office Visit [facility] 40 [facility] 101 [place] [address] Juan Russell MD 40 N [facility] [address] [place] [address] documented as of this encounter Goals Goal Patient Goal Type Associated Problems Recent Progress Patient-Stated? Author Blood Pressure < 140/90 Blood Pressure 158/93(2024 3:43 PM EDT) No Mary Kate Lawrence CCMA Maintain a healthy diet, exercise regularly and maintain an ideal body weight General No Mary Kate Lawrenec CCMA BMI (Calculated) < 30 General 48.1(01/08/20 12:45 PM EDT) No Jerome Crowley MD Stay Tobacco Free Lifestyle No Mary Kate Lawrence CCMA HEMOGLOBIN A1C < 7.0 Result Component 5.7( 12:58 PM EDT) No Jerome Crowley MD documented as of this encounter Visit Diagnoses Not on filedocumented in this encounter Care Teams Digital Marketing Executive Relationship Specialty Start Date End Date Jerome Crowley MD 79 [facility] [place] [place] [address] PCP - General Internal Medicine 08/09/24 Kayli Kebede MD [address] [address] Consulting Physician Internal Medicine-Nephrology 05/17/22 Valarie Leach, RN Linoleum Tile Layer Registered Nurse 12/01/24 documented as of this encounter
--- OUTSIDE RECORDS SUMMARY | 2025-01-30 12:31 | XMS_ITS | Encounter Summary ---
Author Organization [place] [address] Care Team Providers Care Rn Bsn Name Role Phone Kayli Kebede MD Unavailable [phone] Jerome Crowley MD Primary Care Provider [phone] Valarie Leach RN Unavailable Unavailable Rita Cordero MD Unavailable [phone] Reason for Visit * Reason Onset Date Comments CM- Telephonic Outreach 01/17/2025 CM- Longitudinal Continued 01/17/2025 Encounter Details Date Type Department Care Team (Latest Contact Info) Description 01/17/2025 Patient Outreach FRANKIE [place] [address] [place] [address] Valarie Leach, RN CM- Telephonic Outreach; CM- Longitudinal Continued Social History Tobacco Use Types Packs/Day Years Used Date Smoking Tobacco: Every Day Cigarettes 1 28 Started: 04/02/2007 Smokeless Tobacco: Never Alcohol Use Standard Drinks/Week Comments Not Currently 0 (1 standard drink = 0.6 oz pur e alcohol) few times a year [facility] Utilities Answer Date Recorded In the past 12 months has [employer] electric, gas, oil, or water company threatened to shut off services in your home? No 11/29/2024 Overall Financial Resource Strain (CARDIA) Answe r Date Recorded How hard is it for you to pa y for the very basics like food, housing, medical care, and heating? Not very hard 11/29/2024 PHQ-2 Answer Date Recorded PHQ-2 Total Score 0 11/29/2024 [facility] of Occupat ional Health - Occupational Stress [...] in a fpc (including now)? No 03/30/2021 [facility] IP Transportation Answer D [...] documented in this encounter Progress Notes * Valarie eLach RN - 01/17/2025 3:10 PM EDT Patient Outreach First attempt to contact patient regarding Chronic Care Management Outcome: Unable to reach patient by phone Voicemail box is full/not set up Patient can return call to Alessia Leach RN University Tutor [facility] [place] Chronic Care Management- Time Spent with Patient Time spent with patient (minutes): 0 Time spent performing chart review (minutes): 5 Total time (minutes): 5 documented in this encounter Plan of Treatment Upcoming Encounters Date Type Department Care Team (Late st Contact Info) Description 02/02/2025 12:45 PM EDT Office Visit [facility] [address] ENTRANCE, 3RD [place] [address] Manuel Torres MD [address] [place] [address] 02/15/2025 2:15 PM EDT Appointment [facility] Cancer [place] [address] [place] [address] 02/15/2025 2:30 PM EDT Appointment [place] [address] [place] [place] [address] Farnaz Ricardo, JOB CHANGE CREW MEMBER 1 [place] [address] 02/24/2025 8:00 AM EDT Appointment [facility] [address] [place] [address] 310 [place] [address] Rajwinder Craig MD [address] [place] [address] 03/02/2025 9:30 AM EDT Office Visit [facility] [address] [address] Jose Luis Ortiz MD [address] [place] [address] [place] [address] 03/08/2025 11:15 AM EDT Office Visit [facility] Nephrology [place] [address] [place] [address] Lynn Mariano, JOB CHANGE CREW MEMBER [address] [place] [address] 03/09/2025 3:30 PM EDT Office Visit [facility] [address] [facility] [address] [place] [phone] Rita Cordero MD [address] [place] [address] 10/07/2025 1:10 PM EDT Office Visit [facility] [place] 40 [facility] [address] [place] [address] Juan Russell MD [address] [facility] [address] [place] [address] documented as of this encounter Goals [...] as of this encounter Visit Diagnoses Diagnosis Hypertension associated with type 2 diabetes mellitus (HCC)- Primary Type 2 diabetes mellitus with diabetic neuropathy, without long-term current use of insulin (HCC) documented in this encounter Care Teams Rn Bsn Relationship Specialty Start Date End Date Jerome Crowley MD [address] [place] [address] [place] [address] PCP - General Internal Medicine 08/09/24 Kayli Kebede MD [address] [facility] 202 [place] [address] Consulting Physician Internal Medicine-Nephrology 05/17/22 Valarie Leach, RN University Tutor Registered Nurse 12/01/24 Rita Cordero MD [address] [place] [address] Internal Medicine-Endocrinology, Diabetes & Metabolism 01/10/25 documented as of this encounter
--- OUTSIDE RECORDS SUMMARY | 2025-01-30 12:31 | XMS_ITS | Encounter Summary ---
Author Organization [place] [address] Care Team Providers Care Rivet Heater Gas Name Role Phone Kayli Kebede MD Unavailable [phone] Jerome Crowley MD Primary Care Provider [phone] Valarie Leach RN Unavailable Unavailable Rita Cordero MD Unavailable [phone] Reason for Referral * Medication Prior Authorization - Closed Specialty Diagnoses / Procedures Referred By Contren t Referred To Contact [place] [address] Phone: tel: fax: Referral ID Status Reason Start Date Expiration Date Visits Re quested Visits Authorized [id number] Closed 1 1 Reason for Visit * Reason Onset Date Comments Medication Refill 01/17/2025 Encounter Details Date Type Department Care Team (Late st Contact Info) Description 01/17/2025 Refill [facility] [place] [address] Jerome Crowley MD COUNTRY [facility] [place] [address] Medication Refill Social History Tobacco Use Types Packs/Day Years Used Date Smoking Tobacco: Every Day Cigarettes 1 28 Started: 04/02/2007 Smokeless Tobacco: Never Alcohol Use Standard Drinks/Week Comments Not Currently 0 (1 standard drink = 0.6 oz pur e alcohol) few times a year [facility] Utilities Answer Date Recorded In the [...] place to sleep or slept in a alf (including now)? No 03/30/2021 [facility] IP Transportation Answer D ate Recorded [...] Last Filled Start Date End Date albuterol (PROVENTIL HFA;VENTOLIN HFA) 90 mcg/actuation Inhl HFA Aerosol Inhaler Inhale 2 Puffs into the lungs every 6 hours as needed. for wheezing 8.5 g 5 01/17/2025 documented in this encounter Plan of Treatment Upcoming Encounters Date Type Department Care Team (Late st Contact Info) Description 02/02/2025 12:45 PM EDT Office Visit [facility] [address] 1D ENTRANCE, 3RD [place] [address] Manuel Torres MD 340 [place] [address] 02/15/2025 2:15 PM EDT Appointment [facility] [address] [place] [address] 02/15/2025 2:30 PM EDT Appointment [facility] [address] [place] [address] Farnaz Ricardo, FLATTENING PRESS OPERATOR 1 [place] [address] 02/24/2025 8:00 AM EDT Appointment [facility] [address] [place] [address] [address] [place] [address] Rajwinder Craig MD [address] [place] [address] 03/02/2025 9:30 AM EDT Office Visit [facility] [address] [address] Jose Luis Ortiz MD [address] [place] [address] [place] [address] 03/08/2025 11:15 AM EDT Office Visit [facility] Nephrology [place] [address] [place] [address] Lynn Mariano, FLATTENING PRESS OPERATOR [address] [place] [phone] 03/09/2025 3:30 PM EDT Office Visit [facility] [address] [facility] [address] [place] [address] Rita Cordero MD [address] [place], [place] [address] 10/07/2025 1:10 PM EDT Office Visit [facility] [place] 40 [facility] 101 [place] [address] Juan Russell MD 40 [address] [facility] 101 [place] [address] documented as of this encounter [...] Reason Start Date End Da te albuterol (PROVENTIL HFA;VENTOLIN HFA) 90 mcg/actuation Inhl HFA Aerosol Inhaler Inhale 2 Puffs into the lungs every 6 hours as needed. for wheezing Reorder 12/21/2024 01/17/2025 documented as of this encounter Care Teams Rivet Heater Gas Relationship Specialty Start Date End Date Jerome Crowley MD [facility] [place] [address] PCP - General Internal Medicine 08/09/24 Kayli Kebede MD [address] [place] [address] 202 [place] [address] Consulting Physician Internal Medicine-Nephrology 05/17/22 Valarie Leach, RN Weather Clerk Registered Nurse 12/01/24 Rita Cordero MD [address] [place] [address] Internal Medicine-Endocrinology, Diabetes & Metabolism 01/10/25 documented as of this encounter
--- OUTSIDE RECORDS SUMMARY | 2025-01-30 12:31 | XMS_ITS | Encounter Summary ---
Author Organization [place] [address] Care Team Providers Care Lay Out Technician Name Role Phone Kayli Kebede MD Unavailable [phone] Jerome Crowley MD Primary Care Provider [phone] Valarie Leach RN Unavailable Unavailable Rita Cordero MD Unavailable [phone] Reason for Visit * Reason Onset Date Comments Medication Refill 01/17/2025 Encounter Details Date Type Department Care Team (Late st Contact Info) Description 01/17/2025 Refill [facility] [place] [address] Santosh Crowley MD [address] [place] [address] [place] [address] Medication Refill Social History Tobacco Use Types Packs/Day Years Used Date Smoking Tobacco: Every Day Cigarettes 1 28 Started: 04/02/2007 Smokeless Tobacco: Never Alcohol Use Standard Drinks/Week Comments Not Currently 0 (1 standard drink = 0.6 oz pur e alcohol) few times a year [facility] Utilities Answer Date Recorded In the past 12 months has [employer] electric, gas, oil, or water company threatened to shut off services in your home? No 11/29/2024 Overall Financial Resource Strain (CARDIA) Answe r Date Recorded How hard is it for you to pa y for the very basics like food, housing, medical care, and heating? Not very hard 11/29/2024 PHQ-2 Answer Date Recorded PHQ-2 Total Score 0 11/29/2024 [facility] - Occupational Stress Questionnaire Answer [...] place to sleep or slept in a custodial (including now)? No 03/30/2021 [facility] IP Transportation Answer D ate Recorded [...] Refills Last Filled Start Date End Date ergocalciferol (DRISDOL) 1,250 mcg (50,000 unit) Oral Capsule Take 1 Capsule by mouth once a week for 360 days. 12 Capsule 3 01/17/2025 documented in this encounter Plan of Treatment Upcoming Encounters Date Type Department Care Team (Late st Contact Info) Description 02/02/2025 12:45 PM EDT Office Visit [facility] [address] ENTRANCE, 3RD [place] [address] Manuel Torres MD [address] [place] [address] 02/15/2025 2:15 PM EDT Appointment [facility] [address] [place] [address] 02/15/2025 2:30 PM EDT Appointment [facility] [address] [place] [address] Farnaz Ricardo, NONA [address] [place] [address] 02/24/2025 8:00 AM EDT Appointment [facility] [address] [place] [address] [address] [place] [address] Rajwinder Craig MD [address] [place] [address] 03/02/2025 9:30 AM EDT Office Visit [facility] [address] [address] Jose Luis Ortiz MD [address] [place] [address] [place] [address] 03/08/2025 11:15 AM EDT Office Visit [facility] Nephrology [place] [address] [place] [address] Lynn Mariano, SUPERVISOR DRILLING AND SHOOTING [address] [place] [address] 03/09/2025 3:30 PM EDT Office Visit [facility] Diabetes [place] 1500 [facility] [address] [place] [address] Rita Cordero MD 1500 [place] [address] 10/07/2025 1:10 PM EDT Office Visit [facility] 40 [facility] [address] [place] [address] Juan Russell MD 40 [address] [facility] [address] [place] [address] documented as of this encounter [...] Discontinue Reason Start Date End Da te ergocalciferol (DRISDOL) 1,250 mcg (50,000 unit) Oral Capsule Take 1 Capsule by mouth once a week for 360 days. Reorder 12/20/2024 01/17/2025 documented as of this encounter Care Teams Lay Out Technician Relationship Specialty Start Date End Date Jerome Crowley MD [address] [facility] [place] [address] PCP - General Internal Medicine 08/09/24 Kayli Kebede MD [address] [address] Consulting Physician Internal Medicine-Nephrology 05/17/22 Valarie Leach, RN Cougar Hunter Registered Nurse 12/01/24 Rita Cordero MD [address] [place] [address] Internal Medicine-Endocrinology, Diabetes & Metabolism 01/10/25 documented as of this encounter
--- OUTSIDE RECORDS SUMMARY | 2025-01-30 12:31 | XMS_ITS | Encounter Summary ---
Author Organization [place] [address] Care Team Providers Care Editor Managing Newspaper Name Role Phone Kayli Kebede MD Unavailable [phone] Jerome Crowley MD Primary Care Provider [phone] Valarie Leach RN Unavailable Unavailable Reason for Visit * Reason Onset Date Comments Medication Management 01/06/2025 linaCLOtid e (LINZESS) 72 mcg Oral Capsule Encounter Details Date Type Department Care Team (Late st Contact Info) Description 01/06/2025 Telephone SEP Amy [place] [address] [place] [address] Jerome Crowley MD [address] [place] [address] Medication Management (linaCLOtide (LINZESS) 72 mcg Oral Capsule) Social History Tobacco Use Types Packs/Day Years Used Date Smoking Tobacco: Every Day Cigarettes 1 17.8 Started: 04/02/2007 Smokeless Tobacco: Never Alcohol Use Standard Drinks/Week Comments Not Currently 0 (1 standard drink = 0.6 oz pur e alcohol) few times a year [facility] Utilities Answer Date Recorded In the [...] Date Recorded PHQ-2 Total Score 0 11/29/2024 [facility] of Occupat ional Health - Occupational Stress [...] a care home (including now)? No 03/30/2021 [facility] IP Transportation Answer D ate Recorded In [...] Refills Last Filled Start Date End Date linaCLOtide (LINZESS) 72 mcg Oral Capsule Take 1 Capsule by mouth daily for 360 days. 90 Capsule 3 01/06/2025 documented in this encounter Miscellaneous Notes * Telephone Encounter - Valarie Barahona RMA - 01/06/2025 2:27 PM EDT Please advise * Telephone Encounter - Valarie [place]e, Clerical Staff - 01/06/2025 2:14 PM EDT Select the most appropriate reason for this telephone message: Medication Management/Problem Who is calling? Pharmacy Marleen What medication(s) do you have concerns about: linaCLOtide (LINZESS) 72 mcg Oral Capsule 90 Capsule 3 12/10/2024 -- Sig - Route: Take 1 Capsule by mouth as needed for Nausea. - Oral Prescribing provider: PCP What are your concerns/request: Need to know a max daily dosage Desired outcome: Clarification of prescription Last appointment date: 12/28/24 Pharmacy: [facility] [place] [address] [address] [facility] - [phone] Return Method of Communication: Phone Call Additional Information: please advise pharmacy - thank you documented in this encounter Plan of Treatment Upcoming Encounters Date Type Department Care Team (Late st Contact Info) Description 02/02/2025 12:45 PM EDT Office Visit [facility] [address] [facility] 1D ENTRANCE, 3RD [place] [address] Manuel Torres MD [address] [place] [address] 02/15/2025 2:15 PM EDT Appointment [facility] Cancer [address] [place] [address] 02/15/2025 2:30 PM EDT Appointment [address] [place] [address] Farnaz Ricardo APRN [address] [place] [id number] 02/24/2025 8:00 AM EDT Appointment [facility] [address] [place] [address] [address] [place] [address] Rajwinder Craig MD [address] [place] [address] 03/02/2025 9:30 AM EDT [place] [address] Jose Luis Ortiz MD [address] [facility] [place] [address] 03/08/2025 11:15 AM EDT Office Visit [facility] Nephrology [place] [address] [place] [address] Lynn Mariano APRN [address] [place] [address] 03/09/2025 3:30 PM EDT Office Visit [facility] Diabetes [place] 1500 [facility] [address] [place] [address] Rita Cordero MD 1500 [place], [place] [address] 10/07/2025 1:10 PM EDT Office Visit [facility] 40 [facility] 101 [place] [address] Juan Russell MD [address] [facility] [address] [place] [address] documented as of this encounter Goals Goal [...] Discontinue Reason Start Date End Da te linaCLOtide (LINZESS) 72 mcg Oral Capsule Take 1 Capsule by mouth as needed for Nausea. Reorder 12/10/2024 01/06/2025 documented as of this encounter Care Teams Editor Managing Newspaper Relationship Specialty Start Date End Date Jerome Crowley MD COUNTRY [facility] [place] [address] PCP - General Internal Medicine 08/09/24 Kayli Kebede MD [address] [address] Consulting Physician Internal Medicine-Nephrology 05/17/22 Valarie Leach, RN Intellectual Property Paralegal Registered Nurse 12/01/24 documented as of this encounter
--- OUTSIDE RECORDS SUMMARY | 2025-01-30 12:31 | XMS_ITS | Encounter Summary ---
Author Organization [place] [address] Care Team Providers Care Kitchen Porter Name Role Phone Kayli Kebede MD Unavailable [phone] Jerome Crowley MD Primary Care Provider [phone] Valarie Leach RN Unavailable Unavailable Rita Cordero MD Unavailable [phone] Reason for Visit * Reason Onset Date Comments Medication Refill 01/27/2025 Encounter Details Date Type Department Care Team (Late st Contact Info) Description 01/27/2025 Refill SEP Amy [address] [place] [address] Jerome Crowley MD [address] [place] [address] Medication Refill Social History Tobacco Use Types Packs/Day Years Used Date Smoking Tobacco: Every Day Cigarettes 1 Started: 04/02/2007 Smokeless Tobacco: Never Alcohol Use Standard Drinks/Week Comments Not Currently 0 (1 standard drink = 0.6 oz pur e alcohol) few times a year [facility] Utilities Answer Date Recorded In the [...] Date Recorded PHQ-2 Total Score 0 11/29/2024 [facility] - Occupational Stress Questionnaire Answer Date Recorded [...] in a fpc (including now)? No 03/30/2021 [facility] IP Transportation Answer D ate Recorded [...] Author No 11/30/2024 4:23 PM EDT Brina Polacno RN * Does this person have serious [...] daily for 360 days. 180 Tablet 3 01/27/2025 6 busPIRone (BUSPAR) 10 mg Oral Tablet Take 1 Tablet by mouth 2 times daily. 60 Tablet 2 01/27/2025 fUROsemide (LASIX) 40 mg Oral TabletIndications: Chronic diastolic congestive heart failure (HCC) Take 1 Tablet by mouth daily for 30 days. 30 Tablet 01/27/2025 5 documented in this encounter Plan of Treatment Upcoming Encounters Date Type Department Care Team (Late st Contact Info) Description 02/02/2025 12:45 PM EDT Office Visit [facility] [address] 1D ENTRANCE, 3RD [place] [address] Manuel Torres MD [address] [place] [id number] 02/15/2025 2:15 PM EDT Appointment [facility] [address] [place] [address] 02/15/2025 2:30 PM EDT Appointment [place] [address] [place] [address] Farnaz Ricardo, LEDGE MAN 1 [facility] [place] [address] 02/24/2025 8:00 AM EDT Appointment [facility] [address] [place] [address] 310 [place] [address] Rajwinder Craig MD [address] [place] [address] 03/02/2025 9:30 AM EDT Office [place] [address] Jose Luis Ortiz MD [address] [place] [address] [place] [address] 03/08/2025 11:15 AM EDT Office Visit [facility] [place] Nephrology [place] 47 [facility] 120 [place] [address] Lynn Mariano, LEDGE MAN [address] [place] [address] 03/09/2025 3:30 PM EDT Office Visit [facility] [address] [address] Rita Cordero MD [address] [place] [address] 10/07/2025 1:10 PM EDT Office Visit [facility] [place] 40 [facility] [address] [place] [address] Juan Russell MD 40 [facility] [address] [place] [address] documented as [...] as of this encounter Visit Diagnoses Diagnosis Chronic diastolic congestive heart failure (HCC) Chronic diastolic heart failure documented in this encounter Discontinued Medications Medication Sig Discontinue Reason Start Date End Da te fUROsemide (LASIX) 40 mg Oral TabletIndications:Chroni c diastolic congestive heart failure (HCC) Take 1 Tablet by mouth daily for 30 days. Reorder 12/01/2024 01/27/2025 busPIRone (BUSPAR) 10 mg Oral Tablet Take 1 Tablet by mouth 2 times daily. Reorder 12/20/2024 01/27/2025 atorvastatin (LIPITOR) 20 mg Oral Tablet Take 2 Tablets by mouth daily for 360 days. Reorder 01/06/2025 01/27/2025 documented as of this encounter Care Teams Kitchen Porter Relationship Specialty Start Date End Date Jerome Crowley MD [address] [place] [address] PCP - General Internal Medicine 08/09/24 Kayli Kebede MD [address] [place] [address] 202 [place] [address] Consulting Physician Internal Medicine-Nephrology 05/17/22 Valarie Leach, RN Automation Lead Registered Nurse 12/01/24 Rita Cordero MD [address] [place] [address] Internal Medicine-Endocrinology, Diabetes & Metabolism 01/10/25 documented as of this encounter
--- OUTSIDE RECORDS SUMMARY | 2025-01-30 12:31 | XMS_ITS | Encounter Summary ---
Author Organization [place] [address] Care Team Providers Care Veterinary Practitioner Name Role Phone Kayli Kebede MD Unavailable [phone] Jerome Crowley MD Primary Care Provider [phone] Valarie Leach RN Unavailable Unavailable Rita Cordero MD Unavailable [phone] Encounter Details Date Type Department Care Team (Late st Contact Info) Description 01/24/2025 Results Follow-Up SEP [place] [address] Jerome Crowley MD [address] [place] [address] MM MAMMO DIGITAL CONRADO DIAGN RIGHT Social History Tobacco Use Types Packs/Day Years Used Date Smoking Tobacco: Every Day Cigarettes 1 28 Started: 04/02/2007 Smokeless Tobacco: Never Alcohol Use Standard Drinks/Week Comments Not Currently 0 (1 standard drink = 0.6 oz pur e alcohol) few times a year [facility] Utilities Answer Date Recorded In the past 12 months has [employer], gas, oil, or water company threatened to shut off services in your home? No 11/29/2024 Overall Financial Resource Strain (CARDIA) Answe r Date Recorded How hard is it for you to pa y for the very basics like food, housing, medical care, and heating? Not very hard 11/29/2024 PHQ-2 Answer Date Recorded PHQ-2 Total Score 0 11/29/2024 [facility] of Occupat ional Health - Occupational Stress [...] in a assisted (including now)? No 03/30/2021 [facility] IP Transportation Answer D ate Recorded [...] Progress Notes * Jerome Crowley MD - 01/24/2025 7:48 AM EDT Some calcifications, appear benign - recommend 6 month follow up documented in this encounter Plan of Treatment Upcoming Encounters Date Type Department Care Team (Late st Contact Info) Description 02/02/2025 12:45 PM EDT Office Visit [facility]P [facility] [address] ENTRANCE, 3[place] [address] Manuel Torres MD [address] [place] [address] 02/15/2025 2:15 PM EDT Appoint[facility] [address] [place] [address] 02/15/2025 2:30 PM EDT Appoint[facility] [address] [place] [address] Farnaz Ricardo, NONA [address] [facility] [place] [address] 02/24/2025 8:00 AM EDT Appointment [facility] [address] [place] [address] [address] [place] [address] Rajwinder Craig MD [address] [place] [address] 03/02/2025 9:30 AM EDT Office Visit [facility] [address] [address] Jose Luis Ortiz MD [address] [place] [address] [facility] [place] [phone] 03/08/2025 11:15 AM EDT Office Visit [facility] Nephrology [place] [address] [place] [address] Lynn Mariano, MELTER HELPER [address] [place] [address] 03/09/2025 3:30 PM EDT Office Visit [facility] Diabetes [place] 1500 [facility] [address] [place] [address] Rita Cordero MD 1500 [place] [address] 10/07/2025 1:10 PM EDT Office Visit [facility] 40 [facility] [address] [place] [address] Juan Russell MD [address] [facility] [address] [place] [address] documented as of this encounter [...] on filedocumented in this encounter Care Teams Veterinary Practitioner Relationship Specialty Start Date End Date Jerome Crowley MD [address] [facility] [place] [phone] PCP - General Internal Medicine 08/09/24 Kayli Kebede MD [address] [address] Consulting Physician Internal Medicine-Nephrology 05/17/22 Valarie Leach, RN Entry Specialists Registered Nurse 12/01/24 Rita Cordero MD [address] [place] [address] Internal Medicine-Endocrinology, Diabetes & Metabolism 01/10/25 documented as of this encounter
--- OUTSIDE RECORDS SUMMARY | 2025-01-30 12:32 | XMS_ITS | Encounter Summary ---
Author Organization [place] [address] Care Team Providers Care Support Engineer Name Role Phone Kayli Kebede MD Unavailable [phone] Jerome Crowley MD Primary Care Provider [phone] Valarie Leach RN Unavailable Unavailable Reason for Visit * Reason Comments Medication Refill Encounter Details Date Type Department Care Team (Late st Contact Info) Description 01/01/2025 Refill SEP Amy [facility] [place] [address] [place] [address] Medication Refill Social History Tobacco Use Types Packs/Day Years Used Date Smoking Tobacco: Every Day Cigarettes 1 17.8 Started: 04/02/2007 Smokeless Tobacco: Never Alcohol Use Standard Drinks/Week Comments Not Currently 0 (1 standard drink = 0.6 oz pur e alcohol) few times a year [facility] Utilities Answer Date Recorded In [...] Date Recorded PHQ-2 Total Score 0 11/29/2024 [place] [facility] of Occupat ional Health - Occupational Stress [...] in a retirement (including now)? No 03/30/[address] [facility] IP Transportation Answer D ate [...] Refills Last Filled Start Date End Date fluconazole (DIFLUCAN) 100 mg Oral Tablet TAKE 1 TABLET BY MOUTH ONCE WEEKLY 12 Tablet 11 01/03/2025 documented in this encounter Plan of Treatment Upcoming Encounters Date Type Department Care Team (Late st Contact Info) Description 02/02/2025 12:45 PM EDT Office Visit [facility] [address]D ENTRANCE, 3RD [place] [address] Manuel Torres MD [address] [place] [address] 02/15/2025 2:15 PM EDT Appointment [place] [address] [place] [address] 02/15/2025 2:30 PM EDT Appointment [address] [place] [address] Farnaz Ricardo, AERIAL PHOTOGRAPHER 1 [facility] [place] [address] 02/24/2025 8:00 AM EDT Appointment [facility] [address] [place] [address] [address] [place] [address] Rajwinder Craig MD [address] [place] [address] 03/02/2025 9:30 AM EDT Office [facility] [address] [place] [address] Jose Luis Ortiz MD [address] [place] [address] [place] [phone] 03/08/2025 11:15 AM EDT Office Visit [facility] Nephrology [place] [address] [place] [address] Lynn Mariano, AERIAL PHOTOGRAPHER [address] [place] [address] 03/09/2025 3:30 PM EDT Office Visit [facility] Diabetes [place] 1500 [facility] [address] [place] [address] Rita Cordero MD 1500 [place] [address] 10/07/2025 1:10 PM EDT Office Visit ELIZABETH GIBSON [facility] 40 [facility] 101 [place] [address] Juan Russell MD 40 [facility] [address] [place] [address] documented as of this encounter Goals Goal [...] Discontinue Reason Start Date End Da te fluconazole (DIFLUCAN) 100 mg Oral Tablet Take 1 Tablet by mouth once a week for 90 days. 11/18/2024 01/03/2025 documented as of this encounter Care Teams Support Engineer Relationship Specialty Start Date End Date Jerome Crowley MD [address] [place] [address] [place] [address] PCP - General Internal Medicine 08/09/24 Kayli Kebede MD [address] [phone] Consulting Physician Internal Medicine-Nephrology 05/17/22 Valarie Leach, RN Faculty Support Coordinator Registered Nurse 12/01/24 documented as of this encounter
--- OUTSIDE RECORDS SUMMARY | 2025-01-30 12:32 | XMS_ITS | Encounter Summary ---
Author Organization [place] [address] Care Team Providers Care Mass Spec Name Role Phone Kayli Kebede MD Unavailable [phone] Jerome Crowley MD Primary Care Provider [phone] Valarie Leach RN Unavailable Unavailable Reason for Visit * Reason Comments Medication Refill Encounter Details Date Type Department Care Team (Late st Contact Info) Description 01/04/2025 Refill SEP Amy [facility] [place] [address] [place] [address] Medication Refill Social History Tobacco Use Types Packs/Day Years Used Date Smoking Tobacco: Every Day Cigarettes 1 17.8 Started: 04/02/2007 Smokeless Tobacco: Never Alcohol Use Standard Drinks/Week Comments Not Currently 0 (1 standard drink = 0.6 oz pur e alcohol) few times a year [facility] Utilities Answer Date Recorded In [...] Date Recorded PHQ-2 Total Score 0 11/29/2024 [place] of Occupat ional Health - Occupational Stress [...] place to sleep or slept in a mcfp (including now)? No 03/30/2021 [facility] IP Transportation Answer D ate [...] Tablet daily for 7 days. 21 Tablet 01/04/2025 01/07/2025 documented in this encounter Plan of Treatment Upcoming Encounters Date Type Department Care Team (Late st Contact Info) Description 02/02/2025 12:45 PM EDT Office Visit [facility] [address] ENTRANCE, 3RD [place] [address] Manuel Torres MD [address] [place] [address] 02/15/2025 2:15 PM EDT Appointment [place] [address] [place] [address] 02/15/2025 2:30 PM EDT Appointment [place] [address] [place] [address] Farnaz Ricardo, NONA 1 [facility] [place] [address] 02/24/2025 8:00 AM EDT Appointment [facility] [address] [place] [address] [address] [place] [address] Rajwinder Craig MD [address] [place] [address] 03/02/2025 9:30 AM EDT Office Visit [facility]P H&V [place] [address] [place] [address] Jose Luis Ortiz MD [address] [place] [address] [place] [address] 03/08/2025 11:15 AM EDT Office Visit [facility] Nephrology [place] [address] [place] [address] Lynn Mariano, NONA [address] [place] [address] 03/09/2025 3:30 PM EDT Office Visit [facility] [address] [facility] [address] [place] [address] Rita Cordero MD 1500 [place] [address] 10/07/2025 1:10 PM EDT Office Visit ELIZABETH GIBSON Juliane [place] 40 [facility] [address] [place] [address] Juan Russell MD 40 [facility] [address] [place] [address] documented as of this encounter [...] THEN 1 Tablet daily for 7 days. 12/28/2024 01/04/2025 documented as of this encounter Care Teams Mass Spec Relationship Specialty Start Date End Date Jerome Crowley MD [address] [place] [address] [place] [phone] PCP - General Internal Medicine 08/09/24 Kayli Kebede MD [address] [place] [address] [address] Consulting Physician Internal Medicine-Nephrology 05/17/22 Valarie Leach, RN Overlay Operator Registered Nurse 12/01/24 documented as of this encounter
--- OUTSIDE RECORDS SUMMARY | 2025-01-30 12:32 | XMS_ITS | Encounter Summary ---
Author Organization [place] [address] Care Team Providers Care Preparation Plant Supervisor Name Role Phone Kayli Kebede MD Unavailable [phone] Jerome Crowley MD Primary Care Provider [phone] Valarie Leach RN Unavailable Unavailable Reason for Visit * Reason Onset Date Comments Medication Refill 12/19/2024 Encounter Details Date Type Department Care Team (Late st Contact Info) Description 12/19/2024 Refill SEP Amy [facility] [place] [address] Santosh Crowley MD [address] [place] [address] [place] [address] Medication Refill Social History Tobacco Use Types Packs/Day Years Used Date Smoking Tobacco: Every Day Cigarettes 1 17.8 Started: 04/02/2007 Smokeless Tobacco: Never Alcohol Use Standard Drinks/Week Comments Not Currently 0 (1 standard drink = 0.6 oz pur e alcohol) few times a year [facility] Utilities Answer Date Recorded In the past [...] Date Recorded PHQ-2 Total Score 0 11/29/2024 [place] of Occupat ional Health - Occupational Stress [...] in a halfway (including now)? No 03/30/2021 [facility] IP Transportation Answer D ate Recorded In [...] week for 360 days. 12 Capsule 3 12/20/2024 documented in this encounter Plan of Treatment Upcoming Encounters Date Type Department Care Team (Late st Contact Info) Description 02/02/2025 12:45 PM EDT Office Visit [facility]P [facility] TIM [address] 1D ENTRANCE, 3RD [place] [address] Manuel Torres MD [address] [place] [address] 02/15/2025 2:15 PM EDT Appointment [facility] [address] [place] [address] 02/15/2025 2:30 PM EDT Appointment [facility] [address] [place] [address] Farnaz Ricardo, NONA 1 [place] [address] 02/24/2025 8:00 AM EDT Appointment [facility] [address] [place] [address] [address] [place] [address] Rajwinder Craig MD [address] [place] [address] 03/02/2025 9:30 AM EDT Office Visit [facility]P H[facility]V [place] [address] [place] [address] Jose Luis Ortiz MD [address] [place] [address] [facility] [place] [address] 03/08/2025 11:15 AM EDT Office Visit [facility] Nephrology [place] [address] [place] [address] Lynn Mariano, NONA [address] [place] [address] 03/09/2025 3:30 PM EDT Office Visit [facility] [address] [facility] [address] [place] [address] Rita Cordero MD 1500 [place] [address] 10/07/2025 1:10 PM EDT Office Visit [facility] 40 [facility] 101 [place] [address] Juan Russell MD 40 [facility] [address] [place] [address] documented as of this encounter [...] once a week for 360 days. Reorder 11/18/2024 12/19/2024 documented as of this encounter Care Teams Preparation Plant Supervisor Relationship Specialty Start Date End Date Jerome Crowley MD [address] [place] [address] [place] [address] PCP - General Internal Medicine 08/09/24 Kayli Kebede MD [address] [id number] Consulting Physician Internal Medicine-Nephrology 05/17/22 Valarie Leach, RN Steel Welder Registered Nurse 12/01/24 documented as of this encounter
--- OUTSIDE RECORDS SUMMARY | 2025-01-30 12:32 | XMS_ITS | Encounter Summary ---
Author Organization [place] [address] Care Team Providers Care Parts Sales Counterperson Name Role Phone Kayli Kebede MD Unavailable [phone] Jerome Crowley MD Primary Care Provider [phone] Valarie Leach RN Unavailable Unavailable Reason for Visit * Reason Comments Medication Refill Encounter Details Date Type Department Care Team (Late st Contact Info) Description 12/28/2024 Refill SEP Amy [facility] [address] [place] [address] Medication Refill Social History Tobacco Use Types Packs/Day Years Used Date Smoking Tobacco: Every Day Cigarettes 1 17.8 Started: 04/02/2007 Smokeless Tobacco: Never Alcohol Use Standard Drinks/Week Comments Not Currently 0 (1 standard drink = 0.6 oz pur e alcohol) few times a year [facility] Utilities Answer Date Recorded In [...] Recorded PHQ-2 Total Score 0 11/29/2024 [place] of Occupat ional Health - Occupational Stress [...] in a mcc (including now)? No 03/30/2021 [facility] IP Transportation Answer D ate [...] EDT Office Visit SEP GA[facility]O TIM [address] 1D ENTRANCE, 3RD [place] [address] Manuel Torres MD [address] [place] [address] 02/15/2025 2:15 PM EDT Appointment [facility] Cancer Care [address] [place] [address] 02/15/2025 2:30 PM EDT Appointment [facility] Cancer Care [address] [place] [address] Farnaz Ricardo APRN [address] [place] [address] [place] [address] 02/24/2025 8:00 AM EDT Appointment [facility] [address] [place] [address] [address] [place] [address] Rajwinder Craig MD [address] [place] [address] 03/02/2025 9:30 AM EDT Office Visit SEP H&V [address] [address] Jose Luis Ortiz MD [address] [place] [address] [place] [phone] 03/08/2025 11:15 AM EDT Office Visit [facility] Nephrology [place] [address] [place] [address] Lynn Mariano APRN [address] [place] [address] 03/09/2025 3:30 PM EDT Office Visit [facility] Diabetes [place] 1500 [facility] [address] [place] [address] Rita Cordero MD 1500 [place] [address] 10/07/2025 1:10 PM EDT Office Visit ELIZABETH GIBSON [facility] 40 [facility] 101 [place] [address] Juan Russell MD 40 [facility] 101 [place] [address] documented as of this encounter Goals Goal [...] HEMOGLOBIN A1C < 7.0 Result Component 5.7( 5 12:58 PM EDT) No Jerome Crowley MD documented as of this encounter Visit Diagnoses Not on filedocumented in this encounter Care Teams Parts Sales Counterperson Relationship Specialty Start Date End Date Jerome Crowley MD [employer] [facility] [place] [address] PCP - General Internal Medicine 08/09/24 Kayli Kebede MD [address] [phone] Consulting Physician Internal Medicine-Nephrology 05/17/22 Valarie Leach, RN Facilities Coordinator Registered Nurse 12/01/24 documented as of this encounter
--- OUTSIDE RECORDS SUMMARY | 2025-01-30 12:32 | XMS_ITS | Encounter Summary ---
Author Organization [facility] Address 47 [facility] 120 [place] [address] Care Team Providers Care Sanding Machine Tender Automatic Name Role Phone Kayli Kebede MD Unavailable [phone] Jerome Crowley MD Primary Care Provider [phone] Valarie Leach RN Unavailable Unavailable Rita Cordero MD Unavailable [phone] Encounter Details Date Type Department Care Team (Late st Contact Info) Description 01/04/2025 Orders Only [facility] Nephrology [place] [address] [place] [phone] Lynn Mariano APRN [address] [phone] Social History Tobacco Use Types Packs/Day Years Used Date Smoking Tobacco: Every Day Cigarettes 1 17.8 Started: 04/02/2007 Smokeless Tobacco: Never Alcohol Use Standard Drinks/Week Comments Not Currently 0 (1 standard drink = 0.6 oz pur e alcohol) few times a year [facility] Utilities Answer Date Recorded In the past 12 months has [employer] electric, gas, oil, or water company threatened to shut off services in your home? No 11/29/2024 Overall Financial Resource Strain (CARDIA) Answe r Date Recorded How hard is it for you to pa y for the very basics like food, housing, medical care, and heating? Not very hard 11/29/2024 PHQ-2 Answer Date Recorded PHQ-2 Total Score 0 11/29/2024 [facility] - Occupational Stress Questionnaire Answer Date [...] in a alf (including now)? No 03/30/2021 [facility] IP Transportation Answer D ate [...] Assessment Author No 11/30/2024 4:23 PM EDT Brian Polanco RN * Does this person have [...] EDT Office Visit [facility]P [facility]O TIM [address]D ENTRANCE, 3RD [place] [address] Manuel Torres MD [address] [place] [address] 02/15/2025 2:15 PM EDT Appointment [address] [place] [address] 02/15/2025 2:30 PM EDT Appointment [address] [place] [address] Farnaz Ricardo APRN [address] [place] [address] [place] [address] 02/24/2025 8:00 AM EDT Appointment [facility] [address] [place] [address] [address] [place] [address] Rajwinder Craig MD [address] [place] [address] 03/02/2025 9:30 AM EDT Office Visit SEP H&V [address] [address] Jose Luis Ortiz MD [address] [place] [address] [facility] [place] [phone] 03/08/2025 11:15 AM EDT Office Visit [facility] Nephrology [place] [address] [place] [address] Lynn Mariano APRN [address] [place] [address] 03/09/2025 3:30 PM EDT Office Visit [facility] Diabetes [place] 1500 [facility] [address] [place] [address] Rita Cordero MD 1500 [place] [address] 10/07/2025 1:10 PM EDT Office Visit ELIZABETH GIBSON Juliane [place] 40 [facility] 101 [place] [address] Juan Russell MD 40 [facility] 101 [place] [address] documented as of this encounter [...] on filedocumented in this encounter Care Teams Sanding Machine Tender Automatic Relationship Specialty Start Date End Date Jerome Crowley MD [address] [facility] [place] [place] [address] PCP - General Internal Medicine 08/09/24 Kayli Kebede MD [address] [address] Consulting Physician Internal Medicine-Nephrology 05/17/22 Valarie Leach, RN Bander Registered Nurse 12/01/24 Rita Cordero MD [address] [place] [address] Internal Medicine-Endocrinology, Diabetes & Metabolism 01/10/25 documented as of this encounter
--- OUTSIDE RECORDS SUMMARY | 2025-01-30 12:32 | XMS_ITS | Encounter Summary ---
Author Organization [place] [address] Care Team Providers Care Package Yarns Drying Machine Operator Name Role Phone Kayli Kebede MD Unavailable [phone] Jerome Crowley MD Primary Care Provider [phone] Valarie Leach RN Unavailable Unavailable Reason for Visit * Reason Comments Medication Refill Encounter Details Date Type Department Care Team (Late st Contact Info) Description 12/24/2024 Refill SEP Amy [facility] [address] [place] [address] Medication Refill Social History Tobacco Use Types Packs/Day Years Used Date Smoking Tobacco: Every Day Cigarettes 1 17.8 Started: 04/02/2007 Smokeless Tobacco: Never Alcohol Use Standard Drinks/Week Comments Not Currently 0 (1 standard drink = 0.6 oz pur e alcohol) few times a year [facility] Utilities Answer Date Recorded In the [...] Date Recorded PHQ-2 Total Score 0 11/29/2024 [place] of Occupat ional Health - Occupational Stress [...] place to sleep or slept in a jail (including now)? No 03/30/2021 [facility] IP Transportation Answer D ate [...] 4:02 PM EDT Hilario Valles RN * [place] Suicide Severity Rating Scale (Q shift for [...] to question 6) 0 12/25/2024 4:02 PM Brittani Key RN 6. Have you ever done anythi ng, started to do anything, or prepared to do anything to end your life? 0 12/25/2024 4:02 PM Brittani Key RN documented as of this encounter Mental Status * Because of a physical, mental or emotional condition, does this person have serious difficulty concentrating, remembering or making decisions? Answer Entry Date Author No 11/30/2024 4:23 PM Brina Fajardo RN documented in this encounter Ordered Prescriptions Prescription Sig Dispense Quantity Refills Last Filled Start Date End Date ACETAMINOPHEN 325 mg Oral Tab TAKE 2 TABLETS BY MOUTH EVERY 8 HOURS NEEDED FOR PAIN 200 Tablet 11 12/27/2024 documented in this encounter Plan of Treatment Upcoming Encounters Date Type Department Care Team (Late st Contact Info) Description 02/02/2025 12:45 PM EDT Office Visit [facility]P [facility] [address]D ENTRANCE, 3RD [place] [address] Manuel Torres MD [address] [place] [address] 02/15/2025 2:15 PM EDT Appointment [facility] [address] [place] [address] 02/15/2025 2:[address] [facility] [place] [address] [place], [place] [phone] Farnaz Ricardo, [facility] 1 [facility] [place] [place] [address] 02/24/2025 8:00 AM EDT Appointment [facility] [address] [place] [address] [address] [place] [address] Rajwinder Craig MD [address] [place] [address] 03/02/2025 9:30 AM EDT Office Visit [facility] [address] [address] Jose Luis Ortiz MD [address] [place] [address] [place] [address] 03/08/2025 11:15 AM EDT Office [facility] Nephrology [place] [address] [place] [address] Lynn Mariano, [facility] [address] [place] [address] 03/09/2025 3:30 PM EDT Office Visit [facility] Diabetes [place] [address] [facility] [address] [place] [address] Rita Cordero MD [address] [place], [place] [address] 10/07/2025 1:10 PM EDT Office Visit [facility] Juliane Kobe 40 [facility] [address] [place] [address] Juan Russell MD [address] [facility] [address] [place] [address] documented as of this encounter [...] Discontinue Reason Start Date End Da te acetaminophen 325 mg Oral Tab Take 2 Tablets by mouth every 8 hours as needed for Pain for up to 180 days. 11/18/2024 12/27/2024 documented as of this encounter Care Teams Package Yarns Drying Machine Operator Relationship Specialty Start Date End Date Jerome Crowley MD [address] [place] [phone] PCP - General Internal Medicine 08/09/24 Kayli Kebede MD [address] [place] [address] [address] [place] [address] Consulting Physician Internal Medicine-Nephrology 05/17/22 Valarie Leach, RN Electronic Instrument Trades Worker Registered Nurse 12/01/24 documented as of this encounter
--- OUTSIDE RECORDS SUMMARY | 2025-01-30 12:32 | XMS_ITS | Encounter Summary ---
Author Organization [place] [address] Care Team Providers Care Qa Lead Name Role Phone Kayli Kebede MD Unavailable [phone] Jerome Crowley MD Primary Care Provider [phone] Valarie Leach RN Unavailable Unavailable Encounter Details Date Type Department Care Team (Late Contact Info) Description 12/23/2024 Orders Only SEP Amy [facility] [address] [place] [address] Marcy Morel MA Social History Tobacco Use Types Packs/Day Years Used Date Smoking Tobacco: Every Day Cigarettes 1 17.8 Started: 04/02/2007 Smokeless Tobacco: Never Alcohol Use Standard Drinks/Week Comments Not Currently 0 (1 standard drink = 0.6 oz pur e alcohol) few times a year [facility] Utilities Answer Date Recorded In the past 12 months has [employer], gas, oil, or water [employer] threatened to shut off services in your home? No 11/29/2024 Overall Financial Resource Strain (CARDIA) Answe r Date Recorded How hard is it for you to pa y for the very basics like food, housing, medical care, and heating? Not very hard 11/29/2024 PHQ-2 Answer Date Recorded PHQ-2 Total Score 0 11/29/2024 [facility] [place] of Occupat ional Health - Occupational Stress [...] in a assisted (including now)? No 03/30/2021 [facility] IP Transportation Answer D ate Recorded In [...] Filled Start Date End Date predniSONE (DELTASONE) 10 mg Oral Tablet Take 1 Tablet by mouth 2 times daily for 7 days. 14 Tablet 12/23/2024 12/30/2024 documented in this encounter Plan of Treatment Upcoming Encounters Date Type Department Care Team (Late st Contact Info) Description 02/02/2025 12:45 PM EDT Office Visit [facility] [address] 1D ENTRANCE, 3RD [place] [address] Manuel Torres MD [address] [place] [address] 02/15/2025 2:15 PM EDT Appointment [facility] Cancer [address] [place] [address] 02/15/2025 2:30 PM EDT Appointment [address] [place] [address] Franaz Ricardo APRN [address] [place] [address] [place] [address] 02/24/2025 8:00 AM EDT Appointment [facility] [address] [place] [address] [address] [place] [address] Rajwinder Craig MD [address] [place] [address] 03/02/2025 9:30 AM EDT Office Visit [facility] [address] [address] Jose Luis Ortiz MD [address] [place] [address] [place] [phone] 03/08/2025 11:15 AM EDT Office Visit [facility] Nephrology [place] [address] [place] [address] Lynn Mariano APRN [address] [place] [address] 03/09/2025 3:30 PM EDT Office Visit [facility] Diabetes [place] 1500 [facility] 301 [place] [phone] Rita Cordero MD 1500 [place] [address] 10/07/2025 1:10 PM EDT Office Visit [facility] Juliane [place] 40 [facility] 101 [place] [address] Juan Russell MD 40 [facility] 101 [place] [address] documented as of this encounter [...] Start Date End Da te predniSONE (DELTASONE) 10 mg Oral Tablet Take 1 Tablet by mouth 2 times daily for 7 days. Reorder 12/23/2024 12/23/2024 documented as of this encounter Care Teams Qa Lead Relationship Specialty Start Date End Date Jerome Crowley MD [address] [facility] [place] [address] PCP - General Internal Medicine 08/09/24 Kayli Kebede MD [address] [phone] Consulting Physician Internal Medicine-Nephrology 05/17/22 Valarie Leach, RN Epic Professional Registered Nurse 12/01/24 documented as of this encounter
--- OUTSIDE RECORDS SUMMARY | 2025-01-30 12:32 | XMS_ITS | Encounter Summary ---
Author Organization [place] [address] Care Team Providers Care Plastic Tool Maker Name Role Phone Kayli Kebede MD Unavailable [phone] Jerome Crowley MD Primary Care Provider [phone] Valarie Leach RN Unavailable Unavailable Reason for Visit * Reason Onset Date Comments Medication Refill 12/19/2024 Encounter Details Date Type Department Care Team (Late st Contact Info) Description 12/19/2024 Refill SEP Amy [facility] [place] [address] Jerome Crowley MD [address] [place] [address] Medication Refill Social History Tobacco Use Types Packs/Day Years Used Date Smoking Tobacco: Every Day Cigarettes 1 17.8 Started: 04/02/2007 Smokeless Tobacco: Never Alcohol Use Standard Drinks/Week Comments Not Currently 0 (1 standard drink = 0.6 oz pur e alcohol) few times a year [facility] Utilities Answer Date Recorded In [...] Date Recorded PHQ-2 Total Score 0 11/29/2024 [place] of Occupat ional Health - Occupational Stress [...] in a fci (including now)? No 03/30/2021 [facility] IP Transportation Answer D ate Recorded In [...] Refills Last Filled Start Date End Date montelukast (SINGULAIR) 10 mg Oral TabletIndications: Severe persistent asthma without complication (HCC) Take 1 Tablet by mouth every evening. 90 Tablet 3 12/20/2024 busPIRone (BUSPAR) 10 mg Oral Tablet Take 1 Tablet by mouth 2 times daily. 60 Tablet 2 12/20/2024 5 albuterol (PROAIR HFA) 90 mcg/actuation Inhl HFA Aerosol Inhaler Inhale 2 Puffs into the lungs every 6 hours as needed. for wheezing 8.5 Each 25 12/20/2024 5 documented in this encounter Plan of Treatment Upcoming Encounters Date Type Department Care Team (Late st Contact Info) Description 02/02/2025 12:45 PM EDT Office Visit [facility] [address] 1D ENTRANCE, 3RD [place] [address] Manuel Torres MD [address] [place] [address] 02/15/2025 2:15 PM EDT Appointment [facility] [address] [place] [address] 02/15/2025 2:30 PM EDT Appointment [facility] [address] [place] [place] [address] Farnaz Ricardo, METAL WASHING MACHINE OPERATOR 1 [facility] [place] [address] 02/24/2025 8:00 AM EDT Appointment [facility] [address] [place] [address] [address] [place] [address] Rajwinder Craig MD [address] [place] [address] 03/02/2025 9:30 AM EDT Office Visit [facility] [address] [address] Jose Luis Ortiz MD [address] [place] [phone] 03/08/2025 11:15 AM EDT Office Visit [facility] Nephrology [place] 47 [facility] 120 [place] [address] Lynn Mariano, METAL WASHING MACHINE OPERATOR [address] [place] [address] 03/09/2025 3:30 PM EDT Office Visit [facility] [address] [address] Rita Cordero MD [address] [place] [address] 10/07/2025 1:10 PM EDT Office Visit [facility] [place] 40 [facility] [address] [place] [address] Juan Russell MD 40 [address] [facility] [address] [place] [address] [...] as of this encounter Visit Diagnoses Diagnosis Severe persistent asthma without complication (HCC) documented in this encounter Discontinued Medications Medication Sig Discontinue Reason Start Date End Da te albuterol (PROAIR HFA) 90 mcg/actuation Inhl HFA Aerosol Inhaler Inhale 2 Puffs into the lungs every 6 hours as needed. for wheezing Reorder 09/16/2024 12/19/2024 busPIRone (BUSPAR) 10 mg Oral Tablet Take 1 Tablet by mouth 2 times daily. Reorder 11/01/2024 12/19/2024 montelukast (SINGULAIR) 10 mg Oral TabletIndications:Severe persistent asthma without complication (HCC) Take 1 Tablet by mouth every evening. Reorder 12/10/2024 12/19/2024 documented as of this encounter Care Teams Plastic Tool Maker Relationship Specialty Start Date End Date Jerome Crowley MD 79 [facility] [address] [place] [phone] PCP - General Internal Medicine 08/09/24 Kayli Kebede MD [address] [address] Consulting Physician Internal Medicine-Nephrology 05/17/22 Valarie Leach, RN Instructor Wastewater Treatment Plant Registered Nurse 12/01/24 documented as of this encounter
--- OUTSIDE RECORDS SUMMARY | 2025-01-30 12:32 | XMS_ITS | Encounter Summary ---
Author Organization [place] [address] Care Team Providers Care Games Manager Name Role Phone Kayli Kebede MD Unavailable [phone] Jerome Crowley MD Primary Care Provider [phone] Valarie Leach RN Unavailable Unavailable Rita Cordero MD Unavailable [phone] Encounter Details Date Type Department Care Team (Latest Contact Info) Description 01/03/2025 Results Follow-Up SEP Amy [facility] [place] [address] Jerome Crowley MD [address] [place] [address] LUTEINIZING HORMONE, FOLLICLE STIMULATING HORMONE LEVEL, ESTROGENS, FRACTIONATED BY TMS -REF LAB Social History Tobacco Use Types Packs/Day Years Used Date Smoking Tobacco: Every Day Cigarettes 1 17.8 Started: 04/02/2007 Smokeless Tobacco: Never Alcohol Use Standard Drinks/Week Comments Not Currently 0 (1 standard drink = 0.6 oz pur e alcohol) few times a year [facility] Utilities Answer Date Recorded In the [...] Date Recorded PHQ-2 Total Score 0 11/29/2024 [facility] - Occupational Stress Questionnaire Answer [...] nursing home (including now)? No 03/30/2021 [facility] IP Transportation Answer D ate Recorded In [...] Progress Notes * Jerome Crowley MD - 01/03/2025 7:47 AM EDT Female hormones in normal range for age. documented in this encounter Plan of Treatment Upcoming Encounters Date Type Department Care Team (Late st Contact Info) Description 02/02/2025 12:45 PM EDT Office Visit [facility] [address] 1D ENTRANCE, 3RD [place] [address] Manuel Torres MD [address] [place] [address] 02/15/2025 2:15 PM EDT Appointment [facility] [address] [place] [address] 02/15/2025 2:30 PM EDT Appointment [facility] Cancer Care Center [place] [address] [address] [place] [address] Farnaz Ricardo, BOTTLE INSPECTOR 1 [place] [address] 02/24/2025 8:00 AM EDT Appointment [facility] [address] [place] [address] [address] [place] [address] Rajwinder Craig MD [address] [place] [address] 03/02/2025 9:30 AM EDT Office Visit [facility] [address] [address] Jose Luis Ortiz MD [address] [place] [address] [address] [place] [phone] 03/08/2025 11:15 AM EDT Office Visit [facility] Nephrology [place] [address] [place] [address] Lynn Mariano, BOTTLE INSPECTOR [address] [place] [address] 03/09/2025 3:30 PM EDT Office Visit [facility] 1500 [facility] [address] [place] [address] Rita Cordero MD 1500 [place] [address] 10/07/2025 1:10 PM EDT Office Visit [facility] 40 [facility] [address] [place] [address] Juan Russell MD 40 [address] [facility] [address] [place] [address] documented as of this encounter [...] on filedocumented in this encounter Care Teams Games Manager Relationship Specialty Start Date End Date Jerome Crowley MD [address] [facility] [place] [phone] PCP - General Internal Medicine 08/09/24 Kayli Kebede MD 8[address] [facility] [address] [place] [address] Consulting Physician Internal Medicine-Nephrology 05/17/22 Valarie Leach, RN [employer] Consultant Registered Nurse 12/01/24 Rita Cordero MD [address] [place] [address] Internal Medicine-Endocrinology, Diabetes & Metabolism 01/10/25 documented as of this encounter
--- OUTSIDE RECORDS SUMMARY | 2025-01-30 12:32 | XMS_ITS | Encounter Summary ---
Author Organization [facility] [place] [address] Care Team Providers Care Racking Technician Name Role Phone Kayli Kebede MD Unavailable [phone] Jerome Crowley MD Primary Care Provider [phone] Valarie Leach RN Unavailable Unavailable Encounter Details Date Type Department Care Team (Latest Contact Info) Description 12/27/2024 Travel Social History Tobacco Use Types Packs/Day Years Used Date Smoking Tobacco: Every Day Cigarettes 1 17.8 Started: 04/02/2007 Smokeless Tobacco: Never Alcohol Use Standard Drinks/Week Comments Not Currently 0 (1 standard drink = 0.6 oz pur e alcohol) few times a year [facility] Utilities Answer Date Recorded In the [...] Date Recorded PHQ-2 Total Score 0 11/29/2024 [facility] [place] of Occupat ional Health - Occupational Stress [...] in a chcf (including now)? No 03/30/2021 [facility] IP Transportation Answer D ate [...] EDT Office Visit [facility] [address] 1D ENTRANCE, 3RD [place] [address] Manuel Torres MD 340 [place] [address] 02/15/2025 2:15 PM EDT Appointment [facility] Cancer Care [address] [place] [address] 02/15/2025 2:30 PM EDT Appointment [facility] Cancer Care [address] [place] [address] Farnaz Ricardo, NONA [address] [place] [address] 02/24/2025 8:00 AM EDT Appointment [facility] [address] [place] [address] [address] [place] [address] Rajwinder Craig MD [address] [place] [address] 03/02/2025 9:30 AM EDT Office Visit [facility] [place] [address] [place] [address] Jose Luis Ortiz MD [address] [place] [address] [address] [facility] [place] [phone] 03/08/2025 11:15 AM EDT Office Visit [facility] Nephrology [place] [address] [place] [address] Lynn Mariano, NONA [address] [place] [address] 03/09/2025 3:30 PM EDT Office Visit [facility] Diabetes [place] 1500 [facility] [address] [place] [address] Rita Cordero MD 1500 [place] [address] 10/07/2025 1:10 PM EDT Office Visit [facility] 40 [facility] 101 [place] [address] Juan Russell MD 40 [address] [facility] [address] [place] [address] documented as of this encounter [...] on filedocumented in this encounter Care Teams Racking Technician Relationship Specialty Start Date End Date Jerome Crowley MD 79 [facility] [place] [address] PCP - General Internal Medicine 08/09/24 Kayli Kebede MD [address] [address] Consulting Physician Internal Medicine-Nephrology 05/17/22 Valarie Leach, RN Title Insurance Examiner Registered Nurse 12/01/24 documented as of this encounter
--- OUTSIDE RECORDS SUMMARY | 2025-01-30 12:32 | XMS_ITS | Encounter Summary ---
Author Organization [place] [address] Care Team Providers Care Bass Guitar Teacher Name Role Phone Kayli Kebede MD Unavailable [phone] Jerome Crowley MD Primary Care Provider [phone] Valarie Leach RN Unavailable Unavailable Encounter Details Date Type Department Care Team (Late Contact Info) Description 12/08/2024 Orders Only SEP Amy [facility] [place] [address] Jerome Crowley MD COUNTRY [facility] [place] [address] Medication management (Primary Dx) Social History Tobacco Use Types Packs/Day Years Used Date Smoking Tobacco: Every Day Cigarettes 1 17.8 Started: 04/02/2007 Smokeless Tobacco: Never Alcohol Use Standard Drinks/Week Comments Not Currently 0 (1 standard drink = 0.6 oz pur e alcohol) few times a year [facility] Utilities Answer Date Recorded In the past 12 months has [employer] electric, gas, oil, or water company threatened to shut off services in your home? No 11/29/2024 Overall Financial Resource Strain (CARDIA) Answe r Date Recorded How hard is it for you to pa y for the very basics like food, housing, medical care, and heating? Not very hard 11/29/2024 PHQ-2 Answer Date Recorded PHQ-2 Total Score 0 11/29/2024 [facility] [place] of Occupat ional Health - Occupational Stress [...] a senior living (including now)? No 03/30/2021 [facility] IP Transportation Answer D ate Recorded [...] Filled Start Date End Date pregabalin (LYRICA) 50 mg Oral Capsule Take 1 Capsule by mouth 3 times daily. 90 Capsule 2 12/08/2024 5 documented in this encounter Plan of Treatment Upcoming Encounters Date Type Department Care Team (Late st Contact Info) Description 02/02/2025 12:45 PM EDT Office Visit [facility] [address] 1D ENTRANCE, 3RD [place] [address] Manuel Torres MD [address] [place] [address] 02/15/2025 2:15 PM EDT [address]ointment [address] [address] 02/15/2025 2:30 PM EDT Appointment [address] [address] Farnaz Ricardo, PLANT OPERATOR [address] [place] [place] [address] 02/24/2025 8:00 AM EDT Appointment [facility] [address] [place] [address] [address] [place] [address] Rajwinder Craig MD [address] [place] [address] 03/02/2025 9:30 AM EDT Office Visit [facility] [place] [address] [place] [address] Jose Luis Ortiz MD [address] [place] [address] [place] [phone] 03/08/2025 11:15 AM EDT Office Visit [facility] Nephrology [place] [address] [place] [address] Lynn Mariano, PLANT OPERATOR [address] [place] [address] 03/09/2025 3:30 PM EDT Office [facility] Diabetes [place] 1500 [facility] [address] [place] [address] Rita Cordero MD 1500 [place] [address] 10/07/2025 1:10 PM EDT Office Visit [facility] [place] 40 [facility] 101 [place] [address] Juan Russell MD 40 [facility] [address] [place] [address] documented as of this encounter [...] as of this encounter Visit Diagnoses Diagnosis Medication management- Primary Encounter for other specified aftercare documented in this encounter Discontinued Medications Medication Sig Discontinue Reason Start Date End Da te gabapentin (NEURONTIN) 600 mg Oral Tablet Take 1 Tablet by mouth 3 times daily for 180 days. Cancelled by 11/18/2024 12/08/2024 documented as of this encounter Care Teams Bass Guitar Teacher Relationship Specialty Start Date End Date Jerome Crowley MD [address] [place] [address] [place] [address] PCP - General Internal Medicine 08/09/24 Kayli Kebede MD [address] [place] [address] Consulting Physician Internal Medicine-Nephrology 05/17/22 Valarie Leach, RN [place] Worker Registered Nurse 12/01/24 documented as of this encounter
--- OUTSIDE RECORDS SUMMARY | 2025-01-30 12:32 | XMS_ITS | Encounter Summary ---
Author Organization [place] [address] Care Team Providers Care Warper Fixer Name Role Phone Kayli Kebede MD Unavailable [phone] Jerome Crowley MD Primary Care Provider [phone] Valarie Leach RN Unavailable Unavailable Reason for Referral * Medication Prior Authorization - Authorized Specialty Diagnoses / Procedures Referred By Contren t Referred To Contact Jerome Crowley MD [address] [place] [address] [place] [address] Phone: tel: fax: Referral ID Status Reason Start Date Expiration Date V isits Requested Visits Authorized [id number] Authorized 12/10/2024 12/10/2025 1 1 Reason for Visit * Reason Onset Date Comments Refill 12/09/2024 Multiple meds Medication Management 12/09/2024 Swetha Mejia calling to confirm patient is to take up to 1 per day as needed. Encounter Details Date Type Department Care Team (Late st Contact Info) Description 12/09/2024 Telephone [place] [address] Jerome Crowley MD [address] [place] [address] [place] [address] Refill (Multiple meds); Medication Management (Swetha Mejia calling to confirm patient is to take up to 1 per day as needed.) Social History Tobacco Use Types Packs/Day Years Used Date Smoking Tobacco: Every Day Cigarettes 1 17.8 Started: 04/02/2007 Smokeless Tobacco: Never Alcohol Use Standard Drinks/Week Comments Not Currently 0 (1 standard drink = 0.6 oz pur e alcohol) few times a year [facility] Utilities Answer Date Recorded In the past 12 months has th e [employer], gas, oil, or water company threatened to shut off services in your home? No 11/29/2024 Overall Financial Resource Strain (CARDIA) Answe r Date Recorded How hard is it for you to pa y for the very basics like food, housing, medical care, and heating? Not very hard 11/29/2024 PHQ-2 Answer Date Recorded PHQ-2 Total Score 0 11/29/2024 [facility] - Occupational [...] place to sleep or slept in a [place] health care facility (including now)? No 03/30/2021 [facility] IP Transportation Answer D ate [...] Refills Last Filled Start Date End Date insulin lispro (HUMALOG) 100 unit/mL SubQ Insulin Pen INJECT 5 TO 10 UNITS SUBCUTANEOUSLY DAILY NEEDED IF SUGAR IS HIGH *DISCARD REMAINDER OF PEN AFTER 28 DAYS* 15 mL 3 5 cloNIDine (CATAPRES) 0.1 mg Oral Tablet Take 1 Tablet by mouth 2 times daily. 180 Tablet 3 5 budesonide-glycop yr-formoterol (BREZTRI AEROSPHERE) 160-9-4.8 mcg/actuation Inhl HFA Aerosol Inhaler Inhale 2 Inhalations into the lungs 2 times daily. 10.7 g 3 5 aspirin 81 mg Oral Tablet, Chewable Take 1 Tablet by mouth daily. 90 Tablet 3 5 semaglutide 2 mg/dose (8 mg/3 mL) SubQ Pen Injector Inject 2 mg under the skin once a week for 360 days. 6 mL 3 5 01/08/20 25 montelukast (SINGULAIR) 10 mg Oral TabletIndications :Severe persistent asthma without complication (HCC) Take 1 Tablet by mouth every evening. 90 Tablet 3 5 12/20/19 25 linaCLOtide (LINZESS) 72 mcg Oral Capsule Take 1 Capsule by mouth as needed for Nausea. 90 Capsule 3 5 01/07/20 25 atorvastatin (LIPITOR) 20 mg Oral Tablet Take 2 Tablets by mouth daily for 360 days. 180 Tablet 3 5 01/06/20 25 documented in this encounter Miscellaneous Notes * Telephone Encounter - Mary Kate Lawrence CCMA - 12/17/2024 7:33 AM EDT Patient to take one daily * Telephone Encounter - Marcy Morel MA - 12/16/2024 4:18 PM EDT Please advise * Telephone Encounter - Cindi Jovel RMA - 12/16/2024 3:43 PM EDT Select the most appropriate reason for this telephone message: Medication Management/Problem Who is calling? Pharmacy [facility]faye Mejia What medication(s) do you have concerns about: linaCLOtide (LINZESS) 72 mcg Oral Capsule 90 Capsule 3 12/10/2024 -- Sig - Route: Take 1 Capsule by mouth as needed for Nausea. - Oral Linzess - Roberto calling to confirm patient is to take up to 1 per day as needed. Prescribing provider: Prescribing Provider Encounter Provider Jerome Crowley MD What are your concerns/request: see above Desired outcome: Clarification of prescription Last appointment date: 10/22/24 Pharmacy: [facility] [place] [address] [address] [facility] - [phone] Return Method of Communication: Phone Call Additional Information: N/A * Telephone Encounter - Marjorie Shook MA - 12/09/2024 4:37 PM EDT Select the most appropriate reason for this telephone message: Medication Refill Who is requesting the refill: Pharm[facility] Florinda[facility] Medication(s)Name/Dosage/Frequency: insulin lispro (HUMALOG) 100 unit/mL SubQ Insulin Pen -- -- 04/07/2023 -- Sig: INJECT 5 TO 10 UNITS SUBCUTANEOUSLY DAILY NEEDED IF SUGAR IS HIGH *DISCARD REMAINDER OF PENAFTER 28 DAYS* semaglutide 2 mg/dose (8 mg/3 mL) SubQ Pen Injector 6 mL 3 06/28/2024 06/23/2025 Sig - Route: Subcutaneous (Inject under the skin) 2 mg once a week for 360 days. - Subcutaneous atorvastatin (LIPITOR) 20 mg Oral Tablet 180 Tablet 3 11/30/2024 11/25/2025 Sig - Route: Take 2 Tablets by mouth daily for 360 days. - Oral cloNIDine (CATAPRES) 0.1 mg Oral Tablet -- -- -- Sig - Route: Take 0.1 mg by mouth 2 times daily. - Oral aspirin 81 mg Oral Tablet, Chewable -- -- -- Class: Historical Med linaCLOtide (LINZESS) 72 mcg Oral Capsule -- -- -- Sig - Route: Take 72 mcg by mouth as needed for Nausea. - Oral montelukast (SINGULAIR) 10 mg Oral Tablet 90 Tablet 3 11/17/2024 -- Sig - Route: Take 1 Tablet by mouth every evening. - Oral ealrdkfbqx-dgtylbpb-xjzawzbvoq (BREZTRI AEROSPHERE) 160-9-4.8 mcg/actuation Inhl HFA Aerosol Inhaler -- -- -- Sig - Route: Inhale 2 Inhalations into the lungs 2 times daily. - Inhalation Did patient contact the pharmacy first: N/A How many days left on hand: N/A Future appt date w/ prescribing provider: None Pharmacy & Location: [place] [address] [address] [facility] - [phone] [[id number]] Return Method of Communication: N/A Additional Information: N/A documented in this encounter Plan of Treatment Upcoming Encounters Date Type Department Care Team (Late st Contact Info) Description 02/02/2025 12:45 PM EDT Office Visit [facility] [address]TR[address], 3RD [place] [address] Manuel Torres MD [address] [id number] 02/15/2025 2:15 PM EDT Appointment [address] [place] [address] 02/15/2025 2:30 PM EDT Appointment [facility] [address] [place] [address] Farnaz Ricardo, ODD JOB LABORER 1 [place] [address] 02/24/2025 8:00 AM EDT Appointment [facility] [address] [place] [address] [address] [place] [address] Rajwinder Craig MD [address] [place] [address] 03/02/2025 9:30 AM EDT Office Visit [facility] [place] [address] [place] [address] [place], [place] [phone] Jose Luis Ortiz MD [address] [place] [address] DR MICHELLE [place] [phone] 03/08/2025 11:15 AM EDT Office Visit [facility] Nephrology [place] [address] [place] [address] Lynn Mariano APRN [address] [place] [address] 03/09/2025 3:30 PM EDT Office Visit [facility] Diabetes [place] [address] [place] [address] Rita Cordero MD [address] [place] [address] 10/07/2025 1:10 PM EDT Office Visit [facility] GIBS[facility] 40 [facility] 101 [place] [phone] Juan Russell MD 40 [facility] 101 [place] [address] documented as of this encounter [...] Stay Tobacco Free Lifestyle No Mary Kate Lawrecne CCMA HEMOGLOBIN A1C < 7.0 Result Component 5.7( 12:58 PM EDT) No Jerome Crowley MD documented as of this encounter Visit Diagnoses Diagnosis Severe persistent asthma without complication (HCC) documented in this encounter Discontinued Medications Medication Sig Discontinue Reason Start Date End Da te aspirin 81 mg Oral Tablet, Chewable Reorder 12/09/2024 cloNIDine (CATAPRES) 0.1 mg Oral Tablet Take 0.1 mg by mouth 2 times daily. Reorder 12/09/2024 insulin lispro (HUMALOG) 100 unit/mL SubQ Insulin Pen INJECT 5 TO 10 UNITS SUBCUTANEOUSLY DAILY NEEDED IF SUGAR IS HIGH *DISCARD REMAINDER OF PEN AFTER 28 DAYS* Reorder 04/07/2023 12/09/2024 semaglutide 2 mg/dose (8 mg/3 mL) SubQ Pen Injector Subcutaneous (Inject under the skin) 2 mg once a week for 360 days. Reorder 06/28/2024 12/09/2024 montelukast (SINGULAIR) 10 mg Oral TabletIndications:Sev ere persistent asthma without complication (HCC) Take 1 Tablet by mouth every evening. Reorder 11/17/2024 12/09/2024 mktfrsthtd-piytvgcj-v ormoterol (BREZTRI AEROSPHERE) 160-9-4.8 mcg/actuation Inhl HFA Aerosol Inhaler Inhale 2 Inhalations into the lungs 2 times daily. Reorder 12/09/2024 atorvastatin (LIPITOR) 20 mg Oral Tablet Take 2 Tablets by mouth daily for 360 days. Reorder 11/30/2024 12/09/2024 linaCLOtide (LINZESS) 72 mcg Oral Capsule Take 72 mcg by mouth as needed for Nausea. Reorder 12/09/2024 documented as of this encounter Care Teams Warper Fixer Relationship Specialty Start Date End Date Jerome Crowley MD [facility] [place] [address] PCP - General Internal Medicine 08/09/24 Kayli Kebede MD [address] [place] [address] Consulting Physician Internal Medicine-Nephrology 05/17/22 Valarie Leach, RN Web Publisher Registered Nurse 12/01/24 documented as of this encounter
--- OUTSIDE RECORDS SUMMARY | 2025-01-30 12:32 | XMS_ITS | Encounter Summary ---
Author Organization [place] [address] Care Team Providers Care Aircraft Shipping Checker Name Role Phone Kayli Kebede MD Unavailable [phone] Jerome Crowley MD Primary Care Provider [phone] Valarie Leach RN Unavailable Unavailable Reason for Visit * Reason Comments Medication Refill Encounter Details Date Type Department Care Team (Late st Contact Info) Description 12/29/[address] [facility] [place] [address] [place] [address] Medication Refill Social History Tobacco Use Types Packs/Day Years Used Date Smoking Tobacco: Every Day Cigarettes 1 17.8 Started: 04/02/2007 Smokeless Tobacco: Never Alcohol Use Standard Drinks/Week Comments Not Currently 0 (1 standard drink = 0.6 oz pur e alcohol) few times a year [facility] Utilities Answer Date Recorded In the past [...] Date Recorded PHQ-2 Total Score 0 11/29/2024 [facility] [place] [facility] Occupat ional [facility] - Occupational Stress [...] in a mcc (including now)? No 03/30/2021 [facility] IP Transportation Answer D ate [...] Refills Last Filled Start Date End Date ondansetron (ZOFRAN-ODT) 4 mg Oral Tablet, Rapid DissolveIndication s:Nausea PLACE 1 TABLET ON THE TONGUE AND ALLOW TO DISSOLVE EVERY 6 HOURS NEEDED FOR NAUSEA 30 Tablet 11 12/30/2024 documented in this encounter Plan of Treatment Upcoming Encounters Date Type Department Care Team (Late st Contact Info) Description 02/02/2025 12:45 PM EDT Office Visit [facility] [address], 3RD [place] [address] Manuel Torres MD [address] [place] [address] 02/15/2025 2:15 PM EDT Appointment [address] [place] [address] 02/15/2025 2:30 PM EDT Appointment [facility] [address] [address] Farnaz Ricardo APRN 1 [place] [address] 02/24/2025 8:00 AM EDT Appointment [facility] [address] [place] [address] [address] [place] [address] Rajwinder Craig MD [address] [place] [address] 03/02/2025 9:30 AM EDT Office Visit [facility] [place] [address] [place] [address] Jose Luis Ortiz MD [address] [place] [address] [facility] [place] [address] 03/08/2025 11:15 AM EDT Office Visit [facility] Nephrology [place] [address] [place] [address] Lynn Mariano, NONA [address] [facility] [address] [place] [address] 03/09/2025 3:30 PM EDT [facility] [address] [facility] [address] [place] [address] Rita Cordero MD 1500 [place] [address] 10/07/2025 1:10 PM EDT Office Visit [facility] 40 [facility] [address] [place] [address] Juan Russell MD 40 [address] [facility] [address] [place] [address] documented as of this encounter Goals Goal [...] as of this encounter Visit Diagnoses Diagnosis Nausea Nausea alone documented in this encounter Discontinued Medications Medication Sig Discontinue Reason Start Date End Da te ondansetron (ZOFRAN-ODT) 4 mg Oral Tablet, Rapid DissolveIndications:Naus ea Take 1 Tablet by mouth every 6 hours as needed for Nausea for up to 180 days. 08/02/2024 12/30/2024 documented as of this encounter Care Teams Aircraft Shipping Checker Relationship Specialty Start Date End Date Jerome Crowley MD [address] [place] [address] TREY BOOKER [phone] PCP - General Internal Medicine 08/09/24 Kayli Kebede MD [address] [address] Consulting Physician Internal Medicine-Nephrology 05/17/22 Valarie Leach, RN School Attendance Secretary Registered Nurse 12/01/24 documented as of this encounter
--- OUTSIDE RECORDS SUMMARY | 2025-01-30 12:32 | XMS_ITS | Encounter Summary ---
Author Organization [place] [address] Care Team Providers Care Tinsmith Apprentice Name Role Phone Kayli Kebede MD Unavailable [phone] Jerome Crowley MD Primary Care Provider [phone] Valarie Leach RN Unavailable Unavailable Reason for Visit * Reason Comments Medication Refill Encounter Details Date Type Department Care Team (Late st Contact Info) Description 12/20/2024 Refill SEP Amy [facility] [place] [address] [place] [address] Medication Refill Social History Tobacco Use Types Packs/Day Years Used Date Smoking Tobacco: Every Day Cigarettes 1 17.8 Started: 04/02/2007 Smokeless Tobacco: Never Alcohol Use Standard Drinks/Week Comments Not Currently 0 (1 standard drink = 0.6 oz pur e alcohol) few times a year [facility] Utilities Answer Date Recorded In the [...] Date Recorded PHQ-2 Total Score 0 11/29/2024 [facility] [place] [facility] Occupat ional Health - Occupational Stress [...] in a alf (including now)? No 03/30/2021 [facility] IP Transportation Answer D ate Recorded [...] as needed. for wheezing 8.5 g 5 12/21/2024 documented in this encounter Miscellaneous Notes * Telephone Encounter - Sherlyn Landeros CPhT - 12/21/2024 3:06 PM EDT Albuterol Inh Refill request deferred to the office: Last prescription sent on 12/20/24. Unsure if refills are appropriate. No Diagnosis Code Attached documented in this encounter Plan of Treatment Upcoming Encounters Date Type Department Care Team (Late st Contact Info) Description 02/02/2025 12:45 PM EDT Office Visit [facility] [address] ENTR[address], 3RD [place] [address] Manuel Torres MD 340 [place] [address] 02/15/2025 2:15 PM EDT Appointment [address] [place] [address] 02/15/2025 2:30 PM EDT Appointment [facility] [address] [place] [address] Farnaz Ricardo, MARKET RISK ANALYST 1 [facility] [place] [address] 02/24/2025 8:00 AM EDT Appointment [facility] [address] [place] [address] [address] [place] [address] Rajwinder Craig MD [address] [place] [address] 03/02/2025 9:30 AM EDT Office [place] [address] Jose Luis Ortiz MD [address] [place] [address] [facility] [place] [phone] 03/08/2025 11:15 AM EDT Office Visit [facility] Nephrology [place] [address] [place] [address] Lynn Mariano, MARKET RISK ANALYST [address] [place] [address] 03/09/2025 3:30 PM EDT Office Visit [facility] [address] [facility] [address] [place] [phone] Rita Cordero MD [address] [place] [address] 10/07/2025 1:10 PM EDT Office Visit [facility] [place] 40 [facility] 101 [place] [address] Juan Russell MD 40 [facility] 101 [place] [address] documented as of this encounter [...] every 6 hours as needed. for wheezing 12/20/2024 12/21/2024 documented as of this encounter Care Teams Tinsmith Apprentice Relationship Specialty Start Date End Date Jerome Crowlye MD [facility] [place] [phone] PCP - General Internal Medicine 08/09/24 Kayli Kebede MD 830 [facility] 202 [place] [address] Consulting Physician Internal Medicine-Nephrology 05/17/22 Valarie Leach, RN Delicatessen Store Manager Registered Nurse 12/01/24 documented as of this encounter
--- OUTSIDE RECORDS SUMMARY | 2025-01-30 12:33 | XMS_ITS | Encounter Summary ---
Author Organization [facility] [place] [address] Care Team Providers Care Sand Miller Name Role Phone Kayli Kebede MD Unavailable [phone] Jerome Crowley MD Primary Care Provider [phone] Valarie Leach RN Unavailable Unavailable Encounter Details Date Type Department Care Team (Latest Contact Info) Description 12/07/2024 Travel Social History Tobacco Use Types Packs/Day Years Used Date Smoking Tobacco: Every Day Cigarettes 1 17.8 Started: 04/02/2007 Smokeless Tobacco: Never Alcohol Use Standard Drinks/Week Comments Not Currently 0 (1 standard drink = 0.6 oz pur e alcohol) few times a year [facility] Utilities Answer Date Recorded In the past [...] Date Recorded PHQ-2 Total Score 0 11/29/2024 [facility] [place] [facility] Occupat ional Health - Occupational Stress [...] place to sleep or slept in a long-term (including now)? No 03/30/2021 [facility] IP Transportation Answer D ate Recorded [...] EDT Office Visit [facility] [address] ENTRANCE, 3RD [place] [address] Manuel Torres MD 340 [place] [address] 02/15/2025 2:15 PM EDT Appointment [facility] Cancer Care [address] [place] [address] 02/15/2025 2:30 PM EDT Appointment [facility] Cancer Care [address] [place] [address] Farnaz Ricardo, NONA 1 [facility] [place] [address] 02/24/2025 8:00 AM EDT Appointment [facility] [address] [place] [address] [address] [place] [address] Rajwinder Craig MD [address] [place] [address] 03/02/2025 9:30 AM EDT Office Visit [facility] [place] [address] [place] [phone] Jose Luis Ortiz MD [address] [place] [address] DR [place] [phone] 03/08/2025 11:15 AM EDT Office Visit [facility] Nephrology [place] [address] [place] [address] Lynn Mariano, NONA [address] [place] [phone] 03/09/2025 3:30 PM EDT Office Visit [facility] Diabetes [place] 1500 [facility] [address] [place] [address] Rita Cordero MD 1500 [place] [address] 10/07/2025 1:10 PM EDT Office Visit [facility] 40 [facility] 101 [place] [address] Juan Russell MD 40 [address] [facility] [address] [place] [address] documented as of this encounter [...] on filedocumented in this encounter Care Teams Sand Miller Relationship Specialty Start Date End Date Jerome Crowley MD 79 [facility] [place] [address] PCP - General Internal Medicine 08/09/24 Kayli Kebede MD [address] [address] Consulting Physician Internal Medicine-Nephrology 05/17/22 Valarie Leach, RN Cyber Engineer Registered Nurse 12/01/24 documented as of this encounter
--- OUTSIDE RECORDS SUMMARY | 2025-01-30 12:33 | XMS_ITS | Encounter Summary ---
Author Organization [place] [address] Care Team Providers Care Wharf Hand Name Role Phone Kayli Kebede MD Unavailable [phone] Jerome Crowley MD Primary Care Provider [phone] Valarie Leach RN Unavailable Unavailable Reason for Visit * Reason Onset Date Comments Cm- Longitudinal Initiation 12/03/2024 Encounter Details Date Type Department Care Team (Latest Contact Info) Description 12/03/2024 Patient Outreach SEP Amy [address] [place] [address] Valarie Leach, RN Cm- Longitudinal Initiation Social History Tobacco Use Types Packs/Day Years Used Date Smoking Tobacco: Every Day Cigarettes 1 17.8 Started: 04/02/2007 Smokeless Tobacco: Never Alcohol Use Standard Drinks/Week Comments Not Currently 0 (1 standard drink = 0.6 oz pur e alcohol) few times a year [facility] Utilities Answer Date Recorded In the past 12 months has [employer] electric, gas, oil, or water eTutor threatened to shut off services in your home? No 11/29/2024 Overall Financial Resource Strain (CARDIA) Answe r Date Recorded How hard is it for you to pa y for the very basics like food, housing, medical care, and heating? Not very hard 11/29/2024 PHQ-2 Answer Date Recorded PHQ-2 Total Score 0 11/29/2024 [facility] [place] of Occupat ional Health - Occupational Stress [...] in a fdc (including now)? No 03/30/2021 [facility] IP Transportation Answer D ate [...] 12:45 PM EDT Office Visit [facility] [address] ENTRANCE, 3RD [place] [address] Manuel Torres MD [address] [place] [address] 02/15/2025 2:15 PM EDT Appointment [facility] Cancer Care [address] [place] [address] 02/15/2025 2:30 PM EDT Appointment [facility] Cancer [address] [place] [address] Farnaz Ricardo, NONA 1 [place] [address] 02/24/2025 8:00 AM EDT Appointment [facility] 7[address] [facility] [address] [place] [address] Rajwinder Craig MD [address] [place] [address] 03/02/2025 9:30 AM EDT Office Visit [facility] [address] [address] Jose Luis Ortiz MD [address] [place] [address] [facility] [place] [phone] 03/08/2025 11:15 AM EDT Office Visit [facility] Nephrology [place] [address] [place] [address] Lynn Mariano APRN [address] [place] [phone] 03/09/2025 3:30 PM EDT Office Visit [facility] Diabetes [place] 1500 [facility] [address] [place] [address] Rita Cordero MD 1500 [place] [address] 10/07/2025 1:10 PM EDT Office Visit [facility]BS[facility] 40 [facility] 101 [place] [phone] Juan Russell MD 40 [facility] [address] [place] [phone] documented as of this encounter Goals Goal [...] as of this encounter Visit Diagnoses Diagnosis Encounter for support and coordination of transition of care- Primary documented in this encounter Care Teams Wharf Hand Relationship Specialty Start Date End Date Jerome Crowley MD [place] [phone] PCP - General Internal Medicine 08/09/24 Kayli Kebede MD [address] [phone] Consulting Physician Internal Medicine-Nephrology 05/17/22 Valarie Leach, RN Gamemaster Registered Nurse 12/01/24 documented as of this encounter
--- OUTSIDE RECORDS SUMMARY | 2025-01-30 12:33 | XMS_ITS | Encounter Summary ---
Author Organization [facility] [place] [address] Care Team Providers Care Vice President Planning Name Role Phone Kayli Kebede MD Unavailable [phone] Jerome Crowley MD Primary Care Provider [phone] Valarie Leach RN Unavailable Unavailable Encounter Details Date Type Department Care Team (Latest Contact Info) Description 12/09/2024 Travel Social History Tobacco Use Types Packs/Day [...] Date Recorded PHQ-2 Total Score 0 11/29/2024 [facility] [place] of Occupat ional Health - Occupational Stress [...] in a half-way (including now)? No 03/30/2021 [facility] IP Transportation Answer D ate [...] EDT Office Visit [facility] [address] ENTRANCE, 3RD [place] [address] Manuel Torres MD [address] [place] [address] 02/15/2025 2:15 PM EDT Appointment [facility] Cancer Care [address] [place] [address] 02/15/2025 2:30 PM EDT Appointment [facility] Cancer Care [address] [place] [address] Farnaz Ricardo, NONA 1 [facility] [address] 02/24/2025 8:00 AM EDT Appointment [facility] [address] [place] [address] [address] [place] [address] Rajwinder Craig MD [address] [place] [address] 03/02/2025 9:30 AM EDT Office Visit [facility] [address] [place] [address] [id number] Jose Luis Ortiz MD [address] [place] [address] [place] [phone] 03/08/2025 11:15 AM EDT Office Visit [facility] Nephrology [place] [address] [place] [address] Lynn Mariano, NONA [address] [place] [address] 03/09/2025 3:30 PM EDT Office Visit [facility] Diabetes [place] 1500 [facility] [address] [place] [address] Rita Cordero MD 1500 [place] [address] 10/07/2025 1:10 PM EDT Office Visit [facility] 40 [facility] [place] 101 [place] [address] Juan Russell MD [address] [facility] [address] [place] [address] documented as of this encounter [...] on filedocumented in this encounter Care Teams Vice President Planning Relationship Specialty Start Date End Date Jerome Crowley MD 79 [facility] [place] [address] PCP - General Internal Medicine 08/09/24 Kayli Kebede MD [address] [address] Consulting Physician Internal Medicine-Nephrology 05/17/22 Valarie Leach, RN Can Crimper Registered Nurse 12/01/24 documented as of this encounter
--- OUTSIDE RECORDS SUMMARY | 2025-01-30 12:33 | XMS_ITS | Encounter Summary ---
Author Organization [place] [address] Care Team Providers Care Valve Lapper Name Role Phone Kayli Kebede MD Unavailable [phone] Jerome Crowley MD Primary Care Provider [phone] Valarie Leach RN Unavailable Unavailable Reason for Visit * Reason Onset Date Comments Referral 12/01/2024 Encounter Details Date Type Department Care Team (Late st Contact Info) Description 12/01/2024 Patient Outreach [facility] [address] Appointment [place] [address] Aguilar Richey Referral Social History Tobacco Use Types Packs/Day Years Used Date Smoking Tobacco: Every Day Cigarettes 1 17.8 Started: 04/02/2007 Smokeless Tobacco: Never Alcohol Use Standard Drinks/Week Comments Not Currently 0 (1 standard drink = 0.6 oz pur e alcohol) few times a year [facility] Utilities Answer Date Recorded In the past 12 months has [employer] electric, gas, oil, or water [employer] threatened to shut off services in your home? No 11/29/2024 Overall Financial Resource Strain (CARDIA) Answe r Date Recorded How hard is it for you to pa y for the very basics like food, housing, medical care, and heating? Not very hard 11/29/2024 PHQ-2 Answer Date Recorded PHQ-2 Total Score 0 11/29/2024 [facility] [place] of Occupat ional Health - Occupational Stress [...] in a detention (including now)? No 03/30/2021 [facility] IP Transportation Answer D ate Recorded [...] Assessment Author No 11/30/2024 4:23 PM EDT Polanco, Brina Jerrica, RN * Is the person blind or [...] documented in this encounter Progress Notes * Aguilar Richey - 12/01/2024 4:12 PM EDT Provider Service Representative Management Referral Request Referral received from: Kimberly Palafox RN Referral Reason: Other: Referral note: Chronic Care Management consent received on 12/01/24 , considered diagnoses Diabetes and Chronic kidney Disease . Episode created, please reach out with questions as needed. Hospital Follow up 12/03/2024 at 2:00 PM Patient trying to get appointment switched to 3 PM. Assigned to: Valarie Leach RN, OCC documented in this encounter Plan of Treatment Upcoming Encounters Date Type Department Care Team (Late st Contact Info) Description 02/02/2025 12:45 PM EDT Office Visit [facility] [address] ENTRANCE, 3RD [place] [address] Manuel Torres MD [address] [place] [address] 02/15/2025 2:15 PM EDT Appointment [facility] [address] [place] [address] 02/15/2025 2:30 PM EDT Appointment [facility] [address] [place] [address] Farnaz Ricardo, MOTORBOAT OPERATOR 1 [facility] [place] [address] 02/24/2025 8:00 AM EDT Appointment [facility] [address] [place] [address] [address] [place] [address] Rajwinder Craig MD [address] [place] [address] 03/02/2025 9:30 AM EDT Office Visit [facility] [address] [address] Jose Luis Ortiz MD [address] [place] [address] [place] [phone] 03/08/2025 11:15 AM EDT Office Visit [facility] Nephrology [place] [address] [place] [address] Lynn Mariano, MOTORBOAT OPERATOR [address] [place] [address] 03/09/2025 3:30 PM EDT Office Visit [facility] [address] [facility] [address] [place] [phone] Rita Cordero MD [address] [place] [address] 10/07/2025 1:10 PM EDT Office Visit [facility] 40 [facility] 101 [place] [address] Juan Russell MD 40 [address] [facility] [address] [place] [address] documented as of this encounter Goals [...] on filedocumented in this encounter Care Teams Valve Lapper Relationship Specialty Start Date End Date Jerome Crowley MD [employer] [facility] [address] [place] [phone] PCP - General Internal Medicine 08/09/24 Kayli Kebede MD 830 [facility] 202 [place] [address] Consulting Physician Internal Medicine-Nephrology 05/17/22 Valarie Leach, RN Heavy Duty Mechanic Farm Equipment Registered Nurse 12/01/24 documented as of this encounter
--- OUTSIDE RECORDS SUMMARY | 2025-01-30 12:33 | XMS_ITS | Encounter Summary ---
Author Organization [place] [address] Care Team Providers Care Oracle Technical Developer Name Role Phone Kayli Kebede MD Unavailable [phone] Jerome Crowley MD Primary Care Provider [phone] Valarie Leach RN Unavailable Unavailable Reason for Visit * Reason Onset Date Comments Medication Refill 12/01/2024 Encounter Details Date Type Department Care Team (Late st Contact Info) Description 12/01/2024 Refill [facility] [place] [address] [place] [address] Santosh Crowley MD [address] [place] [address] [place] [address] Medication Refill Social History Tobacco Use Types Packs/Day Years Used Date Smoking Tobacco: Every Day Cigarettes 1 17.8 Started: 04/02/2007 Smokeless Tobacco: Never Alcohol Use Standard Drinks/Week Comments Not Currently 0 (1 standard drink = 0.6 oz pur e alcohol) few times a year [facility] Utilities Answer Date Recorded In the [...] Date Recorded PHQ-2 Total Score 0 11/29/2024 [place] [place] of Occupat ional Health - Occupational Stress [...] place to sleep or slept in a correction (including now)? No 03/30/2021 [facility] IP Transportation Answer D ate Recorded In [...] EDT Office Visit [facility] [address] ENTRANCE, 3RD [place] [address] Manuel Torres MD [address] [place] [address] 02/15/2025 2:15 PM EDT Appointment [facility] Cancer [address] [place] [address] 02/15/2025 2:30 PM EDT Appointment [address] [place] [address] Farnaz Ricardo, CUTTING PRESSMAN 1 [facility] [address] 02/24/2025 8:00 AM EDT Appointment [facility] [address] [place] [address] [address] [place] [address] Rajwinder Craig MD [address] [place] [address] 03/02/2025 9:30 AM EDT Office Visit [facility] H[facility] [address] [address] Jose Luis Ortiz MD [address] [place] [address] [address] [facility] [phone] 03/08/2025 11:15 AM EDT Office Visit [facility] Nephrology [place] [address] [place] [address] Lynn Mariano APRN [address] [place] [address] 03/09/2025 3:30 PM EDT Office Visit [facility] Diabetes [place] 1500 [facility] 301 [place] [address] Rita Cordero MD 1500 [place] [address] 10/07/2025 1:10 PM EDT Office Visit [facility] [place] 40 [facility] 101 [place] [address] Juan Russell MD 40 [facility] 101 [place] [address] documented as of this encounter [...] on filedocumented in this encounter Care Teams Oracle Technical Developer Relationship Specialty Start Date End Date Jerome Crowley MD [address] [facility] [place] [address] PCP - General Internal Medicine 08/09/24 Kayli Kebede MD [address] [address] Consulting Physician Internal Medicine-Nephrology 05/17/22 Valarie Leach, RN Traffic Police Officer Registered Nurse 12/01/24 documented as of this encounter
--- OUTSIDE RECORDS SUMMARY | 2025-01-30 12:33 | XMS_ITS | Clinical Summary ---
Author Organization [facility] Address [address] [place] [address] Care Team Providers Care Powder Guard Name Role Phone Jerome Crowley MD Primary Care Provider [phone] Source Comments This information has been disclosed to you from confidential records protectedfrom disclosure by state law. You shall make no further disclosure of thisinformation without the specific, written, and informed release of theindividual to whom it pertains, or as otherwise permitted by law. A generalauthorization for the release of medical or other information is not sufficientfor the purposes of therelease of HIV test results or diagnoses. [id number] Allergies Active Allergy Reactions Criticality Noted Date Comments Azithromycin Hives High 02/25/2018 Penicillins Medium 02/25/2018 rash Medications albuterol (PROVENTIL;MICHELLE SCOTTIE;PROAIR) 90 mcg/actuation inhaler Inhale into the lungs. 08/24/2017 Active amitriptyline (ELAVIL) 100 MG tablet Take 100 mg by mouth. Active amLODIPine (NORVASC) 5 MG tablet Take by mouth. Active Active Problems No known active problems Social History Tobacco Use Types Packs/Day Years Used Date Smoking Tobacco: Some Days Cigarettes 1 25 Smokeless Tobacco: Never Comments No Sex and Gender Information Value Date Recorded Sex Assigned at Not on file Legal Sex Female 8:11 PM EST Gender Identity Not on file Sexual Orientation Not on file Last Filed Vital Signs Vital Sign Reading Time Taken Comments Blood Pressure 138/92 02/25/2018 3:15 PM EDT Pulse 90 02/25/2018 3:15 PM EDT Temperature 36.8 C (98.2 F) 02/25/2018 3:15 PM EDT Respiratory Rate 16 02/25/2018 3:15 PM EDT Oxygen Saturation 100% 02/25/2018 3:15 PM EDT Inhaled Oxygen Concentration 100% 02/25/2018 3 :15 PM EDT Weight 122.5 kg (270 lb) 02/25/2018 3:15 PM EDT Height 167.6 cm (5' 6 ) 02/25/2018 3:15 PM EDT Body Mass Index 43.58 02/25/2018 3:15 PM EDT Plan of Treatment Health Maintenance Due Date Last Done Comments Abnormal Colonoscopy Follow Up 1978 Hepatitis C Screening (MyChart) 1978 Alcohol Misuse Screening 1996 HIV Screening 1996 Immunization: Hepatitis B (1 of 3 - 19+ 3-dose series) 1997 Cervical Cancer Screening/Pa p Smear (MyChart) 2008 Mammogram (MyChart) 2018 Depression Screening 02/25/2019 02/25/2018 Immunization: Pneumococcal (2 of 2 - PCV) 06/18/2019 06/18/2018 Cologuard (FIT-DNA) 2023 Colonoscopy 2023 Colorectal Cancer Screening (MyChart) 2023 Stool Testing (gFOBT) 2023 Immunization: COVID-19 ( season) 2024 Immunization: Influenza ([employer]) (#1) 2025, 04/09/2018 Immunization: DTaP/Tdap/Td ( 2 - Td or Tdap) 07/21/2028 07/21/[address] [place] [address] [place] [address] [facility] care Address: [address] [address] [place] [address] [employer] Care Teams Powder Guard Relationship Specialty Start Date End Date Jerome Crowley MD [address] [place], [place] [address] PCP - General Internal Medicine 12/09/24
--- OUTSIDE RECORDS SUMMARY | 2025-01-30 12:33 | XMS_ITS | Encounter Summary ---
Author Organization [place] [address] Care Team Providers Care Hub Cutter Name Role Phone Kayli Kebede MD Unavailable [phone] Jerome Crowley MD Primary Care Provider [phone] Valarie Leach RN Unavailable Unavailable Reason for Referral * Consultation (Routine) - Closed Specialty Diagnoses / Procedures Referred By Esperanza zaman Referred To Contact Diagnoses Type 2 diabetes mellitus with stage 3a chronic kidney disease, without long-term current use of insulin (HCC) Stage 3a chronic kidney disease (HCC) [place] [address] Phone: tel: fax: [facility] [address] Appointment [place] [address] Phone: tel: Referral ID Status Reason Start Date Expiration Date Visits Re quested Visits Authorized [id number] Closed 12/01/2024 12/01/2025 99 99 Question Answer Reason for Referral Other (use comments) Comments Chronic Care Management consent received on 12/01/24 , considered diagnoses Diabetes and Chronic kidney Disease . Episode created, please reach out with questions as needed. Hospital Follow up 12/03/2024 at 2:00 PM Patient trying to get appointment switched to 3 PM. Reason for Visit * Reason Onset Date Comments Hospital Follow Up 12/01/2024 Care Transition 12/01/2024 CM - Medication Reconciliation 12/01/2024 CM- Consultation 12/01/2024 Encounter Details Date Type Department Care Team (Latest Contact Info) Description 12/01/2024 Patient Outreach [facility] [address] Appointment Location [place] [facility] [phone] Kimberly Palafox RN Hospital Follow Up; Care Transition; CM - Medication Reconciliation; CM- Consultation Social History Tobacco Use Types Packs/Day Years Used Date Smoking Tobacco: Every Day Cigarettes 1 17.8 Started: 04/02/2007 Smokeless Tobacco: Never Alcohol Use Standard Drinks/Week Comments Not Currently 0 (1 standard drink = 0.6 oz pur e alcohol) few times a year [facility] Utilities Answer Date Recorded In the [...] Date Recorded PHQ-2 Total Score 0 11/29/2024 [facility] [place] of Occupat ional Health - Occupational Stress [...] in a assisted (including now)? No 03/30/2021 [facility] IP Transportation Answer D ate Recorded [...] documented in this encounter Progress Notes * Kimberly Palafox RN - 12/01/2024 4:05 PM EDT You are receiving this communication to make you aware your patient wasdischarged from the hospitalon 11/30. DX: Acute chest pain Hospital follow up appointment with Primary Care Physician on 12/03/2024 2:00 PM. Patient hoping to get appointment switched to 3 PM. Please advise patient. To make Provider aware: Patient has concerns about her new prescription Ranexa and her history with Chronic Kidney Disease. Patient requesting refills on the following medications: Colace, Aspirin, and Tramadol Patient reports the following symptoms at time of follow up call, returned lightheaded/dizziness after doing activities, jumpy vision that has come back, blood pressure (BP) 170/109 on left arm andon right arm 157/111. Patient then took her prescribed Clonidine at 1518. Patient instructed to follow up with Provider if BP not improved. Please advise patient. * Kimberly Palafox RN - 12/01/2024 2:43 PM EDT Transition of Care Outreach: Hospital follow-up 12/01 Reason for Hospitalization: Acute chest pain Spoke with: Patient Assessment: Patient symptoms/concerns: Patient reports she is was feeling good until she did dishes, laundry and then she started to get lightheaded and dizzy again Reports her vision is jumpy Denies chest pain Chronic back pain, rating this pain at a 7/10, taking tylenol to alleviate Lightheaded/dizziness present since she has been up doing activities Strength- okay Denies fevers/chills Over last few weeks noticed increased sweating activities, she is thinking it is menopause Nausea a few times/ denies vomiting Diminished appetite, been off starting last night Fluid intake- staying hydrated well Blood sugar- 92 Denies shortness of breath, chronic cough, sputum- greenish yellow Denies bilateral lower extemity edema Blood pressure-170/109 on left arm and on right arm blood pressure 157/111 patient took her prescribed Clonidine to alleviate hypertension at 1518. Ability to complete activities of daily living: Independent with self care, lives with [place] and his parents, denies issues with transportation Durable medical equipment: Bedside Commode Blood Pressure Machine Cane Glucometer Nebulizer Shower Chair Walker Tobacco use: Current Smoker Impactable barriers: Social Determinants of Health assessment(s) completed and updated : Activity Transportation, Financial need, Food Insecurity, and Stress have been assessed in the past year, not assessed at this time. Medications: Current medication list and discharge medication lists were reconciled with Tegan Wolf 1978. Any new and discontinued medications as well as dosage changes were reviewed. All medication questions and concerns were addressed. Ranexa and history of chronic kidney disease patient has concerns about Patient requesting refills on the following medications: Colace, Aspirin, and Tramadol Medications are affordable at this time Education: Discussed Primary Care Provider (PCP) has provider available 24 hours 7 days/week for questions/concerns. Nurse Now Helpline at [phone] ([phone]) Seek medical attention for any chest pain, shortness of breath, or difficulty breathing Importance of smoking cessation and improvement it makes on overall health. Importance of rinsing mouth out after inhaler use to prevent fungal infections Pharmacy referrals Discussed with patient medication assistance referrals if needed in the future Follow up with Cardiology Monitor blood sugars, record and bring readings to follow up Monitor blood pressure and if not improving with clonidine prescription notify Provider Advance Care Planning (ACP) ACP not on file Patient declines more information on Advance Care Planning at this time. Next Steps: Reminded of hospital follow up appointment Senior It Engineer provided education on the importance of hospital follow up appointment Notes: Patient has hospital follow up appointment with Primary Care Physician on 12/03/2024 2:00 PM. Patient hoping to get appointment switched to 3 PM. Office aware. Chronic Care Management services are available and have been discussed with the patient. Patient has been made aware: Only one practitioner can bill for Chronic Care Management services per month They can stop their Chronic Care Management services at any time and the change will be effective the last day of the calendar month Services are subject to the usual coinsurance applied to physician services After discussion, the patient verbally agrees to Chronic Care Management enrollment. The patient denies any questions or concerns related to Chronic Care Management at this time. PCP: Jerome Crowley MD documented in this encounter Miscellaneous Notes * Telephone Encounter - Linda Beasley RMA - 12/02/2024 7:49 AM EDT FYI * ACP (Advance Care Planning) - Kimberly Palafox RN - 12/01/2024 4:04 PM EDT Offered to discuss goals and values for patient's healthcare if patient is no longer able to speak for themselves. Patient declined Advance Care Planning conversation at this time. documented in this encounter Plan of Treatment Upcoming Encounters Date Type Department Care Team (Late st Contact Info) Description 02/02/2025 12:45 PM EDT Office Visit [facility] [address] ENTRANCE, 3RD [place] [address] Manuel Torres MD [address] [place] [address] 02/15/2025 2:15 PM EDT Appointment [facility] Cancer Care Center [address] [place] [address] 02/15/2025 2:30 PM EDT Appointment [facility] Cancer Care Center [address] [place] [address] Farnaz Ricardo, NONA [address] [facility] [place] [address] 02/24/2025 8:00 AM EDT Appointment [facility] [address] [place] [address] [address] [place] [address] Rajwinder Craig MD [address] [place] [address] 03/02/2025 9:30 AM EDT Office Visit [facility] [address] [address] Jose Luis Ortiz MD [address] [place] [address] [facility] [phone] 03/08/2025 11:15 AM EDT Office Visit [facility] Nephrology [place] [address] [place] [address] Lynn Mariano, CARDIOLOGY TECHNOLOGIST [address] [place] [address] 03/09/2025 3:30 PM EDT Office Visit [facility] Diabetes [place] [address] [facility] [address] [place] [address] Rita Cordero MD 1500 [place] [address] 10/07/2025 1:10 PM EDT Office Visit [facility] E[facility] 40 [facility] [address] [place] [address] Juan Russell MD [address] [facility] [address] [place] [address] Scheduled Referrals Name Type Priority Associated Diagnoses Order Schedule AMB REFERRAL TO CARE MANAGEMENT Outpatient Referral Routine Type 2 diabetes mellitus with stage 3a chronic kidney disease, without long-term current use of insulin (HCC) Stage 3a chronic kidney disease (HCC) Ordered: 12/01/2024 documented as of this encounter Goals Goal [...] Diagnoses Diagnosis Type 2 diabetes mellitus with stage 3a chronic kidney disease, without long-term current use of insulin (HCC)- Primary Stage 3a chronic kidney disease (HCC) documented in this encounter Historical Medications * This list may reflect changes made after this encounter. metOLazone (ZAROXOLYN) 2.5 mg Oral Tablet Take 2.5 mg by mouth daily as needed for Other (Edema, weight gain). linaCLOtide (LINZESS) 72 mcg Oral Capsule Take 72 mcg by mouth as needed for Nausea. 12/09/2024 added in this encounter Care Teams Hub Cutter Relationship Specialty Start Date End Date Jerome Crowley MD [address] [place] [address] PCP - General Internal Medicine 08/09/24 Kayli Kebede MD 830 [facility] 202 [place] [address] Consulting Physician Internal Medicine-Nephrology 05/17/22 Valarie Leach, RN Senior It Engineer Registered Nurse 12/01/24 documented as of this encounter
--- OUTSIDE RECORDS SUMMARY | 2025-01-30 12:33 | XMS_ITS | Encounter Summary ---
Author Organization [place] [address] Care Team Providers Care Brine Tank Operator Name Role Phone Kayli Kebede MD Unavailable [phone] Jerome Crowley MD Primary Care Provider [phone] Valarie Leach RN Unavailable Unavailable Reason for Visit * Reason Onset Date Comments Medication Refill 12/01/2024 Encounter Details Date Type Department Care Team (Late st Contact Info) Description 12/01/2024 Refill SEP Amy [facility] [place] [address] [place] [address] [place] [address] Medication Refill Social History Tobacco Use Types Packs/Day Years Used Date Smoking Tobacco: Every Day Cigarettes 1 17.8 Started: 04/02/2007 Smokeless Tobacco: Never Alcohol Use Standard Drinks/Week Comments Not Currently 0 (1 standard drink = 0.6 oz pur e alcohol) few times a year [facility] Utilities Answer Date Recorded In the past [...] Date Recorded PHQ-2 Total Score 0 11/29/2024 [place] of Occupat ional Health - Occupational Stress [...] in a long-term (including now)? No 03/30/2021 [facility] IP Transportation Answer D ate Recorded [...] Refills Last Filled Start Date End Date Blood-Glucose Meter Misc Kit Use to check blood sugar 1 Kit 12/01/2024 documented in this encounter Plan of Treatment Upcoming Encounters Date Type Department Care Team (Late st Contact Info) Description 02/02/2025 12:45 PM EDT Office Visit SEP GASTRO [facility] [address] ENTRANCE, 3RD [place] [address] Manuel Torres MD [address] [place] [address] 02/15/2025 2:15 PM EDT Appointment [address] [place] [address] 02/15/2025 2:30 PM EDT Appointment [address] [place] [address] Farnaz Ricardo, CRYOGENIC TRANSPORT DRIVER [address] [facility] [address] 02/24/2025 8:00 AM EDT Appointment [facility] [address] [place] [address] [address] [place] [address] Rajwinder Craig MD [address] [place] [address] 03/02/2025 9:30 AM EDT Office Visit [facility] [place] [address] [place] [address] Jose Luis Ortiz MD [address] [place] [address] [address] [place] [phone] 03/08/2025 11:15 AM EDT Office Visit [facility] Nephrology [place] [address] [place] [address] Lynn Mariano, CRYOGENIC TRANSPORT DRIVER [address] [place] [address] 03/09/2025 3:30 PM EDT Office Visit [facility] Diabetes [place] 1500 [facility] [address] [place] [phone] Rita Cordero MD 1500 [place] [address] 10/07/2025 1:10 PM EDT Office Visit [facility] GIBSON [place] 40 [facility] 101 [place] [address] Juan Russell MD 40 [facility] [address] [place] [address] documented as of this encounter [...] on filedocumented in this encounter Care Teams Brine Tank Operator Relationship Specialty Start Date End Date Jerome Crowley MD [address] [place] [address] [place] [address] PCP - General Internal Medicine 08/09/24 Kayli Kebede MD [address] [phone] Consulting Physician Internal Medicine-Nephrology 05/17/22 Valarie Leach, RN Feature Writer Registered Nurse 12/01/24 documented as of this encounter
--- OUTSIDE RECORDS SUMMARY | 2025-01-30 12:33 | XMS_ITS | Encounter Summary ---
Author Organization [place] [address] Care Team Providers Care Office Clerk Routine Name Role Phone Kayli Kebede MD Unavailable [phone] Jerome Crowley MD Primary Care Provider [phone] Valarie Leach RN Unavailable Unavailable Reason for Visit * Reason Onset Date Comments Medication Refill 12/01/2024 Encounter Details Date Type Department Care Team (Late st Contact Info) Description 12/01/2024 Refill SEP Amy [address] [place] [address] Annmarie Burton APRN [address] [place], [place] [phone] Medication Refill Social History Tobacco Use Types Packs/Day Years Used Date Smoking Tobacco: Every Day Cigarettes 1 17.8 Started: 04/02/2007 Smokeless Tobacco: Never Alcohol Use Standard Drinks/Week Comments Not Currently 0 (1 standard drink = 0.6 oz pur e alcohol) few times a year [facility] Utilities Answer Date Recorded In [...] Date Recorded PHQ-2 Total Score 0 11/29/2024 [place] of Occupat ional Health - Occupational Stress [...] place to sleep or slept in a residential (including now)? No 03/30/2021 [facility] IP Transportation Answer D ate [...] Refills Last Filled Start Date End Date tiZANidine (ZANAFLEX) 4 mg Oral Tablet Take 1 Tablet by mouth 3 times daily as needed. for muscle spasms 60 Tablet 10 12/01/2024 documented in this encounter Plan of Treatment Upcoming Encounters Date Type Department Care Team (Late st Contact Info) Description 02/02/2025 12:45 PM EDT Office Visit SEP GASTRO TIM [address] ENTRANCE, 3RD [place] [address] Manuel Torres MD [address] [place] [address] 02/15/2025 2:15 PM EDT Appointment [address] [place] [address] 02/15/2025 2:30 PM EDT Appointment [place] [address] [place] [address] Farnaz Ricardo, NONA 1 [place] [address] 02/24/2025 8:00 AM EDT Appointment [facility] [address] [place] [address] [address] [place] [address] Rajwinder Craig MD [address] [place] [address] 03/02/2025 9:30 AM EDT Office [facility] [address] [place] [address] Jose Luis Ortiz MD [address] [place] [address] [place] [address] 03/08/2025 11:15 AM EDT Office Visit [facility] Nephrology [place] [address] [place] [address] Lynn Mariano, NONA [address] [place] [address] 03/09/2025 3:30 PM EDT Office Visit [facility] 1500 [facility] 301 [place] [address] Rita Cordero MD 1500 [place] [address] 10/07/2025 1:10 PM EDT Office Visit [facility] GIBSON [facility] 40 [facility] 101 [place] [address] Juan Russell MD 40 [facility] [address] [place] [address] documented as of this [...] Discontinue Reason Start Date End Da te tiZANidine (ZANAFLEX) 4 mg Oral Tablet Take 1 Tablet by mouth 3 times daily as needed. for muscle spasms Reorder 06/09/2024 12/01/2024 documented as of this encounter Care Teams Office Clerk Routine Relationship Specialty Start Date End Date Jerome Crowley MD [address] [place] [address] [place] [address] PCP - General Internal Medicine 08/09/24 Kayli Kebede MD [address] [address] Consulting Physician Internal Medicine-Nephrology 05/17/22 Valarie Leach, RN Land Reclamation Specialist Registered Nurse 12/01/24 documented as of this encounter
--- OUTSIDE RECORDS SUMMARY | 2025-01-30 12:33 | XMS_ITS | Encounter Summary ---
Author Organization [place] [address] Care Team Providers Care Molder Machine Name Role Phone Kayli Kebede MD Unavailable [phone] Jerome Crowley MD Primary Care Provider [phone] Valarie Leach RN Unavailable Unavailable Reason for Visit * Reason Onset Date Comments Appointment Needed 12/01/2024 Encounter Details Date Type Department Care Team (Late st Contact Info) Description 12/01/2024 Telephone SEP H&V [address] [address] Nicho Santillan MD [address] [place] [phone] Appointment Needed Social History Tobacco Use Types Packs/Day Years Used Date Smoking Tobacco: Every Day Cigarettes 1 17.8 Started: 04/02/2007 Smokeless Tobacco: Never Alcohol Use Standard Drinks/Week Comments Not Currently 0 (1 standard drink = 0.6 oz pur e alcohol) few times a year [facility] Utilities Answer Date Recorded In [...] Date Recorded PHQ-2 Total Score 0 11/29/2024 [place] of Occupat ional Health - Occupational [...] in a intermediate (including now)? No 03/30/2021 [facility] IP Transportation Answer D ate Recorded [...] encounter Miscellaneous Notes * Telephone Encounter - Janusz Reynolds MA - 12/01/2024 1:41 PM EDT Called patient and she is scheduled for next week * Telephone Encounter - Monserrat Gilman - 12/01/2024 1:26 PM EDT Reason for requesting appointment: Hospital follow up Appointment Notes: Needs hospital follow up with MD. Has not been seen in 2 years. Appointment location: [facility] [place] Call back number: [phone] documented in this encounter Plan of Treatment Upcoming Encounters Date Type Department Care Team (Late st Contact Info) Description 02/02/2025 12:45 PM EDT Office Visit SEP GOVIND TIM [address] 1D ENTRANCE, 3RD [place] [address] Manuel Torres MD 340 [place] [address] 02/15/2025 2:15 PM EDT Appointment [address] [place] [address] 02/15/2025 2:30 PM EDT Appointment [facility] [address] [place] [address] Farnaz Ricardo, REGIONAL CONSTRUCTION MANAGER [address] [address] 02/24/2025 8:00 AM EDT Appointment [facility] [address] [place] [address] [address] [place] [address] Rajwinder Craig MD [address] [place] [address] 03/02/2025 9:30 AM EDT [place] [address] Jose Luis Ortiz MD [address] [place] [address] [facility] [place] [address] 03/08/2025 11:15 AM EDT Office Visit [facility] Nephrology [place] [address] [place] [address] Lynn Mariano, REGIONAL CONSTRUCTION MANAGER [address] [place] [address] 03/09/2025 3:30 PM EDT Office Visit [facility] [address] [facility] [address] [place] [phone] Rita Cordero MD [address] [place] [address] 10/07/2025 1:10 PM EDT Office Visit [facility] [place] 40 [facility] [address] [place] [address] Juan Russell MD 40 N [facility] [address] [place] [address] documented as of this encounter Goals [...] on filedocumented in this encounter Care Teams Molder Machine Relationship Specialty Start Date End Date Jerome Crowley MD [address] [facility] [place] [address] PCP - General Internal Medicine 08/09/24 Kayli Kebede MD 0 [facility] [address] [place] [address] Consulting Physician Internal Medicine-Nephrology 05/17/22 Valarie Leach, RN Field Seismologist Registered Nurse 12/01/24 documented as of this encounter
--- OUTSIDE RECORDS SUMMARY | 2025-01-30 12:33 | XMS_ITS | Encounter Summary ---
Author Organization [place] [address] Care Team Providers Care Software Licensing Specialist Name Role Phone Kayli Kebede MD Unavailable [phone] Jerome Crowley MD Primary Care Provider [phone] Valarie Leach RN Unavailable Unavailable Reason for Visit * Reason Onset Date Comments Medication Refill 12/01/2024 Encounter Details Date Type Department Care Team (Late st Contact Info) Description 12/01/2024 Refill SEP Amy [facility] [place] [address] eJrome Crowley [place] [address] Medication Refill Social History Tobacco Use Types Packs/Day Years Used Date Smoking Tobacco: Every Day Cigarettes 1 17.8 Started: 04/02/2007 Smokeless Tobacco: Never Alcohol Use Standard Drinks/Week Comments Not Currently 0 (1 standard drink = 0.6 oz pur e alcohol) few times a year [facility] Utilities Answer Date Recorded In the [...] PHQ-2 Total Score 0 11/29/2024 [place] of Occupat ional Health - Occupational Stress [...] in a mcc (including now)? No 03/30/2021 [facility] IP Transportation Answer D ate Recorded [...] Refills Last Filled Start Date End Date fUROsemide (LASIX) 40 mg Oral TabletIndications: Chronic diastolic congestive heart failure (HCC) Take 1 Tablet by mouth daily for 30 days. 30 Tablet 12/01/2024 01/27/2025 documented in this encounter Plan of Treatment Upcoming Encounters Date Type Department Care Team (Late st Contact Info) Description 02/02/2025 12:45 PM EDT Office Visit [facility]P [facility] [address] 1D ENTRANCE, 3RD [place] [address] Manuel Torres MD [address] [place] [address] 02/15/2025 2:15 PM EDT Appointment [facility] Cancer Care [address] [place] [address] 02/15/2025 2:30 PM EDT Appointment [facility] Cancer Care Center [address] [place] [address] Farnaz Ricardo, NONA 1 [place] [address] 02/24/2025 8:00 AM EDT Appointment [facility] [address] [place] [address] [address] [place] [address] Rajwinder Craig MD [address] [place] [address] 03/02/2025 9:30 AM EDT Office Visit [facility] [place] [address] [place] [address] Jose Luis Ortiz MD [address] [place] [address] [facility] [place] [address] 03/08/2025 11:15 AM EDT Office Visit [facility] Nephrology [place] [address] [place] [address] Lynn Mariano, NONA [address] [facility] [address] [place] [address] 03/09/2025 3:30 PM EDT Office Visit [facility] 1500 [facility] [address] [place] [address] Rita Cordero MD 1500 [place] [address] 10/07/2025 1:10 PM EDT Office Visit [facility] 40 [facility] [address] [place] [address] Juan Russell MD 40 [address] [facility] [address] [place] [address] documented as of this encounter [...] by mouth daily for 30 days. Reorder 10/11/2024 12/01/2024 documented as of this encounter Care Teams Software Licensing Specialist Relationship Specialty Start Date End Date Jerome Crowley MD [address] [place] [address] [place] [phone] PCP - General Internal Medicine 08/09/24 Kayli Kebede MD [address] [place] [address] Consulting Physician Internal Medicine-Nephrology 05/17/22 Valarie Leach, RN Double Reamer Operator Registered Nurse 12/01/24 documented as of this encounter
--- OUTSIDE RECORDS SUMMARY | 2025-01-30 12:33 | XMS_ITS | Encounter Summary ---
Author Organization [facility] [place] [address] Care Team Providers Care Cath Lab Name Role Phone Kayli Kebede MD Unavailable [phone] Jerome Crowley MD Primary Care Provider [phone] Valarie Leach RN Unavailable Unavailable Encounter Details Date Type Department Care Team (Latest Contact Info) Description 12/02/2024 Travel Social History Tobacco Use Types Packs/Day Years Used Date Smoking Tobacco: Every Day Cigarettes 1 17.8 Started: 04/02/2007 Smokeless Tobacco: Never Alcohol Use Standard Drinks/Week Comments Not Currently 0 (1 standard drink = 0.6 oz pur e alcohol) few times a year [facility] Utilities Answer Date Recorded In [...] PHQ-2 Total Score 0 11/29/2024 [facility] [place] of Occupat ional Health - Occupational Stress [...] in a fdc (including now)? No 03/30/2021 [facility] IP Transportation Answer D ate Recorded In [...] EDT Office Visit SEP GA[facility] TIM [address]D ENTRANCE, 3RD [place] [address] Manuel Torres MD 340 [place] [address] 02/15/2025 2:15 PM EDT Appointment [facility] Cancer Care [address] [place] [address] 02/15/2025 2:30 PM EDT Appointment [facility] Cancer Care [address] [place] [address] Farnaz Ricardo, NONA 1 [facility] [place] [address] 02/24/2025 8:00 AM EDT Appointment [facility] [address] [place] [address] [address] [place] [address] Rajwinder Craig MD [address] [place] [address] 03/02/2025 9:30 AM EDT Office Visit [facility] [place] [address] [place] [phone] Jose Luis Ortiz MD [address] [place] [address] [facility] [place] [phone] 03/08/2025 11:15 AM EDT Office Visit [facility] Nephrology [place] [address] [place] [address] Lynn Mariano, NONA [address] [place] [address] 03/09/2025 3:30 PM EDT Office Visit [facility] Diabetes [place] 1500 [facility] [address] [place] [address] Rita Cordero MD 1500 [place] [address] 10/07/2025 1:10 PM EDT Office Visit [facility] 40 [facility] 101 [place] [address] Juan Russell MD 40 N [facility] [address] [place] [address] documented as of this encounter [...] on filedocumented in this encounter Care Teams Cath Lab Relationship Specialty Start Date End Date Jerome Crowley MD 79 [facility] [place] [address] PCP - General Internal Medicine 08/09/24 Kayli Kebede MD [address] [address] Consulting Physician Internal Medicine-Nephrology 05/17/22 Valarie Leach, RN Magnetometer Operator Registered Nurse 12/01/24 documented as of this encounter
--- OUTSIDE RECORDS SUMMARY | 2025-01-30 12:33 | XMS_ITS | Encounter Summary ---
Author Organization [place] [address] Care Team Providers Care Media Marketing Manager Name Role Phone Jerome Crowley MD Primary Care Provider [phone] Annmarie Burton APRN Primary Care Provider [phone] Mel Wayne [facility] Unavailable Unavail able Kayli Kebede MD Unavailable [phone] Jerome [place] MD Primary Care Provider [phone] Valarie Leach RN Unavailable Unavailable Rita Cordero MD Unavailable [phone] Reason for Visit * Reason Onset Date Comments Medication Refill 08/08/2017 Encounter Details Date Type Department Care Team (Late st Contact Info) Description 08/08/2017 Refill SEP Amy [address] [place] [address] Jerome Crowley MD [address] [place] [address] Medication Refill Social History Tobacco Use Types Packs/Day Years Used Date Smoking Tobacco: Every Day Cigarettes 1 15 Smokeless Tobacco: Never Alcohol Use Standard Drinks/Week Comments No 0 (1 standard drink = 0.6 oz pur e alcohol) Sexually Active Control Partners Comments Yes Surgical [...] hearing? Answer Date of Assessment Author No 07/07/2017 1:45 PM Shakeel Encarnacion CMA * Is the person blind or does he/she have serious difficulty seeing even when wearing glasses? Answer Date of Assessment Author No 07/07/2017 1:45 PM Shakeel Encarnacion CMA * Does this person have serious difficulty walking or climbing stairs? Answer Date of Assessment Author No 07/07/2017 1:45 PM Shakeel Encarnacion CMA * Does this person have difficulty dressing or bathing? Answer Date of Assessment Author No 07/07/2017 1:45 PM Shakeel Encarnacion CMA * Because of a physical, mental or emotional condition, does this person have difficulty doing errands alone such as visiting a doctor's office or shopping? Answer Date of Assessment Author No 07/07/2017 1:45 PM Shakeel Encarnacion CMA documented as of this encounter Mental Status * Because of a physical, mental or emotional condition, does this person have serious difficulty concentrating, remembering or making decisions? Answer Entry Date Author No 07/07/2017 1:45 PM Shakeel Encarnacion CMA documented in this encounter Plan of Treatment Upcoming Encounters Date Type Department Care Team (Late st Contact Info) Description 02/02/2025 12:45 PM EDT Office Visit [facility]P [facility] TIM [address] ENTRANCE, 3RD [place] [address] Manuel Torres MD [address] [place] [address] 02/15/2025 2:15 PM EDT Appointment [address] [place] [address] 02/15/2025 2:30 PM EDT Appointment [address] [place] [address] Farnaz Ricardo APRN [address] [place] [address] [place] [address] 02/24/2025 8:00 AM EDT Appointment [facility] [address] [place] [address] [address] [place] [address] Rajwinder Craig MD [address] [place] [address] 03/02/2025 9:30 AM EDT Office Visit [facility]P H[facility] [address] [address] Jose Luis Ortiz MD [address] [place] [address] [place] [phone] 03/08/2025 11:15 AM EDT Office Visit [facility] Nephrology [place] [address] [place] [address] Lynn Mariano APRN [address] [place] [address] 03/09/2025 3:30 PM EDT Office Visit [facility] [address] [facility] 301 [place] [phone] Rita Cordero MD 1500 [place] [address] 10/07/2025 1:10 PM EDT Office Visit [facility]ABETH GIBSON [place] [address] [facility] 101 [place] [address] Juan Russell MD [address] [facility] 101 [place] [address] documented as of this encounter Goals Goal Patient Goal Type Associated Problems Recent Progress Patient-Stated? Author Blood Pressure < 140/90 Blood Pressure 158/93(2024 3:43 PM EDT) No Mary Kate Lawrence CCMA Maintain a healthy diet, exercise regularly and maintain an ideal body weight General No Mary Kate Lawrence CCMA Stay Tobacco Free Lifestyle No Mary Kate Lawrence CCMA documented as of this encounter Visit Diagnoses Diagnosis Weight gain Abnormal weight gain documented in this encounter Additional Health Concerns Infection Onset Date Last Indicated Resolved Time R/O COVID-19 03/29/2021 03/29/2021 03/29/2021 12:5 2 AM EDT R/O COVID-19 06/28/2021 06/28/2021 06/28/2021 8:16 AM EST R/O COVID-19 06/30/2021 06/30/2021 06/30/2021 7:26 AM EST R/O COVID-19 03/31/2022 03/31/2022 03/31/2022 3:32 PM EDT R/O COVID-19 06/19/2022 06/19/2022 06/19/2022 4:40 AM EST R/O COVID-19 07/17/2022 07/17/2022 07/17/2022 10:4 8 PM EST documented as of this encounter Care Teams Media Marketing Manager Relationship Specialty Start Date End Date Jerome Crowley MD [address] [place] [address] [place] [address] PCP - General 09/13/10 09/20/18 Annmarie Burton APRN [address] [place] [address] [place], [place] [phone] PCP - General Nurse Practitioner-Family 03/05/19 12/01/23 Jerome Crowley MD [address] [place] [address] [place] [address] PCP - General Internal Medicine 08/09/24 Mel Wayne LCSW Iridologist 11/11/19 11/11/19 Kayli Kebede MD [address] [place], [place] [phone] Consulting Physician Internal Medicine-Nephrology 05/17/22 Valarie Leach, RN Supply Chain Technician Registered Nurse 12/01/24 Rita Cordero MD [address] [place] [address] Internal Medicine-Endocrinology, Diabetes & Metabolism 01/10/25 documented as of this encounter
--- OUTSIDE RECORDS SUMMARY | 2025-01-30 12:33 | XMS_ITS | Data Portability ---
Author Organization [facility], [facility] Address [address] [place] [address] Care Team Providers Care Fnps Name Role Phone MIKI CHIANG Primary Care Provider [phone] VESSELS, MINDI Pain Management Unavailable CITLALI BOYKIN Primary Care Provider Assessment Encounter Date Assessment Date Assessment LastModified by Organization Details LastModified Time 07/31/2023 07/31/2023 Pain History: Genitofemoral neuralgia (G58.8) Osteoarthritis, knee (M17.9) Restless leg syndrome (G25.81) Past Medical History: Diabetes Hypertension Coronary artery disease/OR Iron deficiency anemia CHF Asthma Obstructive sleep apnea Imaging/Diagnostic Studies: Lower Extremity X-ray; 2022 - bilateral knee x ray with severe bone on bone oa per dr zamudio dictation Surgical evaluation/ history: Gallbladder Surgery; [facility] 03/23/2023 Tubal Ligation Bilateral knee arthroscopy; Summer 2022 Conservative Treatments: History of Physical Therapy; 01/09 patient attended 12 sessions of PT over 6 months. Following knee arthroscopy that did not provide any significant pain relief 04/12 home exercise program as learned from previous rounds of physical therapy for the lower extremity osteoarthritic issue in her knees bilaterally without significant relief after 1 to 2 months Interventional treatment history: BLOCK, NERVE, GENICULAR (22351); 04/12 - bilateral genicular dual diagnostic nerve block with 90% relief for 5 hours (JANNY unchanged at 57% but did have a ease of sitting that was previously limited to 1 hour was post injection able to sit as long as she would like) Previous analgesics: multiple muscle relaxers Antidepressants Opioids Anticonvulsants NSAIDs contraindication due to gastric bypass APAP OTC medications Steroids Opioids Current analgesics: gabapentin Anticoagulant/Anti platelet Medications: None Compliance Monitorin% janny Reviewed the ORT/PHQ questionnaire ORT 7 PHQ 19 Patient is moderate risk based on this questionnaire and would not necessarily warrant any intervention at this time, but will discuss the findings with the patient and offer mental health services. I reviewed the ROS, the past medical, surgical, social, and family histories and I agree with the findings - HAMZAH reviewed, appropriate - UDT reviewed, appropriate - Pill count is appropriate - Discussed the adverse outcomes associated with controlled substance usage including (but not limited to) sedation, respiratory depression, tolerance, addiction, nausea, constipation, abuse potential, accidental overdose, and . Also discussed the narcotic contract at length and the need for safe storage of medications. This also includes the responsible ownership of medications where the patient, and only the patient, is to take this regimen of medication as prescribed and does not share with any other alliance party. Patient verbalized understanding. - Moderate risk: the patient is on concurrent sedating substances which makes a higher risk for sedation related adverse outcomes and will need to be monitored more closely with q 3 month udts and annual full panel udts - Informed to call 911 if any emergencies should arise Anesthesia Qualifiers I recommend patient to have conscious sedation for injective therapy secondary to difficulty remaining motionless due to increased body mass with a BMI of 40 or greater -PAPO -Severe cardiac or pulmonary disease - CAD/OR Assessment/Plan: severe osteoarthritis bilateral lower extremity Patient had a good response to the genicular nerve block with greater than 90% relief after each diagnostic genicular block without improvement in ADLs and functionality however her insurance company would not approve the RFA. Now she finds herself in significant debilitating pain when she had a good nonoperative plan to mitigate her pain. Now she is here to be moving forward with a left knee surgery at the age of 43 and will likely have a knee replacement on the right side as well and will also likely have a revision of these replacements 15 to [address]. Will also have to increase her controlled substance that she is on as it has a loss of efficacy at its current dosage that she is likely built a tolerance to this. All these shortsighted decisions by the insurance companies are directly placing her at greater risk. Will move forward with changing up her gabapentin dosage and we will catch her on the other side of this upcoming left knee replacement we will move forward with a UDT today as this is a controlled substance if not had one on her yet [email or web address] Not available 07/31/2023 13:16:38 10/08/2023 10/08/2023 Pain History: Genitofemoral neuralgia (G58.8) Osteoarthritis, knee (M17.9) Restless leg syndrome (G25.81) Past Medical History: Diabetes Hypertension Coronary artery disease/OR Iron deficiency anemia CHF Asthma Obstructive sleep apnea Imaging/Diagnostic Studies: Lower Extremity X-ray; 2022 - bilateral knee x ray with severe bone on bone oa per dr zamudio dictation Surgical evaluation/ history: Gallbladder Surgery; [facility] 03/23/2023 Tubal Ligation Bilateral knee arthroscopy; Summer 2022 Conservative Treatments: History of Physical Therapy; 01/09 patient attended 12 sessions of PT over 6 months. Following knee arthroscopy that did not provide any significant pain relief 04/12 home exercise program as learned from previous rounds of physical therapy for the lower extremity osteoarthritic issue in her knees bilaterally without significant relief after 1 to 2 months Interventional treatment history: BLOCK, NERVE, GENICULAR (24606); 04/12 - bilateral genicular dual diagnostic nerve block with 90% relief for 5 hours (JANNY unchanged at 57% but did have a ease of sitting that was previously limited to 1 hour was post injection able to sit as long as she would like) Previous analgesics: multiple muscle relaxers Antidepressants Opioids Anticonvulsants NSAIDs contraindication due to gastric bypass APAP OTC medications Steroids Opioids Current analgesics: gabapentin Anticoagulant/Anti platelet Medications: None Compliance Monitorin% janny Reviewed the ORT/PHQ questionnaire ORT 7 PHQ 19 Patient is moderate risk based on this questionnaire and would not necessarily warrant any intervention at this time, but will discuss the findings with the patient and offer mental health services. I reviewed the ROS, the past medical, surgical, social, and family histories and I agree with the findings - HAMZAH reviewed, appropriate - UDT reviewed, appropriate - Pill count is appropriate - Discussed the adverse outcomes associated with controlled substance usage including (but not limited to) sedation, respiratory depression, tolerance, addiction, nausea, constipation, abuse potential, accidental overdose, and . Also discussed the narcotic contract at length and the need for safe storage of medications. This also includes the responsible ownership of medications where the patient, and only the patient, is to take this regimen of medication as prescribed and does not share with any other alliance party. Patient verbalized understanding. - Moderate risk: the patient is on concurrent sedating substances which makes a higher risk for sedation related adverse outcomes and will need to be monitored more closely with q 3 month udts and annual full panel udts - Informed to call 911 if any emergencies should arise Anesthesia Qualifiers I recommend patient to have conscious sedation for injective therapy secondary to difficulty remaining motionless due to increased body mass with a BMI of 40 or greater -PAPO -Severe cardiac or pulmonary disease - CAD/OR Assessment/Plan: Status post left knee replacement Preop right knee replacement -Patient is fresh from knee replacement and is doing a little bit better has been to physical therapy a few times and has increased her range of motion with her left lower extremity She has tapered down from some of her pain medication and has anticipated right knee replacement next week She still states that she needs some of the pain medicine to get through physical therapy and has concerns about going to the right knee replacement if the pain is going to be this severe postoperatively -Will send a small amount of her postoperative pain medicines at a lower dosage back to the pharmacy and will have enough to get her until her right knee replacement next week Will also increase her gabapentin dosage in the interim She understands that this is a low dose of medicine and is to be tapered off postoperatively following her right knee replacement severe osteoarthritis bilateral lower extremity [email or web address] Not available 10/09/2023 18:31:30 10/22/2023 10/22/2023 Pain History: Ms. Wolf is a pleasant 43-year-old female who presents today for short term medication management secondary to right knee replacement that she had on 10/13/2023. She had left knee replacement on 09/01/2023. Dr Fuller agreed to manage her pain post op and she is here today for medication management. Dr. Zamudio did write a 3 day supply of Oxycodone. Will write Oxycodone for 10 days and her 30 day supply of Gabapentin. Happy to see this patient for Gabapentin after this month if she wants. She is going to ask her PCP. She will schedule next month with me and then cancel if she decides to go to her PCP. Past Medical History: Diabetes Hypertension Coronary artery disease/OR Iron deficiency anemia CHF Asthma Obstructive sleep apnea Imaging/Diagnostic Studies: Lower Extremity X-ray; 2022 - bilateral knee x ray with severe bone on bone osteoarthritis per Dr. Zamudio dictation Surgical evaluation/ history: 09/01/2023 Left knee replacement 10/13/2023 Right knee replacement Conservative Treatments: 09/2023--Doing home PT three times a week right now. S/P knee replacement 04/12 home exercise program as learned from previous rounds of physical therapy for the lower extremity osteoarthritic issue in her knees bilaterally without significant relief after 1 to 2 months Interventional treatment history: BLOCK, NERVE, GENICULAR (00517); 04/12 - bilateral genicular dual diagnostic nerve block with 90% relief for 5 hours (JANNY unchanged at 57% but did have a ease of sitting that was previously limited to 1 hour was post injection able to sit as long as she would like) Previous analgesics: multiple muscle relaxers Antidepressants Opioids Anticonvulsants NSAIDs contraindication due to gastric bypass APAP OTC medications Steroids Opioids Current analgesics: Oxycodone for 10 days post op knee replacement gabapentin Anticoagulant/Anti platelet Medications: None Compliance Monitoring: Moderate risk. HAMZAH reviewed with no anomalies noted. Will continue with urine drug screens if patient wishes to continue providership here for Gabapentin. [email or web address] Not available 10/22/2023 09:52:34 Plan of Treatment Reminders Order Date Submit Date Provider Last Modified By Organization Details Last Modified Time Details Appointments None recorded. Lab drug screen, urine 2023 024 [email or web address] 9 [facility], [facility], [address] [place] [address], [id number], 4 07:39:53 drug screen, urine 2023 024 [email or web address] [facility], [facility], [address] [place] [address], [address], 4 13:53:59 Referral None recorded. Procedures None recorded. Surgeries None recorded. Imaging None recorded. Medication Orders oxycodone-a cetaminophe n 5 mg-325 mg tablet 2023 024 [facility] [id number], [address] [place] [address], [address], 4 11:14:56 gabapentin 600 mg tablet 2023 024 [facility] [id number], [address] [place] [facility] [place], [address], 4 09:34:23 gabapentin 600 mg tablet 2023 024 [facility] [id number], [address] [facility] [place], [address], 4 18:34:54 oxycodone-a cetaminophe n 5 mg-325 mg tablet 2023 024 [facility] [id number], [address], [place], [address], 4 18:34:57 gabapentin 600 mg tablet 2023 024 [facility] [id number], [address] [facility] [place], [address], 4 13:17:26 Patient TargetsNo targets recorded. Patient InstructionsNo instructions recorded. Reason for Referral None Reported. Results Created Date Observation Date Name Description Value Unit Range Abnormal Flag Note LastModifiedBy Organization Detail LastModifiedTime Result Notes None recorded. Problems Name Problem SNOMED Code Status Onset Date Resolution Date Notes Provider Name and Address Organization Details Recorded Time Mononeuro melody 527256950 Active 2022 Genitofem oral neuralgia ; Recorded 3 7:26AM by Aiden Iqbal RN, Office Visit Pro moted acu ity set as * Not Available [facility] 4 11:18:43 Pain of joint of knee 7184110905 Active 2022 Arthralgi a of knee; Recorded 3 7:26AM by Aiden Iqbal RN, Office Visit Pro moted acu ity set as * Not Available [facility] 4 11:18:43 Mental health screening Active 2022 Encounter for screening examinati on for other mental health and behaviora l disorders ; Recorded 3 7:26AM by Aiden Iqbal RN, Office Visit Pro moted acu ity set as * Not Available [facility] 4 11:18:43 Osteoarth ritis of knee 321989604 Active 2022 Osteoarth ritis, knee; Recorded 3 7:26AM by Aiden Iqbal RN, Office Visit Pro moted acu ity set as * Not Available [facility] 4 11:18:44 Restless legs 92294331 Active 2022 Restless leg syndrome; Recorded 3 7:26AM by Aiden Iqbal RN, Office Visit Pro moted acu ity set as * Not Available [facility] 4 11:18:44 Pain of knee region 4072887374 Active 2022 Brigid alvarado [facility] 3 14:08:03 Chronic pain syndrome 130129306 Active 2022 Adilene alvarado [facility] 3 16:49:25 Bilateral osteoarth ritis of knees [id number] 9107 Active 2023 Mindi Fuller MD [address] [place] [address], [id number] [place] [address] [facility] 4 08:38:31 Problem Notes None recorded. Procedures Surgical History Date Name Laterality Status Provider Name and Address Organization Details Recorded Time 4 total knee replacement completed Tameka Jackson [facility] 10/22/2023 09:18:14 procedure on gallbladder completed Cora Davies [facility] 07/31/2023 07:51:40 ligation of fallopian tube completed Cora Davies [facility] 07/31/2023 07:51:49 arthroscopy of knee completed Cora Davies [facility] 07/31/2023 07:53:08 total knee replacement completed Daisy Medina [facility] 10/08/2023 11:09:13 Imaging Results None recorded. Procedure Notes None recorded. Medical Equipment None Reported. Allergies Allergen ID Allergen Name Allergen Category Reaction Reaction Severity Criticality Documentation Date Start Date Code Code System Note Provider Name and Address Organization Details Recorded Time 596684 Non-stero idal anti-infl ammatory agent (product) medicatio n Not available Not available Not available 07/31/2023 [address] [facility], [facility] 4 08:32:01 559004 Product containin g penicilli n (product) medicatio n Not available Not available Not available 09/17/2023 [address] [facility], [facility] 4 08:26:03 304936 erythromy adrián medicatio n Not available Not available Not available 09/17/2023 4053 [facility] 4 08:25:55 374550 Macrobid medicatio n Not available Not available Not available 09/17/2023 95728 1 RxNorm Tameka [facility], [facility] 4 08:25:58 Medications Name Sig Start Date Stop Date Status Note LastModified by Organization Details LastModified Time nifedipin e ER 30 mg tablet,ex tended release 24 hr 10/07 completed Not Available Not Available Not Available celecoxib 200 mg capsule 10/07 completed Not Available Not Available Not Available cyclobenz aprine 10 mg tablet Take 1 tablet 3 times a day by oral route. active Not Available Not Available No t Available metolazon e 2.5 mg tablet TAKE 1 TABLET BY MOUTH TWICE WEEKLY (FRIDAY AND FRIDAY) 30 MINUTES BEFORE BUMEX active Not Available Not Available No t Available metformin 500 mg tablet TAKE 1 TABLET BY MOUTH 2 TIMES DAILY. 10/07 completed Not Available Not Available Not Available cyanocoba marylin (vit B-12) ER 1,000 mcg tablet,ex tended release active Not Available Not Available Not Available carvedilo l 25 mg tablet TAKE 1 TABLET BY MOUTH TWICE DAILY WITH MORNING MEAL AND EVENING MEAL active Not Available Not Available No t Available clonidine HCl 0.1 mg tablet TAKE 1 TABLET BY MOUTH TWICE DAILY NEEDED FOR SYSTOLIC FOR BLOOD PRESSURE GREATER THAN 160 OR DIASTOLI C BLOOD PRESSURE GREATER THAN 100 active Not Available Not Available No t Available acetamino phen 325 mg tablet active Not Available Not Available No t Available prednison e 10 mg tablet 10/07 completed Not Available Not Available Not Available gabapenti n 600 mg tablet Take 1 tablet 3 times a day by oral route as directed for 30 days. 2023 active FD 11/07/23 Not Available Not Available Not Available atorvasta tin 20 mg tablet TAKE 1 TABLET BY MOUTH DAILY active Not Available Not Available No t Available carvedilo l 12.5 mg tablet active Not Available Not Available Not Available albuterol sulfate 2.5 mg/3 mL (0.083 %) solution for nebulizat ion active Not Available Not Available Not Available lisinopri l 20 mg-hydroc hlorothia zide 12.5 mg tablet 10/07 completed 0 Record ed 05/01/20 23 7:26AM by Aiden Iqbal RN, Office Visit [facility] N_FLA Not Available Not Available Not Available azithromy adrián 250 mg tablet 07/31 completed Not Available Not Available Not Available simethico ne 180 mg capsule active Not Available Not Available Not Available tizanidin e 4 mg tablet TAKE 1 TABLET BY MOUTH 3 TIMES DAILY NEEDED FOR MUSCLE SPASM(S) active Not Available Not Available No t Available lisinopri l 20 mg tablet TAKE 1 TABLET BY MOUTH TWICE DAILY IN THE MORNING AND IN THE EVENING active Not Available Not Available No t Available hydralazi ne 25 mg tablet TAKE 1 TABLET BY MOUTH THREE TIMES DAILY WHILE OFF LISINOPR IL FOR 2 WEEKS active Not Available Not Available No t Available ciproflox acin 500 mg tablet 07/31 completed Not Available Not Available Not Available omeprazol e 40 mg capsule,d elayed release TAKE 1 CAPSULE BY MOUTH DAILY active Not Available Not Available No t Available aspirin 81 mg tablet,de layed release TAKE 1 TABLET BY MOUTH DAILY 10/07 completed Not Available Not Available Not Available tramadol 50 mg tablet active Not Available Not Available Not Available glimepiri de 2 mg tablet active 0 Record ed 05/01/20 23 7:26AM by Aiden Iqbal RN, Office Visit [facility] N_FLA Not Available Not Available Not Available oxycodone -acetamin ophen 5 mg-325 mg tablet Take 1 tablet 4 times a day by oral route as needed for 10 days. active Not Available Not Available No t Available nifedipin e ER 60 mg tablet,ex tended release 24 hr 10/07 completed Not Available Not Available Not Available dexametha sone 1 mg tablet 07/31 completed Not Available Not Available Not Available amlodipin e 10 mg tablet active 0 Record ed 05/01/20 23 7:26AM by Aiden Iqbal RN, Office Visit DO [facility] N_FLA Not Available Not Available Not Available isosorbid e dinitrate 20 mg tablet TAKE 1 TABLET BY MOUTH TWICE A DAY 10/07 completed Not Available Not Available Not Available metformin 1,000 mg tablet 10/07 completed Not Available Not Available Not Available bumetanid e 0.5 mg tablet TAKE 2 TABLETS BY MOUTH EVERY MORNING AND 1 TABLET EVERY EVENING active Not Available Not Available No t Available lidocaine 5 % topical patch 10/07 completed Not Available Not Available Not Available nicotine 21 mg/24 hr daily transderm al patch active Not Available Not Available Not Available Advair Diskus 500 mcg-50 mcg/dose powder for inhalatio n INHALE 1 PUFF BY MOUTH TWICE DAILY active Not Available Not Available No t Available nitroglyc antonino 0.4 mg sublingua l tablet DISSOLVE 1 TABLET UNDER THE TONGUE NEEDED FOR CHEST PAIN EVERY 5 MINUTES UP TO 3 TIMES. IF NO RELIEF CALL 911. active Not Available Not Available No t Available docusate sodium 100 mg capsule active Not Available Not Available Not Available gabapenti n 300 mg capsule Take 1 capsule every day by oral route at bedtime. 07/31 completed Not Available Not Available Not Available aspirin 81 mg chewable tablet active Not Available Not Available Not Available monteluka st 10 mg tablet TAKE 1 TABLET BY MOUTH EVERY EVENING active Not Available Not Available No t Available hydroxyzi ne HCl 25 mg tablet TAKE 1 TABLET BY MOUTH AT BEDTIME active Not Available Not Available No t Available mupirocin 2 % topical ointment 07/31 completed Not Available Not Available Not Available cefuroxim e axetil 500 mg tablet 07/31 completed Not Available Not Available Not Available Valium 10 mg tablet take approx 45 minutes prior to the procedur e 09/27/ 2023 03/20 /2024 completed Recorded 04/17/20 23 6:58AM by Aiden Iqbal RN, Office Visit Re fill Quantity : 0 DOSEUN KNOWN_FL A Not Available Not Available Not Available ferrous sulfate 325 mg (65 mg iron) tablet,de layed release TAKE 1 TABLET BY MOUTH TWICE DAILY active Not Available Not Available No t Available Vitamin D2 1,250 mcg (50,000 unit) capsule TAKE 1 CAPSULE BY MOUTH ONCE WEEKLY active Not Available Not Available No t Available celecoxib 100 mg capsule active Not Available Not Available Not Available ondansetr on 4 mg disintegr ating tablet DISSOLVE 1 TABLET UNDER THE TONGUE EVERY 6 HOURS FOR NAUSEA active Not Available Not Available No t Available doxycycli ne hyclate 100 mg tablet 07/31 completed Not Available Not Available Not Available doxazosin 2 mg tablet active Not Available Not Available Not Available Ventolin HFA 90 mcg/actua tion aerosol inhaler INHALE ONE (1) PUFF BY MOUTH EVERY 4 HOURS NEEDED active Not Available Not Available No t Available oxycodone 5 mg tablet 10/07 completed Not Available Not Available Not Available insulin lispro (U-100) 100 unit/mL subcutane ous pen INJECT 5 TO 10 UNITS SUBCUTAN EOUSLY DAILY NEEDED IF SUGAR IS HIGH *DISCARD REMAINDE R OF PEN AFTER 28 DAYS* active Not Available Not Available No t Available celecoxib 400 mg capsule active Not Available Not Available Not Available Spiriva with [employer] r 18 mcg and inhalatio n capsules INHALE THE CONTENTS OF ONE (1) CAPSULE BY MOUTH VIA HANDIHAL ER ONCE DAILY DIRECTED *DO NOT SWALLOW CAPSULE* active Not Available Not Available No t Available varenicli ne tartrate 0.5 mg (11)-1 mg (42) tablets in a dose pack active Not Available Not Available Not Available FeroSul 325 mg (65 mg iron) tablet TAKE ONE (1) TABLET BY MOUTH TWICE DAILY active Not Available Not Available No t Available diclofena c 1 % topical gel active Not Available Not Available Not Available GaviLyte- G 236 gram-22.7 4 gram-6.74 gram-5.86 gram oral solution active Not Available Not Available Not Available OneTouch Verio test strips USE TO TEST BLOOD SUGAR DAILY 10/07 completed Not Available Not Available Not Available Farxiga 10 mg tablet TAKE 1 TABLET BY MOUTH ONCE DAILY active Not Available Not Available No t Available OneTouch Verio Flex Meter 07/31 completed Not Available Not Available Not Available Ozempic 1 mg/dose (2 mg/1.5 mL) subcutane ous pen injector 10/07 completed 0 Record ed 05/01/20 23 7:26AM by Aiden Iqbal RN, Office Visit DO [facility] N_FLA Not Available Not Available Not Available BD Laila 2nd Gen Pen Needle 32 gauge x active Not Available Not Available Not Available OneTouch Delica Plus Lancet 33 gauge USE TO TEST BLOOD SUGAR DAILY 10/07 completed Not Available Not Available Not Available Rybelsus 7 mg tablet active Not Available Not Available Not Available Ozempic 1 mg/dose (4 mg/3 mL) subcutane ous pen injector 10/07 completed Not Available Not Available Not Available Ozempic 2 mg/dose (8 mg/3 mL) subcutane ous pen injector INJECT 2MG SUBCUTAN EOUSLY ONCE WEEKLY active Not Available Not Available No t Available Auvelity 45 mg-105 mg tablet, extended release 07/31 completed Not Available Not Available Not Available Vitals Date Recorded Heart rate Oxygen saturation Oxygen saturation in Arterial blood by Pulse oximetry Systolic And Diastolic Provider Name and Address Organization Details Last Updated DateTime 07/31/2023 67 /min 94 % 94 % 129/81 mm[Hg] [facility] 4 08:31:40 Date Recorded Body height Body mass index (BMI) Body weight Oxygen saturation Oxygen saturation in Arterial blood by Pulse oximetry Heart rate Systolic And Diastolic Provider Name and Address Organization Details Last Updated DateTime 4 165.1 cm 48.6 kg/m2 725712. 97 g 95 % 95 % 79 /min 163/118 mm[Hg] Daisy Medina [facility] 4 11:03:41 Date Recorded Body height Body mass index (BMI) Body weight Heart rate Oxygen saturation Oxygen saturation in Arterial blood by Pulse oximetry Systolic And Diastolic Provider Name and Address Organization Details Last Updated DateTime 4 165.1 cm 48.6 kg/m2 491046. 97 g 99 /min 94 % 94 % 110/80 mm[Hg] Tameka Jackson [facility] 09:23:54 Social History Question Answer Notes LastModified by Organizat ion Details LastModified Time Tobacco Smoking Status Current Every Day Smoker Cora Davies [facility] 07/31/2023 07:50:33 Do You Have An Advance Directive? No Information not available 10/08/2023 What Type Of Diet Are You Following? REGULAR [email or web address] Information not available 07/31/2023 Do You Have Knee Pain? Yes Information not available 07/31/2023 Have You Had A Knee Replacement? No Information no t available 07/31/2023 Is Your Knee Pain Being Treated By Someone Else? Yes Information not available 07/31/2023 Are You Interested In Consulting Us For Your Knee Pain? Yes Information not available 07/31/2023 Do You Have A Medical Power Of Crane Chaser? No Information not available 10/08/2023 What Was The Date Of Your Most Recent Tobacco Screening? 10/22/2023 [email or web address] Information not available 10/22/2023 What Is Your Relationship Status? [email or web address] Information not available 07/31/2023 How Much Tobacco Do You Smoke? 1 PPD [email or web address] Information not available 07/31/2023 How Many Years Have You Smoked Tobacco? 19 Information not available 10/08/2023 Sex: Female Functional Status Question Answer Note LastModified by Organizat ion Details LastModified Time How many times per week do you consume alcohol? Less than 1 time per week [email or web address] Information not available 10/22/2023 Do you use any illicit or recreational drugs? No [email or web address] Information not available 07/31/2023 What is your level of alcohol consumption? Occasional [email or web address] Information not available 07/31/2023 Are you currently employed? No [email or web address] Information not available 10/22/2023 Are you able to walk? YESWOREST Information not available 07/31/2023 What is your exercise level? None [email or web address] Information not available 07/31/2023 Mental Status None recorded. Family History Relationship Description Onset Age of this Age Resolved Age Notes LastModified by Organization Details LastModified Time Father Diabetes mellitus [email or web address] Not available 05/2024 07:48:13 Father Hypertensive disorder [email or web address] Not available 05/2024 07:49:22 Sister Diabetes mellitus [email or web address] Not available 05/2024 07:48:13 Sister Gastroesopha geal reflux disease [email or web address] Not available 05/2024 07:48:54 Paternal Grandfather Diabetes mellitus [email or web address] Not available 05/2024 07:48:13 Paternal Grandfather Heart disease [email or web address] Not available 05/2024 07:48:37 Mother Heart disease [email or web address] Not available 05/2024 07:48:37 Mother Hypertensive disorder [email or web address] Not available 05/2024 07:49:22 Mother Myocardial infarction [email or web address] Not available 07:49:36 Paternal Grandmother Heart disease Not available 05/2024 07:48:37 Medical History Condition Response Diabetes Y Coronary Artery Disease Y CHF Y Hypertension Y Kidney Disease Y Gynecological HistoryNo gynecological history recorded. Obstetrics History GPAL:G 0 P 0 0 0 0 Past Encounters Encounter ID Performer Location Encounter Start Date Encounter Closed Date Diagnosis/Indication Diagnosis SNOMED-CT Code Diagnosis ICD10 Code Diagnosis Note [id number] MD Winnie Dailey [address] [place] [place] [id number] 07/31/2023 08:08:15 07/31/2023 08:46:57 Pain of knee region 6255033053 M25.569 Bilateral osteoarthritis of knees 8882239626 95763 M17.0 Chronic pain syndrome 37 5074977 G89.4 Long-term drug therapy 705352266 Z79.993 [id number] MD Winnie Dailey [address] [place] [address] 10/08/2023 10:47:09 10/08/2023 11:44:39 Pain of joint of knee 7776511024 M25.569 Bilateral osteoarthritis of knees 2526528386 06903 M17.0 History of operative procedure on knee 158744502 Z98.890 Pain of knee region 1003 402558 M25.569 Chronic pain syndrome 37 3343546 G89.4 Long-term drug therapy 205016418 Z79.899 Send for LCMS confirmati on of Gabapentin to confirm the quantitati ve level of this drug and its metabolite as it will not be detected in qualitativ e screen and the patient is currently prescribed Gabapentin . [id number] Glo Leiva APRN Winnie Camacho [address] [place], [place] [address] 10/22/2023 09:06:20 10/22/2023 09:41:24 Pain of joint of knee 2810894974 M25.569 Bilateral osteoarthritis of knees 8920709764 08619 M17.0 History of operative procedure on knee 343213519 Z98.890 Pain of knee region 1003 409265 M25.569 Chronic pain syndrome 37 1595533 G89.4 Long-term drug therapy 792506450 Z79.899 The patient's overall risk level will remain the same. I would consider the patient to be Moderate risk based on these new results. In response to the patient's risk level and urine confirmati on I plan to decrease the patient's opioid prescripti on as were are just managing her during the post op phase. A prescripti on for opioids was prescribed today given the failure of more conservati ve treatment options. The risks, benefits, and alternativ es were discussed in detail with the patient. Goals of improved activity and analgesia will continue to be monitored in subsequent encounters . There is no evidence of addiction or aberrancy to date. Health Concerns Section Related Observation LastModified by Organization Detai ls LastModified Time None Recorded Concern Status LastModified by Organization Details LastModified Time None Recorded Advance Directives Directive N: Payers Insurance Date Sequence Insurance Name Policy Number Policy Sandhu Covered Member ID Sandhu Member ID Guarantor Name 11/01/2023 1 [facility] (MEDICAID HMO) Tegan Wolf [id number] Tegan Wolf Notes Date Note Type Note Provider Name and Address Organization Details Recorded Time 07/31/2023 text/html KneeReported bypatient.Location:b ilateral Quality:aching; sharp; dull; worsening; not changing Severity:severe; pain level 8/10; worst pain 10/10 Duration:continuous since onset; As far back as I can remember. Timing:chronic Context:cannot identify Alleviating Factors:pain medication Aggravating Factors:standing; walking; going from sit to stand; upstairs Associated Symptoms:no tingling; no swelling; no redness; no warmth; no ecchymosis; no popping/clicking; no buckling; no grinding; no instability; no radiation down leg; no drainage; no fever; no weight loss;weakness;numbne ss;catching/locking Previous Surgery:none Previous Injections:helped temporarily; Pt has had knee injections in the past but does not recieve alf relief Medication History:Neuropathics :; Pt recieved bridge rx of Gabapentin and states she has #1 pill left at home Work Related:no Mindi Fuller MD [address] [place], [address], [facility] 07/31/2023 13:17:25 10/08/2023 text/html KneeReported bypatient.Location:b ilateral Quality:aching; sharp; dull; worsening; not changing Severity:severe; pain level 4/10; worst pain 10/10 Duration:continuous since onset; As far back as I can remember. Timing:chronic Context:cannot identify Alleviating Factors:pain medication Aggravating Factors:standing; walking; going from sit to stand; upstairs Associated Symptoms:no swelling; no redness; no warmth; no ecchymosis; no popping/clicking; no buckling; no grinding; no instability; no radiation down leg; no drainage; no fever; no weight loss;weakness;numbne ss;tingling;catching /locking Previous Surgery:none Previous Injections:helped temporarily; Pt has had knee injections in the past but does not recieve long term care administrator relief Previous PT:orthopedic plus Medication History:Neuropathics :; Gabapentin- PT is out of them; last dose yesterday morning Work Related:no Mindi Fuller MD [address] [place], [address], [facility] 10/09/2023 18:34:55 10/22/2023 text/html Follow-up (meds & injections)Reported bypatient.Improvemen t:Pain is the same as compared to last visit. Pain Scores:Average pain- 10/10; Current pain- 10/10; Worst pain- 10/10 Current Analgesics:Opioids- oxycodone (1 time script due to surgery); Other adjunct medications- gabapentin (600mg FD 10/09/23) Adverse Reactions:No nausea.; No vomiting.; No constipation.; No itching.; No respiratory depression.; No sexual dysfunction. 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 Quality:aching; sharp; dull; worsening; not changing Severity:severe; pain level 4/10; worst pain 10/10 Duration:continuous since onset; As far back as I can remember. Timing:chronic Context:cannot identify Alleviating Factors:pain medication Aggravating Factors:standing; walking; going from sit to stand; upstairs Associated Symptoms:no swelling; no redness; no warmth; no ecchymosis; no popping/clicking; no buckling; no grinding; no instability; no radiation down leg; no drainage; no fever; no weight loss;weakness;numbne ss;tingling;catching /locking Previous Surgery:surgical procedure: (total knee replacement b/l) Prior Imaging:CT scan (10/09/23 @ [facility]) Previous Injections:helped temporarily; Pt has had knee injections in the past but does not recieve alf relief Previous PT:orthopedic plus Medication History:Neuropathics : (gabapentin - effective); Opioid pain medications: (oxycodone - effective) Work Related:no Working:no Oxycodone/APAP 5/325mg PO Q6H PRN pain for 10 daysGabapentin 300mg PO TIDWill not need f/u appointment lGo Leiva APRN [address] [place], [address], [facility] 10/22/2023 12:06:52 OBGyn Episode No OBEpisode recorded.
--- OUTSIDE RECORDS SUMMARY | 2025-01-30 12:33 | XMS_ITS | Clinical Summary ---
Author Organization [facility] Address [address] [place] [address] Care Team Providers Care Instructor Modeling Name Role Phone Marcy Valle FREIGHT CLERK - CLOTH FINISHER Primary Care P rovider Allergies Active Allergy Reactions Criticality Noted Date Comments Azithromycin Hives 09/17/2016 Nitrofurantoin Monohyd Macro Hives 017 Macrolides And Ketolides Rash High 01/30/2012 Nabumetone Hives 09/17/2016 Penicillins 06/16/2018 Medications meloxicam (MOBIC) 7.5 MG tabletIndications :Contusion of left knee, initial encounter Take 1 tablet by mouth daily 30 tablet 2 9 Active albuterol sulfate HFA (PROAIR HFA) 108 (90 Base) MCG/ACT inhaler Inhale 2 puffs into the lungs every 6 hours as needed for Wheezing 1 Inhaler 3 9 Active amLODIPine (NORVASC) 10 MG tabletIndications :Essential hypertension Take 1 tablet by mouth daily 30 tablet 1 9 Active lisinopril (PRINIVIL;ZESTRIL ) 10 MG tabletIndications :Essential hypertension Take 1 tablet by mouth daily 30 tablet 5 9 Active DULoxetine (CYMBALTA) 30 MG extended release capsuleIndication s:Anxiety and depression,Fibrom yalgia Take 1 capsule by mouth daily 30 capsule 5 9 Active busPIRone (BUSPAR) 5 MG tabletIndications :Anxiety and depression Take 1 tablet by mouth 3 times daily as needed (anxiety) 90 tablet 1 9 Active Active Problems Patient Care Coordination No te Formatting of this note migh t be different from the original. [facility] 09/02/2018 Problem Noted Date Diagnosed Date Anxiety and depression 09/02/2018 Fibromyalgia 09/02/2018 Former smoker 09/02/2018 Morbid obesity with BMI of 45.0-49.9, adult 05/22 Essential hypertension 06/16/2018 Snoring 06/16/2018 Primary osteoarthritis of right knee 10/14/2017 Resolved Problems Problem Noted Date Diagnosed Date Resolved Date Chronic GERD 06/16/2018 09/02/2018 Class 3 obesity due to exces s calories without serious comorbidity with body mass index (BMI) of 40.0 to 44.9 in adult 10/14/2017 Immunizations Immunization Administration Dates Next Due Influenza 04/09/2018 Influenza Virus Vaccine 04/20/2018 Pneumococcal, PPSV23, PNEUMO VAX 23, (age 2y+), SC/IM, 0.5mL 06/18/2018 TDaP, ADACEL (age 10y-64y), BOOSTRIX (age 10y+), IM, 0.5mL 07/21/2018 Family History Medical History Relation Name Comments Arthritis Father Asthma Father Cancer Father Hypertension Father Mental Illness Father Arthritis Mother Hypertension Mother Cancer Paternal Grandmother Diabetes Sister 1 Mental Illness Sister 1 Mental Illness Sister 2 Relation Name Status Comments Father (Age 53) Mother (Age 53) Paternal Grandmother Sister 1 Sister 2 Social History Tobacco Use Types Packs/Day Years Used Date Smoking Tobacco: Former Cigarettes 1 25 1 08/31/1992 - 06/30/2018 E-Cigarettes Smokeless Tobacco: Never Tobacco Cessation:Counseling Given: Yes Alcohol Use Standard Drinks/Week Comments No 0 (1 standard drink = 0.6 oz pur e alcohol) PHQ-2 Answer Date Recorded PHQ-2 Score 0 10/20/2018 Comments No Sex and Gender Information Value Date Recorded Sex Assigned at Not on file Legal Sex Female 8:49 AM EST Gender Identity Not on file Sexual Orientation Not on file Last Filed Vital Signs Vital Sign Reading Time Taken Comments Blood Pressure 152/110 09/02/2018 7:43 AM EST Pulse 83 09/02/2018 6:53 AM EST Temperature 36.8 C (98.2 F) 08/26/2018 9:24 PM EST Respiratory Rate 14 08/26/2018 10:41 PM EST Oxygen Saturation 96% 09/02/2018 6:53 AM EST Inhaled Oxygen Concentration - - Weight 135.2 kg (298 lb) 09/02/2018 6:53 AM EST Height 167.6 cm (5' 6 ) 09/02/2018 6:53 AM EST Body Mass Index 48.1 09/02/2018 6:53 AM EST Plan of Treatment Not on file Insurance [employer] Care Teams Instructor Modeling Relationship Specialty Start Date End Date Marcy Valle APRN - CNP [address] [phone] PCP - General Nurse Practitioner, Family 09/02/18
[2025-01-30 12:37] LABS: Hematocrit 43.9 % (37.0-47.0); Hemoglobin 14.3 g/dL (12.2-16.2); Immature Granulocytes % 0.6 %; Mean Corpuscular HGB Conc 32.6 g/dL (31.8-35.4); Mean Corpuscular Hemoglobin 32.4 pg (27.0-31.2); Mean Corpuscular Volume 99.3 fl (81-99); Nucleated Red Blood Cells % 0 %; Platelet Count 199 K/mm3 (142-424); Red Blood Count 4.42 M/mm3 (4.20-5.40); Red Cell Distribution Width-SD 59.9 fL; White Blood Count 11.7 K/mm3 (4.8-10.8)
[2025-01-30 12:41] LABS: Albumin Level 3.9 g/dl (3.5-5.0); Chloride 105 mmol/L (98-107); Sodium 141 mmol/L (136-145)
[2025-01-30 12:42] LABS: Potassium 3.6 mmoL/L (3.5-5.1)
[2025-01-30 12:44] LABS: Alanine Aminotransferase 35 U/L (12-78); Albumin/Globulin Ratio 1.3 (1.1-1.8); Alkaline Phosphatase 76 U/L (38-126); Anion Gap 12.6 mEq/L (5-15); Aspartate Amino Transferase 31 U/L (14-36); Bilirubin,Total 1.0 mg/dl (0.2-1.3); Blood Urea Nitrogen 18 mg/dl (7-17); Calcium 8.7 mg/dl (8.4-10.2); Carbon Dioxide 27 mmol/L (22.0-30.0); Creatinine Clearance Estimated 53 mL/min (50-200); Creatinine,Serum 1.20 mg/dl (0.52-1.04); Estimated Glomerular Filt Rate 48 ml/min (>60); GFR (African American) 59 ML/MIN (>60); Globulin 2.9 g/dL (1.3-3.2); Glucose 89 mg/dl (74-100); Total Protein,Serum 6.8 g/dl (6.3-8.2)
[2025-01-30] MEDS: DEXAMETHASONE 4MG/ML 5ML MDV 10 MG IV (12:46)
[2025-01-30] MEDS: IPRATROPIUM/ALBUTEROL 3 ML NEB 9 ML IH (12:47)
[2025-01-30 12:53] LABS: NT Pro Brain Natriuretic Pep. 217 pg/mL (0-125)
[2025-01-30 13:00] VITALS: BP 163/92; PULSE 63; O2SAT 95
[2025-01-30 14:13] VITALS: BP 159/102; PULSE 67; RESP 20; TEMP 36.9; O2SAT 97
== END 2025-01-30 14:16 | disposition home or self-care (01) ==
PROVIDERS: Physician Assistant; Emergency Provider Emergency Medicine; PCP Pediatrics
DX: J44.1 Chronic obstructive pulmonary disease with (acute) exacerbation (principal); F17.210 Nicotine dependence, cigarettes, uncomplicated
CPT/HCPCS: 71046; 80053; 83880; 85025; 93005; 96374; 99285; J1100